=== PATIENT | female | born 1955 | race African-American/Black ===

== ENCOUNTER 2021-11-05 12:33 | Outpatient (REF) | payer OTHER, SELFPAY ==
--- NOTE | ~2021-11-05 | XR_ITS ---
EXAMINATION: BILATERAL KNEE. CLINICAL INFORMATION: Pain. COMPARISON: None TECHNIQUE: 2 views each knee, weightbearing. FINDINGS: LEFT KNEE: There is loss of tricompartment joint space with moderate periarticular spurring. No fracture or dislocation. No joint effusion seen are limited due to patient's body habitus.. There is a small bone fragment adjacent to the medial tibial plateau question fracture fragment of indeterminate age or loose body. RIGHT KNEE: There is severe loss of tricompartment joint space with moderate periarticular spurring. No joint effusion seen however limited due to patient's body habitus. There is a small bone fragment lateral to the femoral condyle question loose bodies versus old fracture. XR/XR knee LT 2V IMPRESSION: Severe degenerative arthritic changes bilateral knee joints as described above with periapical spurring but no abnormal suprapatellar joint effusion. Suspect bilateral knee with loose bodies or old fracture fragments.
--- NOTE | ~2021-11-05 | XR_ITS ---
EXAMINATION: BILATERAL KNEE. CLINICAL INFORMATION: Pain. COMPARISON: None TECHNIQUE: 2 views each knee, weightbearing. FINDINGS: LEFT KNEE: There is loss of tricompartment joint space with moderate periarticular spurring. No fracture or dislocation. No joint effusion seen are limited due to patient's body habitus.. There is a small bone fragment adjacent to the medial tibial plateau question fracture fragment of indeterminate age or loose body. RIGHT KNEE: There is severe loss of tricompartment joint space with moderate periarticular spurring. No joint effusion seen however limited due to patient's body habitus. There is a small bone fragment lateral to the femoral condyle question loose bodies versus old fracture. XR/XR knee RT 2V IMPRESSION: Severe degenerative arthritic changes bilateral knee joints as described above with periapical spurring but no abnormal suprapatellar joint effusion. Suspect bilateral knee with loose bodies or old fracture fragments.
[2021-11-05 13:12] LABS: Hematocrit 38.7 % (37.0-47.0); Hemoglobin 11.9 g/dl (12.0-16.0); Mean Corpuscular HGB Conc 30.7 g/dl (31.0-35.0); Mean Corpuscular Hemoglobin 28.6 pg (27.0-33.0); Mean Platelet Volume 11.7 fL (9.4-12.3); Platelet Count 183 X10*3/uL (160-400); Red Blood Count 4.16 X10*6/uL (4.20-5.50); Red Cell Distribution Width 12.3 % (11.0-16.0); White Blood Count 5.2 X10*3/uL (4.8-10.8)
[2021-11-05 13:44] LABS: Alanine Aminotransferase 13 U/L (0-31); Albumin Level 3.8 g/dL (3.5-5.0); Alkaline Phosphatase 51 U/L (39-117); Anion Gap 9 (12-20); Aspartate Amino Transferase 16 U/L (5-31); Bilirubin Total 0.7 mg/dL (0.0-1.0); Blood Urea Nitrogen 12 mg/dL (9-16); Calcium 9.4 mg/dL (8.4-10.2); Carbon Dioxide 31 mmol/L (22-29); Chloride 105 mmol/L (96-108); Estimated Glomerular Filt Rate > 60; Glucose Random 92 mg/dL (60-115); Potassium 4.2 mmol/L (3.3-5.1); Sodium 141 mmol/L (135-145); Total Protein 7.2 g/dL (6.5-8.0)
[2021-11-05 13:53] LABS: Appearance Urine CLEAR; Color Urine YELLOW; Glucose Urine UA NEG (NEG); Leukocyte Esterase Urine NEG (NEG); Nitrite Urine NEG (NEG); Urine Blood NEG (NEG); Urine Ketones NEG (NEG); Urine Protein NEG (NEG-TRACE)
== END 2021-11-05 12:34 | disposition home or self-care (01) ==
LOC: HO.XRAY 12:33
PROVIDERS: PCP Internal Medicine; Visit Provider Nurse Practitioner Family
DX: R10.2 Pelvic and perineal pain (principal); R10.30 Lower abdominal pain, unspecified; I10 Essential (primary) hypertension; G89.29 Other chronic pain; M25.561 Pain in right knee; M25.562 Pain in left knee
CPT/HCPCS: 36415; 73560; 80053; 81003; 85027

== ENCOUNTER 2021-11-30 13:45 | Outpatient (REF) | payer OTHER, SELFPAY ==
--- NOTE | ~2021-11-30 | US_ITS ---
EXAMINATION: US ABDOMEN COMPLETE CLINICAL INFORMATION: Pelvic and perineal pain, left lower quadrant pain. COMPARISON: None TECHNIQUE: Real-time imaging of the abdominal viscera. FINDINGS: PANCREAS: Normal. ABDOMINAL AORTA: The proximal, mid, and distal segments are normal in caliber. INFERIOR VENA CAVA: Visualized portions are normal. LIVER: Normal. The liver is normal in size. The liver contour is normal. Parenchymal echogenicity is normal. No focal hepatic lesion. There is no intrahepatic biliary duct dilatation seen. GALLBLADDER: Normal. The gallbladder is physiologically distended without evidence of stones, sludge, polyps, wall thickening or pericholecystic fluid. COMMON BILE DUCT: Normal in caliber measuring 0.23 cm in diameter. RIGHT KIDNEY: There is right renal cortical thinning. No stone or hydronephrosis. The kidney measures 13.6 cm in maximum dimension. LEFT KIDNEY: There is left renal cortical thinning. There is question of mild left hydronephrosis. The kidney measures 12.3 cm in maximum dimension. SPLEEN: Normal. The spleen measures 9.7 cm in maximum dimension. FREE FLUID: None. There are 2 adjacent complex cysts or fluid collections just deep to the the umbilicus. These measure 3.5 x 1.8 x 4.1 cm and 1.3 x 0.7 x 1.1 cm. The larger lesion demonstrates area of wall thickening and question mural nodule without vascularity. Possible urachal cyst or urachal remnant should be considered. Differential would include postoperative fluid collection if the patient had surgery in this region. Abscess cannot be excluded as well. Follow-up CT of the abdomen and pelvis for better evaluation is recommended. US/US abdomen complete IMPRESSION: Bilateral renal cortical thinning. Question mild left hydronephrosis. 2 complex cysts just deep to the umbilicus. Possible urachal remnant/ cyst should be considered. Differential would include postoperative fluid collection if the patient has had surgery in this region or abscess. Follow-up CT of the abdomen and pelvis with IV contrast recommended. Findings will be communicated by the [place] work flow computer systems integrator.
--- NOTE | ~2021-11-30 | US_ITS ---
EXAMINATION: US PELVIS CLINICAL INFORMATION: Pelvic and perineal pain COMPARISON: None TECHNIQUE: Ultrasound of the pelvis is performed using both transabdominal and transvaginal transducers along with Doppler. Transvaginal imaging is performed due to inadequate visualization transabdominally. FINDINGS: The uterus is anteverted. Uterus appears elongated and is difficult to visualize. Uterus measures 10.2 x 6.4 x 7.1 cm in dimension. There are 2 echogenic lesions suggestive of calcified fibroids measuring 2 x 1.9 x 2 cm in the posterior uterine body and 2 x 1.4 x 3 cm in the anterior uterine body. The endometrium is not well visualized. The cervix appears unremarkable. The ovaries are seen transabdominally only. The ovaries appear normal. The right ovary measures 2 x 1.9 x 2 cm. Left ovary measures 3.5 x 1.7 x 2.7 cm. There is no fluid in the pelvis. US/US pelvic and transvaginal IMPRESSION: Limited exam. 2. 2 cm calcified uterine lesions probably representing fibroids. Endometrium not well visualized. Normal-appearing ovaries.
== END 2021-11-30 13:46 | disposition home or self-care (01) ==
LOC: HO.HMGCX 13:45
PROVIDERS: PCP Internal Medicine; Visit Provider Nurse Practitioner Family
DX: R10.2 Pelvic and perineal pain (principal); R10.30 Lower abdominal pain, unspecified
CPT/HCPCS: 76700; 76830; 76856

== ENCOUNTER → 2021-12-31 14:40 | Outpatient (BNVA) | payer OTHER, SELFPAY | PROVIDERS: PCP Internal Medicine; Visit Provider Physician Assistant | DX: M17.0 Bilateral primary osteoarthritis of knee (principal) | CPT/HCPCS: 20610; 99202; J1040 ==

== ENCOUNTER → 2022-01-19 11:02 | Outpatient (BNVA) | payer OTHER, SELFPAY | PROVIDERS: PCP Internal Medicine; Visit Provider Physician Assistant | DX: Z01.818 Encounter for other preprocedural examination (principal); Z80.0 Family history of malignant neoplasm of digestive organs | CPT/HCPCS: 99202 ==

== ENCOUNTER 2022-01-25 13:17 | Outpatient (REF) | payer OTHER, SELFPAY | END 2022-01-25 13:18 | disposition home or self-care (01) | LOC: HO.LAB 13:17 | PROVIDERS: Visit Provider Obstetrics & Gynecology | DX: N95.0 Postmenopausal bleeding (principal); R10.2 Pelvic and perineal pain; D21.9 Benign neoplasm of connective and other soft tissue, unspecified; I10 Essential (primary) hypertension; E66.01 Morbid (severe) obesity due to excess calories; Z68.43 Body mass index [BMI] 50.0-59.9, adult | CPT/HCPCS: 58100; 87086; 88305; 99212 ==

== ENCOUNTER 2022-02-17 11:07 | Outpatient (REF) | payer OTHER, SELFPAY ==
--- NOTE | ~2022-02-17 | US_ITS ---
EXAMINATION: US PELVIS CLINICAL INFORMATION: Fibroids COMPARISON: None TECHNIQUE: Ultrasound of the pelvis is performed using both transabdominal and transvaginal transducers along with Doppler. Transvaginal imaging is performed due to inadequate visualization transabdominally. FINDINGS: Exam is limited due to patient body habitus. The uterus is anteverted and measures 9 x 6.4 x 7.5 cm in dimension. The endometrium appears thickened for a postmenopausal patient measuring 1.1 cm. There are 2 focal uterine lesions suggestive of fibroids measuring 2.4 x 2.1 x 2.4 cm in the posterior uterine body and 2.9 x 2.8 x 3 cm in the anterior uterine body. Right ovary is normal and measures 2 x 2 x 2 cm. The left ovary is not seen. There is a small amount of fluid in the pelvis. There is a complex fluid collection or cyst just deep to the umbilicus. This measures 2 x 3 x 3 cm. Appearance is questionable for a urachal cyst. US/US pelvic and transvaginal IMPRESSION: Limited exam. Thickened endometrium for a postmenopausal patient measuring 1.1 cm. 2 uterine fibroids. Normal-appearing right ovary. Left ovary not seen. Complex cyst or fluid collection just deep to the umbilicus questionable for a urachal lesion. This could be better assessed with CT or MR.
== END 2022-02-17 11:08 | disposition home or self-care (01) ==
LOC: HO.US 11:07
PROVIDERS: Visit Provider Obstetrics & Gynecology
DX: D21.9 Benign neoplasm of connective and other soft tissue, unspecified (principal)
CPT/HCPCS: 76830; 76856

== ENCOUNTER → 2022-03-03 10:55 | Outpatient (BNVA) | payer OTHER, SELFPAY | PROVIDERS: Visit Provider Obstetrics & Gynecology | DX: R31.29 Other microscopic hematuria (principal); N95.0 Postmenopausal bleeding; D21.9 Benign neoplasm of connective and other soft tissue, unspecified | CPT/HCPCS: 99212 ==

== ENCOUNTER → 2022-04-23 11:18 | Outpatient (BNVA) | payer OTHER, SELFPAY | PROVIDERS: PCP Internal Medicine; Visit Provider Surgery | DX: R31.29 Other microscopic hematuria (principal); D21.9 Benign neoplasm of connective and other soft tissue, unspecified; I10 Essential (primary) hypertension; E66.01 Morbid (severe) obesity due to excess calories; Z68.43 Body mass index [BMI] 50.0-59.9, adult; Q64.4 Malformation of urachus; Z99.89 Dependence on other enabling machines and devices | CPT/HCPCS: 99202 ==

== ENCOUNTER 2022-04-29 11:21 | Outpatient (REF) | payer OTHER, SELFPAY ==
[2022-04-29 16:50] LABS: Urine Cytology See Pathology rpt
== END 2022-04-29 11:22 | disposition home or self-care (01) ==
LOC: HO.LAB 11:21
DX: R31.29 Other microscopic hematuria (principal)
CPT/HCPCS: 88112; 99202

== ENCOUNTER → 2022-05-18 13:43 | Outpatient (BNVA) | payer OTHER, SELFPAY | PROVIDERS: PCP Internal Medicine | DX: R31.29 Other microscopic hematuria (principal) | CPT/HCPCS: Q3014 ==

== ENCOUNTER → 2022-05-24 09:49 | Outpatient (BNVA) | payer OTHER, SELFPAY | PROVIDERS: PCP Internal Medicine; Visit Provider Physician Assistant | DX: M17.0 Bilateral primary osteoarthritis of knee (principal) | CPT/HCPCS: 20610; 99212; J1040 ==

== ENCOUNTER 2022-07-23 10:57 | Outpatient (REF) | payer OTHER, SELFPAY ==
[2022-07-23 11:34] LABS: MANUAL DIFF FLAG NO
[2022-07-23 12:27] LABS: Eosinophils Absolute Auto 0.1 X10*3/uL (0.0-0.4); Hematocrit 37.8 % (37.0-47.0); Hemoglobin 11.9 g/dl (12.0-16.0); Imm Gran Abs Auto 0.01 X10*3/uL (0.00-0.03); Imm Gran Pct Auto 0.2 % (0.0-0.4); Lymphocytes Absolute Auto 1.4 X10*3/uL (1.2-4.9); Lymphocytes Percent Auto 33.7 % (20-40); Mean Corpuscular HGB Conc 31.5 g/dl (31.0-35.0); Mean Corpuscular Hemoglobin 28.9 pg (27.0-33.0); Mean Corpuscular Volume 91.7 fL (80.0-98.0); Mean Platelet Volume 11.3 fL (9.4-12.3); Monocytes Absolute Auto 0.4 X10*3/uL (0.1-1.2); Monocytes Percent Auto 10.4 % (2-11); Neutrophils Absolute Auto 2.1 x10*3/uL (2.0-8.3); Neutrophils Percent Auto 52.7 % (45-73); Platelet Count 257 X10*3/uL (160-400); Red Blood Count 4.12 X10*6/uL (4.20-5.50); Red Cell Distribution Width 11.7 % (11.0-16.0)
[2022-07-23 12:51] LABS: Alanine Aminotransferase 9 U/L (0-31); Alkaline Phosphatase 57 U/L (39-117); Anion Gap 15 (12-20); Aspartate Amino Transferase 15 U/L (5-31); Bilirubin Total 0.6 mg/dL (0.0-1.0); Blood Urea Nitrogen 14 mg/dL (9-16); Calcium 9.5 mg/dL (8.4-10.2); Carbon Dioxide 24 mmol/L (22-29); Chloride 105 mmol/L (96-108); Cholesterol 247 mg/dL; Estimated Glomerular Filt Rate > 60; Glucose Fasting 83 mg/dL (60-99); HDL Cholesterol 52 mg/dL; LDL Cholesterol Calculated 183 mg/dl; Potassium 4.2 mmol/L (3.3-5.1); Sodium 140 mmol/L (135-145); Total Protein 7.3 g/dL (6.5-8.0); Triglycerides 64 mg/dL
[2022-07-23 13:04] LABS: Thyroid Stimulating Hormone 2.86 uIU/mL (0.32-4.0)
== END 2022-07-23 10:58 | disposition home or self-care (01) ==
LOC: HO.LAB 10:57
PROVIDERS: PCP Internal Medicine; Visit Provider Internal Medicine
DX: I10 Essential (primary) hypertension (principal); E66.01 Morbid (severe) obesity due to excess calories
CPT/HCPCS: 36415; 80053; 80061; 84443; 85025

== ENCOUNTER 2022-07-26 09:07 | Outpatient (REF) | payer OTHER, SELFPAY ==
--- NOTE | ~2022-07-26 | CT_ITS ---
EXAMINATION: CT ABDOMEN AND PELVIS WITH CONTRAST CLINICAL INFORMATION: Malformation of urachus COMPARISON: None TECHNIQUE: Multidetector volumetric images were obtained from the superior aspect of the liver through the pubic symphysis following administration 85 mL of Omnipaque 350 intravenous contrast. Sagittal and coronal reformatted images were obtained on the technologist's workstation. Oral contrast: No This CT examination was performed using dose optimization techniques as appropriate, variously including the following: *Automated exposure control *Adjustment of mA and/or kV according to patient size (this includes techniques or standardized protocols for targeted exams where dose is matched to indication/reason for exam; i.e. extremities or head) *Use of iterative reconstruction technique DLP: 689 mGy-cm FINDINGS: LUNG BASES: The visualized lung bases are unremarkable. LIVER, GALLBLADDER, AND BILIARY TREE: The liver is normal in size, shape, and attenuation. No focal hepatic lesion or biliary ductal dilatation is present. The gallbladder is unremarkable with no evidence of radiopaque gallstones, gallbladder wall thickening, or obvious pericholecystic inflammatory changes. PANCREAS: Unremarkable. SPLEEN: Unremarkable. ADRENAL GLANDS: Unremarkable. KIDNEYS AND URETERS: The kidneys are normal in size, shape, and attenuation. No hydronephrosis, hydroureter, or calculi seen. No perinephric stranding. BLADDER: Unremarkable. GASTROINTESTINAL TRACT: The small and large bowel are unremarkable. The appendix is unremarkable. ABDOMINAL WALL: There is heterogeneous fat and fluid collection in part umbilical hernia measured 7.8 x 7.2 x 7.1 cm. There is no evidence of urachal sinus, cyst or masses. LYMPH NODES: Normal. VASCULAR: Unremarkable. PELVIC VISCERA: Leiomyomatous in the uterus visualized partially calcified. OSSEOUS STRUCTURES: There are degenerative changes in lower thoracic spine and grade 1 anterior listhesis of L4 over L5. CT/CT abdomen pelvis w IV con IMPRESSION: Large fat and fluid containing paraumbilical hernia. Leiomyomatous of uterus Fleischner guidelines were followed.
[2022-07-26] MEDS: iohexoL 350 MG/ML 100 ML INFUS..BTL IV (12:03)
[2022-07-26] MEDS: Barium Sulfate Oral (Vanilla) 450 ML ORAL.SUSP 900 ML PO (12:04)
== END 2022-07-26 09:08 | disposition home or self-care (01) ==
LOC: HO.CT 09:07
PROVIDERS: Visit Provider Internal Medicine
DX: Q64.4 Malformation of urachus (principal)
CPT/HCPCS: 74177; Q9967

== ENCOUNTER → 2022-08-02 13:22 | Outpatient (BNVA) | payer OTHER, SELFPAY | PROVIDERS: PCP Internal Medicine; Referring Provider Internal Medicine; Visit Provider Surgery | DX: K42.9 Umbilical hernia without obstruction or gangrene (principal); E66.01 Morbid (severe) obesity due to excess calories; I10 Essential (primary) hypertension; M25.561 Pain in right knee; M25.562 Pain in left knee; G89.29 Other chronic pain; Z99.89 Dependence on other enabling machines and devices | CPT/HCPCS: 99212 ==

== ENCOUNTER → 2022-08-10 11:02 | Outpatient (BNVA) | payer OTHER, SELFPAY | PROVIDERS: PCP Internal Medicine; Referring Provider Surgery; Visit Provider Dietitian, Registered | DX: E66.9 Obesity, unspecified (principal) | CPT/HCPCS: 97802 ==

== ENCOUNTER 2022-08-11 11:57 | Outpatient (REF) | payer OTHER, SELFPAY ==
--- NOTE | ~2022-08-11 | MM_ITS ---
EXAMINATION: MM SCREENING DIGITAL BREAST TOMOSYNTHESIS, BILATERAL CLINICAL INFORMATION: Screening. Asymptomatic. Age 66. No prior breast imaging. No known family history breast cancer. COMPARISON: None (current study represents initial baseline exam). TECHNIQUE: Digital breast tomosynthesis is performed in both the craniocaudal and mediolateral oblique views along with computer-aided detection (CAD). Synthesized 2D images are generated from the tomosynthesis. Additional bilateral MLO views are provided. FINDINGS: There are scattered areas of fibroglandular density (ACR BI-RADS breast composition Category b). There is fine fibronodular parenchymal pattern. No significant mass or architectural abnormality. There are scattered bilateral round and some rim and ductal secretory calcifications. The axilla and skin contours are unremarkable. Probable benign loosely grouped calcifications mid central left breast are present. Probable benign loosely grouped calcifications are also present mid central right breast. As this represents initial baseline exam, patient will be recalled to fully characterize with additional magnification views. MM/MM tomosynthesis screening BI IMPRESSION: -Loosely grouped calcifications mid central left breast and mid central right breast. ASSESSMENT: BI-RADS 0: Incomplete - Need Additional Imaging Evaluation RECOMMENDATION: 1. Additional views of the breasts (bilateral magnification CC; bilateral magnification ML). 2. Radiology department staff will contact the patient for additional imaging. This patient's information was entered into a reminder system with a target due date for their next mammogram.
[2022-08-11 12:49] LABS: MANUAL DIFF FLAG NO
[2022-08-11 13:13] LABS: Basophils Percent Auto 0.8 % (0-2); Eosinophils Absolute Auto 0.1 X10*3/uL (0.0-0.4); Eosinophils Percent Auto 1.4 % (0-4); Hematocrit 39.6 % (37.0-47.0); Hemoglobin 12.2 g/dl (12.0-16.0); Lymphocytes Percent Auto 27.8 % (20-40); Mean Corpuscular HGB Conc 30.8 g/dl (31.0-35.0); Mean Corpuscular Hemoglobin 28.6 pg (27.0-33.0); Mean Platelet Volume 10.9 fL (9.4-12.3); Monocytes Absolute Auto 0.3 X10*3/uL (0.1-1.2); Monocytes Percent Auto 8.6 % (2-11); Neutrophils Absolute Auto 2.2 x10*3/uL (2.0-8.3); Neutrophils Percent Auto 61.4 % (45-73); Platelet Count 251 X10*3/uL (160-400); Red Blood Count 4.26 X10*6/uL (4.20-5.50); Red Cell Distribution Width 11.6 % (11.0-16.0); White Blood Count 3.6 X10*3/uL (4.8-10.8)
[2022-08-11 13:21] LABS: Estimated Average Glucose 80 mg/dL; Hemoglobin A1c % 4.4 %
[2022-08-11 13:35] LABS: Alanine Aminotransferase 12 U/L (0-31); Albumin Level 4.2 g/dL (3.5-5.0); Alkaline Phosphatase 58 U/L (39-117); Anion Gap 15 (12-20); Aspartate Amino Transferase 14 U/L (5-31); Bilirubin Total 0.7 mg/dL (0.0-1.0); Blood Urea Nitrogen 12 mg/dL (9-16); Calcium 9.9 mg/dL (8.4-10.2); Carbon Dioxide 29 mmol/L (22-29); Chloride 102 mmol/L (96-108); Estimated Glomerular Filt Rate > 60; Glucose Random 103 mg/dL (60-115); Potassium 4.7 mmol/L (3.3-5.1); Sodium 141 mmol/L (135-145); Total Protein 7.7 g/dL (6.5-8.0)
== END 2022-08-11 11:58 | disposition home or self-care (01) ==
LOC: HO.MAMMO 11:57
PROVIDERS: Absent Provider Surgery; PCP Internal Medicine; Visit Provider Internal Medicine
DX: K42.9 Umbilical hernia without obstruction or gangrene (principal); E66.01 Morbid (severe) obesity due to excess calories; I10 Essential (primary) hypertension; M25.561 Pain in right knee; M25.562 Pain in left knee; G89.29 Other chronic pain; Z12.31 Encounter for screening mammogram for malignant neoplasm of breast; Z99.89 Dependence on other enabling machines and devices; L08.82 Omphalitis not of newborn
CPT/HCPCS: 36415; 77063; 77067; 80053; 83036; 84134; 85025

== ENCOUNTER → 2022-08-16 10:41 | Outpatient (BNVA) | payer OTHER, SELFPAY | PROVIDERS: PCP Internal Medicine; Referring Provider Internal Medicine; Visit Provider Surgery | DX: K42.9 Umbilical hernia without obstruction or gangrene (principal); E66.01 Morbid (severe) obesity due to excess calories; I10 Essential (primary) hypertension; M19.90 Unspecified osteoarthritis, unspecified site; M25.561 Pain in right knee; M25.562 Pain in left knee; G89.29 Other chronic pain | CPT/HCPCS: 99212 ==

== ENCOUNTER 2022-08-25 13:16 | Outpatient (REF) | payer OTHER, SELFPAY ==
--- NOTE | ~2022-08-25 | MM_ITS ---
EXAMINATION: MM DIAGNOSTIC DIGITAL MAMMOGRAPHY, BILATERAL CLINICAL INFORMATION: Recall from baseline for bilateral loosely grouped calcifications mid central left breast and mid central right breast. COMPARISON: Mammography: 08/11/2022 (baseline, BI-RADS 0) TECHNIQUE: Digital mammography is performed in the following views: Bilateral magnification CC, bilateral magnification ML. FINDINGS: There are scattered areas of fibroglandular density (ACR BI-RADS breast composition Category b). The additional magnification views show similar appearing probable benign loosely grouped calcifications in the mid central right breast and mid central left breast. Chronicity is unknown. Management plan is for short interval bilateral follow-up mammography and 6 months to include magnification views. Results are discussed with the patient at time of visit. MM/MM added views BI IMPRESSION: Additional views show probable benign loosely grouped calcifications in both breasts. ASSESSMENT: BI-RADS 3: Probably Benign RECOMMENDATION: Diagnostic bilateral mammography in 6 months. This patient's information was entered into a reminder system with a target due date for their next mammogram.
== END 2022-08-25 13:17 | disposition home or self-care (01) ==
LOC: HO.MAMMO 13:16
PROVIDERS: PCP Internal Medicine; Visit Provider Internal Medicine
DX: R92.1 Mammographic calcification found on diagnostic imaging of breast (principal)
CPT/HCPCS: 77066

== ENCOUNTER 2022-08-30 10:45 | Outpatient (REF) | payer OTHER, SELFPAY ==
--- NOTE | ~2022-08-30 | US_ITS ---
EXAMINATION: US RETROPERITONEAL LIMITED (RENAL ONLY) CLINICAL INFORMATION: Microscopic hematuria. COMPARISON: CT abdomen pelvis 07/26/2022. Ultrasound abdomen complete 11/30/2021. TECHNIQUE: Real-time imaging of the kidneys. FINDINGS: Limited examination due to patient body habitus. RIGHT KIDNEY: 11.5 x 4.9 x 5.9 cm (SAG x AP x TRV). The kidney is normal in size, contour, and echogenicity. Renal cortical thickness is normal. No calculi or focal parenchymal lesions. No hydronephrosis. LEFT KIDNEY: 12.0 x 5.9 x 5.9 cm (SAG x AP x TRV). 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 The kidney is otherwise normal in size, contour, and echogenicity. Renal cortical thickness is normal. No renal calculi or hydronephrosis. There is a 1.4 cm simple cyst in the lower pole, for which no imaging follow-up is recommended. US/US renal BI IMPRESSION: Limited examination due to patient body habitus without discrete acute abnormality. If deemed appropriate, correlation with cross-sectional imaging CT or MR could be obtained.
== END 2022-08-30 10:46 | disposition home or self-care (01) ==
LOC: HO.US 10:45
DX: R31.29 Other microscopic hematuria (principal)
CPT/HCPCS: 76775

== ENCOUNTER → 2022-09-06 11:43 | Outpatient (BNVA) | payer OTHER, SELFPAY | PROVIDERS: PCP Internal Medicine; Visit Provider Dietitian, Registered | DX: E66.01 Morbid (severe) obesity due to excess calories (principal) | CPT/HCPCS: 97803 ==

== ENCOUNTER → 2022-09-29 09:15 | Outpatient (BNVA) | payer OTHER, SELFPAY | PROVIDERS: PCP Internal Medicine; Visit Provider Urology | DX: R31.29 Other microscopic hematuria (principal) | CPT/HCPCS: Q3014 ==

== ENCOUNTER → 2022-10-12 13:47 | Outpatient (BNVA) | payer OTHER, SELFPAY | PROVIDERS: PCP Internal Medicine; Visit Provider Internal Medicine | DX: Z01.810 Encounter for preprocedural cardiovascular examination (principal); E66.01 Morbid (severe) obesity due to excess calories; Z68.43 Body mass index [BMI] 50.0-59.9, adult; I10 Essential (primary) hypertension; E78.00 Pure hypercholesterolemia, unspecified | CPT/HCPCS: 93005; 99202 ==

== ENCOUNTER → 2022-11-26 10:17 | Outpatient (REF) | payer OTHER, SELFPAY ==
--- NOTE | ~2022-11-26 | NM_ITS ---
Myocardial perfusion study Indication: Preoperative cardiovascular stratification Technique: The patient was brought in for a Lexiscan perfusion study on 11/26/2022. Patient performed low-level exercise and was injected 0.4 mg of Lexiscan intravenously. Within a minute of injection, 40 mCi of sestamibi was given intravenously. Images were obtained using the SPECT gamma camera interlaced with the gating device. Images were obtained in supine position. Resting perfusion study was performed on 12/10/2022. Patient was administered 40 mCi of sestamibi intravenously at rest. Images were then obtained in supine position. Images obtained with and without CT attenuation. Total DLP 151 mGy-cm. Images were processed with the software and compared side to side in short axis, horizontal long axis and vertical long axis views. Findings: The stress perfusion study showed non attenuated images show mildly to moderately reduced uptake in the lateral wall of the LV myocardium. Remainder of the LV myocardium is normally perfused. Attenuation corrected images show mildly reduced uptake in the apex of the LV myocardium.. The gated study shows normal LV systolic function with calculated LVEF of 69%. LV cavity is normal in size. The gated study shows normal systolic wall thickening and contraction of segments. Resting study shows non attenuated images show normal uptake in the lateral wall of the LV myocardium consistent with reversible defect. Attenuation corrected images show no changes study compared to stress perfusion study. Gating at rest reveals normal systolic wall motion with ejection fraction at 67%. The findings are consistent with mild to moderate intensity moderate size reversible defect in the lateral wall in non attenuated images suggestive of ischemia. However this finding is not seen on attenuation corrected images could represent over correction. NM/NM cardiolite stress test Impression: 1. Myocardial perfusion imaging study shows possible mild to moderate intensity lateral wall ischemia 2. Gated LVEF is 69% 3. Transient ischemic dilatation not present EKG is nondiagnostic for ischemia
--- NOTE | 2022-11-26 10:20 | CA_ITS ---
Acquisition Time: 2022-11-26 10:41:42 Total Exercise Time: 00:02:00 Test Indications: HTN, PREOP Medications: SEE H Protocol: LEXISCAN Max HR: 102 BPM 67% of Pred: 152 BPM Max BP: 134/080 mmHG Max Work Load: 1.0 METS Pharmacological stress test using Lexiscan while sitting.. Pt tolerated well, denies any SOB or CP. EKG without arrhythbmias, non-diagnostic for ischemia. Nuclear images to follow. Normotensive response to test. Test reviewed with Dr. Kim. Referred By: Jose A Urena Overread By: Kylah Love NP
== END ==
LOC: HO.CARD 10:17
PROVIDERS: Visit Provider Internal Medicine
DX: Z01.810 Encounter for preprocedural cardiovascular examination (principal)
CPT/HCPCS: 78452; 93017; A9500; J0280; J2785

== ENCOUNTER → 2022-12-30 11:11 | Outpatient (BNVA) | payer OTHER, SELFPAY | PROVIDERS: PCP Internal Medicine; Visit Provider Nurse Practitioner Family | DX: R06.83 Snoring (principal); R40.0 Somnolence; I10 Essential (primary) hypertension; E66.01 Morbid (severe) obesity due to excess calories | CPT/HCPCS: 99202 ==

== ENCOUNTER 2023-01-13 15:30 | Outpatient (REF) | payer OTHER, SELFPAY | END 2023-01-13 15:31 | disposition home or self-care (01) | LOC: HO.LAB 15:30 | PROVIDERS: PCP Internal Medicine; Visit Provider Urology | DX: R31.29 Other microscopic hematuria (principal); N39.0 Urinary tract infection, site not specified; R32 Unspecified urinary incontinence | CPT/HCPCS: 87086; 87088; 87186; 99212 ==

== ENCOUNTER → 2023-01-26 11:07 | Outpatient (REF) | payer OTHER, SELFPAY | LOC: HO.SL 11:07 | PROVIDERS: PCP Internal Medicine; Visit Provider Nurse Practitioner Family | DX: G47.33 Obstructive sleep apnea (adult) (pediatric) (principal); R40.0 Somnolence; E66.01 Morbid (severe) obesity due to excess calories; I10 Essential (primary) hypertension; R06.83 Snoring | CPT/HCPCS: 95806 ==

== ENCOUNTER → 2023-02-07 11:06 | Outpatient (REF) | payer OTHER, SELFPAY ==
--- NOTE | 2023-02-07 11:09 | CA_ITS ---
Transthoracic Echocardiogram Patient (Last, First, Middle): Ellen Toribio, Gender: Female Date of : 1955 Age: 67 Procedure Date: 02/07/2023 Procedure Type: Transthoracic Echocardiogram Location: OP Height: 152.4 cm Weight: 127.01 kg BSA: 2.15 m2 Heart Rate: 74 bpm BP: 148 / 84 mmHg Programmer Analyst: SB Referring MD: Jose A Urena MD Symptoms: Z01.810 - Encounter for preprocedural cardiovascular examination Study Quality: Adequate ECG Rhythm: Sinus Conclusions: - The left ventricular systolic function is hyperdynamic. The visually estimated ejection fraction is >70%. - There is mild calcification of the aortic valve. - There is mild mitral annular calcification. - Mild pulmonary hypertension is present. Findings Left Ventricle Normal left ventricular cavity size. There is normal left ventricular wall thickness. The left ventricular systolic function is hyperdynamic. The visually estimated ejection fraction is >70%. There is no evidence of regional wall motion abnormalities. Evidence suggests grade I (mild) diastolic dysfunction. LV peak GLS -19.5%. Right Ventricle Normal right ventricular cavity size and systolic function. Atria The left atrium is mildly dilated. The right atrium is normal in size. Aortic Valve There is a normal trileaflet aortic valve. There is mild calcification of the aortic valve. There is no aortic valve stenosis. There is no aortic valve regurgitation. Mitral Valve There is mild mitral annular calcification. There is no mitral valve regurgitation. There is no mitral valve stenosis. Pulmonic Valve The pulmonic valve is likely normal. Tricuspid Valve There is mild tricuspid valve regurgitation. Mild pulmonary hypertension is present. Great Vessels The asc aorta is normal in size. Venous The inferior vena cava is mildly dilated and collapses less than 50% with inspiration. Pericardium/Pleural There is no evidence of pericardial effusion. Prior Study Comparison No prior study available for comparison. Measurements 2D Linear Measurements IVSd: 0.64 0.6-0.9/0.6-1.0 cm LVIDd: 5.08 3.9-5.3/4.2-5.9 cm LVIDd Index: 2.36 2.4-3.2/2.2-3.1 cm/m2 LVIDs: 3.28 2.0-3.6 cm LVPWd: 0.73 0.7-1.1 cm LA Diam: 4.40 2.7-3.8/3.0-4.0 cm LAIDs Index: 2.05 1.5-2.3 cm/m2 LV Mass: 142.08 67-162/88-224 g LV Mass Index: 66.08 43-95/49-115 g/m2 LVOT Diam: 2.10 3.0+(-)1.3 cm 2D Systolic Function EF 4C: 73.50 >55% EF 2C: 71.10 >55% EF BiP: 72.80 >55% Mitral Valve MV Pk E: 1.22 MV PK A: 1.20 MV Decel Time: 201.00 E/A: 1.00 E'Lateral: 9.14 E'Medial: 7.29 E/E' Med: 16.70 E/E' Lat: 13.30 PHT: 59.00 MVA PHT: 3.73 Decel Cassia: 6.05 Aortic Valve AoV Pk Tee: 1.67 AoV Pk Grad: 11.00 FEROZ: 2.87 LVOT LVOT Pk Tee: 1.35 LVOT Mn Tee: 0.91 LVOT VTI: 0.31 LVOT Pk Grad: 7.00 LVOT Mn Grad: 4.00 LVOT Diam: 2.10 LVOT Area: 3.46 Diastolic Function MV Pk E: 1.22 MV Pk A: 1.20 E/A: 1.00 E'Medial: 7.29 E/E' Med: 16.70 E' Laterial: 9.14 E/E' Lat: 13.30 Right Ventricle TAPSE (mm): 27.70 TVS' Tee: 14.40 Tricuspid Valve TR Pk Tee: 2.86 TR Pk Grad: 33.00 RA Press: 15.00 RVSP: 48.00 Great Vessels Aorta Sinus of Valsalva: 3.00 2.0-3.5 cm Ao Asc: 3.10 2.1-3.4 cm Pulmonary Valve PV Pk Tee: 1.20 Peak PV Grad: 6.00 Updated in Other Vendor System with Status of Final Jose A Urena MD electronically signed on 02/08/2023 11:53:35 AM with status of Final
== END ==
LOC: HO.CARD 11:06
PROVIDERS: PCP Internal Medicine; Visit Provider Internal Medicine
DX: R94.39 Abnormal result of other cardiovascular function study (principal); Z01.810 Encounter for preprocedural cardiovascular examination; I70.0 Atherosclerosis of aorta; I27.20 Pulmonary hypertension, unspecified; I34.81 Nonrheumatic mitral (valve) annulus calcification
CPT/HCPCS: 93306; 93356

== ENCOUNTER 2023-02-25 13:18 | Outpatient (REF) | payer OTHER, SELFPAY ==
--- NOTE | ~2023-02-25 | MM_ITS ---
EXAMINATION: MM DIAGNOSTIC DIGITAL BREAST TOMOSYNTHESIS, BILATERAL CLINICAL INFORMATION: Bilateral indeterminate calcifications. COMPARISON: Mammography: 08/25/2022 and 08/11/2022 TECHNIQUE: Digital breast tomosynthesis is performed in both the craniocaudal and mediolateral oblique views along with computer-aided detection (CAD). Synthesized 2D images are generated from the tomosynthesis. Spot magnification views of both breasts in craniocaudal and 90 degree mediolateral views as well as spot compression view of the left breast in mediolateral oblique projection. FINDINGS: There are scattered areas of fibroglandular density (ACR BI-RADS breast composition Category b). There is stable parenchymal pattern within the right breast. The calcifications seen bilaterally appear stable. There is question of circumscribed serpiginous area about the central aspect of the left breast for which spot compression views were performed which demonstrated this to have represented a combination of vessels and superimposed tissue. Results are provided to the patient at time of visit by the technologist. MM/MM tomosynthesis diagnostic BI IMPRESSION: There are no significant changes from prior study. Recommend 12 month bilateral diagnostic study with magnification views. ASSESSMENT: BI-RADS 3: Probably Benign RECOMMENDATION: Diagnostic mammography at time of next annual exam, due in 12 months. This patient's information was entered into a reminder system with a target due date for their next mammogram.
== END 2023-02-25 13:19 | disposition home or self-care (01) ==
LOC: HO.MAMMO 13:18
PROVIDERS: PCP Internal Medicine; Visit Provider Internal Medicine
DX: R92.1 Mammographic calcification found on diagnostic imaging of breast (principal)
CPT/HCPCS: 77062; 77066

== ENCOUNTER → 2023-03-04 11:04 | Outpatient (BNVA) | payer OTHER, SELFPAY | PROVIDERS: PCP Internal Medicine; Visit Provider Nurse Practitioner Family | DX: G47.33 Obstructive sleep apnea (adult) (pediatric) (principal) | CPT/HCPCS: 99212 ==

== ENCOUNTER → 2023-03-31 13:42 | Outpatient (BNVA) | payer OTHER, SELFPAY | PROVIDERS: PCP Internal Medicine; Referring Provider Internal Medicine; Visit Provider Nurse Practitioner Family | DX: Z01.810 Encounter for preprocedural cardiovascular examination (principal); R06.02 Shortness of breath; I10 Essential (primary) hypertension; R94.39 Abnormal result of other cardiovascular function study; E66.01 Morbid (severe) obesity due to excess calories; Z68.43 Body mass index [BMI] 50.0-59.9, adult | CPT/HCPCS: 99212 ==

== ENCOUNTER 2023-05-12 11:26 | Outpatient (REF) | payer OTHER, SELFPAY ==
[2023-05-12 14:48] LABS: Anion Gap 11 (12-20); Blood Urea Nitrogen 13 mg/dL (9-16); Calcium 9.9 mg/dL (8.4-10.2); Carbon Dioxide 28 mmol/L (22-29); Chloride 106 mmol/L (96-108); Estimated Glomerular Filt Rate > 60; Glucose Random 101 mg/dL (60-115); Potassium 4.1 mmol/L (3.3-5.1); Sodium 141 mmol/L (135-145)
== END 2023-05-12 11:27 | disposition home or self-care (01) ==
LOC: HO.LAB 11:26
PROVIDERS: PCP Internal Medicine; Visit Provider Nurse Practitioner Family
DX: R94.39 Abnormal result of other cardiovascular function study (principal)
CPT/HCPCS: 36415; 80048

== ENCOUNTER 2023-05-27 13:27 | Outpatient (AMB) | payer OTHER, SELFPAY ==
--- NOTE | 2023-05-27 13:39 | MHC.OFFVIS ---
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 She recently had a CTA of the coronary arteries and now presents for follow up. Today she reports she has been doing generally well. She does have issues with chronic knee arthritis and this affects her mobility. She prefers to stand during this visit and uses her walker for support. She has not been getting any concerning chest discomfort. She has some shortness of breath with exertion which is not new for her. She denies shortness of breath at rest, no PND, orthopnea or edema. She denies dizziness, presyncope, syncope, falls. Niece is present. Still in need of hernia repair surgery. [facility] Medical History Abdominal wall abscess Essential hypertension Microscopic hematuria Preoperative cardiovascular examination Screen for colon cancer Surgical History History of Family History Mother No problems noted. Father No problems noted. Social History Household Members: None Housing: House Alcohol intake: current Alcohol intake frequency: holidays/special occasions only Alcohol type: wine and hard liquor Patient Tobacco Use Status: Never used Tobacco e-Cigarette/Vaping Use: Never Used Second Hand Smoke Exposure: No service: No Current occupational status: retired Current occupation: Right Handed Cognitive needs: Yes Hearing needs: No Vision needs: No Review of Systems Const All systems reviewed & are unremarkable except as noted in HPI and below Eyes Reports blurry vision and Reports irritation ENT Denies dizziness Card Denies chest pain, Denies chest pain at rest, Denies chest pain with activity, Denies rapid heart rate, Denies pedal edema, Denies edema, Denies leg edema, Denies lightheadedness, Denies palpitations, Denies dyspnea, Reports dyspnea on exertion and Denies orthopnea Resp Denies cough, Denies dyspnea and Reports dyspnea on exertion GI Denies hematochezia and Denies change in stool character Musc Denies abnormal gait, Reports limited range of motion, Reports muscle cramps, Denies muscle weakness, Denies numbness, Denies radiating pain into limb, Denies stiffness and Denies tingling Neuro Denies abnormal gait, Denies dizziness, Denies numbness and Denies tingling Endo Denies palpitations Physical Exam Vital Signs: Last Vital Signs Pulse 92 05/27/23 13:40 BP 142/90 H 05/27/23 13:40 BMI result Body Mass Index 56.0 Assessment & Plan Assessment & Plan (1) Abnormal nuclear stress test: Code(s): R94.39 - Abnormal result of other cardiovascular function study Plan: Cardiac testing done as part of preop evaluation for hernia repair surgery. No known cardiac history. Cardiac risks of HTN, HLD, morbid obesity, sedentary. Echocardiogram done on 02/07/23 shows EF > 70%, mild calcification of AV. Nuclear stress test was done on 12/10/22 showing possible mild to moderate lateral ischemia, EF 69%. A CTA of coronary arteries done on 05/23/2023 showing left main normal, lad no plaque or stenosis, large vessel, left circumflex no significant plaque or stenosis, RCA no significant plaque or stenosis, RCA dominant. Reviewed results with her. She has no reports of chest discomfort. Pt has some sob with activity which is not new. She is mostly sedentary related to morbid obesity, bilateral knee arthritis. Continue ongoing cardiac risk factor modification including need for good blood pressure and cholesterol control. Her blood pressure is elevated today initially 142/90, recheck done by me 160/92. She tells me she has only been taking amlodipine every other day as it gives her blurred vision and eye irritation. She has been noticing this right along with amlodipine and it is worse on the 10 mg tablets. Will have her stop amlodipine and start atenolol 25 mg daily. It is difficult for her to come into the office. Will plan to call her in 1-2 weeks to check on home blood pressure readings and symptoms. She will continue to follow with her PCP. Cardiology follow-up as needed. (2) Essential hypertension: Code(s): I10 - Essential (primary) hypertension Plan: Mild elevation today and on recent. Adding atenolol and stopping amlodipine due to side effects. Atenolol dose can be further titrated upward as needed for ongoing elevated blood pressure readings. Continue lisinopril 40 mg daily. Labs followed by PCP. (3) Shortness of breath: Code(s): R06.02 - Shortness of breath Plan: With exertion (4) Morbid obesity due to excess calories: Code(s): E66.01 - Morbid (severe) obesity due to excess calories (5) Preoperative cardiovascular examination: Code(s): Z01.810 - Encounter for preprocedural cardiovascular examination Plan: Patient may proceed with hernia repair surgery with low cardiac risk. Call/consult Cardiology if needed Medications: New atenolol 25 mg PO DAILY 30 tabs 5RF Discontinued amlodipine Discontinued Reason: Doctor's Order 10 mg PO DAILY 90 tabs 1RF Coding Level of Care Code Est Pt Level 4 (50379) Diagnoses Abnormal nuclear stress test R94.39 Essential hypertension I10 Shortness of breath R06.02 Morbid obesity due to excess calories E66.01 Preoperative cardiovascular examination Z01.810 Time Spent (min) 24 Comment Chart review, documentation, interview, assessment
[2023-05-27 13:40] VITALS: BP 142/90; PULSE 92; BMI 56.0
== END 2023-05-27 14:20 | disposition home or self-care (01) ==
PROVIDERS: PCP Internal Medicine; Referring Provider Internal Medicine; Visit Provider Nurse Practitioner Family
DX: R94.39 Abnormal result of other cardiovascular function study (principal); I10 Essential (primary) hypertension; R06.02 Shortness of breath; E66.01 Morbid (severe) obesity due to excess calories; Z01.810 Encounter for preprocedural cardiovascular examination
CPT/HCPCS: 99214

== ENCOUNTER → 2023-05-27 13:27 | Outpatient (BNVA) | payer OTHER, SELFPAY | PROVIDERS: PCP Internal Medicine; Referring Provider Internal Medicine; Visit Provider Nurse Practitioner Family | DX: Z01.810 Encounter for preprocedural cardiovascular examination (principal); R94.39 Abnormal result of other cardiovascular function study; I10 Essential (primary) hypertension; R06.02 Shortness of breath; E66.01 Morbid (severe) obesity due to excess calories; Z68.43 Body mass index [BMI] 50.0-59.9, adult; Z79.899 Other long term (current) drug therapy | CPT/HCPCS: 99212 ==

== ENCOUNTER 2023-10-09 23:32 | Inpatient (IN) | payer OTHER, SELFPAY ==
--- NOTE | ~2023-10-09 | CT_ITS ---
EXAMINATION: CT ABDOMEN AND PELVIS WITH CONTRAST CLINICAL INFORMATION: Rectal bleeding. COMPARISON: CT abdomen and pelvis 07/26/2022. TECHNIQUE: Multidetector volumetric images were obtained from the superior aspect of the liver through the pubic symphysis following administration 85 mL of Omnipaque 350 intravenous contrast. Sagittal and coronal reformatted images were obtained on the technologist's workstation. Oral contrast: Yes This CT examination was performed using dose optimization techniques as appropriate, variously including the following: *Automated exposure control *Adjustment of mA and/or kV according to patient size (this includes techniques or standardized protocols for targeted exams where dose is matched to indication/reason for exam; i.e. extremities or head) *Use of iterative reconstruction technique DLP: 1315 mGy-cm FINDINGS: LUNG BASES: The visualized lung bases are unremarkable. LIVER, GALLBLADDER, AND BILIARY TREE: The liver is normal in size, shape, and attenuation. No focal hepatic lesion or biliary ductal dilatation is present. The gallbladder is unremarkable with no evidence of radiopaque gallstones, gallbladder wall thickening, or obvious pericholecystic inflammatory changes. PANCREAS: Unremarkable. SPLEEN: Unremarkable. ADRENAL GLANDS: There is an unchanged subcentimeter left adrenal nodule. The right adrenal gland appears normal. KIDNEYS AND URETERS: The kidneys are normal in size, shape, and attenuation. There is a 3 mm nonobstructing left lower pole renal calculus present. This was present previously but was perceptible at that time (6:279). No hydronephrosis, hydroureter, or additional calculi seen. No perinephric stranding. BLADDER: Unremarkable. GASTROINTESTINAL TRACT: A small hiatal hernia is present. Some inflammatory changes are adjacent to the rectum in the presacral space, new since prior. A large stool burden is present throughout the colon. There is no evidence of bowel obstruction. This exam is not adequate to assess for active GI bleeding as oral contrast was administered. The small and large bowel are unremarkable. There is no GI mass lesion seen that could account for occult hemorrhage. The appendix is unremarkable. ABDOMINAL WALL: Again seen is a large periumbilical hernia containing fat and fluid, unchanged from prior. The sac measures about 8.5 x 4.7 x 7.7 cm. LYMPH NODES: No retroperitoneal lymphadenopathy. VASCULAR: Unremarkable. PELVIC VISCERA: The uterus is anteverted and contains multiple calcified fibroids. The adnexa are unremarkable. OSSEOUS STRUCTURES: Degenerative changes are seen throughout the thoracic spine. CT/CT abdomen pelvis w IV con IMPRESSION: 1. No GI mass is seen that could account for occult GI bleeding. 2. There is a large stool burden throughout the colon with some new inflammatory changes adjacent to the rectum in the presacral space. 3. Unchanged large periumbilical hernia containing fat and fluid. 4. Unchanged subcentimeter left adrenal nodule. 5. Nonobstructing enlarging 3 mm left lower pole renal calculus. 6. Calcified uterine fibroids. Fleischner guidelines were followed.
--- NOTE | 2023-10-09 23:47 | ED.GIBLEED ---
HPI - GI Bleed General Chief complaint: GI Bleed Stated complaint: rectal bleed Time Seen by Provider: 10/09/23 23:35 History of Present Illness HPI Narrative: patient is a 67-year-old female presents today with having bright red blood per rectum. Patient has a history of DVT is on Eliquis. There is no fever no chills no chest pain or shortness breath no nausea no vomiting. Patient is from home. No diaphoresis. Related Data Home Medications Medication Instructions Recorded Confirmed calcium carbonate 500 mg calcium 500 mg PO DAILY 09/15/22 05/27/23 (1,250 mg) tablet cholecalciferol (vitamin D3) 25 25 mcg PO DAILY 09/15/22 05/27/23 mcg (1,000 unit) tablet (Vitamin D3) docosahexaenoic acid (dha)-epa 120 1 cap PO DAILY 09/15/22 05/27/23 mg-180 mg capsule (Fish Oil) Previous Rx's Medication Instructions Recorded blood pressure monitor #1 ea 07/05/22 atenolol 25 mg tablet 25 mg PO DAILY #30 tabs 05/27/23 diclofenac sodium 1 % topical gel 4 g topical QID #100 grams 07/15/23 (Arthritis Pain (diclofenac)) atorvastatin 20 mg tablet 20 mg PO BEDTIME 90 days #90 tabs 07/20/23 lisinopril 40 mg tablet 40 mg PO DAILY 90 days #90 tabs 07/21/23 Allergies Allergy/AdvReac Type Severity Reaction Status Date / Time amlodipine AdvReac Intermediate Blurry Verified 07/20/23 17:09 Vision Review of Systems Review of Systems: No fever no chills no chest pain or shortness breath no nausea no vomiting no systemic complaints Yes all other systems are reviewed and are negative PMFSH Past Medical History Onset Date is defined in the Problem List Problems that require an onset date and time if occurred within 24 hrs of arrival to the ED Aortic Dissection and Rupture; Neurologic impairment; Cardiopulmonary Arrest; Endotracheal Intubation; Insertion or Replacement of Mechanical Circulatory Assist Device Medical History Preoperative cardiovascular examination Microscopic hematuria Essential hypertension Screen for colon cancer Abdominal wall abscess Surgical History History of Family History Family History Mother No problems noted. Father No problems noted. Social History Social History Household Members: None Housing: House Alcohol intake: current Alcohol intake frequency: does not drink Alcohol type: wine and hard liquor Patient Tobacco Use Status: Never used Tobacco Smoked in Last 30 Days: No e-Cigarette/Vaping Use: Never Used Second Hand Smoke Exposure: No Use of substances other than those prescribed or required for medical reasons: No Advance Directives: No Advance Directives Information Provided: Yes Nutrition Risks: No Nutritional Risk service: No Current occupational status: retired Current occupation: Right Handed Cognitive needs: Yes Hearing needs: No Vision needs: No Physical Exam Vital Signs: Vital Signs: Last Vital Signs Temp 97.9 F 10/09/23 23:48 Pulse 91 10/09/23 23:48 Resp 12 10/09/23 23:48 BP 119/62 10/09/23 23:48 Pulse Ox 94 10/09/23 23:48 O2 Del Method Room Air 10/09/23 23:48 BMI result Body Mass Index 52.0 Appearance: Alert. Oriented X3. No acute distress. Eyes: Pupils equal, round and reactive to light. ENT: Pharynx normal. Neck: Normal inspection. Neck supple. No lymph nodes noted. No crepitus CVS: Normal heart rate and rhythm. Pulses normal. Normal S1 and S2 Respiratory: No respiratory distress. Breath sounds normal. No Wheezing. No rales Abdomen: Soft and nontender. No rigidity. No distention. good BS x4 Skin: Skin warm and dry. Normal skin color. Normal skin turgor. rectal exam done with nursing present showed melanotic stool Extremities: No lower extremity edema. Neurovascular intact to all extremities. No Lacerations. No Rash Neuro: Oriented X 3. No motor deficit. No sensory deficit. Moving all extermities. No slurred speech Medications Administered Discontinued Medications Generic Name Dose Route Start Last Admin Trade Name Freq PRN Reason Stop Dose Admin Pantoprazole Sodium 80 mg 10/09/23 23:49 10/10/23 00:17 Pantoprazole Sodium 40 Mg/10 Ml Vial IVPUSH 10/09/23 23:50 80 mg ONCE ONE Administration Medical Decision Making Medical Decision Making [facility] Narrative: Patient is 67-year-old female presents today with having bright red blood per rectum. On my exam patient actually had melanotic stool. She is on Eliquis. Had a recent colonoscopy done at [facility]. Patient's old record from [facility] was obtained. It did not show any acute evidence of diverticulitis no AV malformation. It did show evidence of internal hemorrhoids. Patient's hemoglobin is about 1 point lower than previous. Will monitor closely. Type and screen done. Patient's blood pressures been stable. Lena at this time patient does not need active reversal. Currently in stable condition awaiting admission. Differential Diagnosis Differential Diagnoses: The differential diagnosis associated with the presentation includes GI bleed question gastritis question diverticulitis question malignancy question av malformation question internal hemorrhoids Admission/Observation Consideration of admission/observation: Escalation of care including admission/observation considered Consult Healthcare Provider Management of the patient was discussed with: Hospitalist will admit for further monitoring Lab Data [facility] Lab Attestation statement: I reviewed the patient's lab results. 10/10/23 00:07 10/10/23 00:07 Labs: Lab Results 10/10/23 10/10/23 10/10/23 Range/Units 00:07 00:11 00:42 WBC 5.2 (4.8-10.8) X10*3/uL RBC 4.13 L (4.20-5.50) X10*6/uL Hgb 11.3 L (12.0-16.0) g/dl Hct 36.1 L (37.0-47.0) % MCV 87.4 (80.0-98.0) fL MCH 27.4 (27.0-33.0) pg MCHC 31.3 (31.0-35.0) g/dl RDW 14.8 (11.0-16.0) % Plt Count 322 D (160-400) X10*3/uL MPV 9.7 (9.4-12.3) fL Immature Gran % (Auto) 0.2 (0.0-0.4) % Neut % (Auto) 34.4 L (45-73) % Lymph % (Auto) 51.6 H (20-40) % Cache % (Auto) 9.7 (2-11) % Eos % (Auto) 3.1 (0-4) % Baso % (Auto) 1.0 (0-2) % Lymph # (Auto) 2.7 (1.2-4.9) X10*3/uL Cache # (Auto) 0.5 (0.1-1.2) X10*3/uL Eos # (Auto) 0.2 (0.0-0.4) X10*3/uL Baso # (Auto) 0.1 (0.0-0.2) X10*3/uL Abs Immat Gran (auto) 0.01 (0.00-0.03) X10*3/uL Absolute Neuts (auto) 1.8 L (2.0-8.3) x10*3/uL Absolute Nucleated RBC 0.000 (0.0-0.012) X10*3/uL Nucleated RBC % (auto) 0.0 (0.0-0.2) /100WBC PT 15.6 H (11.1-13.3) SEC INR 1.3 H (0.9-1.1) Sodium 138 (135-145) mmol/L Potassium 4.3 (3.3-5.1) mmol/L Chloride 102 (96-108) mmol/L Carbon Dioxide 29 (22-29) mmol/L Anion Gap 11 L (12-20) BUN 16 (9-16) mg/dL Creatinine 0.50 (0.5-1.4) mg/dL Estim Creat Clear Calc 126.7 Estimated GFR > 60 Random Glucose 105 (60-115) mg/dL Calcium 9.4 (8.4-10.2) mg/dL Total Bilirubin 0.5 (0.0-1.0) mg/dL Direct Bilirubin 0.1 (0.0-0.5) mg/dL AST 18 (5-31) U/L ALT 13 (0-31) U/L Alkaline Phosphatase 61 (39-117) U/L Total Protein 7.0 (6.5-8.0) g/dL Albumin 3.2 L (3.5-5.0) g/dL Blood Type Cancelled A Positive Antibody Screen Cancelled Independent Interpretation I performed an independent interpretation of an: EKG ( my interpretation of patient's EKG showed a sinus rhythm heart rate is 80 MO QRS QTC within normal limits there is no acute ST segment elevation.) External Record Review External record reviewed: Outpatient record Outpatient GI record reviewed Chronic Conditions history of DVT Critical Care Time Critical Care Time Critical Care Time: Yes Total Critical Care Time: 40 Attestation: I have personally provided 40 minutes of critical care time exclusive of time spent on separately billable procedures. Time includes review of lab data, radiology results, discussion with consultants, and monitoring for potential decompensation. Interventions were performed as documented above Discharge Plan Discharge Clinical Impression: Acute GI bleeding Patient Disposition: Admitted As Inpatient Prescriptions: No Action diclofenac sodium [Arthritis Pain (diclofenac)] 1 % gel 4 g topical QID Qty: 100 0RF Rx Instructions: apply to single knee, ankle, foot; for foot includes sole/toes/top of foot atorvastatin 20 mg tablet 20 mg PO BEDTIME 90 Days Qty: 90 1RF lisinopril 40 mg tablet 40 mg PO DAILY 90 Days Qty: 90 1RF calcium carbonate [Calcium 500] 500 mg calcium (1,250 mg) Tablet 500 mg PO DAILY Fish Oil 120-180 mg Capsule 1 cap PO DAILY cholecalciferol (vitamin D3) [Vitamin D3] 25 mcg (1,000 unit) Tablet 25 mcg PO DAILY (DME) blood pressure monitor Kit See Rx Instructions .Route Qty: 1 0RF Rx Instructions: As directed atenolol 25 mg tablet 25 mg PO DAILY Qty: 30 5RF
[2023-10-09 23:48] VITALS: BP 119/62; BP 140/70; PULSE 106; PULSE 91; RESP 12; TEMP 36.6; O2SAT 94; O2SAT 98; BMI 52.0
--- NOTE | 2023-10-10 00:53 | PM.IMHP ---
History of Present Illness Date of Service: 10/10/23 Chief Complaint: Bright red blood per rectum This is a 67-year-old female with pertinent history of essential hypertension, mixed hyperlipidemia, arthritis, DVT on Eliquis who was sent to the emergency department for evaluation of bright red blood per rectum. Patient states the staff at rehab facility noticed bright red blood in her stool and sent her to the ER. She was initially constipated and had 2 episodes of painless bright red blood per rectum. No abdominal pain. No fever or chills. States had a recent colonoscopy about a month ago at [facility]. No chest discomfort, palpitations, shortness of breath, changes in urinary habits. Patient is on Eliquis for DVT. In the emergency department, rectal examination with bright red blood Review of Systems Constitutional: Constitutional: Reports no additional constitutional complaints Cardiovascular: Cardiovascular: Reports no additional cardiovascular complaints Respiratory: Respiratory: Reports no additional respiratory complaints Gastrointestinal: Gastrointestinal: Reports hematochezia Genitourinary: Genitourinary: Reports no additional female genitourinary complaints [facility] Medical History Preoperative cardiovascular examination Microscopic hematuria Essential hypertension Screen for colon cancer Abdominal wall abscess Family History Mother No problems noted. Father No problems noted. Surgical History History of Social History Household Members: None Housing: House Alcohol intake: current Alcohol intake frequency: does not drink Alcohol type: wine and hard liquor Patient Tobacco Use Status: Never used Tobacco Smoked in Last 30 Days: No e-Cigarette/Vaping Use: Never Used Second Hand Smoke Exposure: No Use of substances other than those prescribed or required for medical reasons: No Advance Directives: No Advance Directives Information Provided: Yes Nutrition Risks: No Nutritional Risk service: No Current occupational status: retired Current occupation: Right Handed Cognitive needs: Yes Hearing needs: No Vision needs: No Meds Allergies Allergy/AdvReac Type Severity Reaction Status Date / Time amlodipine AdvReac Intermediate Blurry Verified 07/20/23 17:09 Vision Home Medications Medication Instructions Recorded Confirmed Last Taken Type calcium carbonate 500 mg calcium 500 mg PO DAILY 09/15/22 05/27/23 Unknown History (1,250 mg) tablet cholecalciferol (vitamin D3) 25 25 mcg PO DAILY 09/15/22 05/27/23 Unknown History mcg (1,000 unit) tablet (Vitamin D3) docosahexaenoic acid (dha)-epa 120 1 cap PO DAILY 09/15/22 05/27/23 Unknown History mg-180 mg capsule (Fish Oil) Physical Exam Vital Signs and Narrative: Vital Signs: Last Vital Signs Temp 97.9 F 10/09/23 23:48 Pulse 91 10/09/23 23:48 Resp 12 10/09/23 23:48 BP 119/62 10/09/23 23:48 Pulse Ox 94 10/09/23 23:48 O2 Del Method Room Air 10/09/23 23:48 BMI result Body Mass Index 52.0 Middle-aged female lying in bed in no distress Neck supple, no JVD Regular rate and rhythm, S1-S2 heard Decreased breath sounds at bases Abdomen soft nontender, no guarding, no rigidity Patient is awake, alert and oriented to self, place, time and person ; no focal motor deficit Psych: Normal mood No pedal edema Results Labs 10/10/23 00:07 10/10/23 00:07 Labs: Laboratory Results - last 24 hr 10/10/23 10/10/23 00:07 00:11 MCV 87.4 MCH 27.4 MCHC 31.3 RDW 14.8 Plt Count 322 D MPV 9.7 Immature Gran % (Auto) 0.2 Neut % (Auto) 34.4 L Lymph % (Auto) 51.6 H Moore % (Auto) 9.7 Eos % (Auto) 3.1 Baso % (Auto) 1.0 Lymph # (Auto) 2.7 Moore # (Auto) 0.5 Eos # (Auto) 0.2 Baso # (Auto) 0.1 Abs Immat Gran (auto) 0.01 Absolute Neuts (auto) 1.8 L Absolute Nucleated RBC 0.000 Nucleated RBC % (auto) 0.0 PT 15.6 H INR 1.3 H Anion Gap 11 L Estim Creat Clear Calc 126.7 Estimated GFR > 60 Random Glucose 105 Calcium 9.4 Total Bilirubin 0.5 Direct Bilirubin 0.1 AST 18 ALT 13 Alkaline Phosphatase 61 Total Protein 7.0 Albumin 3.2 L Blood Type Cancelled Antibody Screen Cancelled Assessment and Plan (1) Bright red blood per rectum: Status: Acute Plan This is a 67-year-old female with pertinent history of essential hypertension, mixed hyperlipidemia, arthritis, DVT on Eliquis who was sent to the emergency department for evaluation of bright red blood per rectum. #. Painless bright red blood per rectum, concerning for acute GI bleed: Will admit patient with cardiac monitoring. Hold Eliquis. Initiated on IV Protonix. Consulting Gastroenterology, appreciate assistance. Closely monitor hemoglobin and hematocrit #. History of DVT: Hold Eliquis as above #. Essential hypertension: Continue home antihypertensives #. Mixed hyperlipidemia: On statin Med rec pending DVT prophylaxis: Mechanical Full code Quality Stroke Does the patient have a stroke diagnosis?: No VTE Prior VTE?: No VTE Risk Level:: Medical - moderate - high VTE Device Contraindication: N/A - Device Ordered VTE Drug Contraindication: Treatment Not Indicated
[2023-10-10 06:32] VITALS: BP 134/71; PULSE 80; RESP 18; TEMP 36.5; O2SAT 95
--- NOTE | 2023-10-10 07:21 | PM.GICN ---
History of Present Illness Data of Consult Service Date: 10/10/23 Requesting physician: Jon Marquez Primary Care Provider: Alycia Garg MD HPI Reason for consult: rectal bleeding 67-year-old female with history of essential hypertension, mixed hyperlipidemia, arthritis, DVT on Eliquis, morbid obesity who I am seeing for assessment for rectal bleeding. Patient has not seen any blood her self but per her report staff at [facility] noted blood x 2 and sent her to the hospital for assessment. She denies abdominal pain. No fever or chills. No chest discomfort, palpitations, shortness of breath, changes in urinary habits. Patient is on Eliquis for DVT. She does admit to 2 weeks of constipation with no passage of stool. Per remote review of [facility] EMR she was admitted with diarrhea, blood in stools and RSV 09/24 and found to have c diff and was treated with vancomycin. Also she had sigmoidoscopy with bx revealing chronic colitis (discordance in the notes, she is adamant she got a colonoscopy but path says sigmoidoscopy and consult note from GI [facility] also says colonoscopy) Ct scna at [facility] 07/25 with enterocolitis Review of Systems Review of Systems: Constitutional : No Weight loss, No Fever, No Chills ENT/Mouth : No sore throat, No Rhinorrhea Eyes: No Swelling, No Redness Cardiovascular : No Chest Pain, No SOB, No Edema Respiratory : No Cough, No Sputum, No Wheezing Gastrointestinal : see HPI Genitourinary : NO Dysuria, No Urinary Frequency, No Hematuria, No Urgency Musculoskeletal : + joint pain, No Myalgias, No Joint Swelling Skin : + Skin Lesions-sacral wounds, No rash Neuro : No Weakness, No Numbness, No Dizziness, No Headache Psych : No Anxiety/Panic, No Depression Heme/Lymph: No Bruising, No Lymphadenopathy Endocrine : No Polyuria, No Polydipsia All other systems reviewed and are negative. [facility]LY [facility], [facility] Past Medical History Medical History Preoperative cardiovascular examination Microscopic hematuria Essential hypertension Screen for colon cancer Abdominal wall abscess Family History Family History Mother No problems noted. Father No problems noted. Pertinent family history: Family history colon cancer her mother and sister- in their 70's Surgical History Surgical History History of Social History Social History Household Members: None Housing: House Alcohol intake: current Alcohol intake frequency: does not drink Alcohol type: wine and hard liquor Patient Tobacco Use Status: Never used Tobacco e-Cigarette/Vaping Use: Never Used Second Hand Smoke Exposure: No service: No Current occupational status: retired Current occupation: Right Handed Cognitive needs: Yes Hearing needs: No Vision needs: No Meds Allergies Allergy/AdvReac Type Severity Reaction Status Date / Time amlodipine AdvReac Intermediate Blurry Verified 07/20/23 17:09 Vision Active Medications: Current Medications Acetaminophen (Acetaminophen 325 Mg Tablet) 650 mg PO Q6H PRN PRN Reason: Pain, Mild (Pain Scale 1-3) Melatonin (Melatonin 3 Mg Tablet) 6 mg PO BEDTIME PRN PRN Reason: Insomnia Ondansetron HCl (Ondansetron Hcl 4 Mg/2 Ml Vial) 4 mg IVPUSH Q8H PRN PRN Reason: Nausea and Vomiting Pantoprazole Sodium (Pantoprazole Sodium 40 Mg/10 Ml Vial) 40 mg IVPUSH BID@0630,1630 [facility] Last Admin: 10/10/23 06:53 Dose: 40 mg Sodium Chloride (0.9 % Sodium Chloride Flush 3 Ml Syringe) 3 ml IVFLUSH QSHIFT [facility] Home Medications Medication Instructions Recorded Confirmed Last Taken Type cholecalciferol (vitamin D3) 25 25 mcg PO DAILY 09/15/22 10/10/23 Unknown History mcg (1,000 unit) tablet (Vitamin D3) Lactobacillus acidophilus 1 1,000 mmu cells PO BID 10/10/23 10/10/23 Unknown History billion cell capsule acetaminophen 325 mg tablet 650 mg PO Q4-6H PRN Fever Or Pain 10/10/23 10/10/23 Unknown History albuterol sulfate 2.5 mg/3 mL 2.5 mg inhalation Q4H PRN 10/10/23 10/10/23 Unknown History (0.083 %) solution for nebulization Shortness Of Breath Or Wheezing amlodipine 10 mg tablet 10 mg PO DAILY 10/10/23 10/10/23 Unknown History apixaban 5 mg tablet (Eliquis) 5 mg PO BID 10/10/23 10/10/23 Unknown History bisacodyl 10 mg rectal suppository 10 mg IL DAILY PRN Constipation 10/10/23 10/10/23 Unknown History (Dulcolax (bisacodyl)) docusate sodium 100 mg capsule 100 mg PO Q12H PRN Constipation 10/10/23 10/10/23 Unknown History loperamide 2 mg tablet 2 mg PO Q6H PRN Loose Stool 10/10/23 10/10/23 Unknown History magnesium hydroxide 400 mg/5 mL 30 ml PO BEDTIME PRN Constipation 10/10/23 10/10/23 Unknown History oral suspension (Milk of Magnesia) melatonin 3 mg tablet 3 mg PO BEDTIME PRN Insomnia 10/10/23 10/10/23 Unknown History multivitamin with minerals 1 tab PO DAILY 10/10/23 10/10/23 Unknown History omega 6-lcu-tip-fish oil 1,000 mg 1 cap PO TID 10/10/23 10/10/23 Unknown History (120 mg-180 mg) capsule (Fish Oil) sodium phosphates 19 gram-7 118 ml IL DAILY PRN Constipation 10/10/23 10/10/23 Unknown History gram/118 mL enema (Fleet Enema) tramadol 100 mg tablet 100 mg PO BID 10/10/23 10/10/23 Unknown History wound dressings (Triad Wound 1 appl topical BID Wound Care 10/10/23 10/10/23 Unknown History Dressing paste) wound dressings (Triad Wound 1 appl topical DAILY PRN Wound Care 10/10/23 10/10/23 Unknown History Dressing paste) zinc oxide 20 % topical ointment 1 appl topical BID 10/10/23 10/10/23 Unknown History zinc sulfate 50 mg zinc (220 mg) 200 mg PO DAILY 10/10/23 10/10/23 Unknown History capsule Physical Exam Vital Signs: Vital Signs: Last Vital Signs Temp 97.7 F 10/10/23 06:32 Pulse 80 10/10/23 06:32 Resp 18 10/10/23 06:32 BP 134/71 10/10/23 06:32 Pulse Ox 95 10/10/23 06:32 O2 Del Method Room Air 10/10/23 06:32 BMI result Body Mass Index 52.0 EXAM: GENERAL: The patient is obese, lymphedema both legs VITAL SIGNS:see workflow HEENT: Nonicteric sclerae, PERRLA, EOMI. Oropharynx clear. Moist mucous membranes. Conjunctivae appear well perfused. No thyroid mass. CHEST: Chest wall is nontender. HEART: Regular rate and rhythm without murmurs. LUNGS: Clear to auscultation bilaterally. ABDOMEN: Soft, positive bowel sounds, nontender, no organomegaly.no flank tenderness GENITAL:not done RECTAL: brown stool with maroon tinge, superficial sacral wounds noted with urine soaked pad SKIN: sacral wounds NEUROLOGIC: Cranial nerves II-XII intact without motor/sensory deficit. MS: bed bound, poor mobility Results Labs 10/10/23 05:14 10/10/23 05:14 Labs: Short CBC 10/10/23 10/10/23 Range/Units 00:07 05:14 WBC 5.2 5.0 (4.8-10.8) X10*3/uL Hgb 11.3 L 10.8 L (12.0-16.0) g/dl Hct 36.1 L 35.4 L (37.0-47.0) % Plt Count 322 D 291 (160-400) X10*3/uL BMP 10/10/23 00:07 Sodium 138 Potassium 4.3 Chloride 102 Carbon Dioxide 29 BUN 16 Creatinine 0.50 Calcium 9.4 Liver Function 10/10/23 Range/Units 00:07 Total Bilirubin 0.5 (0.0-1.0) mg/dL Direct Bilirubin 0.1 (0.0-0.5) mg/dL AST 18 (5-31) U/L ALT 13 (0-31) U/L Alkaline Phosphatase 61 (39-117) U/L Albumin 3.2 L (3.5-5.0) g/dL Assessment and Plan (1) Bright red blood per rectum: Status: Acute Plan 1/ BRPRB, possibly hemorrhoidal or stercoral colitis vs chronic colitis from IBD --unfortunately no mention made if hemorrhoids seen in [facility] chart. HGB has been pretty stable and close to the number on d/c from [facility] PLAN: 1/ She refuses further endoscopic assessment, which might be difficult anyway given her poor mobility 2/ Recommend CT with PO and IV contrast for further eval 3/ aggressive rx of constipation with enemas and miralax BID, dulcolax Procedures Date of Service Date of Service: 10/10/23
[2023-10-10 07:29] LABS: Anion Gap 11 (12-20); Blood Urea Nitrogen 13 mg/dL (9-16); Calcium 9.1 mg/dL (8.4-10.2); Carbon Dioxide 29 mmol/L (22-29); Chloride 102 mmol/L (96-108); Estimated Glomerular Filt Rate > 60; Glucose Random 76 mg/dL (60-115); Potassium 3.8 mmol/L (3.3-5.1); Sodium 138 mmol/L (135-145)
--- NOTE | 2023-10-10 08:18 | PHA.MEDREC ---
Pharmacy Consult ? Medication Reconciliation Pharmacy has completed the medication reconciliation. used list from [facility].
--- NOTE | 2023-10-10 08:56 | MHC.CM.PN ---
CM met with Patient at bedside and addressed MARION with her, providing Patient with the original and a copy will be placed on the chart. Patient typically lives alone in a house, with her Son living next door but the plan is for Patient to return to [facility] SNF at time of dc. CM has initiated and will follow for dc planning. Patient's Niece/Mami is the HCP and the PCP is Dr. Anna Abreu.
--- NOTE | 2023-10-10 13:45 | PM.EVENT ---
Event Note Date of Service: 10/10/23 Event Note: 67-year-old female with pertinent history of essential hypertension, mixed hyperlipidemia, arthritis, DVT on Eliquis who was sent to the emergency department for evaluation of bright red blood per rectum. #. Painless bright red blood per rectum, concerning for acute GI bleed: No further recurrent bleeds, complaining of constipation , hematocrit stable will add stool softeners and laxatives,, continue to hold Eliquis Case discussed with GI they recommend CT abdomen with IV and by mouth contrast, patient declined colonoscopy ddx likely stercoral colitis Will resume diet /add stool softeners/laxatives #. History of DVT: Hold Eliquis as above #. Essential hypertension: On amlodipine but it says patient gets blurry vision with amlodipine will hold and follow BP #. Mixed hyperlipidemia: Resume Lipitor. Time Spent With Patient Time: Total time managing care of this patient today ____ minutes.
[2023-10-10 15:27] VITALS: BP 140/79; PULSE 71; RESP 20; TEMP 36.6; O2SAT 95
--- NOTE | 2023-10-10 15:59 | PC.NURSE ---
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
[2023-10-10 19:19] VITALS: BP 134/51; PULSE 81; RESP 20; TEMP 36.7; O2SAT 96
[2023-10-10] MEDS: Sennosides/Docusate Sodium TABLET 1 TAB PO (20:28)
[2023-10-10] MEDS: polyethylene glycoL 3350 17 GM POWD.PACK PO (20:28)
[2023-10-10] MEDS: traMADoL HCL 50 MG TABLET 100 MG PO (20:28)
[2023-10-10] MEDS: Atorvastatin Calcium 20 MG TABLET PO (20:28)
[2023-10-10 23:47] VITALS: BP 116/65; PULSE 73; RESP 14; TEMP 36.6; O2SAT 96
[2023-10-11] VITALS (8 sets, daily range): BP systolic 108–143; BP diastolic 57–81; PULSE 70–96; RESP 13–20; TEMP 36.2–36.6; O2SAT 93–96; BMI 54.2
[2023-10-11] MEDS: oxyCODONE HCl Immed Release 5 MG TABLET PO (05:27)
[2023-10-11] MEDS: Omeprazole 20 MG CAPSULE.DR PO (05:27)
[2023-10-11 06:35] LABS: Hematocrit 38.6 % (37.0-47.0); Hemoglobin 11.8 g/dl (12.0-16.0); Mean Corpuscular HGB Conc 30.6 g/dl (31.0-35.0); Mean Corpuscular Hemoglobin 26.8 pg (27.0-33.0); Mean Corpuscular Volume 87.5 fL (80.0-98.0); Mean Platelet Volume 10.6 fL (9.4-12.3); Platelet Count 298 X10*3/uL (160-400); Red Blood Count 4.41 X10*6/uL (4.20-5.50); Red Cell Distribution Width 14.6 % (11.0-16.0); White Blood Count 4.8 X10*3/uL (4.8-10.8)
[2023-10-11 06:47] LABS: Anion Gap 12 (12-20); Blood Urea Nitrogen 8 mg/dL (9-16); Calcium 9.7 mg/dL (8.4-10.2); Carbon Dioxide 28 mmol/L (22-29); Chloride 103 mmol/L (96-108); Creatinine Clr Calc Pharmacy 140.8; Estimated Glomerular Filt Rate > 60; Glucose Random 72 mg/dL (60-115); Potassium 4.1 mmol/L (3.3-5.1); Sodium 139 mmol/L (135-145)
--- NOTE | 2023-10-11 07:50 | PC.NURSE ---
this automobile and property underwriter assumed care of this pt at 0700. pt sleeping at the time of assuming care.
[2023-10-11] MEDS: Multivitamin TABLET 1 TAB PO (08:28)
[2023-10-11] MEDS: Cholecalciferol (Vitamin D3) 25 MCG TABLET PO (08:28)
[2023-10-11] MEDS: Docusate Sodium 100 MG CAPSULE 200 MG PO (08:28)
[2023-10-11] MEDS: traMADoL HCL 50 MG TABLET 100 MG PO ×2 (08:28→20:16)
--- NOTE | 2023-10-11 08:37 | PC.NURSE ---
pt alert and oriented, vss, reports chronic 10/10 bilat knee pain. pt pulled up in bed, breakfast given, meds given as documented.
[2023-10-11] MEDS: polyethylene glycoL 3350 17 GM POWD.PACK PO ×2 (08:39→20:16)
--- NOTE | 2023-10-11 10:09 | HO.WOUND ---
Wound Consult: Initial 67yr old female admitted to [facility] on? 10/10/23 00:51- See progress notes and H&P for detailed history. Wound consult placed for Buttock wound POA. Arrival to bedside pt was agreeable to assessment and photo documentation. Pt reports wounds started a few weeks ago and are healing with use of Triad. She reports the wounds resulted from her son helping her into her wheelchair sitting there for two days and experiencing multiple rounds of incontinence. The wounds over all appears to be healing and resolving however over of the bilateral buttocks there are light purple and maroon nonblanchble tissue with scattered areas of partial thickness tissue loss. The left ischium is noted for warmth and isolated tenderness reported by patient. The periwound is noted for MASD -IAD (Moisture Associated Skin Damage - Incontinence Associated Dermatitis) - resolving in many areas with light pink blanchble tissue. Pure wick in place and Wedges provided and put in place along with barrier cream available at the bedside. TRUPTI mattress in use. Bilateral Buttock Etiology: ??Deep Tissue Injury - Present on Admission Wound Bed:Purple maroon nonblanchable intact tissue - scattered areas of partial thickness tissue loss clean red moist wound beds Drainage / Odor: scant serosang - no odor noted Edges: ? irregular Stacie wound: [place] blanchable tissue - MASD - ?resolved wounds noted - scar tissue and irregular healing pattern noted - No Induration, Fluctuance noted Pain: pain and tenderness report to the left ischium Goals of Treatment: ? Off Load Pressure and Barrier cream to protect from Moisture and friction and allow for autolytic healing. Recommendations: 1. Turn and Reposition every 2 hours and as needed for patient comfort.? Use pillows or wedges to support off loading positions. 2. Off Load all bony prominences with use of pillows and heel boots if needed.? Apply Preventative foams where needed. ? 3. Monitor for incontinence and moisture control, use barrier creams when needed for prevention and treatment. 4. Provide adequate and supplemental nutrition. 5. Continue low air loss mattress. 6. Bilateral Buttocks and Posterior Thighs - Off Load Pressure - Cleanse with PH balance spray or wipes, pat dry. ?Apply thin layer of Triad to wound bed - only pat and dab no scrub and rub when soiling occurs. Reapply thin layer PRN after each episode of incontinence. Re-consult wound care Nurse for wound deterioration or wound changes.
[2023-10-11] MEDS: Lactulose 20 GM/30 ML SOLUTION PO (11:05)
[2023-10-11] MEDS: Sodium Phosphate,Mono-Dibasic 133 ML ENEMA PR (11:37)
--- NOTE | 2023-10-11 11:51 | MHC.CM.PN ---
Per ROUNDS discussion, if Patient has a BM, she may be ready to return to [facility] today. Patient was not a bed hold at [facility], who is now saying that there are no beds today, nor are there any anticipated beds to become available soon. CM has initiated a SNF search and Patient will need a new PT eval and [employer] auth in order to be dc'd. CM will follow.
--- NOTE | 2023-10-11 12:04 | MHC.CLN ---
PT WITH INCREASED NUTRITION RISK R/T PRESSURE INJURY REGULAR DIET RECOMMEND ADDING ENSURE MAX BID TO PROMOTE WOUND HEALING SUPP TO PROVIDE 300KCALS, 60G PROTEIN MONITOR PO INTAKE AND ENCOURAGE SUPPLEMENTS SEE FULL CLINICAL NUTRITION ASSESSMENT
--- NOTE | 2023-10-11 13:56 | P.PNIM_ITS ---
Subjective Subjective Date of Service: 10/11/23 Interval History: Had no bowel movement since admission despite multiple laxatives and stool softeners, denies abdominal pain, no nausea, no vomiting tolerating diet no acute issues overnight Review of Systems All other system reviewed and negative. Physical Exam 2 Vital Signs: Vital Signs: Last Vital Signs Temp 97.1 F 10/11/23 10:50 Pulse 78 10/11/23 13:13 Resp 20 10/11/23 10:50 BP 130/60 10/11/23 13:13 Pulse Ox 94 10/11/23 13:13 O2 Del Method Room Air 10/11/23 10:50 BMI result Body Mass Index 54.2 Const: Other: General awake alert x3, resting comfortably in no acute distress. Neck supple no JVD. CVS regular rate rhythm, Respiratory lungs clear to auscultation, no respiratory distress, no wheeze, no rhonchi. Gastrointestinal abdomen soft, non tender, bowel sounds audible, no guarding , no rigidity. Extremities no edema. Neuro nonfocal , speech clear. Skin no rash Psych appropriate affect Objective Data Active Medications Acetaminophen (Acetaminophen 325 Mg Tablet) 650 mg PO Q6H PRN PRN Reason: Pain, Mild (Pain Scale 1-3) Albuterol Sulfate (Albuterol Sulfate (0.083%) 2.5 Mg/3 Ml Vial.Neb) 2.5 mg INHALE Q4H PRN PRN Reason: Shortness Of Breath Or Wheezing Atorvastatin Calcium (Atorvastatin Calcium 20 Mg Tablet) 20 mg PO BEDTIME [facility] Last Admin: 10/10/23 20:28 Dose: 20 mg Documented By: MINI Bisacodyl (Bisacodyl 10 Mg Supp.Rect) 10 mg OR DAILY PRN PRN Reason: Constipation Docusate Sodium (Docusate Sodium 100 Mg Capsule) 200 mg PO DAILY [facility] Last Admin: 10/11/23 08:28 Dose: 200 mg Documented By: NEIL Melatonin (Melatonin 3 Mg Tablet) 6 mg PO BEDTIME PRN PRN Reason: Insomnia Melatonin (Melatonin 3 Mg Tablet) 3 mg PO BEDTIME PRN PRN Reason: Insomnia Multivitamins/Vitamin C (Multivitamin Tablet) 1 tab PO DAILY [facility] Last Admin: 10/11/23 08:28 Dose: 1 tab Documented By: NEIL Omeprazole (Omeprazole 20 Mg Capsule.) 20 mg PO DAILY@0630 [facility] Last Admin: 10/11/23 05:27 Dose: 20 mg Documented By: MINI Ondansetron HCl (Ondansetron Hcl 4 Mg/2 Ml Vial) 4 mg IVPUSH Q8H PRN PRN Reason: Nausea and Vomiting Oxycodone HCl (Oxycodone Hcl Immed Release 5 Mg Tablet) 5 mg PO Q6H PRN PRN Reason: Pain, Severe (Pain Scale 7-10) Last Admin: 10/11/23 05:27 Dose: 5 mg Documented By: MINI Polyethylene Glycol (Polyethylene Glycol 3350 17 Gm Powd.Pack) 17 gm PO BID [facility] Last Admin: 10/11/23 08:39 Dose: 17 gm Documented By: NEIL Senna/Docusate Sodium (Sennosides/Docusate Sodium Tablet) 1 tab PO BEDTIME [facility] Last Admin: 10/10/23 20:28 Dose: 1 tab Documented By: MINI Sodium Chloride (0.9 % Sodium Chloride Flush 3 Ml Syringe) 3 ml IVFLUSH QSHIFT [facility] Last Admin: 10/11/23 09:40 Dose: 3 ml Documented By: FEDE Tramadol HCl (Tramadol Hcl 50 Mg Tablet) 100 mg PO BID [facility] Last Admin: 10/11/23 08:28 Dose: 100 mg Documented By: NEIL Vitamin D (Cholecalciferol (Vitamin D3) 25 Mcg Tablet) 25 mcg PO DAILY [facility] Last Admin: 10/11/23 08:28 Dose: 25 mcg Documented By: NEIL Zinc Sulfate (Zinc Sulfate 220 Mg Capsule) 220 mg PO DAILY [facility] Labs 10/11/23 05:19 10/11/23 05:19 Labs: Laboratory Results - last 24 hr 10/11/23 05:19 MCV 87.5 MCH 26.8 L MCHC 30.6 L RDW 14.6 Plt Count 298 MPV 10.6 Absolute Nucleated RBC 0.000 Nucleated RBC % (auto) 0.0 Anion Gap 12 Estim Creat Clear Calc 140.8 Estimated GFR > 60 Random Glucose 72 Calcium 9.7 D Assessment and Plan (1) Acute GI bleeding: Status: Acute (2) Bright red blood per rectum: Status: Acute Plan 67-year-old female with pertinent history of essential hypertension, mixed hyperlipidemia, arthritis, DVT on Eliquis who was sent to the emergency department for evaluation of bright red blood per rectum. #. Painless bright red blood per rectum, concerning for acute GI bleed: No bowel movement despite multiple laxatives/stool softener No further recurrent bleeds, complaining of constipation , hematocrit stable CT abdomen and pelvis showed large stool burden throughout the colon with some new inflammatory changes adjacent to the rectum and the presacral space, no GI mass noted Likely stercoral colitis, seen by GI patient declined colonoscopy. Will give Fleet enema, repeat lactulose continue stool softeners Constipation likely due to use of Ultram/advise high-fiber diet/stool softeners Follow CBC, electrolytes and clinical course. #. History of DVT: Hold Eliquis as above #. Essential hypertension: Stable blood pressures, amlodipine held due to side effect blurry vision follow BP closely. #. Mixed hyperlipidemia: cont. Lipitor. # morbid obesity recommend to follow low-calorie diet. Disposition will obtain PT eval previously residing at a rehab facility has been bedridden since July was receiving PT and rehab In my clinical judgment patient need inpatient hospitalization due to lower GI bleed/is constipation need close hematocrit monitoring and expert consultation that cannot be provided in less acute care. Quality Stroke Does the patient have a stroke diagnosis?: No VTE Prior VTE?: No VTE Risk Level:: Medical - moderate - high VTE Device Contraindication: N/A - Device Ordered VTE Drug Contraindication: Treatment Not Indicated
[2023-10-11] MEDS: Atorvastatin Calcium 20 MG TABLET PO (20:16)
[2023-10-11] MEDS: Sennosides/Docusate Sodium TABLET 1 TAB PO (20:16)
[2023-10-12 03:12] VITALS: BP 121/56; PULSE 84; RESP 18; TEMP 36.5; O2SAT 94
[2023-10-12] MEDS: Omeprazole 20 MG CAPSULE.DR PO (04:52)
[2023-10-12 07:30] LABS: Hematocrit 34.6 % (37.0-47.0); Hemoglobin 10.8 g/dl (12.0-16.0); Mean Corpuscular HGB Conc 31.2 g/dl (31.0-35.0); Mean Corpuscular Volume 86.5 fL (80.0-98.0); Mean Platelet Volume 10.4 fL (9.4-12.3); Platelet Count 275 X10*3/uL (160-400); Red Cell Distribution Width 14.7 % (11.0-16.0); White Blood Count 5.4 X10*3/uL (4.8-10.8)
[2023-10-12 07:36] VITALS: BP 110/63; PULSE 77; RESP 13; TEMP 36.3; O2SAT 93
[2023-10-12] MEDS: Cholecalciferol (Vitamin D3) 25 MCG TABLET PO (08:25)
[2023-10-12] MEDS: Multivitamin TABLET 1 TAB PO (08:25)
[2023-10-12] MEDS: traMADoL HCL 50 MG TABLET 100 MG PO ×2 (08:25→20:15)
[2023-10-12] MEDS: Zinc Sulfate 220 MG CAPSULE PO (08:25)
[2023-10-12] MEDS: Docusate Sodium 100 MG CAPSULE 200 MG PO (08:26)
[2023-10-12] MEDS: polyethylene glycoL 3350 17 GM POWD.PACK PO ×2 (08:26→20:15)
--- NOTE | 2023-10-12 10:51 | MHC.CLN ---
F/U PT WITH INCREASED NUTRITION RISK R/T PRESSURE INJURY PT C/O CONSTIPATION-RECOMMEND ADDING HIGH FIBER DIET DIET RX: REGULAR DIET PT RECEIVING ENSURE MAX BID TO PROMOTE WOUND HEALING SUPP TO PROVIDE 300KCALS, 60G PROTEIN MONITOR PO INTAKE AND ENCOURAGE SUPPLEMENTS WILL ADD HIGH FIBER TO CURRENT DIET
[2023-10-12 11:33] VITALS: BP 107/62; PULSE 90; RESP 13; TEMP 36.4; O2SAT 96
[2023-10-12 15:31] VITALS: BP 114/71; PULSE 97; RESP 18; TEMP 36.9; O2SAT 91
--- NOTE | 2023-10-12 16:15 | P.PNIM_ITS ---
Subjective Subjective Date of Service: 10/12/23 Interval History: Had 2 nonbloody bowel movement,, denies nausea, vomiting, no abdominal pain, tolerating diet, no chest pain, no palpitation, no acute issues overnight. Review of Systems All other system reviewed and negative. Physical Exam 2 Vital Signs: Vital Signs: Last Vital Signs Temp 98.4 F 10/12/23 15:31 Pulse 97 10/12/23 15:31 Resp 18 10/12/23 15:31 BP 114/71 10/12/23 15:31 Pulse Ox 91 L 10/12/23 15:31 O2 Del Method Room Air 10/12/23 15:31 BMI result Body Mass Index 54.2 Const: Other: General awake alert x3, resting comfortably in no acute distress. Neck supple no JVD. CVS regular rate rhythm, Respiratory lungs clear to auscultation, no respiratory distress, no wheeze, no rhonchi. Gastrointestinal abdomen soft, non tender, bowel sounds audible, no guarding , no rigidity. Extremities non pitting edema. Neuro nonfocal , speech clear. Skin dry scaly skin both extremity Psych appropriate affect Objective Data Active Medications Acetaminophen (Acetaminophen 325 Mg Tablet) 650 mg PO Q6H PRN PRN Reason: Pain, Mild (Pain Scale 1-3) Albuterol Sulfate (Albuterol Sulfate (0.083%) 2.5 Mg/3 Ml Vial.Neb) 2.5 mg INHALE Q4H PRN PRN Reason: Shortness Of Breath Or Wheezing Atorvastatin Calcium (Atorvastatin Calcium 20 Mg Tablet) 20 mg PO BEDTIME [facility] Last Admin: 10/11/23 20:16 Dose: 20 mg Documented By: MATIAS Bisacodyl (Bisacodyl 10 Mg Supp.Rect) 10 mg RI DAILY PRN PRN Reason: Constipation Docusate Sodium (Docusate Sodium 100 Mg Capsule) 200 mg PO DAILY [facility] Last Admin: 10/12/23 08:26 Dose: 200 mg Documented By: ROXANNA Melatonin (Melatonin 3 Mg Tablet) 6 mg PO BEDTIME PRN PRN Reason: Insomnia Melatonin (Melatonin 3 Mg Tablet) 3 mg PO BEDTIME PRN PRN Reason: Insomnia Multivitamins/Vitamin C (Multivitamin Tablet) 1 tab PO DAILY [facility] Last Admin: 10/12/23 08:25 Dose: 1 tab Documented By: ROXANNA Omeprazole (Omeprazole 20 Mg Capsule.) 20 mg PO DAILY@0630 [facility] Last Admin: 10/12/23 04:52 Dose: 20 mg Documented By: SPENCER Ondansetron HCl (Ondansetron Hcl 4 Mg/2 Ml Vial) 4 mg IVPUSH Q8H PRN PRN Reason: Nausea and Vomiting Oxycodone HCl (Oxycodone Hcl Immed Release 5 Mg Tablet) 5 mg PO Q6H PRN PRN Reason: Pain, Severe (Pain Scale 7-10) Last Admin: 10/11/23 05:27 Dose: 5 mg Documented By: MINI Polyethylene Glycol (Polyethylene Glycol 3350 17 Gm Powd.Pack) 17 gm PO BID [facility] Last Admin: 10/12/23 08:26 Dose: 17 gm Documented By: ROXANNA Senna/Docusate Sodium (Sennosides/Docusate Sodium Tablet) 1 tab PO BEDTIME [facility] Last Admin: 10/11/23 20:16 Dose: 1 tab Documented By: MATIAS Sodium Chloride (0.9 % Sodium Chloride Flush 3 Ml Syringe) 3 ml IVFLUSH QSHIFT [facility] Last Admin: 10/12/23 08:26 Dose: 3 ml Documented By: ROXANNA Tramadol HCl (Tramadol Hcl 50 Mg Tablet) 100 mg PO BID [facility] Last Admin: 10/12/23 08:25 Dose: 100 mg Documented By: ROXANNA Vitamin D (Cholecalciferol (Vitamin D3) 25 Mcg Tablet) 25 mcg PO DAILY [facility] Last Admin: 10/12/23 08:25 Dose: 25 mcg Documented By: ROXANNA Zinc Sulfate (Zinc Sulfate 220 Mg Capsule) 220 mg PO DAILY [facility] Last Admin: 10/12/23 08:25 Dose: 220 mg Documented By: ROXANNA Labs 10/12/23 06:22 10/11/23 05:19 Labs: Laboratory Results - last 24 hr 10/12/23 06:22 MCV 86.5 MCH 27.0 MCHC 31.2 RDW 14.7 Plt Count 275 MPV 10.4 Absolute Nucleated RBC 0.000 Nucleated RBC % (auto) 0.0 Assessment and Plan (1) Acute GI bleeding: Status: Acute (2) Bright red blood per rectum: Status: Acute Plan 67-year-old female with pertinent history of essential hypertension, mixed hyperlipidemia, arthritis, DVT on Eliquis who was sent to the emergency department for evaluation of bright red blood per rectum. #. Painless acute bright red blood per rectum, concerning for acute GI bleed: No further recurrent bleeds Had 2 brown stools mild drop in hematocrit,but stable CT abdomen and pelvis showed large stool burden throughout the colon with some new inflammatory changes adjacent to the rectum and the presacral space, no GI mass noted Likely stercoral colitis, seen by GI patient declined colonoscopy. s/p Fleet enema, lactulose ,continue stool softeners and MiraLax Constipation likely due to use of Ultram/advise high-fiber diet/stool softeners. #. History of DVT: Will resume Eliquis #. Essential hypertension: Soft blood pressures therefore norvasc not started spoke with patient she has been receiving Norvasc and had blurry vision with ? another medication And blurry vision improved with lowering the dosage. Will resume Norvasc 5 mg if blood pressure allows. #. Mixed hyperlipidemia: cont. Lipitor. # morbid obesity recommend to follow low-calorie diet. Disposition seen by PT they recommend short-term rehab Patient is a resident of rehab facility but family did not hold bed social work associate arranging for safe discharge In my clinical judgment patient need continued inpatient hospitalization due to lower GI bleed/constipation need close hematocrit monitoring. Quality Stroke Does the patient have a stroke diagnosis?: No VTE Prior VTE?: No VTE Risk Level:: Medical - moderate - high VTE Device Contraindication: N/A - Device Ordered VTE Drug Contraindication: Treatment Not Indicated
--- NOTE | 2023-10-12 16:51 | P.CDIM_ITS ---
PROVIDER RESPONSE TEXT: To clarify, the appropriate diagnosis supported by the clinical indicators: Other (explain): deep tissue injury b/l buttock /upper thigh QUERY TEXT: PHYSICIAN'S DOCUMENTATION REQUEST Date of Query: 10/11/2023 10:11 AM EST Patient Name: Ellen Toribio Admit Date: 10/10/2023 Dear Booker Stevenson, A review of the medical record indicates additional documentation may be needed. Please review below and update the documentation accordingly. Clinical Indicators: Per GI Consultation 10/10/23: superficial sacral wounds noted with urine soaked pad SKIN: sacral wounds Based on the above, could you please provide further information regarding the type, location and sta ge of the ulcers/wounds: Pressure (decubitus) ulcer Please include the stage of the ulcer and specify the location and laterality of the ulcer/wound Traumatic wound Please specify the location and laterality of the ulcer/wound Other (explain) Clinically unable to determine (explain) Thank you, Gladys Rodriguez RN Use of terms such as suspected, likely, concern for, or probable (associated with a specific diagnosi s that is being evaluated, monitored, or treated as if it exists) are acceptable and can be coded in the inpatient se tting, when documented at the time of discharge. Please use your independent medical judgment in providing your response. THIS QUERY IS PART OF THE PERMANENT MEDICAL RECORD
[2023-10-12 19:47] VITALS: BP 139/83; PULSE 121; RESP 20; TEMP 36.9; O2SAT 95
[2023-10-12] MEDS: Apixaban 5 MG TABLET PO (20:16)
[2023-10-12] MEDS: Atorvastatin Calcium 20 MG TABLET PO (20:16)
[2023-10-12] MEDS: Sennosides/Docusate Sodium TABLET 1 TAB PO (20:16)
[2023-10-12 23:01] VITALS: BP 104/53; PULSE 95; RESP 20; TEMP 36.6; O2SAT 92
[2023-10-13] VITALS (7 sets, daily range): BP systolic 109–137; BP diastolic 53–68; PULSE 79–100; RESP 18–20; TEMP 36.3–36.8; O2SAT 93–96
[2023-10-13] MEDS: Omeprazole 20 MG CAPSULE.DR PO (05:37)
--- NOTE | 2023-10-13 10:12 | HO.PM.IMPN ---
Subjective Subjective Date of Service: 10/13/23 <Tania Moreno - Last Filed: 10/13/23 10:51> 10/14/23 <Singh Dow MD - Last Filed: 10/14/23 08:39> Interval History: Reports she is feeling well. Denies SOB, chest pain, fever/chills, abdominal pain or constipation. Reports one bowel movement overnight. <Tania Moreno - Last Filed: 10/13/23 10:51> Review of Systems Review of Systems: Yes all other systems are reviewed and are negative <Tania Moreno - Last Filed: 10/13/23 10:51> Physical Exam Vital Signs: Vital Signs: Last Vital Signs Temp 97.8 F 10/13/23 07:13 Pulse 79 10/13/23 07:13 Resp 20 10/13/23 07:13 BP 137/63 10/13/23 07:13 Pulse Ox 94 10/13/23 07:13 O2 Del Method Room Air 10/13/23 07:13 BMI result Body Mass Index 54.2 <Tania Moreno - Last Filed: 10/13/23 10:51> General awake alert x3, resting comfortably in no acute distress. CVS: regular rate rhythm, no murmurs. Respiratory lungs clear to auscultation, normal respiratory effort Gastrointestinal abdomen soft, non tender, bowel sounds audible x 4 quadrants, no guarding , no rigidity. Extremities non pitting edema. Psych appropriate affect <Tania Moreno - Last Filed: 10/13/23 10:51> Objective Data Active Medications Acetaminophen (Acetaminophen 325 Mg Tablet) 650 mg PO Q6H PRN PRN Reason: Pain, Mild (Pain Scale 1-3) Albuterol Sulfate (Albuterol Sulfate (0.083%) 2.5 Mg/3 Ml Vial.Neb) 2.5 mg INHALE Q4H PRN PRN Reason: Shortness Of Breath Or Wheezing Apixaban (Apixaban 5 Mg Tablet) 5 mg PO BID [facility] Last Admin: 10/12/23 20:16 Dose: 5 mg Documented By: RICHI Atorvastatin Calcium (Atorvastatin Calcium 20 Mg Tablet) 20 mg PO BEDTIME [facility] Last Admin: 10/12/23 20:16 Dose: 20 mg Documented By: RICHI Bisacodyl (Bisacodyl 10 Mg Supp.Rect) 10 mg NC DAILY PRN PRN Reason: Constipation Docusate Sodium (Docusate Sodium 100 Mg Capsule) 200 mg PO DAILY [facility] Last Admin: 10/12/23 08:26 Dose: 200 mg Documented By: ROXANNA Melatonin (Melatonin 3 Mg Tablet) 6 mg PO BEDTIME PRN PRN Reason: Insomnia Melatonin (Melatonin 3 Mg Tablet) 3 mg PO BEDTIME PRN PRN Reason: Insomnia Multivitamins/Vitamin C (Multivitamin Tablet) 1 tab PO DAILY [facility] Last Admin: 10/12/23 08:25 Dose: 1 tab Documented By: ROXANNA Omeprazole (Omeprazole 20 Mg Capsule.Dr) 20 mg PO DAILY@0630 [facility] Last Admin: 10/13/23 05:37 Dose: 20 mg Documented By: RICHI Ondansetron HCl (Ondansetron Hcl 4 Mg/2 Ml Vial) 4 mg IVPUSH Q8H PRN PRN Reason: Nausea and Vomiting Oxycodone HCl (Oxycodone Hcl Immed Release 5 Mg Tablet) 5 mg PO Q6H PRN PRN Reason: Pain, Severe (Pain Scale 7-10) Last Admin: 10/11/23 05:27 Dose: 5 mg Documented By: MINI Polyethylene Glycol (Polyethylene Glycol 3350 17 Gm Powd.Pack) 17 gm PO BID [facility] Last Admin: 10/12/23 20:15 Dose: 17 gm Documented By: RICHI Senna/Docusate Sodium (Sennosides/Docusate Sodium Tablet) 1 tab PO BEDTIME [facility] Last Admin: 10/12/23 20:16 Dose: 1 tab Documented By: RICHI Sodium Chloride (0.9 % Sodium Chloride Flush 3 Ml Syringe) 3 ml IVFLUSH QSHIFT [facility] Last Admin: 10/12/23 20:16 Dose: 3 ml Documented By: RICHI Tramadol HCl (Tramadol Hcl 50 Mg Tablet) 100 mg PO BID [facility] Last Admin: 10/12/23 20:15 Dose: 100 mg Documented By: RICHI Vitamin D (Cholecalciferol (Vitamin D3) 25 Mcg Tablet) 25 mcg PO DAILY [facility] Last Admin: 10/12/23 08:25 Dose: 25 mcg Documented By: ROXANNA Zinc Sulfate (Zinc Sulfate 220 Mg Capsule) 220 mg PO DAILY [facility] Last Admin: 10/12/23 08:25 Dose: 220 mg Documented By: ROXANNA <Tania Moreno - Last Filed: 10/13/23 10:51> Labs CBC & Chem 7: 10/12/23 06:22 10/11/23 05:19 <Tania Carlos Alcalan - Last Filed: 10/13/23 10:51> Assessment and Plan (1) Acute GI bleeding: Status: Acute <Tania Carlos Carin - Last Filed: 10/13/23 10:51> (2) Bright red blood per rectum: Status: Acute <Tania Alcalan - Last Filed: 10/13/23 10:51> Assessment and Plan: 67-year-old female with pertinent history of essential hypertension, mixed hyperlipidemia, arthritis, DVT on Eliquis who was sent to the emergency department for evaluation of bright red blood per rectum. Was admitted with cardiac monitoring. Eliquis was held starting 10/10/23 and Protonix IV was initiated. Over the course of her stay, H&H was closely monitored and overall stable with mild decrease to 10.8/34.6 on 10/12/23 from 11.8/38.6 day prior with historical hgb trending around 11. She was seen by gastroenterology who, after reviewing recent sigmoidoscopy from [facility], recommended aggressive treatment of constipation with enemas, miralax BID, dulcolax and CT with IV contrast. CT demonstrated large stool burden throughout the colon with some inflammatory changes adjacent to the rectum. GI concluded likely stercoral colitis and patient declined colonoscopy. On 10/11/23 patient still had not had a bowel movement; fleet enema and lactulose were administered after which stool softeners and Miralax were continued. Patient then had two non-bloody stools. With patient history of DVT, Eliquis was resumed 10/12/2023 without complication. Seen by PT who recommended short term rehab. Essential hypertension: resume Norvasc 5mg Mixed hyperlipidemia: continue Lipitor. Pressure ulcer: - Evaluated by wound nurse with following recommendations: 1. Turn and Reposition every 2 hours and as needed for patient comfort. Use pillows or wedges to support off loading positions. 2. Off Load all bony prominences with use of pillows and heel boots if needed. Apply Preventative foams where needed. 3. Monitor for incontinence and moisture control, use barrier creams when needed for prevention and treatment. 4. Provide adequate and supplemental nutrition. 5. Continue low air loss mattress. 6. Bilateral Buttocks and Posterior Thighs - Off Load Pressure - Cleanse with PH balance spray or wipes, pat dry. Apply thin layer of Triad to wound bed - only pat and dab no scrub and rub when soiling occurs. Reapply thin layer PRN after each episode of incontinence. Stable to discharge to short term rehab as soon as bed becomes available. <Tania Moreno - Last Filed: 10/13/23 10:51> Quality Stroke Does the patient have a stroke diagnosis?: No <Tania Moreno - Last Filed: 10/13/23 10:51> VTE Prior VTE?: No <Tania Moreno - Last Filed: 10/13/23 10:51> VTE Risk Level:: Medical - moderate - high <Tania Moreno - Last Filed: 10/13/23 10:51> VTE Device Contraindication: N/A - Device Ordered <Tania Moreno - Last Filed: 10/13/23 10:51> VTE Drug Contraindication: Treatment Not Indicated <Tania Moreno - Last Filed: 10/13/23 10:51>
[2023-10-13] MEDS: traMADoL HCL 50 MG TABLET 100 MG PO ×2 (10:14→23:10)
[2023-10-13] MEDS: Docusate Sodium 100 MG CAPSULE 200 MG PO (10:14)
[2023-10-13] MEDS: polyethylene glycoL 3350 17 GM POWD.PACK PO ×2 (10:14→23:10)
[2023-10-13] MEDS: Multivitamin TABLET 1 TAB PO (10:15)
[2023-10-13] MEDS: Apixaban 5 MG TABLET PO ×2 (10:15→23:10)
[2023-10-13] MEDS: Cholecalciferol (Vitamin D3) 25 MCG TABLET PO (10:15)
[2023-10-13] MEDS: Zinc Sulfate 220 MG CAPSULE PO (10:15)
--- NOTE | 2023-10-13 12:59 | MHC.CM.PN ---
Patient was changed from OBSERVATION to INPATIENT on 10/11/2023; CM met with Patient at bedside and addressed IMM with her, providing Patient with the original and a copy has been placed on the chart.
--- NOTE | 2023-10-13 14:41 | MHC.CM.PN ---
A referral has been made to [facility] for [employer] [facility] application, in case Patient requires LTC.CM met with Patient and her Niece/Mary Ho @ [phone]. Patient has given permission for Financial to contact Mary to assist with [employer] [facility].CM will follow.
[2023-10-13] MEDS: Sennosides/Docusate Sodium TABLET 1 TAB PO (23:10)
[2023-10-13] MEDS: Atorvastatin Calcium 20 MG TABLET PO (23:10)
[2023-10-14 03:25] VITALS: BP 114/60; PULSE 86; RESP 15; TEMP 36.5; O2SAT 94
[2023-10-14] MEDS: Omeprazole 20 MG CAPSULE.DR PO (06:38)
[2023-10-14 08:00] VITALS: BP 116/54; PULSE 79; RESP 18; TEMP 36.3; O2SAT 97
--- NOTE | 2023-10-14 08:13 | HO.PM.IMPN ---
Subjective Subjective Date of Service: 10/14/23 <Tania Alcalasatinder - Last Filed: 10/14/23 08:29> 10/14/23 <Singh Dow MD - Last Filed: 10/14/23 09:17> Interval History: Patient doing well, no new complaints <Tania Moreno - Last Filed: 10/14/23 08:29> Review of Systems No SOB, CP, dizziness/syncope, fevers, chills. <Tania Moreno - Last Filed: 10/14/23 08:29> Review of Systems: Yes all other systems are reviewed and are negative <Tania Moreno - Last Filed: 10/14/23 08:29> Physical Exam Vital Signs: Vital Signs: Last Vital Signs Temp 97.3 F 10/14/23 08:00 Pulse 79 10/14/23 08:00 Resp 18 10/14/23 08:00 BP 116/54 L 10/14/23 08:00 Pulse Ox 97 10/14/23 08:00 O2 Del Method Room Air 10/14/23 08:00 BMI result Body Mass Index 54.2 <Tania Morneo - Last Filed: 10/14/23 08:29> Const: Other: General awake alert x3, resting comfortably in no acute distress. CVS: regular rate rhythm Respiratory lungs clear to auscultation, normal respiratory effort Gastrointestinal abdomen soft, non tender, non-distended Extremities non pitting edema. Psych appropriate affect <Tania Moreno - Last Filed: 10/14/23 08:29> Objective Data Active Medications Acetaminophen (Acetaminophen 325 Mg Tablet) 650 mg PO Q6H PRN PRN Reason: Pain, Mild (Pain Scale 1-3) Albuterol Sulfate (Albuterol Sulfate (0.083%) 2.5 Mg/3 Ml Vial.Neb) 2.5 mg INHALE Q4H PRN PRN Reason: Shortness Of Breath Or Wheezing Apixaban (Apixaban 5 Mg Tablet) 5 mg PO BID [facility] Last Admin: 10/13/23 23:10 Dose: 5 mg Documented By: ESTHER Atorvastatin Calcium (Atorvastatin Calcium 20 Mg Tablet) 20 mg PO BEDTIME [facility] Last Admin: 10/13/23 23:10 Dose: 20 mg Documented By: ESTHER Bisacodyl (Bisacodyl 10 Mg Supp.Rect) 10 mg SC DAILY PRN PRN Reason: Constipation Docusate Sodium (Docusate Sodium 100 Mg Capsule) 200 mg PO DAILY [facility] Last Admin: 10/13/23 10:14 Dose: 200 mg Documented By: SHELDON Melatonin (Melatonin 3 Mg Tablet) 6 mg PO BEDTIME PRN PRN Reason: Insomnia Melatonin (Melatonin 3 Mg Tablet) 3 mg PO BEDTIME PRN PRN Reason: Insomnia Multivitamins/Vitamin C (Multivitamin Tablet) 1 tab PO DAILY [facility] Last Admin: 10/13/23 10:15 Dose: 1 tab Documented By: SHELDON Omeprazole (Omeprazole 20 Mg Capsule.Dr) 20 mg PO DAILY@0630 [facility] Last Admin: 10/14/23 06:38 Dose: 20 mg Documented By: ESTHER Ondansetron HCl (Ondansetron Hcl 4 Mg/2 Ml Vial) 4 mg IVPUSH Q8H PRN PRN Reason: Nausea and Vomiting Oxycodone HCl (Oxycodone Hcl Immed Release 5 Mg Tablet) 5 mg PO Q6H PRN PRN Reason: Pain, Severe (Pain Scale 7-10) Last Admin: 10/11/23 05:27 Dose: 5 mg Documented By: MINI Polyethylene Glycol (Polyethylene Glycol 3350 17 Gm Powd.Pack) 17 gm PO BID [facility] Last Admin: 10/13/23 23:10 Dose: 17 gm Documented By: ESTHER Senna/Docusate Sodium (Sennosides/Docusate Sodium Tablet) 1 tab PO BEDTIME [facility] Last Admin: 10/13/23 23:10 Dose: 1 tab Documented By: ESTHER Sodium Chloride (0.9 % Sodium Chloride Flush 3 Ml Syringe) 3 ml IVFLUSH QSHIFT [facility] Last Admin: 10/13/23 23:16 Dose: 3 ml Documented By: ESTHER Tramadol HCl (Tramadol Hcl 50 Mg Tablet) 100 mg PO BID [facility] Last Admin: 10/13/23 23:10 Dose: 100 mg Documented By: ESTHER Vitamin D (Cholecalciferol (Vitamin D3) 25 Mcg Tablet) 25 mcg PO DAILY [facility] Last Admin: 10/13/23 10:15 Dose: 25 mcg Documented By: SHELDON Zinc Sulfate (Zinc Sulfate 220 Mg Capsule) 220 mg PO DAILY [facility] Last Admin: 10/13/23 10:15 Dose: 220 mg Documented By: SHELDON <Tania Moreno - Last Filed: 10/14/23 08:29> Labs CBC & Chem 7: 10/12/23 06:22 10/11/23 05:19 <Tania Alcalan - Last Filed: 10/14/23 08:29> Assessment and Plan (1) Acute GI bleeding: Status: Acute <Tania Alcalan - Last Filed: 10/14/23 08:29> (2) Bright red blood per rectum: Status: Acute <Tania Alcalan - Last Filed: 10/14/23 08:29> Assessment and Plan: 67-year-old female with pertinent history of essential hypertension, mixed hyperlipidemia, arthritis, DVT on Eliquis who was sent to the emergency department for evaluation of bright red blood per rectum. Was admitted with cardiac monitoring. Painless acute bright red blood per rectum, concerning for acute GI bleed: - No recurrent bleeds; continues to have brown stools. - Continue bowel regimen History of DVT -- continue Eliquis Essential hypertension -- soft BPs over duration of stay. Continue to hold Norvasc and follow up outpatient with PCP to reevaluate HTN management. Mixed hyperlipidemia -- cont. Lipitor. Morbid obesity -- recommend low-calorie diet. Mixed hyperlipidemia: continue Lipitor. Pressure ulcer -- follow regimen as rx'd by wound nurse. Stable to discharge to short term rehab as soon as bed becomes available, case management working on arrangements. <Tania Alcalasatinder - Last Filed: 10/14/23 08:29> Quality Stroke Does the patient have a stroke diagnosis?: No <Tania Chavarriawilliam - Last Filed: 10/14/23 08:29> VTE Prior VTE?: No <Tania Alcalan - Last Filed: 10/14/23 08:29> VTE Risk Level:: Medical - moderate - high <Tania Chavarriawilliam - Last Filed: 10/14/23 08:29> VTE Device Contraindication: N/A - Device Ordered <Tania Moreno - Last Filed: 10/14/23 08:29> VTE Drug Contraindication: Treatment Not Indicated <Tania Moreno - Last Filed: 10/14/23 08:29>
--- NOTE | 2023-10-14 09:13 | MHC.CM.PN ---
SNF bed search has been extended out [facility]; CM will follow.
[2023-10-14] MEDS: Zinc Sulfate 220 MG CAPSULE PO (09:28)
[2023-10-14] MEDS: polyethylene glycoL 3350 17 GM POWD.PACK PO (09:28)
[2023-10-14] MEDS: Docusate Sodium 100 MG CAPSULE 200 MG PO (09:28)
[2023-10-14] MEDS: Apixaban 5 MG TABLET PO ×2 (09:28→20:00)
[2023-10-14] MEDS: Multivitamin TABLET 1 TAB PO (09:28)
[2023-10-14] MEDS: traMADoL HCL 50 MG TABLET 100 MG PO ×2 (09:28→20:00)
[2023-10-14] MEDS: Cholecalciferol (Vitamin D3) 25 MCG TABLET PO (09:28)
[2023-10-14 12:00] VITALS: BP 126/60; PULSE 97; RESP 20; TEMP 36.3; O2SAT 96
--- NOTE | 2023-10-14 12:02 | MHC.CLN ---
F/U PT WITH INCREASED NUTRITION RISK R/T PRESSURE INJURY PO INTAKE 100% X 2 MEALS DIET RX: REGULAR HIGH FIBER DIET PT RECEIVING ENSURE MAX BID TO PROMOTE WOUND HEALING SUPP PROVIDES 300KCALS, 60G PROTEIN MONITOR PO INTAKE AND ENCOURAGE SUPPLEMENTS
[2023-10-14 16:00] VITALS: BP 126/53; PULSE 89; RESP 20; TEMP 37.6; O2SAT 94
[2023-10-14 19:27] VITALS: BP 111/71; PULSE 91; RESP 18; TEMP 36.3; O2SAT 95
[2023-10-14] MEDS: Atorvastatin Calcium 20 MG TABLET PO (20:00)
[2023-10-14] MEDS: Sennosides/Docusate Sodium TABLET 1 TAB PO (20:00)
[2023-10-14 23:26] VITALS: BP 118/70; PULSE 84; RESP 18; TEMP 36.7; O2SAT 98
[2023-10-15 03:08] VITALS: BP 121/70; PULSE 86; RESP 18; TEMP 36.2; O2SAT 98
[2023-10-15] MEDS: Omeprazole 20 MG CAPSULE.DR PO (05:38)
[2023-10-15 08:00] VITALS: BP 115/77; PULSE 90; RESP 20; TEMP 36.9; O2SAT 95
[2023-10-15 09:57] LABS: Hematocrit 31.5 % (37.0-47.0); Hemoglobin 9.7 g/dl (12.0-16.0)
[2023-10-15] MEDS: Docusate Sodium 100 MG CAPSULE 200 MG PO (10:08)
[2023-10-15] MEDS: traMADoL HCL 50 MG TABLET 100 MG PO ×2 (10:08→20:07)
[2023-10-15] MEDS: Zinc Sulfate 220 MG CAPSULE PO (10:09)
[2023-10-15] MEDS: Multivitamin TABLET 1 TAB PO (10:09)
[2023-10-15] MEDS: Sennosides/Docusate Sodium TABLET 2 TAB PO ×2 (10:09→20:08)
[2023-10-15] MEDS: Apixaban 5 MG TABLET PO ×2 (10:09→20:07)
[2023-10-15] MEDS: Cholecalciferol (Vitamin D3) 25 MCG TABLET PO (10:09)
[2023-10-15 11:09] VITALS: BP 119/68; PULSE 88; RESP 20; TEMP 36.9; O2SAT 95
--- NOTE | 2023-10-15 12:51 | HO.PM.IMPN ---
Subjective Subjective Date of Service: 10/15/23 Interval History: had some BRBPR overnight, none since no lightheadedness no N/V no diarrhea Review of Systems Review of Systems: Yes all other systems are reviewed and are negative Physical Exam Vital Signs: Vital Signs: Last Vital Signs Temp 98.4 F 10/15/23 11:09 Pulse 88 10/15/23 11:09 Resp 20 10/15/23 11:09 BP 119/68 10/15/23 11:09 Pulse Ox 95 10/15/23 11:09 O2 Del Method Room Air 10/15/23 11:09 BMI result Body Mass Index 54.2 Gen: in no acute distress HEENT: sclera anicteric, moist mucus membranes Neck: supple Lungs: clear to auscultation bilaterally Heart: regular rate and rhythm, no murmurs Abd: soft, non-tender, non-distended, obese Ext: no edema Skin: warm/well-perfused Neuro: alert and oriented x3, no focal findings Psych: appropriate affect Objective Data Active Medications Acetaminophen (Acetaminophen 325 Mg Tablet) 650 mg PO Q6H PRN PRN Reason: Pain, Mild (Pain Scale 1-3) Albuterol Sulfate (Albuterol Sulfate (0.083%) 2.5 Mg/3 Ml Vial.Neb) 2.5 mg INHALE Q4H PRN PRN Reason: Shortness Of Breath Or Wheezing Apixaban (Apixaban 5 Mg Tablet) 5 mg PO BID [facility] Last Admin: 10/15/23 10:09 Dose: 5 mg Documented By: SHELDON Atorvastatin Calcium (Atorvastatin Calcium 20 Mg Tablet) 20 mg PO BEDTIME [facility] Last Admin: 10/14/23 20:00 Dose: 20 mg Documented By: PASCUAL Bisacodyl (Bisacodyl 10 Mg Supp.Rect) 10 mg [place] DAILY PRN PRN Reason: Constipation Docusate Sodium (Docusate Sodium 100 Mg Capsule) 200 mg PO DAILY [facility] Last Admin: 10/15/23 10:08 Dose: 200 mg Documented By: SHELDON Melatonin (Melatonin 3 Mg Tablet) 6 mg PO BEDTIME PRN PRN Reason: Insomnia Melatonin (Melatonin 3 Mg Tablet) 3 mg PO BEDTIME PRN PRN Reason: Insomnia Multivitamins/Vitamin C (Multivitamin Tablet) 1 tab PO DAILY [facility] Last Admin: 10/15/23 10:09 Dose: 1 tab Documented By: SHELDON Omeprazole (Omeprazole 20 Mg Capsule.) 20 mg PO DAILY@0630 [facility] Last Admin: 10/15/23 05:38 Dose: 20 mg Documented By: PASCUAL Ondansetron HCl (Ondansetron Hcl 4 Mg/2 Ml Vial) 4 mg IVPUSH Q8H PRN PRN Reason: Nausea and Vomiting Oxycodone HCl (Oxycodone Hcl Immed Release 5 Mg Tablet) 5 mg PO Q6H PRN PRN Reason: Pain, Severe (Pain Scale 7-10) Last Admin: 10/11/23 05:27 Dose: 5 mg Documented By: MINI Polyethylene Glycol (Polyethylene Glycol 3350 17 Gm Powd.Pack) 17 gm PO BID [facility] Last Admin: 10/15/23 10:11 Dose: Not Given Documented By: SHELDON Non-Admin Reason: Patient Refused Senna/Docusate Sodium (Sennosides/Docusate Sodium Tablet) 2 tab PO BID [facility] Last Admin: 10/15/23 10:09 Dose: 2 tab Documented By: SHELDON Sodium Chloride (0.9 % Sodium Chloride Flush 3 Ml Syringe) 3 ml IVFLUSH QSHIFT [facility] Last Admin: 10/15/23 10:10 Dose: 3 ml Documented By: SHELDON Tramadol HCl (Tramadol Hcl 50 Mg Tablet) 100 mg PO BID [facility] Last Admin: 10/15/23 10:08 Dose: 100 mg Documented By: SHELDON Vitamin D (Cholecalciferol (Vitamin D3) 25 Mcg Tablet) 25 mcg PO DAILY [facility] Last Admin: 10/15/23 10:09 Dose: 25 mcg Documented By: SHELDON Zinc Sulfate (Zinc Sulfate 220 Mg Capsule) 220 mg PO DAILY [facility] Last Admin: 10/15/23 10:09 Dose: 220 mg Documented By: SHELDON Labs 10/15/23 09:42 10/11/23 05:19 Labs: Laboratory Results - last 24 hr 10/15/23 09:42 C-Reactive Protein 0.50 Assessment and Plan (1) Acute GI bleeding: Status: Acute (2) Bright red blood per rectum: Status: Acute Plan d5 67yo F with HTN, HLD, arthritis, DVT on apixaban admitted for BRBPR painless BRBPR - GI consulted, likely hemorrhoidal or stercorcal colitis or chronic colitis. Had sigmoidoscopy at [facility] in September which was essentially normal, random biopsies did show active colitis; prior to that, had C diff colitis - no active bleeding on CT - bowel regimen - refuses further endoscopic assessment - monitor H+H periodically but continue apixaban for now hx DVT - apixaban HTN - holding amlodipine for soft BP HLD - statin deep tissue injury of buttocks present on admission - Wound Care consulted: Bilateral Buttocks and Posterior Thighs - Off Load Pressure - Cleanse with PH balance spray or wipes, pat dry. ?Apply thin layer of Triad to wound bed - only pat and dab no scrub and rub when soiling occurs. Reapply thin layer PRN after each episode of incontinence. morbid obesity - diet/exercise counseling VTE ppx - apixaban dispo - STR recommended In my clinical judgment, the patient requires continued inpatient hospitalization for the following reasons: placement Total time managing care of this patient today: 35 minutes. Quality Stroke Does the patient have a stroke diagnosis?: No VTE Prior VTE?: No VTE Risk Level:: Medical - moderate - high VTE Device Contraindication: N/A - Device Ordered VTE Drug Contraindication: Treatment Not Indicated
--- NOTE | 2023-10-15 13:54 | HO.SKINPHOTO ---
Location: Buttock wound 10/15/23 Category: Stage: Length: Width: Depth: cm
[2023-10-15 15:17] VITALS: BP 112/66; PULSE 90; RESP 18; TEMP 37.1; O2SAT 94
[2023-10-15 19:17] VITALS: BP 120/57; PULSE 90; RESP 16; TEMP 36.4; O2SAT 95
[2023-10-15] MEDS: Atorvastatin Calcium 20 MG TABLET PO (20:07)
[2023-10-15 23:31] VITALS: BP 119/79; PULSE 68; RESP 18; TEMP 36.4; O2SAT 98
[2023-10-16 03:50] VITALS: BP 135/75; PULSE 80; RESP 18; TEMP 35.7; O2SAT 95
[2023-10-16] MEDS: Omeprazole 20 MG CAPSULE.DR PO (05:24)
[2023-10-16 07:36] VITALS: BP 122/60; PULSE 85; RESP 16; TEMP 36.8; O2SAT 95
[2023-10-16] MEDS: Zinc Sulfate 220 MG CAPSULE PO (10:07)
[2023-10-16] MEDS: Apixaban 5 MG TABLET PO ×2 (10:07→20:04)
[2023-10-16] MEDS: Multivitamin TABLET 1 TAB PO (10:07)
[2023-10-16] MEDS: Cholecalciferol (Vitamin D3) 25 MCG TABLET PO (10:07)
[2023-10-16] MEDS: traMADoL HCL 50 MG TABLET 100 MG PO (10:07)
--- NOTE | 2023-10-16 11:52 | P.PNIM_ITS ---
Subjective Subjective Date of Service: 10/16/23 Interval History: Being followed for bright red blood per rectum, had normal bowel movement yesterday but the night before had some blood in stool, denies abdominal pain, no nausea, no vomiting no lightheadedness dizziness tolerating diet. Review of Systems All other system reviewed and negative Physical Exam 2 Vital Signs: Vital Signs: Last Vital Signs Temp 98.2 F 10/16/23 07:36 Pulse 85 10/16/23 07:36 Resp 16 10/16/23 07:36 BP 122/60 10/16/23 07:36 Pulse Ox 95 10/16/23 07:36 O2 Del Method Room Air 10/16/23 07:36 BMI result Body Mass Index 54.2 Const: Other: Gen: in no acute distress HEENT: sclera anicteric, moist mucus membranes Neck: supple Lungs: clear to auscultation bilaterally Heart: regular rate and rhythm, no murmurs Abd: soft, non-tender, non-distended, obese Ext: no edema Skin: warm/well-perfused Neuro: alert and oriented x3, no focal findings Psych: appropriate affect Objective Data Active Medications Acetaminophen (Acetaminophen 325 Mg Tablet) 650 mg PO Q6H PRN PRN Reason: Pain, Mild (Pain Scale 1-3) Albuterol Sulfate (Albuterol Sulfate (0.083%) 2.5 Mg/3 Ml Vial.Neb) 2.5 mg INHALE Q4H PRN PRN Reason: Shortness Of Breath Or Wheezing Apixaban (Apixaban 5 Mg Tablet) 5 mg PO BID [facility] Last Admin: 10/16/23 10:07 Dose: 5 mg Documented By: SHELDON Atorvastatin Calcium (Atorvastatin Calcium 20 Mg Tablet) 20 mg PO BEDTIME [facility] Last Admin: 10/15/23 20:07 Dose: 20 mg Documented By: PASCUAL Bisacodyl (Bisacodyl 10 Mg Supp.Rect) 10 mg [place] DAILY PRN PRN Reason: Constipation Docusate Sodium (Docusate Sodium 100 Mg Capsule) 200 mg PO DAILY [facility] Last Admin: 10/16/23 10:08 Dose: Not Given Documented By: SHELDON Non-Admin Reason: Diarrhea Melatonin (Melatonin 3 Mg Tablet) 6 mg PO BEDTIME PRN PRN Reason: Insomnia Melatonin (Melatonin 3 Mg Tablet) 3 mg PO BEDTIME PRN PRN Reason: Insomnia Multivitamins/Vitamin C (Multivitamin Tablet) 1 tab PO DAILY [facility] Last Admin: 10/16/23 10:07 Dose: 1 tab Documented By: SHELDON Omeprazole (Omeprazole 20 Mg Capsule.) 20 mg PO DAILY@0630 [facility] Last Admin: 10/16/23 05:24 Dose: 20 mg Documented By: PASCUAL Ondansetron HCl (Ondansetron Hcl 4 Mg/2 Ml Vial) 4 mg IVPUSH Q8H PRN PRN Reason: Nausea and Vomiting Oxycodone HCl (Oxycodone Hcl Immed Release 5 Mg Tablet) 5 mg PO Q6H PRN PRN Reason: Pain, Severe (Pain Scale 7-10) Last Admin: 10/11/23 05:27 Dose: 5 mg Documented By: MINI Polyethylene Glycol (Polyethylene Glycol 3350 17 Gm Powd.Pack) 17 gm PO BID [facility] Last Admin: 10/16/23 10:08 Dose: Not Given Documented By: SHELDON Non-Admin Reason: diarrhea Senna/Docusate Sodium (Sennosides/Docusate Sodium Tablet) 2 tab PO BID [facility] Last Admin: 10/16/23 10:08 Dose: Not Given Documented By: SHELDON Non-Admin Reason: diarrhea Sodium Chloride (0.9 % Sodium Chloride Flush 3 Ml Syringe) 3 ml IVFLUSH QSHIFT [facility] Last Admin: 10/16/23 10:09 Dose: 3 ml Documented By: SHELDON Tramadol HCl (Tramadol Hcl 50 Mg Tablet) 100 mg PO BID [facility] Last Admin: 10/16/23 10:07 Dose: 100 mg Documented By: SHELDON Vitamin D (Cholecalciferol (Vitamin D3) 25 Mcg Tablet) 25 mcg PO DAILY [facility] Last Admin: 10/16/23 10:07 Dose: 25 mcg Documented By: SHELDON Zinc Sulfate (Zinc Sulfate 220 Mg Capsule) 220 mg PO DAILY [facility] Last Admin: 10/16/23 10:07 Dose: 220 mg Documented By: SHELDON Labs 10/15/23 09:42 10/11/23 05:19 Assessment and Plan (1) Acute GI bleeding: Status: Acute (2) Bright red blood per rectum: Status: Acute Plan 67yo F with HTN, HLD, arthritis, DVT on apixaban admitted for BRBPR painless BRBPR - GI consulted, likely hemorrhoidal or stercorcal colitis or chronic colitis. Had sigmoidoscopy at [facility] in September which was essentially normal, random biopsies did show active colitis; prior to that, had C diff colitis. - CT abdomen and pelvis showed large stool burden with some inflammatory changes adjacent to the rectum in the presacral space no GMS was no - patient seen by GI and she refuse endoscopic assessment. - will continue apixaban for now. - hematocrit dropped but above transfusion threshold will repeat hematocrit and if continued to trend down will reconsult GI/apply hemorrhoidal supp bid , continue stool softeners hx DVT - continue apixaban HTN - holding amlodipine for soft BP HLD - statin deep tissue injury of buttocks present on admission - Wound Care consulted: Bilateral Buttocks and Posterior Thighs - Off Load Pressure - Cleanse with PH balance spray or wipes, pat dry. ?Apply thin layer of Triad to wound bed - only pat and dab no scrub and rub when soiling occurs. Reapply thin layer PRN after each episode of incontinence. morbid obesity - diet/exercise counseling VTE ppx - apixaban dispo - STR recommended In my clinical judgment, the patient requires continued inpatient hospitalization for the following reasons: placement Total time managing care of this patient today: 35 minutes. Quality Stroke Does the patient have a stroke diagnosis?: No VTE Prior VTE?: No VTE Risk Level:: Medical - moderate - high VTE Device Contraindication: N/A - Device Ordered VTE Drug Contraindication: Treatment Not Indicated
[2023-10-16 11:58] VITALS: BP 131/61; PULSE 78; RESP 18; TEMP 36.6; O2SAT 94
[2023-10-16 13:02] VITALS: BP 156/78; PULSE 97; RESP 18; TEMP 36.3; O2SAT 95
--- NOTE | 2023-10-16 13:50 | PC.NURSE ---
patient resting in bed,denies pain
[2023-10-16] MEDS: Cocoa Butter/Zinc Oxide SUPP.RECT 1 SUPP PR ×2 (14:52→20:50)
[2023-10-16 15:22] VITALS: BP 135/60; PULSE 83; RESP 18; TEMP 36.6; O2SAT 92
[2023-10-16 19:11] VITALS: BP 136/72; PULSE 93; RESP 18; TEMP 36.3; O2SAT 95
[2023-10-16] MEDS: Atorvastatin Calcium 20 MG TABLET PO (20:04)
[2023-10-16] MEDS: traMADoL HCL 50 MG TABLET PO (20:04)
[2023-10-17] VITALS (7 sets, daily range): BP systolic 119–148; BP diastolic 57–97; PULSE 76–95; RESP 17–18; TEMP 36.2–37.2; O2SAT 93–97
[2023-10-17 05:10] LABS: Hematocrit 33.4 % (37.0-47.0); Hemoglobin 10.3 g/dl (12.0-16.0); Mean Corpuscular HGB Conc 30.8 g/dl (31.0-35.0); Mean Corpuscular Hemoglobin 27.5 pg (27.0-33.0); Mean Corpuscular Volume 89.3 fL (80.0-98.0); Mean Platelet Volume 11.3 fL (9.4-12.3); Platelet Count 248 X10*3/uL (160-400); Red Blood Count 3.74 X10*6/uL (4.20-5.50); Red Cell Distribution Width 14.5 % (11.0-16.0); White Blood Count 5.5 X10*3/uL (4.8-10.8)
[2023-10-17] MEDS: Omeprazole 20 MG CAPSULE.DR PO (05:32)
[2023-10-17] MEDS: Multivitamin TABLET 1 TAB PO (10:24)
[2023-10-17] MEDS: Cholecalciferol (Vitamin D3) 25 MCG TABLET PO (10:24)
[2023-10-17] MEDS: traMADoL HCL 50 MG TABLET PO ×2 (10:24→21:06)
[2023-10-17] MEDS: Zinc Sulfate 220 MG CAPSULE PO (10:24)
[2023-10-17] MEDS: Cocoa Butter/Zinc Oxide SUPP.RECT 1 SUPP PR ×2 (10:25→21:05)
[2023-10-17] MEDS: Apixaban 5 MG TABLET PO ×2 (10:25→21:06)
--- NOTE | 2023-10-17 12:26 | HO.PM.IMPN ---
Subjective Subjective Date of Service: 10/17/23 Interval History: Admitted for bright red blood per rectum no recurrent episode in last 48 hours, denies lightheadedness dizziness, no chest pain no palpitations, no nausea, no vomiting, no abdominal pain, had brown loose bowel movement. Review of Systems All other system reviewed and negative. Physical Exam Vital Signs: Vital Signs: Last Vital Signs Temp 98.9 F 10/17/23 11:48 Pulse 77 10/17/23 11:48 Resp 18 10/17/23 11:48 BP 136/64 10/17/23 11:48 Pulse Ox 93 10/17/23 11:48 O2 Del Method Room Air 10/17/23 11:48 BMI result Body Mass Index 54.2 Const: Other: Gen: in no acute distress HEENT: sclera anicteric, moist mucus membranes Neck: supple Lungs: clear to auscultation bilaterally Heart: regular rate and rhythm, no murmurs Abd: soft, non-tender, non-distended, obese Ext: no edema Skin: warm/well-perfused Neuro: alert and oriented x3, no focal findings Psych: appropriate affect Objective Data Active Medications Acetaminophen (Acetaminophen 325 Mg Tablet) 650 mg PO Q6H PRN PRN Reason: Pain, Mild (Pain Scale 1-3) Albuterol Sulfate (Albuterol Sulfate (0.083%) 2.5 Mg/3 Ml Vial.Neb) 2.5 mg INHALE Q4H PRN PRN Reason: Shortness Of Breath Or Wheezing Apixaban (Apixaban 5 Mg Tablet) 5 mg PO BID [facility] Last Admin: 10/17/23 10:25 Dose: 5 mg Documented By: KATHRYN Atorvastatin Calcium (Atorvastatin Calcium 20 Mg Tablet) 20 mg PO BEDTIME [facility] Last Admin: 10/16/23 20:04 Dose: 20 mg Documented By: BLADE Bisacodyl (Bisacodyl 10 Mg Supp.Rect) 10 mg [place] DAILY PRN PRN Reason: Constipation [place] Butter/Zinc Oxide ([place] Butter/Zinc Oxide Supp.Rect) 1 supp ID BID [facility] Last Admin: 10/17/23 10:25 Dose: 1 supp Documented By: KATHRYN Docusate Sodium (Docusate Sodium 100 Mg Capsule) 200 mg PO DAILY [facility] Last Admin: 10/17/23 11:19 Dose: Not Given Documented By: KATHRYN Non-Admin Reason: Patient Refused Melatonin (Melatonin 3 Mg Tablet) 6 mg PO BEDTIME PRN PRN Reason: Insomnia Melatonin (Melatonin 3 Mg Tablet) 3 mg PO BEDTIME PRN PRN Reason: Insomnia Multivitamins/Vitamin C (Multivitamin Tablet) 1 tab PO DAILY [facility] Last Admin: 10/17/23 10:24 Dose: 1 tab Documented By: KATHRYN Omeprazole (Omeprazole 20 Mg Capsule.Dr) 20 mg PO DAILY@0630 [facility] Last Admin: 10/17/23 05:32 Dose: 20 mg Documented By: BLADE Ondansetron HCl (Ondansetron Hcl 4 Mg/2 Ml Vial) 4 mg IVPUSH Q8H PRN PRN Reason: Nausea and Vomiting Oxycodone HCl (Oxycodone Hcl Immed Release 5 Mg Tablet) 5 mg PO Q6H PRN PRN Reason: Pain, Severe (Pain Scale 7-10) Last Admin: 10/11/23 05:27 Dose: 5 mg Documented By: MINI Polyethylene Glycol (Polyethylene Glycol 3350 17 Gm Powd.Pack) 17 gm PO BID [facility] Last Admin: 10/17/23 11:19 Dose: Not Given Documented By: KATHRYN Non-Admin Reason: Patient Refused Senna/Docusate Sodium (Sennosides/Docusate Sodium Tablet) 2 tab PO DAILY [facility] Last Admin: 10/17/23 11:19 Dose: Not Given Documented By: KATHRYN Non-Admin Reason: Patient Refused Sodium Chloride (0.9 % Sodium Chloride Flush 3 Ml Syringe) 3 ml IVFLUSH QSHIFT [facility] Last Admin: 10/17/23 10:26 Dose: Not Given Documented By: KATHRYN Non-Admin Reason: Previously Administered Tramadol HCl (Tramadol Hcl 50 Mg Tablet) 50 mg PO BID [facility] Last Admin: 10/17/23 10:24 Dose: 50 mg Documented By: KATHRYN Vitamin D (Cholecalciferol (Vitamin D3) 25 Mcg Tablet) 25 mcg PO DAILY [facility] Last Admin: 10/17/23 10:24 Dose: 25 mcg Documented By: KATHRYN Zinc Sulfate (Zinc Sulfate 220 Mg Capsule) 220 mg PO DAILY [facility] Last Admin: 10/17/23 10:24 Dose: 220 mg Documented By: KATHRYN Labs 10/17/23 04:26 10/11/23 05:19 Labs: Laboratory Results - last 24 hr 10/17/23 04:26 MCV 89.3 MCH 27.5 MCHC 30.8 L RDW 14.5 Plt Count 248 MPV 11.3 Absolute Nucleated RBC 0.000 Nucleated RBC % (auto) 0.0 Assessment and Plan (1) Acute GI bleeding: Status: Acute (2) Bright red blood per rectum: Status: Acute Plan 67yo F with HTN, HLD, arthritis, DVT on apixaban admitted for BRBPR painless BRBPR - no recurrent episodes in last 48 hours - GI consulted, likely hemorrhoidal or stercorcal colitis or chronic colitis. Had sigmoidoscopy at [facility] in September which was essentially normal, random biopsies did show active colitis; prior to that, had C diff colitis. - CT abdomen and pelvis showed large stool burden with some inflammatory changes adjacent to the rectum in the presacral space no GMS was no - patient seen by GI and she refuse endoscopic assessment. - continue apixaban for now. - hematocrit this a.m. is stable, patient having brown loose stools will change MiraLax to once daily, continue Colace and senna, continue hemorrhoidal suppository. Ch pain . Stable decrease dose of Ultram to 50 b.i.d. hx DVT - continue apixaban HTN - holding amlodipine for soft BP HLD - statin deep tissue injury of buttocks present on admission - Wound Care consulted: Bilateral Buttocks and Posterior Thighs - Off Load Pressure - Cleanse with PH balance spray or wipes, pat dry. ?Apply thin layer of Triad to wound bed - only pat and dab no scrub and rub when soiling occurs. Reapply thin layer PRN after each episode of incontinence. morbid obesity - diet/exercise counseling VTE ppx - apixaban dispo - STR recommended In my clinical judgment, the patient requires continued inpatient hospitalization for the following reasons: placement Total time managing care of this patient today: 35 minutes. Quality Stroke Does the patient have a stroke diagnosis?: No VTE Prior VTE?: No VTE Risk Level:: Medical - moderate - high VTE Device Contraindication: N/A - Device Ordered VTE Drug Contraindication: Treatment Not Indicated
--- NOTE | 2023-10-17 13:30 | MHC.CLN ---
F/U PT WITH INCREASED NUTRITION RISK R/T PRESSURE INJURY. PO INTAKE MOST MEALS 100%. DIET= REGULAR HIGH FIBER. PT RECEIVING ENSURE MAX BID TO PROMOTE WOUND HEALING. SUPP PROVIDES 300KCALS, 60G PROTEIN. MONITOR PO INTAKE AND WOUND HEALING.
--- NOTE | 2023-10-17 13:53 | MHC.CM.PN ---
per rounds pt is ready for dc when bed is avalible search continues
[2023-10-17] MEDS: Atorvastatin Calcium 20 MG TABLET PO (21:06)
[2023-10-18 03:08] VITALS: BP 124/74; PULSE 89; RESP 18; TEMP 36.1; O2SAT 95
[2023-10-18] MEDS: Omeprazole 20 MG CAPSULE.DR PO (06:16)
[2023-10-18 07:24] VITALS: BP 127/57; PULSE 82; RESP 18; TEMP 36.7; O2SAT 94
--- NOTE | 2023-10-18 10:24 | HO.PM.IMPN ---
Subjective Subjective Date of Service: 10/18/23 Interval History: Complaining of loose stools, no abdominal pain, no nausea, no vomiting, no bright red blood per rectum, tolerating diet, no urinary symptoms of urgency frequency, no shortness of breath, no chest pain. Review of Systems All other system reviewed and negative. Physical Exam Vital Signs: Vital Signs: Last Vital Signs Temp 98.1 F 10/18/23 07:24 Pulse 82 10/18/23 07:24 Resp 18 10/18/23 07:24 BP 127/57 L 10/18/23 07:24 Pulse Ox 94 10/18/23 07:24 O2 Del Method Room Air 10/18/23 07:24 BMI result Body Mass Index 54.2 Const: Other: Gen: in no acute distress HEENT: sclera anicteric, moist mucus membranes Neck: supple Lungs: clear to auscultation bilaterally Heart: regular rate and rhythm, no murmurs Abd: soft, non-tender, non-distended, bowel sounds audible, obese Ext: no edema Skin: warm/well-perfused Neuro: alert and oriented x3, no focal findings Psych: appropriate affect Objective Data Active Medications Acetaminophen (Acetaminophen 325 Mg Tablet) 650 mg PO Q6H PRN PRN Reason: Pain, Mild (Pain Scale 1-3) Albuterol Sulfate (Albuterol Sulfate (0.083%) 2.5 Mg/3 Ml Vial.Neb) 2.5 mg INHALE Q4H PRN PRN Reason: Shortness Of Breath Or Wheezing Apixaban (Apixaban 5 Mg Tablet) 5 mg PO BID [facility] Last Admin: 10/17/23 21:06 Dose: 5 mg Documented By: BLADE Atorvastatin Calcium (Atorvastatin Calcium 20 Mg Tablet) 20 mg PO BEDTIME [facility] Last Admin: 10/17/23 21:06 Dose: 20 mg Documented By: BLADE Bisacodyl (Bisacodyl 10 Mg Supp.Rect) 10 mg [place] DAILY PRN PRN Reason: Constipation [place] Butter/Zinc Oxide ([place] Butter/Zinc Oxide Supp.Rect) 1 supp ID BID [facility] Last Admin: 10/17/23 21:05 Dose: 1 supp Documented By: BLADE Docusate Sodium (Docusate Sodium 100 Mg Capsule) 200 mg PO DAILY [facility] Last Admin: 01/15/24 11:19 Dose: Not Given Documented By: KATHRYN Non-Admin Reason: Patient Refused Melatonin (Melatonin 3 Mg Tablet) 6 mg PO BEDTIME PRN PRN Reason: Insomnia Melatonin (Melatonin 3 Mg Tablet) 3 mg PO BEDTIME PRN PRN Reason: Insomnia Multivitamins/Vitamin C (Multivitamin Tablet) 1 tab PO DAILY [facility] Last Admin: 10/17/23 10:24 Dose: 1 tab Documented By: KATHRYN Omeprazole (Omeprazole 20 Mg Capsule.Dr) 20 mg PO DAILY@0630 [facility] Last Admin: 10/18/23 06:16 Dose: 20 mg Documented By: BLADE Ondansetron HCl (Ondansetron Hcl 4 Mg/2 Ml Vial) 4 mg IVPUSH Q8H PRN PRN Reason: Nausea and Vomiting Oxycodone HCl (Oxycodone Hcl Immed Release 5 Mg Tablet) 5 mg PO Q6H PRN PRN Reason: Pain, Severe (Pain Scale 7-10) Last Admin: 10/11/23 05:27 Dose: 5 mg Documented By: MINI Polyethylene Glycol (Polyethylene Glycol 3350 17 Gm Powd.Pack) 17 gm PO DAILY [facility] Sodium Chloride (0.9 % Sodium Chloride Flush 3 Ml Syringe) 3 ml IVFLUSH QSHIFT [facility] Last Admin: 10/17/23 21:08 Dose: 3 ml Documented By: BLADE Tramadol HCl (Tramadol Hcl 50 Mg Tablet) 50 mg PO BID [facility] Last Admin: 10/17/23 21:06 Dose: 50 mg Documented By: BLADE Vitamin D (Cholecalciferol (Vitamin D3) 25 Mcg Tablet) 25 mcg PO DAILY [facility] Last Admin: 10/17/23 10:24 Dose: 25 mcg Documented By: KATHRYN Zinc Sulfate (Zinc Sulfate 220 Mg Capsule) 220 mg PO DAILY [facility] Last Admin: 10/17/23 10:24 Dose: 220 mg Documented By: KATHRYN Labs 10/17/23 04:26 10/11/23 05:19 Assessment and Plan (1) Acute GI bleeding: Status: Resolved (2) Bright red blood per rectum: Status: Resolved Plan 67yo F with HTN, HLD, arthritis, DVT on apixaban admitted for BRBPR painless BRBPR - no recurrent episodes of bright red blood per rectum and last several days - GI consulted, likely hemorrhoidal or stercorcal colitis or chronic colitis. Had sigmoidoscopy at [facility] in September which was essentially normal, random biopsies did show active colitis; prior to that, had C diff colitis. - CT abdomen and pelvis showed large stool burden with some inflammatory changes adjacent to the rectum in the presacral space no GMS was no - patient seen by GI and she refuse endoscopic assessment. - continue apixaban for now. - hematocrit stable, patient having brown loose stools , will hold MiraLax and DC senna, continue Colace , continue hemorrhoidal suppository. Ch pain . Stable decrease dose of Ultram to 50 b.i.d. hx DVT - continue apixaban HTN - holding amlodipine for soft BP HLD - statin deep tissue injury of buttocks present on admission - Wound Care consulted: Bilateral Buttocks and Posterior Thighs - Off Load Pressure - Cleanse with PH balance spray or wipes, pat dry. ?Apply thin layer of Triad to wound bed - only pat and dab no scrub and rub when soiling occurs. Reapply thin layer PRN after each episode of incontinence. morbid obesity - diet/exercise counseling VTE ppx - apixaban dispo - STR recommended In my clinical judgment, the patient requires continued inpatient hospitalization for the following reasons: placement Total time managing care of this patient today: 35 minutes. Quality Stroke Does the patient have a stroke diagnosis?: No VTE Prior VTE?: No VTE Risk Level:: Medical - moderate - high VTE Device Contraindication: N/A - Device Ordered VTE Drug Contraindication: Treatment Not Indicated
[2023-10-18] MEDS: Apixaban 5 MG TABLET PO ×2 (10:38→21:22)
[2023-10-18] MEDS: Multivitamin TABLET 1 TAB PO (10:38)
[2023-10-18] MEDS: Cholecalciferol (Vitamin D3) 25 MCG TABLET PO (10:38)
[2023-10-18] MEDS: traMADoL HCL 50 MG TABLET PO ×2 (10:38→21:22)
[2023-10-18] MEDS: Zinc Sulfate 220 MG CAPSULE PO (10:38)
[2023-10-18] MEDS: Cocoa Butter/Zinc Oxide SUPP.RECT 1 SUPP PR ×2 (10:38→21:26)
[2023-10-18 12:00] VITALS: BP 136/60; PULSE 93; RESP 18; TEMP 36.5; O2SAT 94
[2023-10-18 13:57] VITALS: BP 136/60; PULSE 93; O2SAT 94
--- NOTE | 2023-10-18 14:50 | MHC.CM.PN ---
Pt.'s family [place] [facility] [place] care social worker care [place] [employer] [facility]. CM sent out message to Shavon Butts and Serenity Reyes to request they reconsider pt for LTC placement, and to let them know that family is in process of [employer] [facility].
[2023-10-18 15:31] VITALS: BP 128/72; PULSE 96; RESP 16; TEMP 36.6; O2SAT 94
[2023-10-18 19:30] VITALS: BP 131/63; PULSE 98; RESP 17; TEMP 36.5; O2SAT 94
[2023-10-18] MEDS: Melatonin 3 MG TABLET 6 MG PO (21:21)
[2023-10-18] MEDS: Atorvastatin Calcium 20 MG TABLET PO (21:22)
[2023-10-19] VITALS (7 sets, daily range): BP systolic 115–136; BP diastolic 57–79; PULSE 76–102; RESP 16–20; TEMP 36.2–37.1; O2SAT 93–95
[2023-10-19] MEDS: Omeprazole 20 MG CAPSULE.DR PO (06:02)
[2023-10-19] MEDS: traMADoL HCL 50 MG TABLET PO ×2 (08:23→20:29)
[2023-10-19] MEDS: Apixaban 5 MG TABLET PO ×2 (08:24→20:30)
[2023-10-19] MEDS: Zinc Sulfate 220 MG CAPSULE PO (08:24)
[2023-10-19] MEDS: Cocoa Butter/Zinc Oxide SUPP.RECT 1 SUPP PR (08:24)
[2023-10-19] MEDS: Cholecalciferol (Vitamin D3) 25 MCG TABLET PO (08:24)
[2023-10-19] MEDS: Multivitamin TABLET 1 TAB PO (08:24)
--- NOTE | 2023-10-19 10:53 | MHC.CM.PN ---
Referrals sent out to all previous SNF's referred to with a note that patient is in process with [facility] and that she is now looking for LTC.
--- NOTE | 2023-10-19 10:59 | MHC.CLN ---
F/U PO INTAKE MOST MEALS 100%. DIET= REGULAR, HIGH FIBER. PT RECEIVING ENSURE MAX BID TO PROMOTE WOUND HEALING. SUPP PROVIDES 300KCALS, 60G PROTEIN. MONITOR PO INTAKE AND WOUND HEALING. RD TO FOLLOW UP WEEKLY.
[2023-10-19] MEDS: oxyCODONE HCl Immed Release 5 MG TABLET PO ×2 (12:05→18:16)
--- NOTE | 2023-10-19 12:17 | HO.PM.IMPN ---
Subjective Subjective Date of Service: 10/19/23 Interval History: Being followed for bright red blood per rectum, no recurrent episode since several days noted to have loose brown stools, tolerating diet, no nausea, no vomiting no abdominal pain, no fevers no chills no other acute issues overnight. Review of Systems All other system reviewed and negative. Physical Exam Vital Signs: Vital Signs: Last Vital Signs Temp 97.1 F 10/19/23 11:38 Pulse 76 10/19/23 11:38 Resp 18 10/19/23 11:38 BP 115/57 L 10/19/23 11:38 Pulse Ox 94 10/19/23 11:38 O2 Del Method Room Air 10/19/23 11:38 BMI result Body Mass Index 54.2 Const: Other: Gen: in no acute distress HEENT: sclera anicteric, moist mucus membranes Neck: supple Lungs: clear to auscultation bilaterally Heart: regular rate and rhythm, no murmurs Abd: soft, non-tender, non-distended, bowel sounds audible, obese Ext: no edema Skin: warm/well-perfused Neuro: alert and oriented x3, no focal findings Psych: appropriate affect Objective Data Active Medications Acetaminophen (Acetaminophen 325 Mg Tablet) 650 mg PO Q6H PRN PRN Reason: Pain, Mild (Pain Scale 1-3) Albuterol Sulfate (Albuterol Sulfate (0.083%) 2.5 Mg/3 Ml Vial.Neb) 2.5 mg INHALE Q4H PRN PRN Reason: Shortness Of Breath Or Wheezing Apixaban (Apixaban 5 Mg Tablet) 5 mg PO BID [facility] Last Admin: 10/19/23 08:24 Dose: 5 mg Documented By: BRIDGET Atorvastatin Calcium (Atorvastatin Calcium 20 Mg Tablet) 20 mg PO BEDTIME [facility] Last Admin: 10/18/23 21:22 Dose: 20 mg Documented By: ALAYNA Bisacodyl (Bisacodyl 10 Mg Supp.Rect) 10 mg [place] DAILY PRN PRN Reason: Constipation Cran[place] Butter/Zinc Oxide (Cranberry Butter/Zinc Oxide Supp.Rect) 1 supp TX BID [facility] Last Admin: 10/19/23 08:24 Dose: 1 supp Documented By: BRIDGET Docusate Sodium (Docusate Sodium 100 Mg Capsule) 200 mg PO DAILY [facility] Last Admin: 10/19/23 08:49 Dose: Not Given Documented By: BRIDGET Non-Admin Reason: Patient Refused Melatonin (Melatonin 3 Mg Tablet) 6 mg PO BEDTIME PRN PRN Reason: Insomnia Last Admin: 10/18/23 21:21 Dose: 6 mg Documented By: ALAYNA Melatonin (Melatonin 3 Mg Tablet) 3 mg PO BEDTIME PRN PRN Reason: Insomnia Multivitamins/Vitamin C (Multivitamin Tablet) 1 tab PO DAILY [facility] Last Admin: 10/19/23 08:24 Dose: 1 tab Documented By: BRIDGET Omeprazole (Omeprazole 20 Mg Capsule.Dr) 20 mg PO DAILY@0630 [facility] Last Admin: 10/19/23 06:02 Dose: 20 mg Documented By: ALYANA Ondansetron HCl (Ondansetron Hcl 4 Mg/2 Ml Vial) 4 mg IVPUSH Q8H PRN PRN Reason: Nausea and Vomiting Oxycodone HCl (Oxycodone Hcl Immed Release 5 Mg Tablet) 5 mg PO Q6H PRN PRN Reason: Pain, Severe (Pain Scale 7-10) Last Admin: 10/19/23 12:05 Dose: 5 mg Documented By: KIARA Polyethylene Glycol (Polyethylene Glycol 3350 17 Gm Powd.Pack) 17 gm PO DAILY [facility] Last Admin: 10/18/23 10:41 Dose: Not Given Documented By: KATHRYN Non-Admin Reason: Patient Refused Sodium Chloride (0.9 % Sodium Chloride Flush 3 Ml Syringe) 3 ml IVFLUSH QSHIFT [facility] Last Admin: 10/19/23 12:06 Dose: 3 ml Documented By: KIARA Tramadol HCl (Tramadol Hcl 50 Mg Tablet) 50 mg PO BID [facility] Last Admin: 10/19/23 08:23 Dose: 50 mg Documented By: BRIDGET Vitamin D (Cholecalciferol (Vitamin D3) 25 Mcg Tablet) 25 mcg PO DAILY [facility] Last Admin: 10/19/23 08:24 Dose: 25 mcg Documented By: BRIDGET Zinc Sulfate (Zinc Sulfate 220 Mg Capsule) 220 mg PO DAILY [facility] Last Admin: 10/19/23 08:24 Dose: 220 mg Documented By: BRIDGET Labs 10/17/23 04:26 10/11/23 05:19 Assessment and Plan (1) Acute GI bleeding: Status: Resolved (2) Bright red blood per rectum: Status: Resolved Plan 67yo F with HTN, HLD, arthritis, DVT on apixaban admitted for BRBPR painless BRBPR - no recurrent episodes of bright red blood per rectum in last several days - GI consulted, likely hemorrhoidal or stercorcal colitis or chronic colitis. Had sigmoidoscopy at [facility] in September which was essentially normal, random biopsies did show active colitis; prior to that, had C diff colitis. - CT abdomen and pelvis showed large stool burden with some inflammatory changes adjacent to the rectum in the presacral space no GMS was no - patient seen by GI and she refuse endoscopic assessment. - continue apixaban for now. - hematocrit stable, patient having brown loose stools , will hold all stool softeners, continue hemorrhoidal suppository. Ch pain . Stable decrease dose of Ultram to 50 b.i.d. was likely cause of constipation hx DVT - continue apixaban HTN - holding amlodipine for soft BP HLD - statin deep tissue injury of buttocks present on admission - Wound Care consulted: Bilateral Buttocks and Posterior Thighs - Off Load Pressure - Cleanse with PH balance spray or wipes, pat dry. ?Apply thin layer of Triad to wound bed - only pat and dab no scrub and rub when soiling occurs. Reapply thin layer PRN after each episode of incontinence. morbid obesity - diet/exercise counseling VTE ppx - apixaban dispo - STR recommended In my clinical judgment, the patient requires continued inpatient hospitalization for the following reasons: placement Total time managing care of this patient today: 35 minutes. Quality Stroke Does the patient have a stroke diagnosis?: No VTE Prior VTE?: No VTE Risk Level:: Medical - moderate - high VTE Device Contraindication: N/A - Device Ordered VTE Drug Contraindication: Treatment Not Indicated
[2023-10-19] MEDS: Atorvastatin Calcium 20 MG TABLET PO (20:29)
[2023-10-19] MEDS: Melatonin 3 MG TABLET 6 MG PO (20:30)
[2023-10-20 03:43] VITALS: BP 135/65; PULSE 77; RESP 16; TEMP 36.1; O2SAT 95
[2023-10-20] MEDS: Omeprazole 20 MG CAPSULE.DR PO (05:25)
[2023-10-20 07:21] VITALS: BP 165/79; PULSE 70; RESP 16; TEMP 36.8; O2SAT 96
[2023-10-20] MEDS: Apixaban 5 MG TABLET PO ×2 (08:19→20:02)
[2023-10-20] MEDS: Multivitamin TABLET 1 TAB PO (08:19)
[2023-10-20] MEDS: Cholecalciferol (Vitamin D3) 25 MCG TABLET PO (08:19)
[2023-10-20] MEDS: traMADoL HCL 50 MG TABLET PO ×2 (08:19→20:02)
[2023-10-20] MEDS: Zinc Sulfate 220 MG CAPSULE PO (08:20)
[2023-10-20 11:22] VITALS: BP 165/79; PULSE 70; O2SAT 96
--- NOTE | 2023-10-20 11:47 | P.PNIM_ITS ---
Subjective Subjective Date of Service: 10/20/23 Interval History: No recurrent episode of bright red blood per rectum, continued to have soft stools despite holding stool softeners, being followed by PT, complaining of right knee pain with minimal activity with history of osteoarthritis, was scheduled to receive right knee shot by orthopedic surgery but patient is in hospital. Tolerating diet no nausea, no vomiting, no abdominal pain. Review of Systems All other system reviewed and negative Physical Exam 2 Vital Signs: Vital Signs: Last Vital Signs Temp 98.3 F 10/20/23 07:21 Pulse 70 10/20/23 11:22 Resp 16 10/20/23 07:21 BP 165/79 H 10/20/23 11:22 Pulse Ox 96 10/20/23 11:22 O2 Del Method Room Air 10/20/23 07:21 BMI result Body Mass Index 54.2 Const: Other: Gen: in no acute distress HEENT: sclera anicteric, moist mucus membranes Neck: supple Lungs: clear to auscultation bilaterally Heart: regular rate and rhythm, no murmurs Abd: soft, non-tender, non-distended, bowel sounds audible, obese Ext: no edema Skin: warm/well-perfused Neuro: alert and oriented x3, no focal findings Psych: appropriate affect Objective Data Active Medications Acetaminophen (Acetaminophen 325 Mg Tablet) 650 mg PO Q6H PRN PRN Reason: Pain, Mild (Pain Scale 1-3) Albuterol Sulfate (Albuterol Sulfate (0.083%) 2.5 Mg/3 Ml Vial.Neb) 2.5 mg INHALE Q4H PRN PRN Reason: Shortness Of Breath Or Wheezing Apixaban (Apixaban 5 Mg Tablet) 5 mg PO BID [facility] Last Admin: 10/20/23 08:19 Dose: 5 mg Documented By: RAND Atorvastatin Calcium (Atorvastatin Calcium 20 Mg Tablet) 20 mg PO BEDTIME [facility] Last Admin: 10/19/23 20:29 Dose: 20 mg Documented By: ALAYNA Bisacodyl (Bisacodyl 10 Mg Supp.Rect) 10 mg ID DAILY PRN PRN Reason: Constipation [place] Butter/Zinc Oxide ([place] Butter/Zinc Oxide Supp.Rect) 1 supp ID BID [facility] Last Admin: 10/20/23 08:20 Dose: Not Given Documented By: RAND Non-Admin Reason: Patient Refused Docusate Sodium (Docusate Sodium 100 Mg Capsule) 200 mg PO DAILY [facility] Last Admin: 10/20/23 08:57 Dose: Not Given Documented By: RAND Non-Admin Reason: Patient Refused Melatonin (Melatonin 3 Mg Tablet) 6 mg PO BEDTIME PRN PRN Reason: Insomnia Last Admin: 10/19/23 20:30 Dose: 6 mg Documented By: ALAYNA Melatonin (Melatonin 3 Mg Tablet) 3 mg PO BEDTIME PRN PRN Reason: Insomnia Multivitamins/Vitamin C (Multivitamin Tablet) 1 tab PO DAILY [facility] Last Admin: 10/20/23 08:19 Dose: 1 tab Documented By: RAND Omeprazole (Omeprazole 20 Mg Capsule.) 20 mg PO DAILY@0630 [facility] Last Admin: 10/20/23 05:25 Dose: 20 mg Documented By: TOBY Ondansetron HCl (Ondansetron Hcl 4 Mg/2 Ml Vial) 4 mg IVPUSH Q8H PRN PRN Reason: Nausea and Vomiting Polyethylene Glycol (Polyethylene Glycol 3350 17 Gm Powd.Pack) 17 gm PO DAILY [facility] Last Admin: 10/18/23 10:41 Dose: Not Given Documented By: KATHRYN Non-Admin Reason: Patient Refused Sodium Chloride (0.9 % Sodium Chloride Flush 3 Ml Syringe) 3 ml IVFLUSH QSHIFT [facility] Last Admin: 10/20/23 08:20 Dose: 3 ml Documented By: RAND Tramadol HCl (Tramadol Hcl 50 Mg Tablet) 50 mg PO BID [facility] Last Admin: 10/20/23 08:19 Dose: 50 mg Documented By: RAND Vitamin D (Cholecalciferol (Vitamin D3) 25 Mcg Tablet) 25 mcg PO DAILY [facility] Last Admin: 10/20/23 08:19 Dose: 25 mcg Documented By: RAND Zinc Sulfate (Zinc Sulfate 220 Mg Capsule) 220 mg PO DAILY [facility] Last Admin: 10/20/23 08:20 Dose: 220 mg Documented By: RAND Labs 10/17/23 04:26 10/11/23 05:19 Assessment and Plan (1) Acute GI bleeding: Status: Resolved (2) Bright red blood per rectum: Status: Resolved Plan 67yo F with HTN, HLD, arthritis, DVT on apixaban admitted for BRBPR painless BRBPR - no recurrent episodes of bright red blood per rectum in last several days - GI consulted, likely hemorrhoidal or stercorcal colitis or chronic colitis. Had sigmoidoscopy at [facility] in September which was essentially normal, random biopsies did show active colitis; prior to that, had C diff colitis. - CT abdomen and pelvis showed large stool burden with some inflammatory changes adjacent to the rectum in the presacral space no GMS was no - patient seen by GI and she refuse endoscopic assessment. - continue apixaban for now. - hematocrit stable, patient having brown loose stools , will hold all stool softeners, continue hemorrhoidal suppository. Ch pain Rt Knee. Limiting ambulation being followed by PT, patient is due for a right knee steroid short will consult Orthopedic surgery cont. Ultram dose reduced to to 50 b.i.d. was likely cause of constipation. hx DVT - continue apixaban HTN - holding amlodipine for soft BP HLD - statin deep tissue injury of buttocks present on admission - Wound Care consulted: Bilateral Buttocks and Posterior Thighs - Off Load Pressure - Cleanse with PH balance spray or wipes, pat dry. ?Apply thin layer of Triad to wound bed - only pat and dab no scrub and rub when soiling occurs. Reapply thin layer PRN after each episode of incontinence. morbid obesity - diet/exercise counseling VTE ppx - apixaban dispo - STR recommended In my clinical judgment, the patient requires continued inpatient hospitalization for the following reasons: placement Total time managing care of this patient today: 35 minutes. Quality Stroke Does the patient have a stroke diagnosis?: No VTE Prior VTE?: No VTE Risk Level:: Medical - moderate - high VTE Device Contraindication: N/A - Device Ordered VTE Drug Contraindication: Treatment Not Indicated
[2023-10-20 11:55] VITALS: BP 136/65; PULSE 78; RESP 16; TEMP 36.1; O2SAT 94
--- NOTE | 2023-10-20 14:42 | MHC.CM.PN ---
Expanded SNF search out, still no available beds that accept her insurance. DREA spoke with pt, she told me that her niece is working with the financial counselors here on the [employer] schuyler. will resend referrals when schuyler is complete. CM to keep working on DC plan.
[2023-10-20 14:58] VITALS: BP 141/65; PULSE 85; RESP 18; TEMP 36.3; O2SAT 94
[2023-10-20 19:30] VITALS: BP 114/62; PULSE 97; RESP 18; TEMP 36.6; O2SAT 93
[2023-10-20] MEDS: Atorvastatin Calcium 20 MG TABLET PO (20:02)
[2023-10-21] VITALS (8 sets, daily range): BP systolic 119–157; BP diastolic 60–75; PULSE 75–102; RESP 16–20; TEMP 36.2–36.8; O2SAT 94–96
[2023-10-21] MEDS: Omeprazole 20 MG CAPSULE.DR PO (05:36)
[2023-10-21] MEDS: Zinc Sulfate 220 MG CAPSULE PO (08:50)
[2023-10-21] MEDS: traMADoL HCL 50 MG TABLET PO ×2 (08:50→20:40)
[2023-10-21] MEDS: Multivitamin TABLET 1 TAB PO (08:50)
[2023-10-21] MEDS: Apixaban 5 MG TABLET PO ×2 (08:50→20:40)
[2023-10-21] MEDS: Cholecalciferol (Vitamin D3) 25 MCG TABLET PO (08:50)
--- NOTE | 2023-10-21 10:32 | HO.PM.IMPN ---
Subjective Subjective Date of Service: 10/21/23 Interval History: Offers no acute complaints, stable right knee pain worse with activity and PT, continued to have soft stools, no abdominal pain, no bright red blood per rectum, no acute issues overnight. Review of Systems All other system reviewed and negative. Physical Exam Vital Signs: Vital Signs: Last Vital Signs Temp 97.2 F 10/21/23 07:13 Pulse 75 10/21/23 09:38 Resp 20 10/21/23 07:13 BP 138/75 10/21/23 09:38 Pulse Ox 95 10/21/23 09:38 O2 Del Method Room Air 10/21/23 07:13 BMI result Body Mass Index 54.2 Const: Other: Gen: in no acute distress HEENT: sclera anicteric, moist mucus membranes Neck: supple Lungs: clear to auscultation bilaterally Heart: regular rate and rhythm, no murmurs Abd: soft, non-tender, non-distended, bowel sounds audible, obese Ext: no edema Skin: warm/well-perfused Neuro: alert and oriented x3, no focal findings Psych: appropriate affect Objective Data Active Medications Acetaminophen (Acetaminophen 325 Mg Tablet) 650 mg PO Q6H PRN PRN Reason: Pain, Mild (Pain Scale 1-3) Albuterol Sulfate (Albuterol Sulfate (0.083%) 2.5 Mg/3 Ml Vial.Neb) 2.5 mg INHALE Q4H PRN PRN Reason: Shortness Of Breath Or Wheezing Apixaban (Apixaban 5 Mg Tablet) 5 mg PO BID [facility] Last Admin: 10/21/23 08:50 Dose: 5 mg Documented By: LESLY Atorvastatin Calcium (Atorvastatin Calcium 20 Mg Tablet) 20 mg PO BEDTIME [facility] Last Admin: 10/20/23 20:02 Dose: 20 mg Documented By: RICHI Bisacodyl (Bisacodyl 10 Mg Supp.Rect) 10 mg [place] DAILY PRN PRN Reason: Constipation [place] Butter/Zinc Oxide ([place] Butter/Zinc Oxide Supp.Rect) 1 supp [place] BID [facility] Last Admin: 10/21/23 08:50 Dose: Not Given Documented By: LESLY Non-Admin Reason: Patient Refused Melatonin (Melatonin 3 Mg Tablet) 6 mg PO BEDTIME PRN PRN Reason: Insomnia Last Admin: 10/19/23 20:30 Dose: 6 mg Documented By: ALAYNA Melatonin (Melatonin 3 Mg Tablet) 3 mg PO BEDTIME PRN PRN Reason: Insomnia Multivitamins/Vitamin C (Multivitamin Tablet) 1 tab PO DAILY [facility] Last Admin: 10/21/23 08:50 Dose: 1 tab Documented By: LESLY Omeprazole (Omeprazole 20 Mg Capsule.) 20 mg PO DAILY@0630 [facility] Last Admin: 10/21/23 05:36 Dose: 20 mg Documented By: RICHI Ondansetron HCl (Ondansetron Hcl 4 Mg/2 Ml Vial) 4 mg IVPUSH Q8H PRN PRN Reason: Nausea and Vomiting Sodium Chloride (0.9 % Sodium Chloride Flush 3 Ml Syringe) 3 ml IVFLUSH QSHIFT [facility] Last Admin: 10/21/23 08:50 Dose: 3 ml Documented By: LESLY Tramadol HCl (Tramadol Hcl 50 Mg Tablet) 50 mg PO BID [facility] Last Admin: 10/21/23 08:50 Dose: 50 mg Documented By: LESLY Vitamin D (Cholecalciferol (Vitamin D3) 25 Mcg Tablet) 25 mcg PO DAILY [facility] Last Admin: 10/21/23 08:50 Dose: 25 mcg Documented By: LESLY Zinc Sulfate (Zinc Sulfate 220 Mg Capsule) 220 mg PO DAILY [facility] Last Admin: 10/21/23 08:50 Dose: 220 mg Documented By: LESLY Labs 10/17/23 04:26 10/11/23 05:19 Assessment and Plan (1) Acute GI bleeding: Status: Resolved (2) Bright red blood per rectum: Status: Resolved Plan 67yo F with HTN, HLD, arthritis, DVT on apixaban admitted for BRBPR painless BRBPR - no recurrent episodes of bright red blood per rectum in last several days - GI consulted, likely hemorrhoidal or stercorcal colitis or chronic colitis. Had sigmoidoscopy at [facility] in September which was essentially normal, random biopsies did show active colitis; prior to that, had C diff colitis. - CT abdomen and pelvis showed large stool burden with some inflammatory changes adjacent to the rectum in the presacral space no GMS was no - patient seen by GI and she refuse endoscopic assessment. - continue apixaban for now. - hematocrit stable, patient having brown loose stools , will hold all stool softeners, continue hemorrhoidal suppository. cbc at am Ch pain Rt Knee. Consulted ortho for right knee depo shot Limiting ambulation being followed by PT, cont. Ultram dose reduced to to 50 b.i.d. was likely cause of constipation. obtain OT hx DVT - continue apixaban HTN - holding amlodipine for soft BP, only had 1 high blood pressure reading, patient denies blurry vision with amlodipine can resume if elevated BP HLD - statin deep tissue injury of buttocks present on admission - Wound Care consulted: Bilateral Buttocks and Posterior Thighs - Off Load Pressure - Cleanse with PH balance spray or wipes, pat dry. Apply thin layer of Triad to wound bed - only pat and dab no scrub and rub when soiling occurs. Reapply thin layer PRN after each episode of incontinence. morbid obesity - diet/exercise counseling VTE ppx - apixaban dispo - STR recommended In my clinical judgment, the patient requires continued inpatient hospitalization for the following reasons: placement Total time managing care of this patient today: 35 minutes. Quality Stroke Does the patient have a stroke diagnosis?: No VTE Prior VTE?: No VTE Risk Level:: Medical - moderate - high VTE Device Contraindication: N/A - Device Ordered VTE Drug Contraindication: Treatment Not Indicated
--- NOTE | 2023-10-21 14:52 | PM.CNOR ---
History of Present Illness HPI Consult date: 10/21/23 Chief complaint: bright red blood per rectum Narrative: 67 yo female with bilat knee pain. She is known to me from the office for bilat knee injections . She states the injections were helpful but over the last few months she had difficulty with walking due to the pain. She was admitted to the hospital for a GI bleed and missed her appt with me in clinic for injections. Review of Systems Review of Systems: Yes all other systems are reviewed and are negative PMFSH Past Medical History Medical History Preoperative cardiovascular examination Microscopic hematuria Essential hypertension Screen for colon cancer Abdominal wall abscess Family History Family History Mother No problems noted. Father No problems noted. Surgical History Surgical History History of Social History Social History Household Members: None Housing: House Alcohol intake: current Alcohol intake frequency: does not drink Alcohol type: wine and hard liquor Patient Tobacco Use Status: Never used Tobacco Smoked in Last 30 Days: No e-Cigarette/Vaping Use: Never Used Second Hand Smoke Exposure: No Use of substances other than those prescribed or required for medical reasons: No Currently Displaying Signs/Symptoms of Drug Intoxication Withdrawal: No Advance Directives: No Advance Directives Information Provided: Yes Nutrition Risks: No Nutritional Risk service: No Current occupational status: retired Current occupation: Right Handed Cognitive needs: Yes Hearing needs: No Vision needs: No Meds Allergies Allergy/AdvReac Type Severity Reaction Status Date / Time amlodipine AdvReac Intermediate Blurry Verified 07/20/23 17:09 Vision Active Medications: Current Medications Acetaminophen (Acetaminophen 325 Mg Tablet) 650 mg PO Q6H PRN PRN Reason: Pain, Mild (Pain Scale 1-3) Albuterol Sulfate (Albuterol Sulfate (0.083%) 2.5 Mg/3 Ml Vial.Neb) 2.5 mg INHALE Q4H PRN PRN Reason: Shortness Of Breath Or Wheezing Apixaban (Apixaban 5 Mg Tablet) 5 mg PO BID PRECIOUS Last Admin: 10/21/23 08:50 Dose: 5 mg Atorvastatin Calcium (Atorvastatin Calcium 20 Mg Tablet) 20 mg PO BEDTIME [facility] Last Admin: 10/20/23 20:02 Dose: 20 mg Bisacodyl (Bisacodyl 10 Mg Supp.Rect) 10 mg [place] DAILY PRN PRN Reason: Constipation [place] Butter/Zinc Oxide ([place] Butter/Zinc Oxide Supp.Rect) 1 supp [place] BID [facility] Last Admin: 10/21/23 08:50 Dose: Not Given Melatonin (Melatonin 3 Mg Tablet) 6 mg PO BEDTIME PRN PRN Reason: Insomnia Last Admin: 10/19/23 20:30 Dose: 6 mg Melatonin (Melatonin 3 Mg Tablet) 3 mg PO BEDTIME PRN PRN Reason: Insomnia Multivitamins/Vitamin C (Multivitamin Tablet) 1 tab PO DAILY [facility] Last Admin: 10/21/23 08:50 Dose: 1 tab Omeprazole (Omeprazole 20 Mg Capsule.Dr) 20 mg PO DAILY@0630 [facility] Last Admin: 10/21/23 05:36 Dose: 20 mg Ondansetron HCl (Ondansetron Hcl 4 Mg/2 Ml Vial) 4 mg IVPUSH Q8H PRN PRN Reason: Nausea and Vomiting Sodium Chloride (0.9 % Sodium Chloride Flush 3 Ml Syringe) 3 ml IVFLUSH QSHIFT [facility] Last Admin: 10/21/23 08:50 Dose: 3 ml Tramadol HCl (Tramadol Hcl 50 Mg Tablet) 50 mg PO BID [facility] Last Admin: 10/21/23 08:50 Dose: 50 mg Vitamin D (Cholecalciferol (Vitamin D3) 25 Mcg Tablet) 25 mcg PO DAILY [facility] Last Admin: 10/21/23 08:50 Dose: 25 mcg Zinc Sulfate (Zinc Sulfate 220 Mg Capsule) 220 mg PO DAILY [facility] Last Admin: 10/21/23 08:50 Dose: 220 mg Home Medications Medication Instructions Recorded Confirmed Last Taken Type cholecalciferol (vitamin D3) 25 25 mcg PO DAILY 09/15/22 10/10/23 Unknown History mcg (1,000 unit) tablet (Vitamin D3) Lactobacillus acidophilus 1 1,000 mmu cells PO BID 10/10/23 10/10/23 Unknown History billion cell capsule acetaminophen 325 mg tablet 650 mg PO Q4-6H PRN Fever Or Pain 10/10/23 10/10/23 Unknown History albuterol sulfate 2.5 mg/3 mL 2.5 mg inhalation Q4H PRN 10/10/23 10/10/23 Unknown History (0.083 %) solution for nebulization Shortness Of Breath Or Wheezing amlodipine 10 mg tablet 10 mg PO DAILY 10/10/23 10/10/23 Unknown History apixaban 5 mg tablet (Eliquis) 5 mg PO BID 10/10/23 10/10/23 Unknown History bisacodyl 10 mg rectal suppository 10 mg [place] DAILY PRN Constipation 10/10/23 10/10/23 Unknown History (Dulcolax (bisacodyl)) docusate sodium 100 mg capsule 100 mg PO Q12H PRN Constipation 10/10/23 10/10/23 Unknown History loperamide 2 mg tablet 2 mg PO Q6H PRN Loose Stool 10/10/23 10/10/23 Unknown History magnesium hydroxide 400 mg/5 mL 30 ml PO BEDTIME PRN Constipation 10/10/23 10/10/23 Unknown History oral suspension (Milk of Magnesia) melatonin 3 mg tablet 3 mg PO BEDTIME PRN Insomnia 10/10/23 10/10/23 Unknown History multivitamin with minerals 1 tab PO DAILY 10/10/23 10/10/23 Unknown History omega 8-evs-tnk-fish oil 1,000 mg 1 cap PO TID 10/10/23 10/10/23 Unknown History (120 mg-180 mg) capsule (Fish Oil) sodium phosphates 19 gram-7 118 ml MI DAILY PRN Constipation 10/10/23 10/10/23 Unknown History gram/118 mL enema (Fleet Enema) tramadol 100 mg tablet 100 mg PO BID 10/10/23 10/10/23 Unknown History wound dressings (Triad Wound 1 appl topical BID Wound Care 10/10/23 10/10/23 Unknown History Dressing paste) wound dressings (Triad Wound 1 appl topical DAILY PRN Wound Care 10/10/23 10/10/23 Unknown History Dressing paste) zinc oxide 20 % topical ointment 1 appl topical BID 10/10/23 10/10/23 Unknown History zinc sulfate 50 mg zinc (220 mg) 200 mg PO DAILY 10/10/23 10/10/23 Unknown History capsule Physical Exam Vital Signs: Vital Signs: Last Vital Signs Temp 98.3 F 01/19/24 11:50 Pulse 82 10/21/23 11:50 Resp 18 10/21/23 11:50 BP 157/68 H 10/21/23 11:50 Pulse Ox 95 10/21/23 11:50 O2 Del Method Room Air 10/21/23 11:50 BMI result Body Mass Index 54.2 Const: General: cooperative, healthy appearing and comfortable Extrem: Other: Bilat knee skin intact, no erythema or joint effusion. Tenderness along the medial joint line. ROM full with crepitus. Negative steinmans. No ligamentous laxity. NVI. Results Labs 10/17/23 04:26 10/11/23 05:19 Labs: H & H 10/10/23 10/10/23 10/11/23 Range/Units 00:07 05:14 05:19 Hgb 11.3 L 10.8 L 11.8 L (12.0-16.0) g/dl Hct 36.1 L 35.4 L 38.6 (37.0-47.0) % 10/12/23 10/15/23 10/17/23 Range/Units 06:22 09:42 04:26 Hgb 10.8 L 9.7 L 10.3 L (12.0-16.0) g/dl Hct 34.6 L 31.5 L 33.4 L (37.0-47.0) % Coagulation 10/10/23 Range/Units 00:07 INR 1.3 H (0.9-1.1) All other labs normal. Assessment and Plan (1) Osteoarthritis of knees, bilateral: Qualifiers: Osteoarthritis type: primary Qualified Code(s): M17.0 - Bilateral primary osteoarthritis of knee Status: Acute Plan We discussed options today, which include steroid injection. The patient did consent to move forward with bilat knee injection, which was tolerated well.? I recommended rest, ice and elevation and OTC antiinflammatories prn for discomfort. If symptoms persist over the next 6-8 weeks, they will contact our office, otherwise, prn Procedures Date of Service Date of Service: 10/21/23 Joint Injection/Drain Joint Injection/Drain Primary Site: right knee Secondary Site: left knee Prep: site was prepped using aseptic technique and injection warnings given Injected: 40 mg of, DepoMedrol, with 1 mL of, 1% plain lidocaine and in the joint Approach Used: lateral parapatellar Procedure: The patient tolerated the procedure well and there was some relief with the local anesthesia Coding Procedure code (CPT) selection complete
[2023-10-21] MEDS: Atorvastatin Calcium 20 MG TABLET PO (20:40)
[2023-10-22 03:59] VITALS: BP 154/72; PULSE 97; RESP 18; TEMP 36.3; O2SAT 98
[2023-10-22] MEDS: Omeprazole 20 MG CAPSULE.DR PO (05:56)
[2023-10-22 06:17] LABS: Hematocrit 30.2 % (37.0-47.0); Hemoglobin 9.5 g/dl (12.0-16.0); Mean Corpuscular HGB Conc 31.5 g/dl (31.0-35.0); Mean Corpuscular Hemoglobin 27.5 pg (27.0-33.0); Mean Corpuscular Volume 87.3 fL (80.0-98.0); Mean Platelet Volume 10.6 fL (9.4-12.3); Platelet Count 287 X10*3/uL (160-400); Red Blood Count 3.46 X10*6/uL (4.20-5.50); Red Cell Distribution Width 14.5 % (11.0-16.0); White Blood Count 5.2 X10*3/uL (4.8-10.8)
[2023-10-22 07:25] VITALS: BP 154/77; PULSE 83; RESP 18; TEMP 36.4; O2SAT 94
[2023-10-22] MEDS: Cholecalciferol (Vitamin D3) 25 MCG TABLET PO (09:05)
[2023-10-22] MEDS: Multivitamin TABLET 1 TAB PO (09:05)
[2023-10-22] MEDS: Apixaban 5 MG TABLET PO ×2 (09:05→20:30)
[2023-10-22] MEDS: Zinc Sulfate 220 MG CAPSULE PO (09:05)
--- NOTE | 2023-10-22 10:27 | P.PNIM_ITS ---
Subjective Subjective Date of Service: 10/22/23 Interval History: Offers no acute complaints, stable right knee pain worse with activity and PT, continued to have soft stools, no abdominal pain, no bright red blood per rectum, no acute issues overnight. Review of Systems All other system reviewed and negative. Physical Exam 2 Vital Signs: Vital Signs: Last Vital Signs Temp 97.5 F 10/22/23 07:25 Pulse 83 10/22/23 07:25 Resp 18 10/22/23 07:25 BP 154/77 H 10/22/23 07:25 Pulse Ox 94 10/22/23 07:25 O2 Del Method Room Air 10/22/23 07:25 BMI result Body Mass Index 54.2 Appearing in no acute distress lung sounds are clear to auscultation heart regular rate rhythm, clear S1, S2 positive bowel sounds, abdomen is soft, nontender neuro patient is alert Objective Data Active Medications Acetaminophen (Acetaminophen 325 Mg Tablet) 650 mg PO Q6H PRN PRN Reason: Pain, Mild (Pain Scale 1-3) Albuterol Sulfate (Albuterol Sulfate (0.083%) 2.5 Mg/3 Ml Vial.Neb) 2.5 mg INHALE Q4H PRN PRN Reason: Shortness Of Breath Or Wheezing Apixaban (Apixaban 5 Mg Tablet) 5 mg PO BID [facility] Last Admin: 10/22/23 09:05 Dose: 5 mg Documented By: KELLY Atorvastatin Calcium (Atorvastatin Calcium 20 Mg Tablet) 20 mg PO BEDTIME [facility] Last Admin: 10/21/23 20:40 Dose: 20 mg Documented By: ARNOLD Bisacodyl (Bisacodyl 10 Mg Supp.Rect) 10 mg [place] DAILY PRN PRN Reason: Constipation [place] Butter/Zinc Oxide ([place] Butter/Zinc Oxide Supp.Rect) 1 supp [place] BID [facility] Last Admin: 10/22/23 09:05 Dose: Not Given Documented By: KELLY Non-Admin Reason: Patient Refused Melatonin (Melatonin 3 Mg Tablet) 6 mg PO BEDTIME PRN PRN Reason: Insomnia Last Admin: 10/19/23 20:30 Dose: 6 mg Documented By: ALAYNA Melatonin (Melatonin 3 Mg Tablet) 3 mg PO BEDTIME PRN PRN Reason: Insomnia Multivitamins/Vitamin C (Multivitamin Tablet) 1 tab PO DAILY [facility] Last Admin: 10/22/23 09:05 Dose: 1 tab Documented By: KELLY Omeprazole (Omeprazole 20 Mg Capsule.) 20 mg PO DAILY@0630 [facility] Last Admin: 10/22/23 05:56 Dose: 20 mg Documented By: ARNOLD Ondansetron HCl (Ondansetron Hcl 4 Mg/2 Ml Vial) 4 mg IVPUSH Q8H PRN PRN Reason: Nausea and Vomiting Sodium Chloride (0.9 % Sodium Chloride Flush 3 Ml Syringe) 3 ml IVFLUSH QSHIFT [facility] Last Admin: 10/22/23 09:05 Dose: 3 ml Documented By: KELLY Vitamin D (Cholecalciferol (Vitamin D3) 25 Mcg Tablet) 25 mcg PO DAILY [facility] Last Admin: 10/22/23 09:05 Dose: 25 mcg Documented By: KELLY Zinc Sulfate (Zinc Sulfate 220 Mg Capsule) 220 mg PO DAILY [facility] Last Admin: 10/22/23 09:05 Dose: 220 mg Documented By: KELLY Labs 10/22/23 05:15 10/11/23 05:19 Labs: Laboratory Results - last 24 hr 10/22/23 05:15 MCV 87.3 MCH 27.5 MCHC 31.5 RDW 14.5 Plt Count 287 MPV 10.6 Absolute Nucleated RBC 0.000 Nucleated RBC % (auto) 0.0 Assessment and Plan (1) Acute GI bleeding: Status: Resolved (2) Bright red blood per rectum: Status: Resolved Plan 67yo F with HTN, HLD, arthritis, DVT on apixaban admitted for BRBPR Painless BRBPR no recurrent episodes of bright red blood per rectum in last several days GI consulted, likely hemorrhoidal or stercorcal colitis or chronic colitis. Had sigmoidoscopy at [facility] in September which was essentially normal, random biopsies did show active colitis; prior to that, had C diff colitis. patient seen by GI and she refuse endoscopic assessment. continue apixaban for now. hematocrit stable patient having brown loose stools, will hold all stool softeners, continue hemorrhoidal suppository. Rt Knee pain s/p steroid injection by ortho Ultram dose reduced to to 50 b.i.d. was likely cause of constipation. OT/PT followoing hx DVT continue apixaban HTN amlodipine HLD statin Deep tissue injury of buttocks present on admission Wound Care following Bilateral Buttocks and Posterior Thighs - Off Load Pressure - Cleanse with PH balance spray or wipes, pat dry. Apply thin layer of Triad to wound bed - only pat and dab no scrub and rub when soiling occurs. Reapply thin layer PRN after each episode of incontinence. Morbid obesity. BMI 54.2 diet/exercise counseling VTE ppx - apixaban Attending Dr. Bobbi conklino - STR recommended In my clinical judgment, the patient requires continued inpatient hospitalization for the following reasons: placement Total time managing care of this patient today: 35 minutes. Quality Stroke Does the patient have a stroke diagnosis?: No VTE Prior VTE?: No VTE Risk Level:: Medical - moderate - high VTE Device Contraindication: N/A - Device Ordered VTE Drug Contraindication: Treatment Not Indicated
[2023-10-22 12:00] VITALS: BP 153/87; PULSE 82; RESP 18; TEMP 36.4; O2SAT 94
[2023-10-22 15:36] VITALS: BP 141/80; PULSE 100; RESP 15; TEMP 36.4; O2SAT 94
[2023-10-22 19:39] VITALS: BP 152/70; PULSE 100; RESP 17; TEMP 36.2; O2SAT 94
[2023-10-22] MEDS: polyethylene glycoL 3350 17 GM POWD.PACK PO (20:20)
[2023-10-22] MEDS: Atorvastatin Calcium 20 MG TABLET PO (20:30)
[2023-10-22 23:11] VITALS: BP 142/85; PULSE 100; RESP 17; TEMP 36.6; O2SAT 96
[2023-10-23 03:48] VITALS: BP 120/71; PULSE 71; RESP 18; TEMP 36.4; O2SAT 97
[2023-10-23] MEDS: Omeprazole 20 MG CAPSULE.DR PO (05:32)
[2023-10-23 07:32] VITALS: BP 169/89; PULSE 87; RESP 18; TEMP 36.3; O2SAT 96
--- NOTE | 2023-10-23 09:31 | HO.PM.IMPN ---
Subjective Subjective Date of Service: 10/23/23 Interval History: Offers no acute complaints, stable right knee pain worse with activity and PT, continued to have soft stools, no abdominal pain, no bright red blood per rectum, no acute issues overnight. Review of Systems All other system reviewed and negative. Physical Exam Vital Signs: Vital Signs: Last Vital Signs Temp 97.3 F 10/23/23 07:32 Pulse 87 10/23/23 07:32 Resp 18 10/23/23 07:32 BP 169/89 H 10/23/23 07:32 Pulse Ox 96 10/23/23 07:32 O2 Del Method Room Air 10/23/23 07:32 BMI result Body Mass Index 54.2 Appearing in no acute distress lung sounds are clear to auscultation heart regular rate rhythm, clear S1, S2 positive bowel sounds, abdomen is soft, nontender neuro patient is alert, forgetfulness Objective Data Active Medications Acetaminophen (Acetaminophen 325 Mg Tablet) 650 mg PO Q6H PRN PRN Reason: Pain, Mild (Pain Scale 1-3) Albuterol Sulfate (Albuterol Sulfate (0.083%) 2.5 Mg/3 Ml Vial.Neb) 2.5 mg INHALE Q4H PRN PRN Reason: Shortness Of Breath Or Wheezing Amlodipine Besylate (Amlodipine Besylate 10 Mg Tablet) 10 mg PO DAILY [facility]; Protocol Apixaban (Apixaban 5 Mg Tablet) 5 mg PO BID [facility] Last Admin: 10/22/23 20:30 Dose: 5 mg Documented By: ARNOLD Atorvastatin Calcium (Atorvastatin Calcium 20 Mg Tablet) 20 mg PO BEDTIME [facility] Last Admin: 10/22/23 20:30 Dose: 20 mg Documented By: ARNOLD Bisacodyl (Bisacodyl 10 Mg Supp.Rect) 10 mg [place] DAILY PRN PRN Reason: Constipation [place] Butter/Zinc Oxide ([place] Butter/Zinc Oxide Supp.Rect) 1 supp [place] BID [facility] Last Admin: 10/22/23 20:30 Dose: Not Given Documented By: ARNOLD Non-Admin Reason: Patient Refused Melatonin (Melatonin 3 Mg Tablet) 6 mg PO BEDTIME PRN PRN Reason: Insomnia Last Admin: 10/19/23 20:30 Dose: 6 mg Documented By: ALAYNA Melatonin (Melatonin 3 Mg Tablet) 3 mg PO BEDTIME PRN PRN Reason: Insomnia Multivitamins/Vitamin C (Multivitamin Tablet) 1 tab PO DAILY [facility] Last Admin: 10/22/23 09:05 Dose: 1 tab Documented By: KELLY Omeprazole (Omeprazole 20 Mg Capsule.) 20 mg PO DAILY@0630 [facility] Last Admin: 10/23/23 05:32 Dose: 20 mg Documented By: ARNOLD Ondansetron HCl (Ondansetron Hcl 4 Mg/2 Ml Vial) 4 mg IVPUSH Q8H PRN PRN Reason: Nausea and Vomiting Sodium Chloride (0.9 % Sodium Chloride Flush 3 Ml Syringe) 3 ml IVFLUSH QSHIFT [facility] Last Admin: 10/22/23 20:07 Dose: 3 ml Documented By: KELLY Vitamin D (Cholecalciferol (Vitamin D3) 25 Mcg Tablet) 25 mcg PO DAILY [facility] Last Admin: 10/22/23 09:05 Dose: 25 mcg Documented By: KELLY Zinc Sulfate (Zinc Sulfate 220 Mg Capsule) 220 mg PO DAILY [facility] Last Admin: 10/22/23 09:05 Dose: 220 mg Documented By: KELLY Labs 10/22/23 05:15 10/11/23 05:19 Assessment and Plan (1) Acute GI bleeding: Status: Resolved (2) Bright red blood per rectum: Status: Resolved Plan 67yo F with HTN, HLD, arthritis, DVT on apixaban admitted for BRBPR Painless BRBPR no recurrent episodes of bright red blood per rectum in last several days GI consulted, likely hemorrhoidal or stercorcal colitis or chronic colitis. Had sigmoidoscopy at [facility] in September which was essentially normal, random biopsies did show active colitis; prior to that, had C diff colitis. patient seen by GI and she refuse endoscopic assessment. continue apixaban for now. hematocrit stable patient having brown loose stools, will hold all stool softeners, continue hemorrhoidal suppository. Rt Knee pain s/p steroid injection by ortho Ultram dose reduced to to 50 b.i.d. was likely cause of constipation. OT/PT followoing hx DVT continue apixaban HTN amlodipine HLD statin Deep tissue injury of buttocks present on admission Wound Care following Bilateral Buttocks and Posterior Thighs - Off Load Pressure - Cleanse with PH balance spray or wipes, pat dry. Apply thin layer of Triad to wound bed - only pat and dab no scrub and rub when soiling occurs. Reapply thin layer PRN after each episode of incontinence. Morbid obesity. BMI 54.2 diet/exercise counseling VTE ppx - apixaban Attending Dr. Bobbi conklino - STR recommended In my clinical judgment, the patient requires continued inpatient hospitalization for the following reasons: placement Total time managing care of this patient today: 35 minutes. Quality Stroke Does the patient have a stroke diagnosis?: No VTE Prior VTE?: No VTE Risk Level:: Medical - moderate - high VTE Device Contraindication: N/A - Device Ordered VTE Drug Contraindication: Treatment Not Indicated
[2023-10-23] MEDS: Cholecalciferol (Vitamin D3) 25 MCG TABLET PO (10:21)
[2023-10-23] MEDS: Multivitamin TABLET 1 TAB PO (10:21)
[2023-10-23] MEDS: amLODIPine Besylate 10 MG TABLET PO (10:21)
[2023-10-23] MEDS: Apixaban 5 MG TABLET PO ×2 (10:21→19:59)
[2023-10-23] MEDS: Zinc Sulfate 220 MG CAPSULE PO (10:21)
[2023-10-23] MEDS: Cocoa Butter/Zinc Oxide SUPP.RECT 1 SUPP PR (10:22)
[2023-10-23] MEDS: Acetaminophen 325 MG TABLET 650 MG PO (10:58)
[2023-10-23 11:38] VITALS: BP 174/70; PULSE 73; RESP 18; TEMP 36.6; O2SAT 96
[2023-10-23 15:44] VITALS: BP 134/63; PULSE 88; RESP 16; TEMP 36.1; O2SAT 96
[2023-10-23 19:20] VITALS: BP 128/57; PULSE 96; RESP 14; TEMP 36.3; O2SAT 95
[2023-10-23] MEDS: Atorvastatin Calcium 20 MG TABLET PO (19:59)
[2023-10-23 23:13] VITALS: BP 124/55; PULSE 96; RESP 16; TEMP 36.8; O2SAT 95
[2023-10-24 02:56] VITALS: BP 147/71; PULSE 83; RESP 14; TEMP 36.5; O2SAT 96
[2023-10-24] MEDS: Omeprazole 20 MG CAPSULE.DR PO (06:04)
[2023-10-24 07:19] VITALS: BP 146/82; PULSE 73; RESP 12; TEMP 36.2; O2SAT 95
[2023-10-24] MEDS: Zinc Sulfate 220 MG CAPSULE PO (07:55)
[2023-10-24] MEDS: amLODIPine Besylate 10 MG TABLET PO (07:55)
[2023-10-24] MEDS: Cholecalciferol (Vitamin D3) 25 MCG TABLET PO (07:55)
[2023-10-24] MEDS: Apixaban 5 MG TABLET PO ×2 (07:56→19:55)
[2023-10-24] MEDS: Multivitamin TABLET 1 TAB PO (07:56)
[2023-10-24] MEDS: Cocoa Butter/Zinc Oxide SUPP.RECT 1 SUPP PR ×2 (07:56→19:56)
--- NOTE | 2023-10-24 09:34 | P.PNIM_ITS ---
Subjective Subjective Date of Service: 10/24/23 Interval History: Follow up GI bleed stable right knee pain worse with activity and PT no abdominal pain no bright red blood per rectum no acute medical complaints Review of Systems All other system reviewed and negative. Physical Exam 2 Vital Signs: Vital Signs: Last Vital Signs Temp 97.1 F 10/24/23 07:19 Pulse 73 10/24/23 07:19 Resp 12 10/24/23 07:19 BP 146/82 H 10/24/23 07:19 Pulse Ox 95 10/24/23 07:19 O2 Del Method Room Air 10/24/23 07:19 BMI result Body Mass Index 54.2 alert, confused LSCTA soft abd Objective Data Active Medications Acetaminophen (Acetaminophen 325 Mg Tablet) 650 mg PO Q6H PRN PRN Reason: Pain, Mild (Pain Scale 1-3) Last Admin: 10/23/23 10:58 Dose: 650 mg Documented By: KELLY Amlodipine Besylate (Amlodipine Besylate 10 Mg Tablet) 10 mg PO DAILY [facility]; Protocol Last Admin: 10/24/23 07:55 Dose: 10 mg Documented By: ARLIN Apixaban (Apixaban 5 Mg Tablet) 5 mg PO BID [facility] Last Admin: 10/24/23 07:56 Dose: 5 mg Documented By: ARLIN Atorvastatin Calcium (Atorvastatin Calcium 20 Mg Tablet) 20 mg PO BEDTIME [facility] Last Admin: 10/23/23 19:59 Dose: 20 mg Documented By: ALAYNA Bisacodyl (Bisacodyl 10 Mg Supp.Rect) 10 mg [place] DAILY PRN PRN Reason: Constipation [place] Butter/Zinc Oxide ([place] Butter/Zinc Oxide Supp.Rect) 1 supp [place] BID [facility] Last Admin: 10/24/23 07:56 Dose: 1 supp Documented By: ARLIN Melatonin (Melatonin 3 Mg Tablet) 6 mg PO BEDTIME PRN PRN Reason: Insomnia Last Admin: 10/19/23 20:30 Dose: 6 mg Documented By: ALAYNA Melatonin (Melatonin 3 Mg Tablet) 3 mg PO BEDTIME PRN PRN Reason: Insomnia Multivitamins/Vitamin C (Multivitamin Tablet) 1 tab PO DAILY [facility] Last Admin: 10/24/23 07:56 Dose: 1 tab Documented By: ARLIN Omeprazole (Omeprazole 20 Mg Capsule.) 20 mg PO DAILY@0630 [facility] Last Admin: 10/24/23 06:04 Dose: 20 mg Documented By: ALAYNA Ondansetron HCl (Ondansetron Hcl 4 Mg/2 Ml Vial) 4 mg IVPUSH Q8H PRN PRN Reason: Nausea and Vomiting Sodium Chloride (0.9 % Sodium Chloride Flush 3 Ml Syringe) 3 ml IVFLUSH QSHIFT [facility] Last Admin: 10/24/23 07:55 Dose: 3 ml Documented By: ARLIN Vitamin D (Cholecalciferol (Vitamin D3) 25 Mcg Tablet) 25 mcg PO DAILY [facility] Last Admin: 10/24/23 07:55 Dose: 25 mcg Documented By: ARLIN Zinc Sulfate (Zinc Sulfate 220 Mg Capsule) 220 mg PO DAILY [facility] Last Admin: 10/24/23 07:55 Dose: 220 mg Documented By: ARLIN Labs 10/22/23 05:15 10/11/23 05:19 Assessment and Plan (1) Acute GI bleeding: Status: Resolved (2) Bright red blood per rectum: Status: Resolved Plan 67yo F with HTN, HLD, arthritis, DVT on apixaban admitted for BRBPR Painless BRBPR no recurrent episodes of bright red blood per rectum GI consulted>likely hemorrhoidal or stercorcal colitis or chronic colitis. Had sigmoidoscopy at [facility] in September which was essentially normal, random biopsies did show active colitis; prior to that, had C diff colitis. patient seen by GI and she refused endoscopic assessment. continue apixaban stable HH patient having brown loose stools, will hold all stool softeners, continue hemorrhoidal suppository. Rt Knee pain s/p steroid injection by ortho Ultram OT/PT following hx DVT continue apixaban HTN amlodipine HLD statin Deep tissue injury of buttocks present on admission Wound Care following Bilateral Buttocks and Posterior Thighs - Off Load Pressure - Cleanse with PH balance spray or wipes, pat dry. Apply thin layer of Triad to wound bed - only pat and dab no scrub and rub when soiling occurs. Reapply thin layer PRN after each episode of incontinence. Morbid obesity. BMI 54.2 Discussed importance of weight management as this may be contributing to worsening of other comorbidities VTE ppx - apixaban Attending Dr. Martines dispo - STR recommended, pending safe placement In my clinical judgment, the patient requires continued inpatient hospitalization for the following reasons: placement Total time managing care of this patient today: 35 minutes. Quality Stroke Does the patient have a stroke diagnosis?: No VTE Prior VTE?: No VTE Risk Level:: Medical - moderate - high VTE Device Contraindication: N/A - Device Ordered VTE Drug Contraindication: Treatment Not Indicated
[2023-10-24 11:57] VITALS: BP 146/82; PULSE 73; O2SAT 95
[2023-10-24 12:00] VITALS: BP 145/77; PULSE 75; RESP 14; TEMP 36.3; O2SAT 96
--- NOTE | 2023-10-24 14:04 | MHC.CM.PN ---
pt for str,spoke geronimo in [facility] who confirms that schuyler was sent in oct 18 the bank sent 5 yrs worth of verifiaction directly to [employer] pending [employer] approval
[2023-10-24 15:17] VITALS: BP 123/58; PULSE 96; RESP 18; TEMP 36.4; O2SAT 94
--- NOTE | 2023-10-24 15:27 | HO.WOUND ---
Wound Consult: Follow up 67yr old female admitted to [facility] [place] [facility] [place] 10/10/23 00:51- See progress notes and H&P for detailed history. Wound consult placed for Buttock wound POA. Arrival to bedside pt was agreeable to assessment and photo documentation. Assessed and detailed below - improving buttock - no new topical recommendations needed at this time. From initial assessment on admission Pt reports wounds started a few weeks ago and are healing with use of Triad. She reports the wounds resulted from her son helping her into her wheelchair sitting there for two days and experiencing multiple rounds of incontinence. The wounds over all appears to be healing and resolving however over of the bilateral buttocks there are light purple and maroon nonblanchble tissue with scattered areas of partial thickness tissue loss. The left ischium is noted for warmth and isolated tenderness reported by patient. The periwound is noted for MASD -IAD (Moisture Associated Skin Damage - Incontinence Associated Dermatitis) - resolving in many areas with light pink blanchble tissue. Pure wick in place and Wedges provided and put in place along with barrier cream available at the bedside. TRUPTI mattress in use. Initial Assessment on admission Follow up assessment today 10/24/23 Bilateral Buttock Etiology: ??Resolving Deep Tissue Injury - Present on Admission Wound Bed:Light faint purple maroon nonblanchable intact tissue - scattered areas of partial thickness tissue loss clean red moist wound beds Drainage / Odor: none noted Edges: ? irregular Stacie wound: [place] blanchable tissue - MASD - ?resolved wounds noted - scar tissue and irregular healing pattern noted - No Induration, Fluctuance noted Pain: burning after cleansing noted to open tissue per pt statement Goals of Treatment: ? Off Load Pressure and Barrier cream to protect from Moisture and friction and allow for autolytic healing. Recommendations: 1. Turn and Reposition every 2 hours and as needed for patient comfort.? Use pillows or wedges to support off loading positions. 2. Off Load all bony prominences with use of pillows and heel boots if needed.? Apply Preventative foams where needed. ? 3. Monitor for incontinence and moisture control, use barrier creams when needed for prevention and treatment. 4. Provide adequate and supplemental nutrition. 5. Continue low air loss mattress. 6. Bilateral Buttocks and Posterior Thighs - Off Load Pressure - Cleanse with PH balance spray or wipes, pat dry. ?Apply thin layer of Triad to wound bed - only pat and dab no scrub and rub when soiling occurs. Reapply thin layer PRN after each episode of incontinence. Re-consult wound care Nurse for wound deterioration or wound changes.
[2023-10-24 19:44] VITALS: BP 132/60; PULSE 107; RESP 18; TEMP 37.1; O2SAT 95
[2023-10-24] MEDS: Atorvastatin Calcium 20 MG TABLET PO (19:55)
[2023-10-24] MEDS: Acetaminophen 325 MG TABLET 650 MG PO (19:55)
[2023-10-24] MEDS: Melatonin 3 MG TABLET 6 MG PO (19:56)
[2023-10-25 03:57] VITALS: BP 142/77; PULSE 76; RESP 18; TEMP 37.1; O2SAT 96
[2023-10-25] MEDS: Omeprazole 20 MG CAPSULE.DR PO (05:15)
[2023-10-25 07:18] VITALS: BP 145/81; PULSE 81; RESP 14; TEMP 36.2; O2SAT 98
[2023-10-25] MEDS: amLODIPine Besylate 10 MG TABLET PO (08:40)
[2023-10-25] MEDS: Apixaban 5 MG TABLET PO ×2 (08:40→19:59)
[2023-10-25] MEDS: Multivitamin TABLET 1 TAB PO (08:40)
[2023-10-25] MEDS: Cocoa Butter/Zinc Oxide SUPP.RECT 1 SUPP PR ×2 (08:40→19:58)
[2023-10-25] MEDS: Cholecalciferol (Vitamin D3) 25 MCG TABLET PO (08:40)
[2023-10-25] MEDS: Zinc Sulfate 220 MG CAPSULE PO (08:40)
[2023-10-25] MEDS: Acetaminophen 325 MG TABLET 650 MG PO ×2 (08:49→19:58)
[2023-10-25 09:40] VITALS: BMI 54.2
[2023-10-25 10:24] LABS: Hematocrit 35.1 % (37.0-47.0); Hemoglobin 10.9 g/dl (12.0-16.0); Mean Corpuscular HGB Conc 31.1 g/dl (31.0-35.0); Mean Corpuscular Hemoglobin 27.2 pg (27.0-33.0); Mean Corpuscular Volume 87.5 fL (80.0-98.0); Mean Platelet Volume 10.5 fL (9.4-12.3); Platelet Count 346 X10*3/uL (160-400); Red Blood Count 4.01 X10*6/uL (4.20-5.50); Red Cell Distribution Width 14.4 % (11.0-16.0); White Blood Count 5.4 X10*3/uL (4.8-10.8)
[2023-10-25 10:44] LABS: Anion Gap 11 (12-20); Blood Urea Nitrogen 19 mg/dL (9-16); Calcium 9.2 mg/dL (8.4-10.2); Carbon Dioxide 29 mmol/L (22-29); Chloride 104 mmol/L (96-108); Creatinine Clr Calc Pharmacy 127.6; Estimated Glomerular Filt Rate > 60; Glucose Random 133 mg/dL (60-115); Potassium 3.9 mmol/L (3.3-5.1); Sodium 140 mmol/L (135-145)
[2023-10-25 11:19] VITALS: BP 145/81; PULSE 81; O2SAT 98
--- NOTE | 2023-10-25 11:48 | P.PNIM_ITS ---
Subjective Subjective Date of Service: 10/25/23 Interval History: Follow up GI bleed stable right knee pain worse with activity and PT no abdominal pain no bright red blood per rectum no acute medical complaints Review of Systems All other system reviewed and negative. Physical Exam 2 Vital Signs: Vital Signs: Last Vital Signs Temp 97.2 F 10/25/23 07:18 Pulse 81 10/25/23 11:19 Resp 14 10/25/23 07:18 BP 145/81 H 10/25/23 11:19 Pulse Ox 98 10/25/23 11:19 O2 Del Method Room Air 10/25/23 07:18 BMI result Body Mass Index 54.2 Appearing in no acute distress lung sounds are clear to auscultation heart regular rate rhythm, clear S1, S2 positive bowel sounds, abdomen is soft, nontender neuro patient is alert x3, no focal deficits Objective Data Active Medications Acetaminophen (Acetaminophen 325 Mg Tablet) 650 mg PO Q6H PRN PRN Reason: Pain, Mild (Pain Scale 1-3) Last Admin: 10/25/23 08:49 Dose: 650 mg Documented By: ARLIN Amlodipine Besylate (Amlodipine Besylate 10 Mg Tablet) 10 mg PO DAILY [facility]; Protocol Last Admin: 10/25/23 08:40 Dose: 10 mg Documented By: ARLIN Apixaban (Apixaban 5 Mg Tablet) 5 mg PO BID [facility] Last Admin: 10/25/23 08:40 Dose: 5 mg Documented By: ARLIN Atorvastatin Calcium (Atorvastatin Calcium 20 Mg Tablet) 20 mg PO BEDTIME [facility] Last Admin: 10/24/23 19:55 Dose: 20 mg Documented By: EVAN Bisacodyl (Bisacodyl 10 Mg Supp.Rect) 10 mg [place] DAILY PRN PRN Reason: Constipation [place] Butter/Zinc Oxide ([place] Butter/Zinc Oxide Supp.Rect) 1 supp [place] BID [facility] Last Admin: 10/25/23 08:40 Dose: 1 supp Documented By: ARLIN Melatonin (Melatonin 3 Mg Tablet) 6 mg PO BEDTIME PRN PRN Reason: Insomnia Last Admin: 10/24/23 19:56 Dose: 6 mg Documented By: EVAN Melatonin (Melatonin 3 Mg Tablet) 3 mg PO BEDTIME PRN PRN Reason: Insomnia Multivitamins/Vitamin C (Multivitamin Tablet) 1 tab PO DAILY [facility] Last Admin: 10/25/23 08:40 Dose: 1 tab Documented By: ARLIN Omeprazole (Omeprazole 20 Mg Capsule.) 20 mg PO DAILY@0630 [facility] Last Admin: 10/25/23 05:15 Dose: 20 mg Documented By: EVAN Ondansetron HCl (Ondansetron Hcl 4 Mg/2 Ml Vial) 4 mg IVPUSH Q8H PRN PRN Reason: Nausea and Vomiting Sodium Chloride (0.9 % Sodium Chloride Flush 3 Ml Syringe) 3 ml IVFLUSH QSHIFT [facility] Last Admin: 10/25/23 08:40 Dose: 3 ml Documented By: ARLIN Vitamin D (Cholecalciferol (Vitamin D3) 25 Mcg Tablet) 25 mcg PO DAILY [facility] Last Admin: 10/25/23 08:40 Dose: 25 mcg Documented By: ARLIN Zinc Sulfate (Zinc Sulfate 220 Mg Capsule) 220 mg PO DAILY [facility] Last Admin: 10/25/23 08:40 Dose: 220 mg Documented By: ARLIN Labs 10/25/23 09:50 10/25/23 09:50 Labs: Laboratory Results - last 24 hr 10/25/23 09:50 MCV 87.5 MCH 27.2 MCHC 31.1 RDW 14.4 Plt Count 346 MPV 10.5 Absolute Nucleated RBC 0.000 Nucleated RBC % (auto) 0.0 Anion Gap 11 L Estim Creat Clear Calc 127.6 Estimated GFR > 60 Random Glucose 133 H Calcium 9.2 Assessment and Plan (1) Acute GI bleeding: Status: Resolved (2) Bright red blood per rectum: Status: Resolved Plan 67yo F with HTN, HLD, arthritis, DVT on apixaban admitted for BRBPR Painless BRBPR, resolved no recurrent episodes of bright red blood per rectum GI consulted>likely hemorrhoidal, stercoral colitis or chronic colitis, refused endoscopic assessment continue apixaban stable HH patient having brown loose stools, will hold all stool softeners, continue hemorrhoidal suppository. Rt Knee pain chronic s/p steroid injection by ortho Ultram OT/PT following hx DVT continue apixaban HTN amlodipine HLD statin Deep tissue injury of buttocks present on admission Wound Care following Bilateral Buttocks and Posterior Thighs - Off Load Pressure - Cleanse with PH balance spray or wipes, pat dry. Apply thin layer of Triad to wound bed - only pat and dab no scrub and rub when soiling occurs. Reapply thin layer PRN after each episode of incontinence. Morbid obesity. BMI 54.2 Discussed importance of weight management as this may be contributing to worsening of other comorbidities VTE ppx - apixaban Attending Dr. Bobbi conklino - STR recommended, pending safe placement In my clinical judgment, the patient requires continued inpatient hospitalization for the following reasons: placement Total time managing care of this patient today: 35 minutes. Quality Stroke Does the patient have a stroke diagnosis?: No VTE Prior VTE?: No VTE Risk Level:: Medical - moderate - high VTE Device Contraindication: N/A - Device Ordered VTE Drug Contraindication: Treatment Not Indicated
[2023-10-25 15:22] VITALS: BP 123/68; PULSE 98; RESP 20; TEMP 37.1; O2SAT 95
[2023-10-25 19:43] VITALS: BP 137/62; PULSE 104; RESP 15; TEMP 36.2; O2SAT 94
[2023-10-25] MEDS: Melatonin 3 MG TABLET 6 MG PO (19:58)
[2023-10-25] MEDS: Atorvastatin Calcium 20 MG TABLET PO (19:59)
[2023-10-26 03:28] VITALS: BP 135/63; PULSE 81; RESP 16; TEMP 36.4; O2SAT 96
[2023-10-26] MEDS: Omeprazole 20 MG CAPSULE.DR PO (05:16)
[2023-10-26] MEDS: amLODIPine Besylate 10 MG TABLET PO (06:56)
[2023-10-26] MEDS: Apixaban 5 MG TABLET PO ×2 (06:56→20:19)
[2023-10-26] MEDS: Cholecalciferol (Vitamin D3) 25 MCG TABLET PO (06:56)
[2023-10-26] MEDS: Cocoa Butter/Zinc Oxide SUPP.RECT 1 SUPP PR (06:56)
[2023-10-26] MEDS: Zinc Sulfate 220 MG CAPSULE PO (06:56)
[2023-10-26] MEDS: Multivitamin TABLET 1 TAB PO (06:57)
[2023-10-26 07:38] VITALS: BP 126/75; PULSE 76; RESP 14; TEMP 36; O2SAT 96
[2023-10-26] MEDS: Acetaminophen 325 MG TABLET 650 MG PO (10:25)
[2023-10-26] MEDS: Docusate Sodium 100 MG CAPSULE 200 MG PO (10:51)
[2023-10-26] MEDS: traMADoL HCL 50 MG TABLET PO (10:52)
--- NOTE | 2023-10-26 10:53 | HO.PM.IMPN ---
Subjective Subjective Date of Service: 10/26/23 Interval History: Complaining of right knee pain requesting for strong pain medications, also feels constipated with no bowel movement in couple days, feels bloated, no nausea, no vomiting, no abdominal pain denies fever chills, tolerating diet. Review of Systems All other system reviewed and negative Physical Exam Vital Signs: Vital Signs: Last Vital Signs Temp 96.8 F 10/26/23 07:38 Pulse 76 10/26/23 07:38 Resp 14 10/26/23 07:38 BP 126/75 10/26/23 07:38 Pulse Ox 96 10/26/23 07:38 O2 Del Method Room Air 10/26/23 07:38 BMI result Body Mass Index 54.2 Const: Other: Gen: in no acute distress HEENT: sclera anicteric, moist mucus membranes Neck: supple Lungs: clear to auscultation bilaterally Heart: regular rate and rhythm, no murmurs Abd: soft, non-tender, non-distended, bowel sounds audible, obese Ext: no edema Skin: warm/well-perfused Neuro: alert and oriented x3, no focal findings Psych: appropriate affect Objective Data Active Medications Acetaminophen (Acetaminophen 325 Mg Tablet) 650 mg PO Q6H PRN PRN Reason: Pain, Mild (Pain Scale 1-3) Last Admin: 10/26/23 10:25 Dose: 650 mg Documented By: KIARA Amlodipine Besylate (Amlodipine Besylate 10 Mg Tablet) 10 mg PO DAILY [facility]; Protocol Last Admin: 10/26/23 06:56 Dose: 10 mg Documented By: KIARA Apixaban (Apixaban 5 Mg Tablet) 5 mg PO BID [facility] Last Admin: 10/26/23 06:56 Dose: 5 mg Documented By: KIARA Atorvastatin Calcium (Atorvastatin Calcium 20 Mg Tablet) 20 mg PO BEDTIME [facility] Last Admin: 10/25/23 19:59 Dose: 20 mg Documented By: MARIA L Bisacodyl (Bisacodyl 10 Mg Supp.Rect) 10 mg [place] DAILY PRN PRN Reason: Constipation [place] Butter/Zinc Oxide ([place] Butter/Zinc Oxide Supp.Rect) 1 supp [place] BID [facility] Last Admin: 10/26/23 06:56 Dose: 1 supp Documented By: KIARA Docusate Sodium (Docusate Sodium 100 Mg Capsule) 200 mg PO DAILY [facility] Last Admin: 10/26/23 10:51 Dose: 200 mg Documented By: KIARA Melatonin (Melatonin 3 Mg Tablet) 6 mg PO BEDTIME PRN PRN Reason: Insomnia Last Admin: 10/25/23 19:58 Dose: 6 mg Documented By: MARIA L Melatonin (Melatonin 3 Mg Tablet) 3 mg PO BEDTIME PRN PRN Reason: Insomnia Multivitamins/Vitamin C (Multivitamin Tablet) 1 tab PO DAILY [facility] Last Admin: 10/26/23 06:57 Dose: 1 tab Documented By: KIARA Omeprazole (Omeprazole 20 Mg Capsule.) 20 mg PO DAILY@0630 [facility] Last Admin: 10/26/23 05:16 Dose: 20 mg Documented By: MARIA L Ondansetron HCl (Ondansetron Hcl 4 Mg/2 Ml Vial) 4 mg IVPUSH Q8H PRN PRN Reason: Nausea and Vomiting Polyethylene Glycol (Polyethylene Glycol 3350 17 Gm Powd.Pack) 17 gm PO DAILY [facility] Last Admin: 10/26/23 10:52 Dose: Not Given Documented By: KIARA Non-Admin Reason: Patient Refused Sodium Chloride (0.9 % Sodium Chloride Flush 3 Ml Syringe) 3 ml IVFLUSH QSHIFT [facility] Last Admin: 10/26/23 06:56 Dose: 3 ml Documented By: KIARA Tramadol HCl (Tramadol Hcl 50 Mg Tablet) 50 mg PO Q8H PRN PRN Reason: Pain, Severe (Pain Scale 7-10) Last Admin: 10/26/23 10:52 Dose: 50 mg Documented By: KIARA Vitamin D (Cholecalciferol (Vitamin D3) 25 Mcg Tablet) 25 mcg PO DAILY [facility] Last Admin: 10/26/23 06:56 Dose: 25 mcg Documented By: KIARA Zinc Sulfate (Zinc Sulfate 220 Mg Capsule) 220 mg PO DAILY [facility] Last Admin: 10/26/23 06:56 Dose: 220 mg Documented By: KIARA Labs 10/25/23 09:50 10/25/23 09:50 Assessment and Plan (1) Acute GI bleeding: Status: Resolved (2) Bright red blood per rectum: Status: Resolved Plan 67yo F with HTN, HLD, arthritis, DVT on apixaban admitted for BRBPR Painless BRBPR, resolved no recurrent episodes of bright red blood per rectum GI consulted>likely hemorrhoidal, stercoral colitis or chronic colitis, patient refused endoscopic assessment continue apixaban stable HH Will place on stool softeners, since fail constipated, continue hemorrhoidal suppository. Rt Knee pain chronic s/p steroid injection by ortho Resume Ultram OT/PT following hx DVT continue apixaban HTN amlodipine HLD statin Deep tissue injury of buttocks present on admission Wound Care following Bilateral Buttocks and Posterior Thighs - Off Load Pressure - Cleanse with PH balance spray or wipes, pat dry. Apply thin layer of Triad to wound bed - only pat and dab no scrub and rub when soiling occurs. Reapply thin layer PRN after each episode of incontinence. Morbid obesity. BMI 54.2 Discussed importance of weight management as this may be contributing to worsening of other comorbidities VTE ppx - apixaban dispo - STR recommended, pending safe placement In my clinical judgment, the patient requires continued inpatient hospitalization for the following reasons: placement Total time managing care of this patient today: 35 minutes. Quality Stroke Does the patient have a stroke diagnosis?: No VTE Prior VTE?: No VTE Risk Level:: Medical - moderate - high VTE Device Contraindication: N/A - Device Ordered VTE Drug Contraindication: Treatment Not Indicated
--- NOTE | 2023-10-26 11:14 | MHC.CLN ---
F/U PO INTAKE MOST MEALS 75-100%. DIET= REGULAR, HIGH FIBER. PT RECEIVING ENSURE MAX BID (300 KCALS, 60 G PROTEIN) TO PROMOTE WOUND HEALING. SKIN WITH DTI TO BILATERAL BUTTOCKS. MONITOR PO INTAKE AND WOUND HEALING. RD TO FOLLOW UP WEEKLY.
[2023-10-26 12:50] VITALS: BP 126/75; PULSE 76; O2SAT 96
[2023-10-26 15:28] VITALS: BP 144/70; PULSE 89; RESP 17; TEMP 36.4; O2SAT 95
--- NOTE | 2023-10-26 15:57 | MHC.CM.PN ---
per racquel pt ready for dc await [facility]
[2023-10-26 19:15] VITALS: BP 133/70; PULSE 91; RESP 17; TEMP 36.2; O2SAT 95
[2023-10-26] MEDS: Atorvastatin Calcium 20 MG TABLET PO (20:19)
[2023-10-26] MEDS: Melatonin 3 MG TABLET 6 MG PO (20:19)
[2023-10-27 03:38] VITALS: BP 131/58; PULSE 82; RESP 18; TEMP 36.1; O2SAT 95
[2023-10-27] MEDS: Omeprazole 20 MG CAPSULE.DR PO (05:50)
[2023-10-27 07:21] VITALS: BP 142/76; PULSE 74; RESP 14; TEMP 36.1; O2SAT 97
[2023-10-27] MEDS: Docusate Sodium 100 MG CAPSULE 200 MG PO (08:53)
[2023-10-27] MEDS: Apixaban 5 MG TABLET PO ×2 (08:53→20:21)
[2023-10-27] MEDS: amLODIPine Besylate 10 MG TABLET PO (08:53)
[2023-10-27] MEDS: Cocoa Butter/Zinc Oxide SUPP.RECT 1 SUPP PR (08:53)
[2023-10-27] MEDS: Multivitamin TABLET 1 TAB PO (08:53)
[2023-10-27] MEDS: Zinc Sulfate 220 MG CAPSULE PO (08:53)
[2023-10-27] MEDS: polyethylene glycoL 3350 17 GM POWD.PACK PO (08:53)
[2023-10-27] MEDS: Cholecalciferol (Vitamin D3) 25 MCG TABLET PO (08:53)
[2023-10-27] MEDS: traMADoL HCL 50 MG TABLET PO (09:07)
[2023-10-27 10:40] VITALS: BP 142/76; PULSE 74; O2SAT 97
--- NOTE | 2023-10-27 13:28 | P.PNIM_ITS ---
Subjective Subjective Date of Service: 10/27/23 Interval History: No acute issues overnight. Patient offers no acute complaints good pain control right knee, tolerating diet, no nausea, no vomiting, no diarrhea. Participating in physical therapy. Review of Systems All other system reviewed and negative. Physical Exam 2 Vital Signs: Vital Signs: Last Vital Signs Temp 97.0 F 10/27/23 07:21 Pulse 74 10/27/23 10:40 Resp 14 10/27/23 07:21 BP 142/76 H 10/27/23 10:40 Pulse Ox 97 10/27/23 10:40 O2 Del Method Room Air 10/27/23 07:21 BMI result Body Mass Index 54.2 Const: Other: Gen: in no acute distress HEENT: sclera anicteric, moist mucus membranes Neck: supple Lungs: clear to auscultation bilaterally Heart: regular rate and rhythm, no murmurs Abd: soft, non-tender, non-distended, bowel sounds audible, obese Ext: no edema Skin: warm/well-perfused Neuro: alert and oriented x3, no focal findings Psych: appropriate affect Objective Data Active Medications Acetaminophen (Acetaminophen 325 Mg Tablet) 650 mg PO Q6H PRN PRN Reason: Pain, Mild (Pain Scale 1-3) Last Admin: 10/26/23 10:25 Dose: 650 mg Documented By: KIARA Amlodipine Besylate (Amlodipine Besylate 10 Mg Tablet) 10 mg PO DAILY [facility]; Protocol Last Admin: 10/27/23 08:53 Dose: 10 mg Documented By: WINSOME Apixaban (Apixaban 5 Mg Tablet) 5 mg PO BID [facility] Last Admin: 10/27/23 08:53 Dose: 5 mg Documented By: WINSOME Atorvastatin Calcium (Atorvastatin Calcium 20 Mg Tablet) 20 mg PO BEDTIME [facility] Last Admin: 10/26/23 20:19 Dose: 20 mg Documented By: ODRISM Bisacodyl (Bisacodyl 10 Mg Supp.Rect) 10 mg [place] DAILY PRN PRN Reason: Constipation [place] Butter/Zinc Oxide ([place] Butter/Zinc Oxide Supp.Rect) 1 supp [place] BID [facility] Last Admin: 10/27/23 08:53 Dose: 1 supp Documented By: WINSOME Docusate Sodium (Docusate Sodium 100 Mg Capsule) 200 mg PO DAILY [facility] Last Admin: 10/27/23 08:53 Dose: 200 mg Documented By: WINSOME Melatonin (Melatonin 3 Mg Tablet) 6 mg PO BEDTIME PRN PRN Reason: Insomnia Last Admin: 10/26/23 20:19 Dose: 6 mg Documented By: ARNOLD Melatonin (Melatonin 3 Mg Tablet) 3 mg PO BEDTIME PRN PRN Reason: Insomnia Multivitamins/Vitamin C (Multivitamin Tablet) 1 tab PO DAILY [facility] Last Admin: 10/27/23 08:53 Dose: 1 tab Documented By: WINSOME Omeprazole (Omeprazole 20 Mg Capsule.) 20 mg PO DAILY@0630 [facility] Last Admin: 10/27/23 05:50 Dose: 20 mg Documented By: ARNOLD Ondansetron HCl (Ondansetron Hcl 4 Mg/2 Ml Vial) 4 mg IVPUSH Q8H PRN PRN Reason: Nausea and Vomiting Polyethylene Glycol (Polyethylene Glycol 3350 17 Gm Powd.Pack) 17 gm PO DAILY [facility] Last Admin: 10/27/23 08:53 Dose: 17 gm Documented By: WINSOME Sodium Chloride (0.9 % Sodium Chloride Flush 3 Ml Syringe) 3 ml IVFLUSH QSHIFT [facility] Last Admin: 10/27/23 08:54 Dose: 3 ml Documented By: WINSOME Tramadol HCl (Tramadol Hcl 50 Mg Tablet) 50 mg PO Q8H PRN PRN Reason: Pain, Severe (Pain Scale 7-10) Last Admin: 10/27/23 09:07 Dose: 50 mg Documented By: WINSOME Vitamin D (Cholecalciferol (Vitamin D3) 25 Mcg Tablet) 25 mcg PO DAILY [facility] Last Admin: 10/27/23 08:53 Dose: 25 mcg Documented By: WINSOME Zinc Sulfate (Zinc Sulfate 220 Mg Capsule) 220 mg PO DAILY [facility] Last Admin: 10/27/23 08:53 Dose: 220 mg Documented By: WINSOME Labs 10/25/23 09:50 10/25/23 09:50 Assessment and Plan (1) Acute GI bleeding: Status: Resolved (2) Bright red blood per rectum: Status: Resolved Plan 67yo F with HTN, HLD, arthritis, DVT on apixaban admitted for BRBPR Painless BRBPR, resolved no recurrent episodes of bright red blood per rectum GI consulted>likely hemorrhoidal, stercoral colitis or chronic colitis, patient refused endoscopic assessment continue apixaban stable HH on stool softeners,continue hemorrhoidal suppository. Rt Knee pain chronic s/p steroid injection by ortho Continue Ultram OT/PT following hx DVT continue apixaban HTN amlodipine HLD statin Deep tissue injury of buttocks present on admission Wound Care following Bilateral Buttocks and Posterior Thighs - Off Load Pressure - Cleanse with PH balance spray or wipes, pat dry. Apply thin layer of Triad to wound bed - only pat and dab no scrub and rub when soiling occurs. Reapply thin layer PRN after each episode of incontinence. Morbid obesity. BMI 54.2 Discussed importance of weight management as this may be contributing to worsening of other comorbidities VTE ppx - apixaban dispo - STR recommended, pending safe placement In my clinical judgment, the patient requires continued inpatient hospitalization for the following reasons: placement Total time managing care of this patient today: 35 minutes. Quality Stroke Does the patient have a stroke diagnosis?: No VTE Prior VTE?: No VTE Risk Level:: Medical - moderate - high VTE Device Contraindication: N/A - Device Ordered VTE Drug Contraindication: Treatment Not Indicated
[2023-10-27 15:11] VITALS: BP 102/71; PULSE 88; RESP 16; TEMP 36.4; O2SAT 94
[2023-10-27 19:22] VITALS: BP 135/57; PULSE 92; RESP 18; TEMP 36.3; O2SAT 96
[2023-10-27] MEDS: Melatonin 3 MG TABLET 6 MG PO (20:21)
[2023-10-27] MEDS: Atorvastatin Calcium 20 MG TABLET PO (20:21)
[2023-10-28 03:45] VITALS: BP 128/71; PULSE 74; RESP 16; TEMP 36.8; O2SAT 95
[2023-10-28] MEDS: Omeprazole 20 MG CAPSULE.DR PO (05:39)
[2023-10-28 07:38] VITALS: BP 142/86; PULSE 72; RESP 20; TEMP 36.5; O2SAT 95
[2023-10-28] MEDS: Multivitamin TABLET 1 TAB PO (09:28)
[2023-10-28] MEDS: Docusate Sodium 100 MG CAPSULE 200 MG PO (09:28)
[2023-10-28] MEDS: Cholecalciferol (Vitamin D3) 25 MCG TABLET PO (09:28)
[2023-10-28] MEDS: Apixaban 5 MG TABLET PO ×2 (09:29→21:11)
[2023-10-28] MEDS: amLODIPine Besylate 10 MG TABLET PO (09:29)
[2023-10-28] MEDS: Zinc Sulfate 220 MG CAPSULE PO (09:29)
[2023-10-28] MEDS: Cocoa Butter/Zinc Oxide SUPP.RECT 1 SUPP PR (09:29)
[2023-10-28] MEDS: polyethylene glycoL 3350 17 GM POWD.PACK PO (09:29)
[2023-10-28 09:37] VITALS: BP 142/86; PULSE 72; O2SAT 95
--- NOTE | 2023-10-28 11:32 | HO.PM.IMPN ---
Subjective Subjective Date of Service: 10/28/23 Interval History: No acute issues overnight, no bowel movement in last 2 days denies abdominal pain no nausea, no vomiting, no abdominal pain taking MiraLax and Colace daily, good pain control right knee. Review of Systems All other system reviewed Physical Exam Vital Signs: Vital Signs: Last Vital Signs Temp 97.7 F 10/28/23 07:38 Pulse 72 10/28/23 09:37 Resp 20 10/28/23 07:38 BP 142/86 H 10/28/23 09:37 Pulse Ox 95 10/28/23 09:37 O2 Del Method Room Air 10/28/23 07:38 BMI result Body Mass Index 54.2 Const: Other: Gen: Awake alert x3, in no acute distress HEENT: sclera anicteric, moist mucus membranes Neck: supple Lungs: clear to auscultation bilaterally Heart: regular rate and rhythm, no murmurs Abd: soft, non-tender, non-distended, bowel sounds audible, obese Ext: no edema Skin: warm/well-perfused Neuro: alert and oriented x3, no focal findings Psych: appropriate affect Objective Data Active Medications Acetaminophen (Acetaminophen 325 Mg Tablet) 650 mg PO Q6H PRN PRN Reason: Pain, Mild (Pain Scale 1-3) Last Admin: 10/26/23 10:25 Dose: 650 mg Documented By: KIARA Amlodipine Besylate (Amlodipine Besylate 10 Mg Tablet) 10 mg PO DAILY [facility]; Protocol Last Admin: 10/28/23 09:29 Dose: 10 mg Documented By: ADDY Apixaban (Apixaban 5 Mg Tablet) 5 mg PO BID [facility] Last Admin: 10/28/23 09:29 Dose: 5 mg Documented By: ADDY Atorvastatin Calcium (Atorvastatin Calcium 20 Mg Tablet) 20 mg PO BEDTIME [facility] Last Admin: 10/27/23 20:21 Dose: 20 mg Documented By: ARNOLD Bisacodyl (Bisacodyl 10 Mg Supp.Rect) 10 mg [place] DAILY PRN PRN Reason: Constipation [place] Butter/Zinc Oxide ([place] Butter/Zinc Oxide Supp.Rect) 1 supp [place] BID [facility] Last Admin: 10/28/23 09:29 Dose: 1 supp Documented By: ADDY Docusate Sodium (Docusate Sodium 100 Mg Capsule) 200 mg PO DAILY [facility] Last Admin: 10/28/23 09:28 Dose: 200 mg Documented By: ADDY Melatonin (Melatonin 3 Mg Tablet) 6 mg PO BEDTIME PRN PRN Reason: Insomnia Last Admin: 10/27/23 20:21 Dose: 6 mg Documented By: ARNOLD Melatonin (Melatonin 3 Mg Tablet) 3 mg PO BEDTIME PRN PRN Reason: Insomnia Multivitamins/Vitamin C (Multivitamin Tablet) 1 tab PO DAILY [facility] Last Admin: 10/28/23 09:28 Dose: 1 tab Documented By: ADDY Omeprazole (Omeprazole 20 Mg Capsule.) 20 mg PO DAILY@0630 [facility] Last Admin: 10/28/23 05:39 Dose: 20 mg Documented By: ARNOLD Ondansetron HCl (Ondansetron Hcl 4 Mg/2 Ml Vial) 4 mg IVPUSH Q8H PRN PRN Reason: Nausea and Vomiting Polyethylene Glycol (Polyethylene Glycol 3350 17 Gm Powd.Pack) 17 gm PO DAILY [facility] Last Admin: 10/28/23 09:29 Dose: 17 gm Documented By: ADDY Sodium Chloride (0.9 % Sodium Chloride Flush 3 Ml Syringe) 3 ml IVFLUSH QSHIFT [facility] Last Admin: 10/28/23 09:28 Dose: 3 ml Documented By: ADDY Tramadol HCl (Tramadol Hcl 50 Mg Tablet) 50 mg PO Q8H PRN PRN Reason: Pain, Severe (Pain Scale 7-10) Last Admin: 10/27/23 09:07 Dose: 50 mg Documented By: WINSOME Vitamin D (Cholecalciferol (Vitamin D3) 25 Mcg Tablet) 25 mcg PO DAILY [facility] Last Admin: 10/28/23 09:28 Dose: 25 mcg Documented By: ADDY Zinc Sulfate (Zinc Sulfate 220 Mg Capsule) 220 mg PO DAILY [facility] Last Admin: 10/28/23 09:29 Dose: 220 mg Documented By: ADDY Labs 10/25/23 09:50 10/25/23 09:50 Assessment and Plan (1) Acute GI bleeding: Status: Resolved (2) Bright red blood per rectum: Status: Resolved Plan 67yo F with HTN, HLD, arthritis, DVT on apixaban admitted for BRBPR Painless BRBPR, resolved no recurrent episodes of bright red blood per rectum GI consulted>likely hemorrhoidal, stercoral colitis or chronic colitis, patient refused endoscopic assessment continue apixaban stable HH on MiraLax and Colace with persistent constipation will add Senokot,jorge hemorrhoidal suppository. Rt Knee pain chronic s/p steroid injection by ortho Continue Ultram OT/PT following hx DVT continue apixaban HTN amlodipine HLD statin Deep tissue injury of buttocks present on admission Wound Care following Bilateral Buttocks and Posterior Thighs - Off Load Pressure - Cleanse with PH balance spray or wipes, pat dry. Apply thin layer of Triad to wound bed - only pat and dab no scrub and rub when soiling occurs. Reapply thin layer PRN after each episode of incontinence. Morbid obesity. BMI 54.2 Discussed importance of weight management as this may be contributing to worsening of other comorbidities VTE ppx - apixaban dispo - STR recommended, pending safe placement In my clinical judgment, the patient requires continued inpatient hospitalization for the following reasons: placement Total time managing care of this patient today: 35 minutes. Quality Stroke Does the patient have a stroke diagnosis?: No VTE Prior VTE?: No VTE Risk Level:: Medical - moderate - high VTE Device Contraindication: N/A - Device Ordered VTE Drug Contraindication: Treatment Not Indicated
--- NOTE | 2023-10-28 13:13 | MHC.CM.PN ---
EMR reviewed. Per MD rounds patient is pending safe dc. PT continues to recommend STR. CM met with patient at bedside who clarifies she is only interested in STR, is not looking for LTC at this time. States [employer] is for a secondary payor as she is not sure she has any STR days left with [employer]. Patients goal is to return home after STR. Referrals updated in [facility] need, updated notes sent. No bed offers at this time. LM for admissions at [place]. Requested update from financial services who states patient is waiting on bank records. Also requested clarification on [employer] STR days/coverage, awaiting response. CM will continue to follow for safe dc.
[2023-10-28 15:42] VITALS: BP 119/67; PULSE 92; RESP 20; TEMP 36.7; O2SAT 95
[2023-10-28 20:00] VITALS: BP 128/73; PULSE 104; RESP 18; TEMP 37.1; O2SAT 92
[2023-10-28] MEDS: Sennosides/Docusate Sodium TABLET 1 TAB PO (21:11)
[2023-10-28] MEDS: Atorvastatin Calcium 20 MG TABLET PO (21:11)
[2023-10-28] MEDS: Melatonin 3 MG TABLET 6 MG PO (21:11)
[2023-10-28] MEDS: traMADoL HCL 50 MG TABLET PO (21:16)
[2023-10-29 03:26] VITALS: BP 126/75; PULSE 79; RESP 16; TEMP 36.2; O2SAT 94
[2023-10-29] MEDS: Omeprazole 20 MG CAPSULE.DR PO (06:23)
[2023-10-29 07:36] VITALS: BP 147/88; PULSE 79; RESP 18; TEMP 36.1; O2SAT 97
[2023-10-29] MEDS: Docusate Sodium 100 MG CAPSULE 200 MG PO (08:07)
[2023-10-29] MEDS: polyethylene glycoL 3350 17 GM POWD.PACK PO (08:07)
[2023-10-29] MEDS: Cholecalciferol (Vitamin D3) 25 MCG TABLET PO (08:07)
[2023-10-29] MEDS: Zinc Sulfate 220 MG CAPSULE PO (08:07)
[2023-10-29] MEDS: Apixaban 5 MG TABLET PO ×2 (08:07→20:12)
[2023-10-29] MEDS: amLODIPine Besylate 10 MG TABLET PO (08:07)
[2023-10-29] MEDS: Multivitamin TABLET 1 TAB PO (08:07)
--- NOTE | 2023-10-29 09:54 | P.PNIM_ITS ---
Subjective Subjective Date of Service: 10/29/23 Interval History: Being followed for bright red blood per rectum all symptoms resolved Waiting for placement Denies right knee pain, was incontinent of small stool. No acute issues overnight. Review of Systems All other system reviewed and negative Physical Exam 2 Vital Signs: Vital Signs: Last Vital Signs Temp 97.0 F 10/29/23 07:36 Pulse 79 10/29/23 07:36 Resp 18 10/29/23 07:36 BP 147/88 H 10/29/23 07:36 Pulse Ox 97 10/29/23 07:36 O2 Del Method Room Air 10/29/23 07:36 BMI result Body Mass Index 54.2 Const: Other: Gen: Awake alert x3, in no acute distress HEENT: sclera anicteric, moist mucus membranes Neck: supple Lungs: clear to auscultation bilaterally Heart: regular rate and rhythm, no murmurs Abd: soft, non-tender, non-distended, bowel sounds audible, obese Ext: no edema Skin: warm/well-perfused Neuro: alert and oriented x3, no focal findings Psych: appropriate affect Objective Data Active Medications Acetaminophen (Acetaminophen 325 Mg Tablet) 650 mg PO Q6H PRN PRN Reason: Pain, Mild (Pain Scale 1-3) Last Admin: 10/26/23 10:25 Dose: 650 mg Documented By: KIARA Amlodipine Besylate (Amlodipine Besylate 10 Mg Tablet) 10 mg PO DAILY [facility]; Protocol Last Admin: 10/29/23 08:07 Dose: 10 mg Documented By: ADDY Apixaban (Apixaban 5 Mg Tablet) 5 mg PO BID [facility] Last Admin: 10/29/23 08:07 Dose: 5 mg Documented By: ADDY Atorvastatin Calcium (Atorvastatin Calcium 20 Mg Tablet) 20 mg PO BEDTIME [facility] Last Admin: 10/28/23 21:11 Dose: 20 mg Documented By: CASTILEyad Bisacodyl (Bisacodyl 10 Mg Supp.Rect) 10 mg [place] DAILY PRN PRN Reason: Constipation Docusate Sodium (Docusate Sodium 100 Mg Capsule) 200 mg PO DAILY [facility] Last Admin: 10/29/23 08:07 Dose: 200 mg Documented By: ADDY Melatonin (Melatonin 3 Mg Tablet) 6 mg PO BEDTIME PRN PRN Reason: Insomnia Last Admin: 10/28/23 21:11 Dose: 6 mg Documented By: EVAN Melatonin (Melatonin 3 Mg Tablet) 3 mg PO BEDTIME PRN PRN Reason: Insomnia Multivitamins/Vitamin C (Multivitamin Tablet) 1 tab PO DAILY [facility] Last Admin: 10/29/23 08:07 Dose: 1 tab Documented By: ADDY Omeprazole (Omeprazole 20 Mg Capsule.Dr) 20 mg PO DAILY@0630 [facility] Last Admin: 10/29/23 06:23 Dose: 20 mg Documented By: ROMEO Ondansetron HCl (Ondansetron Hcl 4 Mg/2 Ml Vial) 4 mg IVPUSH Q8H PRN PRN Reason: Nausea and Vomiting Polyethylene Glycol (Polyethylene Glycol 3350 17 Gm Powd.Pack) 17 gm PO DAILY [facility] Last Admin: 10/29/23 08:07 Dose: 17 gm Documented By: ADDY Senna/Docusate Sodium (Sennosides/Docusate Sodium Tablet) 1 tab PO BEDTIME [facility] Last Admin: 10/28/23 21:11 Dose: 1 tab Documented By: EVAN Sodium Chloride (0.9 % Sodium Chloride Flush 3 Ml Syringe) 3 ml IVFLUSH QSHIFT [facility] Last Admin: 10/29/23 08:07 Dose: 3 ml Documented By: ADDY Tramadol HCl (Tramadol Hcl 50 Mg Tablet) 50 mg PO Q8H PRN PRN Reason: Pain, Severe (Pain Scale 7-10) Last Admin: 10/28/23 21:16 Dose: 50 mg Documented By: EVAN Vitamin D (Cholecalciferol (Vitamin D3) 25 Mcg Tablet) 25 mcg PO DAILY [facility] Last Admin: 10/29/23 08:07 Dose: 25 mcg Documented By: ADDY Zinc Sulfate (Zinc Sulfate 220 Mg Capsule) 220 mg PO DAILY [facility] Last Admin: 10/29/23 08:07 Dose: 220 mg Documented By: ADDY Labs 10/25/23 09:50 10/25/23 09:50 Assessment and Plan (1) Acute GI bleeding: Status: Resolved (2) Bright red blood per rectum: Status: Resolved Plan 67yo F with HTN, HLD, arthritis, DVT on apixaban admitted for BRBPR Painless BRBPR, resolved no recurrent episodes of bright red blood per rectum GI consulted>likely hemorrhoidal, stercoral colitis or chronic colitis, patient refused endoscopic assessment continue apixaban stable HH on MiraLax , Colace and Senokot,, will DC Colace since was incontinent of bowel movement DC hemorrhoidal cream Rt Knee pain chronic pain s/p steroid injection by ortho during this admit Continue Ultram prn OT/PT following hx DVT continue apixaban HTN amlodipine HLD statin Deep tissue injury of buttocks present on admission Wound Care following Bilateral Buttocks and Posterior Thighs - Off Load Pressure - Cleanse with PH balance spray or wipes, pat dry. Apply thin layer of Triad to wound bed - only pat and dab no scrub and rub when soiling occurs. Reapply thin layer PRN after each episode of incontinence. Morbid obesity. BMI 54.2 Discussed importance of weight management as this may be contributing to worsening of other comorbidities VTE ppx - apixaban dispo - STR recommended, pending safe placement In my clinical judgment, the patient requires continued inpatient hospitalization for the following reasons: placement Total time managing care of this patient today: 35 minutes. Quality Stroke Does the patient have a stroke diagnosis?: No VTE Prior VTE?: No VTE Risk Level:: Medical - moderate - high VTE Device Contraindication: N/A - Device Ordered VTE Drug Contraindication: Treatment Not Indicated
[2023-10-29 15:06] VITALS: BP 121/63; PULSE 92; RESP 16; TEMP 36.6; O2SAT 93
--- NOTE | 2023-10-29 15:07 | PC.NURSE ---
Pt is being turned and repositioned in airloss bed every 2 hours and PRN, heels elevated off bed. Pt refuses SCDs and wedges for repo, but will accept pillows. Pt education on risks of pressure injury, verbalizes understanding of risks.
[2023-10-29 18:54] VITALS: BP 124/76; PULSE 95; RESP 16; TEMP 36.2; O2SAT 94
[2023-10-29] MEDS: Atorvastatin Calcium 20 MG TABLET PO (20:12)
[2023-10-29] MEDS: Melatonin 3 MG TABLET 6 MG PO (20:13)
[2023-10-29] MEDS: traMADoL HCL 50 MG TABLET PO (20:13)
[2023-10-29] MEDS: Sennosides/Docusate Sodium TABLET 1 TAB PO (20:13)
[2023-10-30 03:39] VITALS: BP 155/89; PULSE 69; RESP 16; TEMP 37.2; O2SAT 97
[2023-10-30] MEDS: Omeprazole 20 MG CAPSULE.DR PO (06:05)
[2023-10-30 07:29] VITALS: BP 139/82; PULSE 78; RESP 18; TEMP 36.1; O2SAT 98
[2023-10-30] MEDS: Apixaban 5 MG TABLET PO ×2 (08:48→19:58)
[2023-10-30] MEDS: Docusate Sodium 100 MG CAPSULE 200 MG PO (08:48)
[2023-10-30] MEDS: Zinc Sulfate 220 MG CAPSULE PO (08:48)
[2023-10-30] MEDS: Multivitamin TABLET 1 TAB PO (08:48)
[2023-10-30] MEDS: polyethylene glycoL 3350 17 GM POWD.PACK PO (08:48)
[2023-10-30] MEDS: amLODIPine Besylate 10 MG TABLET PO (08:48)
[2023-10-30] MEDS: Cholecalciferol (Vitamin D3) 25 MCG TABLET PO (08:48)
--- NOTE | 2023-10-30 10:47 | PC.NURSE ---
MARIA ALEJANDRA Antonio made aware pt reporting painful IV site, IV removed, pt tolerated well. Pt refusing placement of new IV. Per PA, no IV necessary at this time.
--- NOTE | 2023-10-30 13:38 | P.PNIM_ITS ---
Subjective Subjective Date of Service: 10/30/23 Interval History: seen and examined this morning follow up for rectal bleeding waiting for placement no overnight events. feeling well Review of Systems Review of Systems: Yes all other systems are reviewed and are negative Constitutional Constitutional: Denies chills and Denies fever(s) Cardiovascular Cardiovascular: Denies chest pain and Denies dyspnea Respiratory Respiratory: Denies cough and Denies dyspnea Gastrointestinal Gastrointestinal: Denies abdominal pain, Denies nausea and Denies vomiting Physical Exam 2 Vital Signs: Vital Signs: Last Vital Signs Temp 97.0 F 10/30/23 07:29 Pulse 78 10/30/23 07:29 Resp 18 10/30/23 07:29 BP 139/82 10/30/23 07:29 Pulse Ox 98 10/30/23 07:29 O2 Del Method Room Air 10/30/23 07:29 BMI result Body Mass Index 54.2 Const: General: cooperative, comfortable, no acute distress, alert and awake Nutritional Appearance: obese Orientation/consciousness: patient oriented x3 Resp: Effort & Inspection: normal respiratory effort, able to speak in complete sentences, no respiratory distress and no use of accessory muscles Cardio: Rate: regular rate GI: Inspection: No distended Palpation (GI): Soft to palpation and nontender Neuro: General: patient oriented x3, moves all extremities and CN's II-XI intact bilaterally Extrem: Other: chronic venous stasis changes lower extremities Objective Data Active Medications Acetaminophen (Acetaminophen 325 Mg Tablet) 650 mg PO Q6H PRN PRN Reason: Pain, Mild (Pain Scale 1-3) Last Admin: 10/26/23 10:25 Dose: 650 mg Documented By: KIARA Amlodipine Besylate (Amlodipine Besylate 10 Mg Tablet) 10 mg PO DAILY [facility]; Protocol Last Admin: 10/30/23 08:48 Dose: 10 mg Documented By: ADDY Apixaban (Apixaban 5 Mg Tablet) 5 mg PO BID [facility] Last Admin: 10/30/23 08:48 Dose: 5 mg Documented By: ADDY Atorvastatin Calcium (Atorvastatin Calcium 20 Mg Tablet) 20 mg PO BEDTIME [facility] Last Admin: 10/29/23 20:12 Dose: 20 mg Documented By: ALAYNA Bisacodyl (Bisacodyl 10 Mg Supp.Rect) 10 mg [place] DAILY PRN PRN Reason: Constipation Docusate Sodium (Docusate Sodium 100 Mg Capsule) 200 mg PO DAILY [facility] Last Admin: 10/30/23 08:48 Dose: 200 mg Documented By: ADDY Melatonin (Melatonin 3 Mg Tablet) 6 mg PO BEDTIME PRN PRN Reason: Insomnia Last Admin: 10/29/23 20:13 Dose: 6 mg Documented By: ALAYNA Melatonin (Melatonin 3 Mg Tablet) 3 mg PO BEDTIME PRN PRN Reason: Insomnia Multivitamins/Vitamin C (Multivitamin Tablet) 1 tab PO DAILY [facility] Last Admin: 10/30/23 08:48 Dose: 1 tab Documented By: ADDY Omeprazole (Omeprazole 20 Mg Capsule.) 20 mg PO DAILY@0630 [facility] Last Admin: 10/30/23 06:05 Dose: 20 mg Documented By: ROMEO Ondansetron HCl (Ondansetron Hcl 4 Mg/2 Ml Vial) 4 mg IVPUSH Q8H PRN PRN Reason: Nausea and Vomiting Polyethylene Glycol (Polyethylene Glycol 3350 17 Gm Powd.Pack) 17 gm PO DAILY [facility] Last Admin: 10/30/23 08:48 Dose: 17 gm Documented By: ADDY Senna/Docusate Sodium (Sennosides/Docusate Sodium Tablet) 1 tab PO BEDTIME [facility] Last Admin: 10/29/23 20:13 Dose: 1 tab Documented By: ALAYNA Sodium Chloride (0.9 % Sodium Chloride Flush 3 Ml Syringe) [address] [facility] Last Admin: 10/30/23 08:49 Dose: 3 ml Documented By: ADDY Tramadol HCl (Tramadol Hcl 50 Mg Tablet) 50 mg PO Q8H PRN PRN Reason: Pain, Severe (Pain Scale 7-10) Last Admin: 10/29/23 20:13 Dose: 50 mg Documented By: ALAYNA Vitamin D (Cholecalciferol (Vitamin D3) 25 Mcg Tablet) 25 mcg PO DAILY [facility] Last Admin: 10/30/23 08:48 Dose: 25 mcg Documented By: ADDY Zinc Sulfate (Zinc Sulfate 220 Mg Capsule) 220 mg PO DAILY [facility] Last Admin: 10/30/23 08:48 Dose: 220 mg Documented By: ADDY Labs 10/25/23 09:50 10/25/23 09:50 Assessment and Plan (1) Acute GI bleeding: Status: Resolved (2) Bright red blood per rectum: Status: Resolved Plan This is a 67yo F with HTN, HLD, arthritis, DVT on apixaban admitted for BRBPR Painless BRBPR, resolved no recurrent episodes of bright red blood per rectum GI consulted>likely hemorrhoidal, stercoral colitis or chronic colitis, patient refused endoscopic assessment continue apixaban stable HH on MiraLax , Colace and Senokot, will DC Colace since was incontinent of bowel movement DC hemorrhoidal cream Rt Knee pain chronic pain s/p steroid injection by ortho during this admit Continue Ultram prn OT/PT following hx DVT continue apixaban HTN amlodipine HLD statin Deep tissue injury of buttocks present on admission Wound Care following Bilateral Buttocks and Posterior Thighs - Off Load Pressure - Cleanse with PH balance spray or wipes, pat dry. Apply thin layer of Triad to wound bed - only pat and dab no scrub and rub when soiling occurs. Reapply thin layer PRN after each episode of incontinence. Morbid obesity. BMI 54.2 Discussed importance of weight management as this may be contributing to worsening of other comorbidities VTE ppx - apixaban dispo - STR recommended, pending safe placement In my clinical judgment, the patient requires continued inpatient hospitalization for the following reasons: placement Quality Stroke Does the patient have a stroke diagnosis?: No VTE Prior VTE?: No VTE Risk Level:: Medical - moderate - high VTE Device Contraindication: N/A - Device Ordered VTE Drug Contraindication: Treatment Not Indicated
[2023-10-30 15:18] VITALS: BP 132/73; PULSE 90; RESP 17; TEMP 36.3; O2SAT 95
[2023-10-30 19:23] VITALS: BP 108/59; PULSE 93; RESP 18; TEMP 36.8; O2SAT 95
[2023-10-30] MEDS: Sennosides/Docusate Sodium TABLET 1 TAB PO (19:58)
[2023-10-30] MEDS: Atorvastatin Calcium 20 MG TABLET PO (19:58)
[2023-10-31 03:01] VITALS: BP 131/65; PULSE 88; RESP 18; TEMP 36.4; O2SAT 96
[2023-10-31] MEDS: Omeprazole 20 MG CAPSULE.DR PO (05:28)
[2023-10-31 07:21] VITALS: BP 154/67; PULSE 80; RESP 16; TEMP 36.7; O2SAT 96
--- NOTE | 2023-10-31 09:56 | P.PNIM_ITS ---
Subjective Subjective Date of Service: 10/31/23 Interval History: seen and examined this morning follow up for rectal bleeding waiting for placement no overnight events. feeling well Review of Systems Review of Systems: Yes all other systems are reviewed and are negative Constitutional Constitutional: Denies chills and Denies fever(s) Cardiovascular Cardiovascular: Denies chest pain and Denies dyspnea Respiratory Respiratory: Denies cough and Denies dyspnea Gastrointestinal Gastrointestinal: Denies abdominal pain, Denies nausea and Denies vomiting Physical Exam 2 Vital Signs: Vital Signs: Last Vital Signs Temp 98.0 F 10/31/23 07:21 Pulse 80 10/31/23 07:21 Resp 16 10/31/23 07:21 BP 154/67 H 10/31/23 07:21 Pulse Ox 96 10/31/23 07:21 O2 Del Method Room Air 10/31/23 07:21 BMI result Body Mass Index 54.2 alert and oriented soft abd LSCTA Objective Data Active Medications Acetaminophen (Acetaminophen 325 Mg Tablet) 650 mg PO Q6H PRN PRN Reason: Pain, Mild (Pain Scale 1-3) Last Admin: 10/26/23 10:25 Dose: 650 mg Documented By: KIARA Amlodipine Besylate (Amlodipine Besylate 10 Mg Tablet) 10 mg PO DAILY [facility]; Protocol Last Admin: 10/30/23 08:48 Dose: 10 mg Documented By: ADDY Apixaban (Apixaban 5 Mg Tablet) 5 mg PO BID [facility] Last Admin: 10/30/23 19:58 Dose: 5 mg Documented By: EDWARD Atorvastatin Calcium (Atorvastatin Calcium 20 Mg Tablet) 20 mg PO BEDTIME [facility] Last Admin: 10/30/23 19:58 Dose: 20 mg Documented By: EDWARD Bisacodyl (Bisacodyl 10 Mg Supp.Rect) 10 mg [place] DAILY PRN PRN Reason: Constipation Docusate Sodium (Docusate Sodium 100 Mg Capsule) 200 mg PO DAILY [facility] Last Admin: 10/30/23 08:48 Dose: 200 mg Documented By: ADDY Melatonin (Melatonin 3 Mg Tablet) 6 mg PO BEDTIME PRN PRN Reason: Insomnia Last Admin: 10/29/23 20:13 Dose: 6 mg Documented By: ALAYNA Melatonin (Melatonin 3 Mg Tablet) 3 mg PO BEDTIME PRN PRN Reason: Insomnia Multivitamins/Vitamin C (Multivitamin Tablet) 1 tab PO DAILY [facility] Last Admin: 10/30/23 08:48 Dose: 1 tab Documented By: ADDY Omeprazole (Omeprazole 20 Mg Capsule.) 20 mg PO DAILY@0630 [facility] Last Admin: 10/31/23 05:28 Dose: 20 mg Documented By: EDWARD Ondansetron HCl (Ondansetron Hcl 4 Mg/2 Ml Vial) 4 mg IVPUSH Q8H PRN PRN Reason: Nausea and Vomiting Polyethylene Glycol (Polyethylene Glycol 3350 17 Gm Powd.Pack) 17 gm PO DAILY [facility] Last Admin: 10/30/23 08:48 Dose: 17 gm Documented By: ADDY Senna/Docusate Sodium (Sennosides/Docusate Sodium Tablet) 1 tab PO BEDTIME [facility] Last Admin: 10/30/23 19:58 Dose: 1 tab Documented By: EDWARD Sodium Chloride (0.9 % Sodium Chloride Flush 3 Ml Syringe) 3 ml IVFLUSH QSHIFT [facility] Last Admin: 10/30/23 19:58 Dose: 3 ml Documented By: EDWARD Tramadol HCl (Tramadol Hcl 50 Mg Tablet) 50 mg PO Q8H PRN PRN Reason: Pain, Severe (Pain Scale 7-10) Last Admin: 10/29/23 20:13 Dose: 50 mg Documented By: ALAYNA Vitamin D (Cholecalciferol (Vitamin D3) 25 Mcg Tablet) 25 mcg PO DAILY [facility] Last Admin: 10/30/23 08:48 Dose: 25 mcg Documented By: ADDY Zinc Sulfate (Zinc Sulfate 220 Mg Capsule) 220 mg PO DAILY [facility] Last Admin: 10/30/23 08:48 Dose: 220 mg Documented By: ADDY Labs 10/25/23 09:50 10/25/23 09:50 Assessment and Plan (1) Acute GI bleeding: Status: Resolved (2) Bright red blood per rectum: Status: Resolved Plan This is a 67yo F with HTN, HLD, arthritis, DVT on apixaban admitted for BRBPR Painless BRBPR, resolved no recurrent episodes of bright red blood per rectum GI consulted>likely hemorrhoidal, stercoral colitis or chronic colitis, patient refused endoscopic assessment continue apixaban stable HH on MiraLax , Colace and Senokot, will DC Colace since was incontinent of bowel movement DC hemorrhoidal cream Rt Knee pain chronic pain s/p steroid injection by ortho during this admit Continue Ultram prn OT/PT following hx DVT continue apixaban HTN amlodipine HLD statin Deep tissue injury of buttocks present on admission Wound Care following Bilateral Buttocks and Posterior Thighs - Off Load Pressure - Cleanse with PH balance spray or wipes, pat dry. Apply thin layer of Triad to wound bed - only pat and dab no scrub and rub when soiling occurs. Reapply thin layer PRN after each episode of incontinence. Morbid obesity. BMI 54.2 Discussed importance of weight management as this may be contributing to worsening of other comorbidities VTE ppx - apixaban Attending Dr. Dow dispo - STR recommended, pending safe placement In my clinical judgment, the patient requires continued inpatient hospitalization for the following reasons: placement Quality Stroke Does the patient have a stroke diagnosis?: No VTE Prior VTE?: No VTE Risk Level:: Medical - moderate - high VTE Device Contraindication: N/A - Device Ordered VTE Drug Contraindication: Treatment Not Indicated
[2023-10-31] MEDS: Apixaban 5 MG TABLET PO ×2 (11:08→19:39)
[2023-10-31] MEDS: Cholecalciferol (Vitamin D3) 25 MCG TABLET PO (11:08)
[2023-10-31] MEDS: Zinc Sulfate 220 MG CAPSULE PO (11:08)
[2023-10-31] MEDS: Docusate Sodium 100 MG CAPSULE 200 MG PO (11:08)
[2023-10-31] MEDS: Multivitamin TABLET 1 TAB PO (11:09)
[2023-10-31] MEDS: amLODIPine Besylate 10 MG TABLET PO (11:09)
[2023-10-31] MEDS: traMADoL HCL 50 MG TABLET PO (11:13)
[2023-10-31 15:17] VITALS: BP 127/56; PULSE 93; RESP 18; TEMP 36.4; O2SAT 94
--- NOTE | 2023-10-31 15:35 | MHC.CM.PN ---
PT IS MEDICALLY CLEARED HOWEVER REQUIRES SNF PLACEMENT PER LAST PT NOTE, THEY ARE RECOMMENDING STR REFERRAL BROADCASTED AGAIN WITH UPDATES
[2023-10-31 19:27] VITALS: BP 127/60; PULSE 86; RESP 18; TEMP 36.3; O2SAT 95
[2023-10-31] MEDS: Sennosides/Docusate Sodium TABLET 1 TAB PO (19:39)
[2023-10-31] MEDS: Atorvastatin Calcium 20 MG TABLET PO (19:39)
[2023-11-01 03:20] VITALS: BP 146/75; PULSE 77; RESP 16; TEMP 36.2; O2SAT 96
[2023-11-01] MEDS: Omeprazole 20 MG CAPSULE.DR PO (05:23)
--- NOTE | 2023-11-01 07:20 | HO.PM.IMPN ---
Subjective Subjective Date of Service: 11/01/23 Interval History: follow up for rectal bleeding waiting for placement no overnight events. feeling well Review of Systems Review of Systems: Yes all other systems are reviewed and are negative Constitutional Constitutional: Denies chills and Denies fever(s) Cardiovascular Cardiovascular: Denies chest pain and Denies dyspnea Respiratory Respiratory: Denies cough and Denies dyspnea Gastrointestinal Gastrointestinal: Denies abdominal pain, Denies nausea and Denies vomiting Physical Exam Vital Signs: Vital Signs: Last Vital Signs Temp 97.1 F 11/01/23 03:20 Pulse 77 11/01/23 03:20 Resp 16 11/01/23 03:20 BP 146/75 H 11/01/23 03:20 Pulse Ox 96 11/01/23 03:20 O2 Del Method Room Air 11/01/23 03:20 BMI result Body Mass Index 54.2 alert and oriented to self soft abd LSCTA Objective Data Active Medications Acetaminophen (Acetaminophen 325 Mg Tablet) 650 mg PO Q6H PRN PRN Reason: Pain, Mild (Pain Scale 1-3) Last Admin: 10/26/23 10:25 Dose: 650 mg Documented By: KIARA Amlodipine Besylate (Amlodipine Besylate 10 Mg Tablet) 10 mg PO DAILY [facility]; Protocol Last Admin: 10/31/23 11:09 Dose: 10 mg Documented By: KATHRYN Apixaban (Apixaban 5 Mg Tablet) 5 mg PO BID [facility] Last Admin: 10/31/23 19:39 Dose: 5 mg Documented By: KIARA Atorvastatin Calcium (Atorvastatin Calcium 20 Mg Tablet) 20 mg PO BEDTIME [facility] Last Admin: 10/31/23 19:39 Dose: 20 mg Documented By: KIARA Bisacodyl (Bisacodyl 10 Mg Supp.Rect) 10 mg [place] DAILY PRN PRN Reason: Constipation Docusate Sodium (Docusate Sodium 100 Mg Capsule) 200 mg PO DAILY [facility] Last Admin: 10/31/23 11:08 Dose: 200 mg Documented By: KATHRYN Melatonin (Melatonin 3 Mg Tablet) 6 mg PO BEDTIME PRN PRN Reason: Insomnia Last Admin: 10/29/23 20:13 Dose: 6 mg Documented By: ALAYNA Melatonin (Melatonin 3 Mg Tablet) 3 mg PO BEDTIME PRN PRN Reason: Insomnia Multivitamins/Vitamin C (Multivitamin Tablet) 1 tab PO DAILY [facility] Last Admin: 10/31/23 11:09 Dose: 1 tab Documented By: KATHRYN Omeprazole (Omeprazole 20 Mg Capsule.) 20 mg PO DAILY@0630 [facility] Last Admin: 11/01/23 05:23 Dose: 20 mg Documented By: EDWARD Ondansetron HCl (Ondansetron Hcl 4 Mg/2 Ml Vial) 4 mg IVPUSH Q8H PRN PRN Reason: Nausea and Vomiting Polyethylene Glycol (Polyethylene Glycol 3350 17 Gm Powd.Pack) 17 gm PO DAILY [facility] Last Admin: 10/31/23 11:14 Dose: Not Given Documented By: KATHRYN Non-Admin Reason: Patient Refused Senna/Docusate Sodium (Sennosides/Docusate Sodium Tablet) 1 tab PO BEDTIME [facility] Last Admin: 10/31/23 19:39 Dose: 1 tab Documented By: KIARA Sodium Chloride (0.9 % Sodium Chloride Flush 3 Ml Syringe) 3 ml IVFLUSH QSHIFT [facility] Last Admin: 10/31/23 22:26 Dose: Not Given Documented By: EDWARD Non-Admin Reason: No Access Tramadol HCl (Tramadol Hcl 50 Mg Tablet) 50 mg PO Q8H PRN PRN Reason: Pain, Severe (Pain Scale 7-10) Last Admin: 10/31/23 11:13 Dose: 50 mg Documented By: KATHRYN Vitamin D (Cholecalciferol (Vitamin D3) 25 Mcg Tablet) 25 mcg PO DAILY [facility] Last Admin: 10/31/23 11:08 Dose: 25 mcg Documented By: KATHRYN Zinc Sulfate (Zinc Sulfate 220 Mg Capsule) 220 mg PO DAILY [facility] Last Admin: 10/31/23 11:08 Dose: 220 mg Documented By: KATHRYN Labs 10/25/23 09:50 10/25/23 09:50 Assessment and Plan (1) Acute GI bleeding: Status: Resolved (2) Bright red blood per rectum: Status: Resolved Plan 67yo F with HTN, HLD, arthritis, DVT on apixaban admitted for BRBPR Painless BRBPR, resolved no recurrent episodes of bright red blood per rectum GI following>likely hemorrhoidal, stercoral colitis or chronic colitis, patient refused endoscopic assessment continue apixaban stable HH Bowel Regimen DC hemorrhoidal cream Rt Knee pain chronic pain s/p steroid injection by ortho during this admit Continue Ultram prn OT/PT following hx DVT continue apixaban HTN amlodipine HLD statin Deep tissue injury of buttocks present on admission Wound Care following Bilateral Buttocks and Posterior Thighs - Off Load Pressure - Cleanse with PH balance spray or wipes, pat dry. Apply thin layer of Triad to wound bed - only pat and dab no scrub and rub when soiling occurs. Reapply thin layer PRN after each episode of incontinence. Morbid obesity. BMI 54.2 Discussed importance of weight management as this may be contributing to worsening of other comorbidities VTE ppx - apixaban Attending Dr. Dow dispo - STR recommended, pending safe placement In my clinical judgment, the patient requires continued inpatient hospitalization for the following reasons: placement Quality Stroke Does the patient have a stroke diagnosis?: No VTE Prior VTE?: No VTE Risk Level:: Medical - moderate - high VTE Device Contraindication: N/A - Device Ordered VTE Drug Contraindication: Treatment Not Indicated
[2023-11-01 07:35] VITALS: BP 132/59; PULSE 75; RESP 18; TEMP 36.4; O2SAT 94
[2023-11-01] MEDS: Zinc Sulfate 220 MG CAPSULE PO (09:05)
[2023-11-01] MEDS: Multivitamin TABLET 1 TAB PO (09:05)
[2023-11-01] MEDS: Apixaban 5 MG TABLET PO ×2 (09:05→20:14)
[2023-11-01] MEDS: Docusate Sodium 100 MG CAPSULE 200 MG PO (09:05)
[2023-11-01] MEDS: amLODIPine Besylate 10 MG TABLET PO (09:06)
[2023-11-01] MEDS: Cholecalciferol (Vitamin D3) 25 MCG TABLET PO (09:06)
[2023-11-01] MEDS: traMADoL HCL 50 MG TABLET PO ×2 (09:06→20:14)
[2023-11-01 15:15] VITALS: BP 120/73; PULSE 85; RESP 18; TEMP 36.2; O2SAT 95
--- NOTE | 2023-11-01 15:24 | MHC.CM.PN ---
spoke with lon /gricelda counselor re [facility]uyler they are still waiting for verification from bank
[2023-11-01 15:42] VITALS: BP 120/73; PULSE 85; O2SAT 95
[2023-11-01 19:30] VITALS: BP 114/82; PULSE 98; RESP 18; TEMP 36.2; O2SAT 93
[2023-11-01] MEDS: Sennosides/Docusate Sodium TABLET 1 TAB PO (20:14)
[2023-11-01] MEDS: Atorvastatin Calcium 20 MG TABLET PO (20:14)
[2023-11-02 03:25] VITALS: BP 133/72; PULSE 80; RESP 16; TEMP 36.2; O2SAT 96
[2023-11-02] MEDS: Omeprazole 20 MG CAPSULE.DR PO (05:30)
[2023-11-02 07:58] VITALS: BP 145/68; PULSE 83; RESP 18; TEMP 36.3; O2SAT 94
[2023-11-02] MEDS: amLODIPine Besylate 10 MG TABLET PO (09:18)
[2023-11-02] MEDS: Multivitamin TABLET 1 TAB PO (09:18)
[2023-11-02] MEDS: Docusate Sodium 100 MG CAPSULE 200 MG PO (09:18)
[2023-11-02] MEDS: Cholecalciferol (Vitamin D3) 25 MCG TABLET PO (09:18)
[2023-11-02] MEDS: Zinc Sulfate 220 MG CAPSULE PO (09:18)
[2023-11-02] MEDS: Apixaban 5 MG TABLET PO ×2 (09:18→19:22)
[2023-11-02] MEDS: traMADoL HCL 50 MG TABLET PO ×2 (09:21→22:06)
--- NOTE | 2023-11-02 09:33 | HO.PM.IMPN ---
Subjective Subjective Date of Service: 11/02/23 Interval History: Initial admission for placement and now awaiting placement, no acute issues.. voice no complaint Physical Exam Vital Signs: Vital Signs: Last Vital Signs Temp 97.4 F 11/02/23 07:58 Pulse 83 11/02/23 07:58 Resp 18 11/02/23 07:58 BP 145/68 H 11/02/23 07:58 Pulse Ox 94 11/02/23 07:58 O2 Del Method Room Air 11/02/23 07:58 BMI result Body Mass Index 54.2 Const: Other: General: AO X 3, no acute distress, morbidly obese Resp: CTA bilateral CVS: S1,S2,RRR GI: +BS, NT, no distention Skin: decub ulcer noted elswhere Neuro: motor grossly intact Psych: appropriate affect Objective Data Active Medications Acetaminophen (Acetaminophen 325 Mg Tablet) 650 mg PO Q6H PRN PRN Reason: Pain, Mild (Pain Scale 1-3) Last Admin: 10/26/23 10:25 Dose: 650 mg Documented By: KIARA Amlodipine Besylate (Amlodipine Besylate 10 Mg Tablet) 10 mg PO DAILY [facility]; Protocol Last Admin: 11/02/23 09:18 Dose: 10 mg Documented By: SULAIMAN Apixaban (Apixaban 5 Mg Tablet) 5 mg PO BID [facility] Last Admin: 11/02/23 09:18 Dose: 5 mg Documented By: SULAIMAN Atorvastatin Calcium (Atorvastatin Calcium 20 Mg Tablet) 20 mg PO BEDTIME [facility] Last Admin: 11/01/23 20:14 Dose: 20 mg Documented By: ALAYNA Bisacodyl (Bisacodyl 10 Mg Supp.Rect) 10 mg [place] DAILY PRN PRN Reason: Constipation Docusate Sodium (Docusate Sodium 100 Mg Capsule) 200 mg PO DAILY [facility] Last Admin: 11/02/23 09:18 Dose: 200 mg Documented By: SULAIMAN Melatonin (Melatonin 3 Mg Tablet) 6 mg PO BEDTIME PRN PRN Reason: Insomnia Last Admin: 10/29/23 20:13 Dose: 6 mg Documented By: ALAYNA Melatonin (Melatonin 3 Mg Tablet) 3 mg PO BEDTIME PRN PRN Reason: Insomnia Multivitamins/Vitamin C (Multivitamin Tablet) 1 tab PO DAILY [facility] Last Admin: 11/02/23 09:18 Dose: 1 tab Documented By: SULAIMAN Omeprazole (Omeprazole 20 Mg Capsule.) 20 mg PO DAILY@0630 [facility] Last Admin: 11/02/23 05:30 Dose: 20 mg Documented By: ALAYNA Ondansetron HCl (Ondansetron Hcl 4 Mg/2 Ml Vial) 4 mg IVPUSH Q8H PRN PRN Reason: Nausea and Vomiting Polyethylene Glycol (Polyethylene Glycol 3350 17 Gm Powd.Pack) 17 gm PO DAILY [facility] Last Admin: 11/02/23 09:22 Dose: Not Given Documented By: SULAIMAN Non-Admin Reason: pt refused Senna/Docusate Sodium (Sennosides/Docusate Sodium Tablet) 1 tab PO BEDTIME [facility] Last Admin: 11/01/23 20:14 Dose: 1 tab Documented By: ALAYNA Sodium Chloride (0.9 % Sodium Chloride Flush 3 Ml Syringe) 3 ml IVFLUSH QSHIFT [facility] Last Admin: 11/02/23 09:18 Dose: Not Given Documented By: SULAIMAN Non-Admin Reason: No Access Tramadol HCl (Tramadol Hcl 50 Mg Tablet) 50 mg PO Q8H PRN PRN Reason: Pain, Severe (Pain Scale 7-10) Last Admin: 11/02/23 09:21 Dose: 50 mg Documented By: SULAIMAN Vitamin D (Cholecalciferol (Vitamin D3) 25 Mcg Tablet) 25 mcg PO DAILY [facility] Last Admin: 11/02/23 09:18 Dose: 25 mcg Documented By: SULAIMAN Zinc Sulfate (Zinc Sulfate 220 Mg Capsule) 220 mg PO DAILY [facility] Last Admin: 11/02/23 09:18 Dose: 220 mg Documented By: SULAIMAN Labs 10/25/23 09:50 10/25/23 09:50 Assessment and Plan (1) Acute GI bleeding: Status: Resolved (2) Bright red blood per rectum: Status: Resolved Plan 67yo F with HTN, HLD, arthritis, DVT on apixaban admitted for BRBPR and now awaiting placement Painless BRBPR, attributed to hemorrhoid, stercoral colitis or chronic colitis. Bleeding was self-limited and she refused endoscopy. Tolerating Apixiban Rt Knee pain chronic pain s/p steroid injection by ortho during this admit Continue Ultram prn OT/PT following hx DVT continue apixaban HTN amlodipine HLD statin Deep tissue injury of buttocks present on admission Wound Care following Bilateral Buttocks and Posterior Thighs - Off Load Pressure - Cleanse with PH balance spray or wipes, pat dry. Apply thin layer of Triad to wound bed - only pat and dab no scrub and rub when soiling occurs. Reapply thin layer PRN after each episode of incontinence. Morbid obesity. BMI 54.2 Discussed importance of weight management as this may be contributing to worsening of other comorbidities VTE ppx - apixaban Attending Dr. Dow dispo - STR recommended, pending safe placement need for placement Quality Stroke Does the patient have a stroke diagnosis?: No VTE Prior VTE?: No VTE Risk Level:: Medical - moderate - high VTE Device Contraindication: N/A - Device Ordered VTE Drug Contraindication: Treatment Not Indicated
--- NOTE | 2023-11-02 10:08 | MHC.CLN ---
F/U PO INTAKE MOST MEALS 100%. DIET= REGULAR, HIGH FIBER. PT RECEIVING ENSURE MAX BID (300 KCALS, 60 G PROTEIN) TO PROMOTE WOUND HEALING. SKIN WITH MASD/DTI TO BILATERAL BUTTOCKS/THIGHS. MONITOR PO INTAKE AND WOUND HEALING. RD TO FOLLOW UP WEEKLY.
[2023-11-02 10:32] VITALS: BP 145/68; PULSE 83; O2SAT 94
--- NOTE | 2023-11-02 14:01 | MHC.CM.PN ---
per rounds pt remains ready for dc pending [facility]
[2023-11-02 15:43] VITALS: BP 121/74; PULSE 99; RESP 18; TEMP 36.3; O2SAT 95
[2023-11-02] MEDS: Sennosides/Docusate Sodium TABLET 1 TAB PO (19:22)
[2023-11-02] MEDS: Melatonin 3 MG TABLET 6 MG PO (19:22)
[2023-11-02 20:00] VITALS: BP 131/78; PULSE 82; RESP 16; TEMP 36.5; O2SAT 95
[2023-11-02] MEDS: Atorvastatin Calcium 20 MG TABLET PO (22:06)
[2023-11-03 02:58] VITALS: BP 119/75; PULSE 81; RESP 16; TEMP 36.6; O2SAT 96
[2023-11-03] MEDS: Omeprazole 20 MG CAPSULE.DR PO (05:39)
[2023-11-03 06:59] VITALS: BP 132/75; PULSE 88; RESP 16; TEMP 36.6; O2SAT 96
[2023-11-03] MEDS: Docusate Sodium 100 MG CAPSULE 200 MG PO (09:13)
[2023-11-03] MEDS: Cholecalciferol (Vitamin D3) 25 MCG TABLET PO (09:13)
[2023-11-03] MEDS: Multivitamin TABLET 1 TAB PO (09:13)
[2023-11-03] MEDS: amLODIPine Besylate 10 MG TABLET PO (09:13)
[2023-11-03] MEDS: Zinc Sulfate 220 MG CAPSULE PO (09:13)
[2023-11-03] MEDS: traMADoL HCL 50 MG TABLET PO (09:20)
[2023-11-03] MEDS: Apixaban 5 MG TABLET PO ×2 (09:24→19:28)
--- NOTE | 2023-11-03 09:51 | P.PNIM_ITS ---
Subjective Subjective Date of Service: 11/03/23 Interval History: Initial admission for placement and now awaiting placement, doing well, no new complaint Physical Exam 2 Vital Signs: Vital Signs: Last Vital Signs Temp 97.9 F 11/03/23 06:59 Pulse 88 11/03/23 06:59 Resp 16 11/03/23 06:59 BP 132/75 11/03/23 06:59 Pulse Ox 96 11/03/23 06:59 O2 Del Method Room Air 11/03/23 06:59 BMI result Body Mass Index 54.2 Const: Other: General: AO X 3, no acute distress, morbidly obese Resp: CTA bilateral CVS: S1,S2,RRR GI: +BS, NT, no distention Skin: decub ulcer noted elswhere Neuro: motor grossly intact Psych: appropriate affect Objective Data Active Medications Acetaminophen (Acetaminophen 325 Mg Tablet) 650 mg PO Q6H PRN PRN Reason: Pain, Mild (Pain Scale 1-3) Last Admin: 10/26/23 10:25 Dose: 650 mg Documented By: KIARA Amlodipine Besylate (Amlodipine Besylate 10 Mg Tablet) 10 mg PO DAILY [facility]; Protocol Last Admin: 11/03/23 09:13 Dose: 10 mg Documented By: ADDY Apixaban (Apixaban 5 Mg Tablet) 5 mg PO BID [facility] Last Admin: 11/03/23 09:24 Dose: 5 mg Documented By: ADDY Atorvastatin Calcium (Atorvastatin Calcium 20 Mg Tablet) 20 mg PO BEDTIME [facility] Last Admin: 11/02/23 22:06 Dose: 20 mg Documented By: ALAYNA Bisacodyl (Bisacodyl 10 Mg Supp.Rect) 10 mg [place] DAILY PRN PRN Reason: Constipation Docusate Sodium (Docusate Sodium 100 Mg Capsule) 200 mg PO DAILY [facility] Last Admin: 11/03/23 09:13 Dose: 200 mg Documented By: ADDY Melatonin (Melatonin 3 Mg Tablet) 6 mg PO BEDTIME PRN PRN Reason: Insomnia Last Admin: 11/02/23 19:22 Dose: 6 mg Documented By: ALAYNA Melatonin (Melatonin 3 Mg Tablet) 3 mg PO BEDTIME PRN PRN Reason: Insomnia Multivitamins/Vitamin C (Multivitamin Tablet) 1 tab PO DAILY [facility] Last Admin: 11/03/23 09:13 Dose: 1 tab Documented By: ADDY Omeprazole (Omeprazole 20 Mg Capsule.) 20 mg PO DAILY@0630 [facility] Last Admin: 11/03/23 05:39 Dose: 20 mg Documented By: ALAYNA Ondansetron HCl (Ondansetron Hcl 4 Mg/2 Ml Vial) 4 mg IVPUSH Q8H PRN PRN Reason: Nausea and Vomiting Polyethylene Glycol (Polyethylene Glycol 3350 17 Gm Powd.Pack) 17 gm PO DAILY [facility] Last Admin: 11/03/23 09:24 Dose: Not Given Documented By: ADDY Non-Admin Reason: Patient Refused Senna/Docusate Sodium (Sennosides/Docusate Sodium Tablet) 1 tab PO BEDTIME [facility] Last Admin: 11/02/23 19:22 Dose: 1 tab Documented By: ALAYNA Sodium Chloride (0.9 % Sodium Chloride Flush 3 Ml Syringe) 3 ml IVFLUSH QSHIFT [facility] Last Admin: 11/03/23 09:23 Dose: Not Given Documented By: ADDY Non-Admin Reason: No IV Tramadol HCl (Tramadol Hcl 50 Mg Tablet) 50 mg PO Q8H PRN PRN Reason: Pain, Severe (Pain Scale 7-10) Last Admin: 11/03/23 09:20 Dose: 50 mg Documented By: ADDY Vitamin D (Cholecalciferol (Vitamin D3) 25 Mcg Tablet) 25 mcg PO DAILY [facility] Last Admin: 11/03/23 09:13 Dose: 25 mcg Documented By: ADDY Zinc Sulfate (Zinc Sulfate 220 Mg Capsule) 220 mg PO DAILY [facility] Last Admin: 11/03/23 09:13 Dose: 220 mg Documented By: ADDY Labs 10/25/23 09:50 10/25/23 09:50 Assessment and Plan (1) Acute GI bleeding: Status: Resolved (2) Bright red blood per rectum: Status: Resolved Plan 67yo F with HTN, HLD, arthritis, DVT on apixaban admitted for BRBPR and now awaiting placement.. no change in care overnight Painless BRBPR, attributed to hemorrhoid, stercoral colitis or chronic colitis. Bleeding was self-limited and she refused endoscopy. Tolerating Apixiban Rt Knee pain chronic pain s/p steroid injection by ortho during this admit Continue Ultram prn OT/PT following hx DVT continue apixaban HTN amlodipine HLD statin Deep tissue injury of buttocks present on admission Wound Care following Bilateral Buttocks and Posterior Thighs - Off Load Pressure - Cleanse with PH balance spray or wipes, pat dry. Apply thin layer of Triad to wound bed - only pat and dab no scrub and rub when soiling occurs. Reapply thin layer PRN after each episode of incontinence. Morbid obesity. BMI 54.2 Discussed importance of weight management as this may be contributing to worsening of other comorbidities VTE ppx - apixaban Attending Dr. Dow dispo - STR recommended, pending safe placement need for placement, daily attempt to get her out of bed to chair Quality Stroke Does the patient have a stroke diagnosis?: No VTE Prior VTE?: No VTE Risk Level:: Medical - moderate - high VTE Device Contraindication: N/A - Device Ordered VTE Drug Contraindication: Treatment Not Indicated
[2023-11-03 14:52] VITALS: BP 131/60; PULSE 87; RESP 18; TEMP 36.7; O2SAT 94
--- NOTE | 2023-11-03 17:23 | PC.NURSE ---
MD Dow made aware via tiger text pt had large soft stool that was maroon in color. No new orders at this time.
[2023-11-03 19:18] VITALS: BP 101/69; PULSE 87; RESP 17; TEMP 36.3; O2SAT 94
[2023-11-03] MEDS: Sennosides/Docusate Sodium TABLET 1 TAB PO (19:28)
[2023-11-03] MEDS: Atorvastatin Calcium 20 MG TABLET PO (19:28)
[2023-11-04 04:00] VITALS: BP 136/90; PULSE 82; RESP 18; TEMP 36.1; O2SAT 96
[2023-11-04] MEDS: Omeprazole 20 MG CAPSULE.DR PO (05:45)
[2023-11-04 07:52] VITALS: BP 154/70; PULSE 78; RESP 18; TEMP 36.7; O2SAT 97
--- NOTE | 2023-11-04 09:37 | HO.PM.IMPN ---
Subjective Subjective Date of Service: 11/04/23 Interval History: initial admit for gib, now for placement, no new issues Physical Exam Vital Signs: Vital Signs: Last Vital Signs Temp 98.1 F 11/04/23 07:52 Pulse 78 11/04/23 07:52 Resp 18 11/04/23 07:52 BP 154/70 H 11/04/23 07:52 Pulse Ox 97 11/04/23 07:52 O2 Del Method Room Air 11/04/23 07:52 BMI result Body Mass Index 54.2 Const: Other: General: AO X 3, no acute distress, morbidly obese Resp: CTA bilateral CVS: S1,S2,RRR GI: +BS, NT, no distention Skin: decub ulcer noted elswhere Neuro: motor grossly intact Psych: appropriate affect Objective Data Active Medications Acetaminophen (Acetaminophen 325 Mg Tablet) 650 mg PO Q6H PRN PRN Reason: Pain, Mild (Pain Scale 1-3) Last Admin: 10/26/23 10:25 Dose: 650 mg Documented By: KIARA Amlodipine Besylate (Amlodipine Besylate 10 Mg Tablet) 10 mg PO DAILY [facility]; Protocol Last Admin: 11/03/23 09:13 Dose: 10 mg Documented By: ADDY Apixaban (Apixaban 5 Mg Tablet) 5 mg PO BID [facility] Last Admin: 11/03/23 19:28 Dose: 5 mg Documented By: SOMMER Atorvastatin Calcium (Atorvastatin Calcium 20 Mg Tablet) 20 mg PO BEDTIME [facility] Last Admin: 11/03/23 19:28 Dose: 20 mg Documented By: SOMMER Bisacodyl (Bisacodyl 10 Mg Supp.Rect) 10 mg [place] DAILY PRN PRN Reason: Constipation Docusate Sodium (Docusate Sodium 100 Mg Capsule) 200 mg PO DAILY [facility] Last Admin: 11/03/23 09:13 Dose: 200 mg Documented By: ADDY Melatonin (Melatonin 3 Mg Tablet) 6 mg PO BEDTIME PRN PRN Reason: Insomnia Last Admin: 11/02/23 19:22 Dose: 6 mg Documented By: ALAYNA Melatonin (Melatonin 3 Mg Tablet) 3 mg PO BEDTIME PRN PRN Reason: Insomnia Multivitamins/Vitamin C (Multivitamin Tablet) 1 tab PO DAILY [facility] Last Admin: 11/03/23 09:13 Dose: 1 tab Documented By: ADDY Omeprazole (Omeprazole 20 Mg Capsule.) 20 mg PO DAILY@0630 [facility] Last Admin: 11/04/23 05:45 Dose: 20 mg Documented By: ROMEO Ondansetron HCl (Ondansetron Hcl 4 Mg/2 Ml Vial) 4 mg IVPUSH Q8H PRN PRN Reason: Nausea and Vomiting Polyethylene Glycol (Polyethylene Glycol 3350 17 Gm Powd.Pack) 17 gm PO DAILY [facility] Last Admin: 11/03/23 09:24 Dose: Not Given Documented By: ADDY Non-Admin Reason: Patient Refused Senna/Docusate Sodium (Sennosides/Docusate Sodium Tablet) 1 tab PO BEDTIME [facility] Last Admin: 11/03/23 19:28 Dose: 1 tab Documented By: SOMMER Sodium Chloride (0.9 % Sodium Chloride Flush 3 Ml Syringe) 3 ml IVFLUSH QSHIFT [facility] Last Admin: 11/04/23 09:09 Dose: Not Given Documented By: LUCÍA Non-Admin Reason: No Access Tramadol HCl (Tramadol Hcl 50 Mg Tablet) 50 mg PO Q8H PRN PRN Reason: Pain, Severe (Pain Scale 7-10) Last Admin: 11/03/23 09:20 Dose: 50 mg Documented By: ADDY Vitamin D (Cholecalciferol (Vitamin D3) 25 Mcg Tablet) 25 mcg PO DAILY [facility] Last Admin: 11/03/23 09:13 Dose: 25 mcg Documented By: ADDY Zinc Sulfate (Zinc Sulfate 220 Mg Capsule) 220 mg PO DAILY [facility] Last Admin: 11/03/23 09:13 Dose: 220 mg Documented By: ADDY Labs 10/25/23 09:50 10/25/23 09:50 Assessment and Plan (1) Acute GI bleeding: Status: Resolved (2) Bright red blood per rectum: Status: Resolved Plan 67yo F with HTN, HLD, arthritis, DVT on apixaban admitted for BRBPR and now awaiting placement.. no acute issues Painless BRBPR on admission, attributed to hemorrhoid, stercoral colitis or chronic colitis. Bleeding was self-limited and she refused endoscopy. Tolerating Apixiban Rt Knee pain chronic pain s/p steroid injection by ortho during this admit Continue Ultram prn OT/PT following hx DVT continue apixaban HTN amlodipine HLD statin Deep tissue injury of buttocks present on admission Wound Care following Bilateral Buttocks and Posterior Thighs - Off Load Pressure - Cleanse with PH balance spray or wipes, pat dry. Apply thin layer of Triad to wound bed - only pat and dab no scrub and rub when soiling occurs. Reapply thin layer PRN after each episode of incontinence. Morbid obesity. BMI 54.2 Discussed importance of weight management as this may be contributing to worsening of other comorbidities VTE ppx - apixaban Attending Dr. Dow dispo - STR recommended, pending safe placement need for placement, daily attempt to get her out of bed to chair Quality Stroke Does the patient have a stroke diagnosis?: No VTE Prior VTE?: No VTE Risk Level:: Medical - moderate - high VTE Device Contraindication: N/A - Device Ordered VTE Drug Contraindication: Treatment Not Indicated
[2023-11-04] MEDS: Apixaban 5 MG TABLET PO ×2 (09:40→20:22)
[2023-11-04] MEDS: Zinc Sulfate 220 MG CAPSULE PO (09:40)
[2023-11-04] MEDS: Docusate Sodium 100 MG CAPSULE 200 MG PO (09:40)
[2023-11-04] MEDS: Multivitamin TABLET 1 TAB PO (09:40)
[2023-11-04] MEDS: amLODIPine Besylate 10 MG TABLET PO (09:40)
[2023-11-04] MEDS: Cholecalciferol (Vitamin D3) 25 MCG TABLET PO (09:40)
--- NOTE | 2023-11-04 13:41 | MHC.CM.PN ---
per rounds bed search continues awaiting [facility] approval
[2023-11-04 15:17] VITALS: BP 105/55; PULSE 93; RESP 16; TEMP 37.2; O2SAT 93
[2023-11-04 20:00] VITALS: BP 121/64; PULSE 101; RESP 19; TEMP 36.5; O2SAT 94
[2023-11-04] MEDS: Atorvastatin Calcium 20 MG TABLET PO (20:22)
[2023-11-04] MEDS: Sennosides/Docusate Sodium TABLET 1 TAB PO (20:22)
[2023-11-04] MEDS: Melatonin 3 MG TABLET PO (20:23)
[2023-11-04] MEDS: Melatonin 3 MG TABLET 6 MG PO (20:23)
[2023-11-05 03:09] VITALS: BP 135/74; PULSE 86; RESP 16; TEMP 36.4; O2SAT 95
[2023-11-05] MEDS: Omeprazole 20 MG CAPSULE.DR PO (06:37)
[2023-11-05 07:21] VITALS: BP 145/64; PULSE 86; RESP 20; TEMP 36.6; O2SAT 96
--- NOTE | 2023-11-05 07:57 | HO.PM.IMPN ---
Subjective Subjective Date of Service: 11/05/23 Interval History: initial admit for gib, now for placement, no new issues Physical Exam Vital Signs: Vital Signs: Last Vital Signs Temp 97.9 F 11/05/23 07:21 Pulse 86 11/05/23 07:21 Resp 20 11/05/23 07:21 BP 145/64 H 11/05/23 07:21 Pulse Ox 96 11/05/23 07:21 O2 Del Method Room Air 11/05/23 07:21 BMI result Body Mass Index 54.2 Const: Other: General: AO X 3, no acute distress, morbidly obese Resp: CTA bilateral CVS: S1,S2,RRR GI: +BS, NT, no distention Skin: decub ulcer noted elswhere Neuro: motor grossly intact Psych: appropriate affect Objective Data Active Medications Acetaminophen (Acetaminophen 325 Mg Tablet) 650 mg PO Q6H PRN PRN Reason: Pain, Mild (Pain Scale 1-3) Last Admin: 10/26/23 10:25 Dose: 650 mg Documented By: KIARA Amlodipine Besylate (Amlodipine Besylate 10 Mg Tablet) 10 mg PO DAILY [facility]; Protocol Last Admin: 11/04/23 09:40 Dose: 10 mg Documented By: LUCÍA Apixaban (Apixaban 5 Mg Tablet) 5 mg PO BID [facility] Last Admin: 11/04/23 20:22 Dose: 5 mg Documented By: GIL Atorvastatin Calcium (Atorvastatin Calcium 20 Mg Tablet) 20 mg PO BEDTIME [facility] Last Admin: 11/04/23 20:22 Dose: 20 mg Documented By: GIL Bisacodyl (Bisacodyl 10 Mg Supp.Rect) 10 mg [place] DAILY PRN PRN Reason: Constipation Docusate Sodium (Docusate Sodium 100 Mg Capsule) 200 mg PO DAILY [facility] Last Admin: 11/04/23 09:40 Dose: 200 mg Documented By: LUCÍA Melatonin (Melatonin 3 Mg Tablet) 6 mg PO BEDTIME PRN PRN Reason: Insomnia Last Admin: 11/04/23 20:23 Dose: 6 mg Documented By: GIL Melatonin (Melatonin 3 Mg Tablet) 3 mg PO BEDTIME PRN PRN Reason: Insomnia Last Admin: 11/04/23 20:23 Dose: 3 mg Documented By: GIL Multivitamins/Vitamin C (Multivitamin Tablet) 1 tab PO DAILY [facility] Last Admin: 11/04/23 09:40 Dose: 1 tab Documented By: LUCÍA Omeprazole (Omeprazole 20 Mg Capsule.) 20 mg PO DAILY@0630 [facility] Last Admin: 11/05/23 06:37 Dose: 20 mg Documented By: BLADE Ondansetron HCl (Ondansetron Hcl 4 Mg/2 Ml Vial) 4 mg IVPUSH Q8H PRN PRN Reason: Nausea and Vomiting Polyethylene Glycol (Polyethylene Glycol 3350 17 Gm Powd.Pack) 17 gm PO DAILY [facility] Last Admin: 11/04/23 09:52 Dose: Not Given Documented By: LUCÍA Non-Admin Reason: Patient Refused Senna/Docusate Sodium (Sennosides/Docusate Sodium Tablet) 1 tab PO BEDTIME [facility] Last Admin: 11/04/23 20:22 Dose: 1 tab Documented By: GIL Sodium Chloride (0.9 % Sodium Chloride Flush 3 Ml Syringe) 3 ml IVFLUSH QSHIFT [facility] Last Admin: 11/04/23 20:26 Dose: Not Given Documented By: GIL Non-Admin Reason: No Access Vitamin D (Cholecalciferol (Vitamin D3) 25 Mcg Tablet) 25 mcg PO DAILY [facility] Last Admin: 11/04/23 09:40 Dose: 25 mcg Documented By: LUCÍA Zinc Sulfate (Zinc Sulfate 220 Mg Capsule) 220 mg PO DAILY [facility] Last Admin: 11/04/23 09:40 Dose: 220 mg Documented By: LUCÍA Labs 10/25/23 09:50 10/25/23 09:50 Assessment and Plan (1) Acute GI bleeding: Status: Resolved (2) Bright red blood per rectum: Status: Resolved Plan 67yo F with HTN, HLD, arthritis, DVT on apixaban admitted for BRBPR and now awaiting placement.. no acute issues Painless BRBPR on admission, attributed to hemorrhoid, stercoral colitis or chronic colitis. Bleeding was self-limited and she refused endoscopy. No change in care Rt Knee pain chronic pain s/p steroid injection by ortho during this admit Continue Ultram prn OT/PT following hx DVT continue apixaban HTN amlodipine HLD statin Deep tissue injury of buttocks present on admission Wound Care following Bilateral Buttocks and Posterior Thighs - Off Load Pressure - Cleanse with PH balance spray or wipes, pat dry. Apply thin layer of Triad to wound bed - only pat and dab no scrub and rub when soiling occurs. Reapply thin layer PRN after each episode of incontinence. Morbid obesity. BMI 54.2 Discussed importance of weight management as this may be contributing to worsening of other comorbidities VTE ppx - apixaban Attending Dr. Dow dispo - STR recommended, pending safe placement need for placement, daily attempt to get her out of bed to chair Quality Stroke Does the patient have a stroke diagnosis?: No VTE Prior VTE?: No VTE Risk Level:: Medical - moderate - high VTE Device Contraindication: N/A - Device Ordered VTE Drug Contraindication: Treatment Not Indicated
[2023-11-05] MEDS: amLODIPine Besylate 10 MG TABLET PO (08:55)
[2023-11-05] MEDS: Zinc Sulfate 220 MG CAPSULE PO (08:55)
[2023-11-05] MEDS: Apixaban 5 MG TABLET PO ×2 (08:55→21:40)
[2023-11-05] MEDS: Docusate Sodium 100 MG CAPSULE 200 MG PO (08:56)
[2023-11-05] MEDS: Multivitamin TABLET 1 TAB PO (08:56)
[2023-11-05] MEDS: Cholecalciferol (Vitamin D3) 25 MCG TABLET PO (09:22)
[2023-11-05 15:18] VITALS: BP 130/58; PULSE 91; RESP 16; TEMP 36.3; O2SAT 96
--- NOTE | 2023-11-05 16:09 | PC.NURSE ---
Patient unable to ambulate. Max assist. Transfers OOB to recliner with francisco javier lift.
[2023-11-05 19:56] VITALS: BP 121/82; PULSE 95; RESP 18; TEMP 36.4; O2SAT 95
[2023-11-05] MEDS: Sennosides/Docusate Sodium TABLET 1 TAB PO (21:40)
[2023-11-05] MEDS: Atorvastatin Calcium 20 MG TABLET PO (21:40)
[2023-11-06 01:34] VITALS: BP 157/67; PULSE 89; RESP 18; TEMP 36.5; O2SAT 95
[2023-11-06] MEDS: Melatonin 3 MG TABLET PO ×2 (01:56→23:03)
[2023-11-06] MEDS: Acetaminophen 325 MG TABLET 650 MG PO ×2 (01:56→23:02)
[2023-11-06] MEDS: Melatonin 3 MG TABLET 6 MG PO ×2 (01:56→23:03)
[2023-11-06] MEDS: Omeprazole 20 MG CAPSULE.DR PO (05:39)
[2023-11-06 07:49] VITALS: BP 126/78; PULSE 73; RESP 20; TEMP 36.8; O2SAT 96
--- NOTE | 2023-11-06 08:17 | HO.PM.IMPN ---
Subjective Subjective Date of Service: 11/06/23 Interval History: doing well, no new issues Physical Exam Vital Signs: Vital Signs: Last Vital Signs Temp 98.2 F 11/06/23 07:49 Pulse 73 11/06/23 07:49 Resp 20 11/06/23 07:49 BP 126/78 11/06/23 07:49 Pulse Ox 96 11/06/23 07:49 O2 Del Method Room Air 11/06/23 07:49 BMI result Body Mass Index 54.2 Const: Other: General: AO X 3, no acute distress, morbidly obese Resp: CTA bilateral CVS: S1,S2,RRR GI: +BS, NT, no distention Skin: decub ulcer noted elswhere Neuro: motor grossly intact Psych: appropriate affect Objective Data Active Medications Acetaminophen (Acetaminophen 325 Mg Tablet) 650 mg PO Q6H PRN PRN Reason: Pain, Mild (Pain Scale 1-3) Last Admin: 11/06/23 01:56 Dose: 650 mg Documented By: GIL Amlodipine Besylate (Amlodipine Besylate 10 Mg Tablet) 10 mg PO DAILY [facility]; Protocol Last Admin: 11/05/23 08:55 Dose: 10 mg Documented By: ISAURO Apixaban (Apixaban 5 Mg Tablet) 5 mg PO BID [facility] Last Admin: 11/05/23 21:40 Dose: 5 mg Documented By: GIL Atorvastatin Calcium (Atorvastatin Calcium 20 Mg Tablet) 20 mg PO BEDTIME [facility] Last Admin: 11/05/23 21:40 Dose: 20 mg Documented By: GIL Bisacodyl (Bisacodyl 10 Mg Supp.Rect) 10 mg [place] DAILY PRN PRN Reason: Constipation Docusate Sodium (Docusate Sodium 100 Mg Capsule) 200 mg PO DAILY [facility] Last Admin: 11/05/23 08:56 Dose: 200 mg Documented By: ISAURO Melatonin (Melatonin 3 Mg Tablet) 6 mg PO BEDTIME PRN PRN Reason: Insomnia Last Admin: 11/06/23 01:56 Dose: 6 mg Documented By: GIL Melatonin (Melatonin 3 Mg Tablet) 3 mg PO BEDTIME PRN PRN Reason: Insomnia Last Admin: 11/06/23 01:56 Dose: 3 mg Documented By: GIL Multivitamins/Vitamin C (Multivitamin Tablet) 1 tab PO DAILY [facility] Last Admin: 11/05/23 08:56 Dose: 1 tab Documented By: ISAURO Omeprazole (Omeprazole 20 Mg Capsule.) 20 mg PO DAILY@0630 [facility] Last Admin: 11/06/23 05:39 Dose: 20 mg Documented By: GIL Ondansetron HCl (Ondansetron Hcl 4 Mg/2 Ml Vial) 4 mg IVPUSH Q8H PRN PRN Reason: Nausea and Vomiting Polyethylene Glycol (Polyethylene Glycol 3350 17 Gm Powd.Pack) 17 gm PO DAILY [facility] Last Admin: 11/05/23 09:20 Dose: Not Given Documented By: ISAURO Non-Admin Reason: Patient Refused Senna/Docusate Sodium (Sennosides/Docusate Sodium Tablet) 1 tab PO BEDTIME [facility] Last Admin: 11/05/23 21:40 Dose: 1 tab Documented By: GIL Sodium Chloride (0.9 % Sodium Chloride Flush 3 Ml Syringe) 3 ml IVFLUSH QSHIFT [facility] Last Admin: 11/06/23 07:46 Dose: Not Given Documented By: ISAURO Non-Admin Reason: No Access Vitamin D (Cholecalciferol (Vitamin D3) 25 Mcg Tablet) 25 mcg PO DAILY [facility] Last Admin: 11/05/23 09:22 Dose: 25 mcg Documented By: ISAURO Zinc Sulfate (Zinc Sulfate 220 Mg Capsule) 220 mg PO DAILY [facility] Last Admin: 11/05/23 08:55 Dose: 220 mg Documented By: ISAURO Labs 10/25/23 09:50 10/25/23 09:50 Assessment and Plan (1) Acute GI bleeding: Status: Resolved (2) Bright red blood per rectum: Status: Resolved Plan 67yo F with HTN, HLD, arthritis, DVT on apixaban admitted for BRBPR and now awaiting placement.. no acute issues Painless BRBPR on admission, attributed to hemorrhoid, stercoral colitis or chronic colitis. Bleeding was self-limited and she refused endoscopy. No change in care Rt Knee pain chronic pain s/p steroid injection by ortho during this admit Continue Ultram prn OT/PT following hx DVT continue apixaban HTN amlodipine HLD statin Deep tissue injury of buttocks present on admission Wound Care following Bilateral Buttocks and Posterior Thighs - Off Load Pressure - Cleanse with PH balance spray or wipes, pat dry. Apply thin layer of Triad to wound bed - only pat and dab no scrub and rub when soiling occurs. Reapply thin layer PRN after each episode of incontinence. Morbid obesity. BMI 54.2 Discussed importance of weight management as this may be contributing to worsening of other comorbidities VTE ppx - apixaban Attending Dr. Dow dispo - STR recommended, pending safe placement need for placement, daily attempt to get her out of bed to chair routine labs tomorrow Quality Stroke Does the patient have a stroke diagnosis?: No VTE Prior VTE?: No VTE Risk Level:: Medical - moderate - high VTE Device Contraindication: N/A - Device Ordered VTE Drug Contraindication: Treatment Not Indicated
[2023-11-06] MEDS: Cholecalciferol (Vitamin D3) 25 MCG TABLET PO (08:38)
[2023-11-06] MEDS: amLODIPine Besylate 10 MG TABLET PO (08:38)
[2023-11-06] MEDS: Apixaban 5 MG TABLET PO ×2 (08:38→21:34)
[2023-11-06] MEDS: Docusate Sodium 100 MG CAPSULE 200 MG PO (08:38)
[2023-11-06] MEDS: Zinc Sulfate 220 MG CAPSULE PO (08:39)
[2023-11-06] MEDS: Multivitamin TABLET 1 TAB PO (08:39)
[2023-11-06 15:14] VITALS: BP 117/56; PULSE 81; RESP 18; TEMP 36.6; O2SAT 94
[2023-11-06 19:13] VITALS: BP 112/56; PULSE 85; RESP 16; TEMP 36.4; O2SAT 96
[2023-11-06] MEDS: Atorvastatin Calcium 20 MG TABLET PO (21:34)
[2023-11-06] MEDS: Sennosides/Docusate Sodium TABLET 1 TAB PO (21:34)
[2023-11-07 03:20] VITALS: BP 135/77; PULSE 75; RESP 14; TEMP 36; O2SAT 95
[2023-11-07] MEDS: Omeprazole 20 MG CAPSULE.DR PO (05:59)
[2023-11-07 06:21] LABS: Anion Gap 9 (12-20); Blood Urea Nitrogen 11 mg/dL (9-16); Calcium 9.1 mg/dL (8.4-10.2); Carbon Dioxide 31 mmol/L (22-29); Chloride 104 mmol/L (96-108); Creatinine Clr Calc Pharmacy 127.6; Estimated Glomerular Filt Rate > 60; Glucose Random 88 mg/dL (60-115); Sodium 140 mmol/L (135-145)
[2023-11-07 06:33] LABS: Hematocrit 32.7 % (37.0-47.0); Hemoglobin 10.2 g/dl (12.0-16.0); Mean Corpuscular HGB Conc 31.2 g/dl (31.0-35.0); Mean Corpuscular Hemoglobin 26.8 pg (27.0-33.0); Mean Corpuscular Volume 86.1 fL (80.0-98.0); Mean Platelet Volume 10.6 fL (9.4-12.3); Platelet Count 281 X10*3/uL (160-400); White Blood Count 4.7 X10*3/uL (4.8-10.8)
[2023-11-07 07:47] VITALS: BP 144/8; PULSE 71; RESP 18; TEMP 36.1; O2SAT 94
[2023-11-07] MEDS: Zinc Sulfate 220 MG CAPSULE PO (08:24)
[2023-11-07] MEDS: amLODIPine Besylate 10 MG TABLET PO (08:24)
[2023-11-07] MEDS: Multivitamin TABLET 1 TAB PO (08:24)
[2023-11-07] MEDS: polyethylene glycoL 3350 17 GM POWD.PACK PO (08:25)
[2023-11-07] MEDS: Cholecalciferol (Vitamin D3) 25 MCG TABLET PO (08:25)
[2023-11-07] MEDS: Apixaban 5 MG TABLET PO ×2 (08:25→19:57)
[2023-11-07] MEDS: Docusate Sodium 100 MG CAPSULE 200 MG PO (08:25)
[2023-11-07] MEDS: traMADoL HCL 50 MG TABLET PO (08:28)
--- NOTE | 2023-11-07 08:32 | P.PNIM_ITS ---
Subjective Subjective Date of Service: 11/07/23 Interval History: Has no new complaint Physical Exam 2 Vital Signs: Vital Signs: Last Vital Signs Temp 97 F 11/07/23 07:47 Pulse 71 11/07/23 07:47 Resp 18 11/07/23 07:47 BP 144/8 H 11/07/23 07:47 Pulse Ox 94 11/07/23 07:47 O2 Del Method Room Air 11/07/23 07:47 BMI result Body Mass Index 54.2 Const: Other: General: AO X 3, no acute distress, morbidly obese Resp: CTA bilateral CVS: S1,S2,RRR GI: +BS, NT, no distention Skin: decub ulcer noted elswhere Neuro: motor grossly intact Psych: appropriate affect Objective Data Active Medications Acetaminophen (Acetaminophen 325 Mg Tablet) 650 mg PO Q6H PRN PRN Reason: Pain, Mild (Pain Scale 1-3) Last Admin: 11/06/23 23:02 Dose: 650 mg Documented By: GIL Amlodipine Besylate (Amlodipine Besylate 10 Mg Tablet) 10 mg PO DAILY [facility]; Protocol Last Admin: 11/07/23 08:24 Dose: 10 mg Documented By: ARLIN Apixaban (Apixaban 5 Mg Tablet) 5 mg PO BID [facility] Last Admin: 11/07/23 08:25 Dose: 5 mg Documented By: ARLIN Atorvastatin Calcium (Atorvastatin Calcium 20 Mg Tablet) 20 mg PO BEDTIME [facility] Last Admin: 11/06/23 21:34 Dose: 20 mg Documented By: GIL Bisacodyl (Bisacodyl 10 Mg Supp.Rect) 10 mg [place] DAILY PRN PRN Reason: Constipation Docusate Sodium (Docusate Sodium 100 Mg Capsule) 200 mg PO DAILY [facility] Last Admin: 11/07/23 08:25 Dose: 200 mg Documented By: ARLIN Melatonin (Melatonin 3 Mg Tablet) 6 mg PO BEDTIME PRN PRN Reason: Insomnia Last Admin: 11/06/23 23:03 Dose: 6 mg Documented By: GIL Melatonin (Melatonin 3 Mg Tablet) 3 mg PO BEDTIME PRN PRN Reason: Insomnia Last Admin: 11/06/23 23:03 Dose: 3 mg Documented By: GIL Multivitamins/Vitamin C (Multivitamin Tablet) 1 tab PO DAILY [facility] Last Admin: 11/07/23 08:24 Dose: 1 tab Documented By: ARLIN Omeprazole (Omeprazole 20 Mg Capsule.) 20 mg PO DAILY@0630 [facility] Last Admin: 11/07/23 05:59 Dose: 20 mg Documented By: GIL Ondansetron HCl (Ondansetron Hcl 4 Mg/2 Ml Vial) 4 mg IVPUSH Q8H PRN PRN Reason: Nausea and Vomiting Polyethylene Glycol (Polyethylene Glycol 3350 17 Gm Powd.Pack) 17 gm PO DAILY [facility] Last Admin: 11/07/23 08:25 Dose: 17 gm Documented By: ARLIN Senna/Docusate Sodium (Sennosides/Docusate Sodium Tablet) 1 tab PO BEDTIME [facility] Last Admin: 11/06/23 21:34 Dose: 1 tab Documented By: GIL Sodium Chloride (0.9 % Sodium Chloride Flush 3 Ml Syringe) 3 ml IVFLUSH QSHIFT [facility] Last Admin: 11/07/23 08:24 Dose: Not Given Documented By: ARLIN Non-Admin Reason: No Access Tramadol HCl (Tramadol Hcl 50 Mg Tablet) 50 mg PO Q8H PRN PRN Reason: Pain, Severe (Pain Scale 7-10) Last Admin: 11/07/23 08:28 Dose: 50 mg Documented By: ARLIN Vitamin D (Cholecalciferol (Vitamin D3) 25 Mcg Tablet) 25 mcg PO DAILY [facility] Last Admin: 11/07/23 08:25 Dose: 25 mcg Documented By: ARLIN Zinc Sulfate (Zinc Sulfate 220 Mg Capsule) 220 mg PO DAILY [facility] Last Admin: 11/07/23 08:24 Dose: 220 mg Documented By: ARLIN Labs 11/07/23 05:54 11/07/23 05:54 Labs: Laboratory Results - last 24 hr 11/07/23 05:54 MCV 86.1 MCH 26.8 L MCHC 31.2 RDW 14.0 Plt Count 281 MPV 10.6 Absolute Nucleated RBC 0.000 Nucleated RBC % (auto) 0.0 Anion Gap 9 L Estim Creat Clear Calc 127.6 Estimated GFR > 60 Random Glucose 88 Calcium 9.1 Assessment and Plan (1) Acute GI bleeding: Status: Resolved (2) Bright red blood per rectum: Status: Resolved Plan 67yo F with HTN, HLD, arthritis, DVT on apixaban admitted for BRBPR and now awaiting placement.. no acute issues Painless BRBPR on admission, attributed to hemorrhoid, stercoral colitis or chronic colitis. Bleeding was self-limited and she refused endoscopy. No change in care Rt Knee pain chronic pain s/p steroid injection by ortho during this admit Continue Ultram prn OT/PT following hx DVT continue apixaban HTN amlodipine HLD statin Deep tissue injury of buttocks present on admission Wound Care following Bilateral Buttocks and Posterior Thighs - Off Load Pressure - Cleanse with PH balance spray or wipes, pat dry. Apply thin layer of Triad to wound bed - only pat and dab no scrub and rub when soiling occurs. Reapply thin layer PRN after each episode of incontinence. Morbid obesity. BMI 54.2 Discussed importance of weight management as this may be contributing to worsening of other comorbidities VTE ppx - apixaban Attending Dr. Dow dispo - STR recommended, pending safe placement need for placement, daily attempt to get her out of bed to chair routine lab (bmp, cbc)--2/5 unremarkable Quality Stroke Does the patient have a stroke diagnosis?: No VTE Prior VTE?: No VTE Risk Level:: Medical - moderate - high VTE Device Contraindication: N/A - Device Ordered VTE Drug Contraindication: Treatment Not Indicated
--- NOTE | 2023-11-07 14:41 | MHC.CM.PN ---
[facility] [place] going for auth
[2023-11-07 16:00] VITALS: BP 135/65; PULSE 85; RESP 18; TEMP 36.1; O2SAT 93
[2023-11-07 19:52] VITALS: BP 130/69; PULSE 91; RESP 16; TEMP 36.8; O2SAT 95
[2023-11-07] MEDS: Sennosides/Docusate Sodium TABLET 1 TAB PO (19:57)
[2023-11-07] MEDS: Atorvastatin Calcium 20 MG TABLET PO (19:57)
[2023-11-08 03:27] VITALS: BP 129/68; PULSE 78; RESP 16; TEMP 36.1; O2SAT 94
[2023-11-08] MEDS: Omeprazole 20 MG CAPSULE.DR PO (06:15)
[2023-11-08 08:00] VITALS: BP 135/68; PULSE 75; RESP 18; TEMP 36.1; O2SAT 96
[2023-11-08] MEDS: traMADoL HCL 50 MG TABLET PO (08:23)
[2023-11-08] MEDS: Docusate Sodium 100 MG CAPSULE 200 MG PO (08:23)
[2023-11-08] MEDS: Cholecalciferol (Vitamin D3) 25 MCG TABLET PO (08:23)
[2023-11-08] MEDS: Multivitamin TABLET 1 TAB PO (08:23)
[2023-11-08] MEDS: Apixaban 5 MG TABLET PO ×2 (08:23→19:56)
[2023-11-08] MEDS: Zinc Sulfate 220 MG CAPSULE PO (08:23)
[2023-11-08] MEDS: amLODIPine Besylate 10 MG TABLET PO (08:23)
[2023-11-08] MEDS: polyethylene glycoL 3350 17 GM POWD.PACK PO (08:24)
--- NOTE | 2023-11-08 10:28 | PM.DS ---
DS: Providers Provider Date of admission: 10/11/23 13:57 Primary care physician: Alycia Garg MD Consults: 10/10/23 01:03 Consult to Gastroenterology Routine Consulting Provider: Mariana Garcia Reason for consultation: GI bleed 10/11/23 09:43 Consult to Wound Care Routine Reason for consultation: DTI to buttocks 10/20/23 11:46 Consult to Orthopedics Routine Consulting Provider: [facility] Reason for consultation: OA rt knee depomedrol shot Has provider been notified: No DS: Diagnosis Discharge Diagnosis (1) Acute GI bleeding: Status: Resolved (2) Bright red blood per rectum: Status: Resolved DS: Summary Hospital Course Hospital Course: admission HPI Chief Complaint: Bright red blood per rectum This is a 67-year-old female with pertinent history of essential hypertension, mixed hyperlipidemia, arthritis, DVT on Eliquis who was sent to the emergency department for evaluation of bright red blood per rectum. Patient states the staff at rehab facility noticed bright red blood in her stool and sent her to the ER. She was initially constipated and had 2 episodes of painless bright red blood per rectum. No abdominal pain. No fever or chills. States had a recent colonoscopy about a month ago at [facility]. No chest discomfort, palpitations, shortness of breath, changes in urinary habits. Patient is on Eliquis for DVT. In the emergency department, rectal examination with bright red blood Hospital course: Patient initially presented with Bright red blood per rectum that was attributed to hemorrhoid, stercoral colitis or chronic colitis. The Bleeding was self-limited and she was advised endoscopy but she refused. She did not require transfusion and her blood count has been stable despite being on Eliquis Rt Knee pain--due to arthritis and this is limiting activity and ambulation, she had the knee injected by surgery with no much impact, She is getting ultram for pain history of DVT to continue e apixaban HTN --continue amlodipine HLD -continue statin Deep tissue injury of buttocks present on admission.. She was followed by wound care with the following Bilateral Buttocks and Posterior Thighs - Off Load Pressure - Cleanse with PH balance spray or wipes, pat dry. Apply thin layer of Triad to wound bed - only pat and dab no scrub and rub when soiling occurs. Reapply thin layer PRN after each episode of incontinence. Morbid obesity. BMI 54.2 Discussed importance of weight management as this may be contributing to worsening of other comorbidities Patient's hospitalization was prolonged due to insurance authorization Time Attestation Discharge coordination time: Greater than 30 minutes Quality: Safe Use of Opioids Does Pt have an Active Cancer Diagnosis on the Problem List?: No Quality: Stroke Does the patient have a stroke diagnosis?: No Physical Exam Vital Signs: Vital Signs: Last Vital Signs Temp 97.0 F 11/08/23 08:00 Pulse 75 11/08/23 08:00 Resp 18 11/08/23 08:00 BP 135/68 11/08/23 08:00 Pulse Ox 96 11/08/23 08:00 O2 Del Method Room Air 11/08/23 08:00 BMI result Body Mass Index 54.2 Const: Other: General: AO X 3, no acute distress, morbidly obese Resp: CTA bilateral CVS: S1,S2,RRR GI: +BS, NT, no distention Skin: decub ulcer noted elswhere Neuro: motor grossly intact Psych: appropriate affect Discharge Plan Discharge Patient Disposition: Xfer SNF Discharge Diagnosis: GI bleeding, Acute bloos loss anemia Referrals: Alycia Garg MD [Primary Care Provider] - 1 Week Discharge Medications: New docusate sodium 100 mg Capsule 200 mg PO DAILY Qty: 60 0RF omeprazole 20 mg Capsule,Delayed Release(Dr/Ec) 20 mg PO DAILY@0630 Qty: 30 0RF polyethylene glycol 3350 [Miralax] 17 gram powder in packet 17 g PO DAILY PRN (Reason: constipation) Qty: 30 0RF Continued atorvastatin 20 mg tablet 20 mg PO BEDTIME 90 Days Qty: 90 1RF cholecalciferol (vitamin D3) [Vitamin D3] 25 mcg (1,000 unit) Tablet 25 mcg PO DAILY acetaminophen 325 mg Tablet 650 mg PO Q4-6H PRN (Reason: Fever Or Pain) albuterol sulfate 2.5 mg /3 mL (0.083 %) Solution For Nebulization 2.5 mg INHALATION Q4H PRN (Reason: Shortness Of Breath Or Wheezing) loperamide 2 mg Tablet 2 mg PO Q6H PRN (Reason: Loose Stool) melatonin 3 mg Tablet 3 mg PO BEDTIME PRN (Reason: Insomnia) Triad Wound Dressing Paste 1 appl TOPICAL BID Rx Instructions: apply to buttocks Triad Wound Dressing Paste 1 appl TOPICAL DAILY PRN (Reason: Wound Care) zinc oxide 20 % Ointment 1 appl TOPICAL BID Rx Instructions: apply to buttocks magnesium hydroxide [Milk of Magnesia] 400 mg/5 mL Suspension 30 ml PO BEDTIME PRN (Reason: Constipation) amlodipine 10 mg tablet 10 mg PO DAILY bisacodyl [Dulcolax (bisacodyl)] 10 mg Suppository 10 mg [place] DAILY PRN (Reason: Constipation) Fleet Enema 19-7 gram/118 mL Enema 118 ml [place] DAILY PRN (Reason: Constipation) docusate sodium 100 mg Capsule 100 mg PO Q12H PRN (Reason: Constipation) multivitamin with minerals Tablet 1 tab PO DAILY zinc sulfate 50 mg zinc (220 mg) Capsule 200 mg PO DAILY omega [id number] oil [Fish Oil] 1,000 mg (120 mg-180 mg) Capsule 1 cap PO TID Eliquis 5 mg Tablet 5 mg PO BID Lactobacillus acidophilus 1 billion cell Capsule 1,000 mmu cells PO BID tramadol 100 mg Tablet 100 mg PO BID (DME) blood pressure monitor Kit See Rx Instructions .Route Qty: 1 0RF Rx Instructions: As directed Diet: Advance to usual diet Activity on Discharge: As tolerated Stand Alone Forms: Patient Portal Discharge page Care Plan Goals: short term rehab for recovery Health Concerns: gi bleeding anemia chronic decub ulcer Plan of Treatment: Decub ulcer management recommendation by wound nurse 1. Turn and Reposition every 2 hours and as needed for patient comfort.? Use pillows or wedges to support off loading positions. 2. Off Load all bony prominences with use of pillows and heel boots if needed.? Apply Preventative foams where needed. ? 3. Monitor for incontinence and moisture control, use barrier creams when needed for prevention and treatment. 4. Provide adequate and supplemental nutrition. 5. Continue low air loss mattress. 6. Bilateral Buttocks and Posterior Thighs - Off Load Pressure - Cleanse with PH balance spray or wipes, pat dry. ?Apply thin layer of Triad to wound bed - only pat and dab no scrub and rub when soiling occurs. Reapply thin layer PRN after each episode of incontinenc Assessment: see above
--- NOTE | 2023-11-08 10:36 | HO.PM.IMPN ---
Subjective Subjective Date of Service: 11/08/23 Interval History: Doing fine, no new issues Physical Exam Vital Signs: Vital Signs: Last Vital Signs Temp 97.0 F 11/08/23 08:00 Pulse 75 11/08/23 08:00 Resp 18 11/08/23 08:00 BP 135/68 11/08/23 08:00 Pulse Ox 96 11/08/23 08:00 O2 Del Method Room Air 11/08/23 08:00 BMI result Body Mass Index 54.2 Const: Other: General: AO X 3, no acute distress, morbidly obese Resp: CTA bilateral CVS: S1,S2,RRR GI: +BS, NT, no distention Skin: decub ulcer noted elswhere Neuro: motor grossly intact Psych: appropriate affect Objective Data Active Medications Acetaminophen (Acetaminophen 325 Mg Tablet) 650 mg PO Q6H PRN PRN Reason: Pain, Mild (Pain Scale 1-3) Last Admin: 11/06/23 23:02 Dose: 650 mg Documented By: GIL Amlodipine Besylate (Amlodipine Besylate 10 Mg Tablet) 10 mg PO DAILY [facility]; Protocol Last Admin: 11/08/23 08:23 Dose: 10 mg Documented By: ARLIN Apixaban (Apixaban 5 Mg Tablet) 5 mg PO BID [facility] Last Admin: 11/08/23 08:23 Dose: 5 mg Documented By: ARLIN Atorvastatin Calcium (Atorvastatin Calcium 20 Mg Tablet) 20 mg PO BEDTIME [facility] Last Admin: 11/07/23 19:57 Dose: 20 mg Documented By: SHANIQUE Bisacodyl (Bisacodyl 10 Mg Supp.Rect) 10 mg [place] DAILY PRN PRN Reason: Constipation Docusate Sodium (Docusate Sodium 100 Mg Capsule) 200 mg PO DAILY [facility] Last Admin: 11/08/23 08:23 Dose: 200 mg Documented By: ARLIN Melatonin (Melatonin 3 Mg Tablet) 6 mg PO BEDTIME PRN PRN Reason: Insomnia Last Admin: 11/06/23 23:03 Dose: 6 mg Documented By: GIL Melatonin (Melatonin 3 Mg Tablet) 3 mg PO BEDTIME PRN PRN Reason: Insomnia Last Admin: 11/06/23 23:03 Dose: 3 mg Documented By: GIL Multivitamins/Vitamin C (Multivitamin Tablet) 1 tab PO DAILY [facility] Last Admin: 11/08/23 08:23 Dose: 1 tab Documented By: ARLIN Omeprazole (Omeprazole 20 Mg Capsule.) 20 mg PO DAILY@0630 [facility] Last Admin: 11/08/23 06:15 Dose: 20 mg Documented By: BRIDGET Ondansetron HCl (Ondansetron Hcl 4 Mg/2 Ml Vial) 4 mg IVPUSH Q8H PRN PRN Reason: Nausea and Vomiting Polyethylene Glycol (Polyethylene Glycol 3350 17 Gm Powd.Pack) 17 gm PO DAILY [facility] Last Admin: 11/08/23 08:24 Dose: 17 gm Documented By: ARLIN Senna/Docusate Sodium (Sennosides/Docusate Sodium Tablet) 1 tab PO BEDTIME [facility] Last Admin: 11/07/23 19:57 Dose: 1 tab Documented By: SHANIQUE Sodium Chloride (0.9 % Sodium Chloride Flush 3 Ml Syringe) 3 ml IVFLUSH QSHIFT [facility] Last Admin: 11/08/23 08:22 Dose: Not Given Documented By: ARLIN Non-Admin Reason: No Access Tramadol HCl (Tramadol Hcl 50 Mg Tablet) 50 mg PO Q8H PRN PRN Reason: Pain, Severe (Pain Scale 7-10) Last Admin: 11/08/23 08:23 Dose: 50 mg Documented By: ARLIN Vitamin D (Cholecalciferol (Vitamin D3) 25 Mcg Tablet) 25 mcg PO DAILY [facility] Last Admin: 11/08/23 08:23 Dose: 25 mcg Documented By: ARLIN Zinc Sulfate (Zinc Sulfate 220 Mg Capsule) 220 mg PO DAILY [facility] Last Admin: 11/08/23 08:23 Dose: 220 mg Documented By: ARLIN Labs 11/07/23 05:54 11/07/23 05:54 Assessment and Plan (1) Acute GI bleeding: Status: Resolved (2) Bright red blood per rectum: Status: Resolved Plan 67yo F with HTN, HLD, arthritis, DVT on apixaban admitted for BRBPR and now awaiting placement.. no acute issues Painless BRBPR on admission, attributed to hemorrhoid, stercoral colitis or chronic colitis. Bleeding was self-limited and she refused endoscopy. No change in care Rt Knee pain chronic pain s/p steroid injection by ortho during this admit Continue Ultram prn OT/PT following hx DVT continue apixaban HTN amlodipine HLD statin Deep tissue injury of buttocks present on admission Wound Care following Bilateral Buttocks and Posterior Thighs - Off Load Pressure - Cleanse with PH balance spray or wipes, pat dry. Apply thin layer of Triad to wound bed - only pat and dab no scrub and rub when soiling occurs. Reapply thin layer PRN after each episode of incontinence. Morbid obesity. BMI 54.2 Discussed importance of weight management as this may be contributing to worsening of other comorbidities VTE ppx - apixaban Attending Dr. Dow dispo - STR recommended, pending safe placement need for placement, daily attempt to get her out of bed to chair routine lab (bmp, cbc)--2/5 unremarkable To SNF today if insurance authorization is in Quality Stroke Does the patient have a stroke diagnosis?: No VTE Prior VTE?: No VTE Risk Level:: Medical - moderate - high VTE Device Contraindication: N/A - Device Ordered VTE Drug Contraindication: Treatment Not Indicated
[2023-11-08 15:53] VITALS: BP 134/79; PULSE 76; RESP 18; TEMP 36.8; O2SAT 94
[2023-11-08] MEDS: Atorvastatin Calcium 20 MG TABLET PO (19:56)
[2023-11-08] MEDS: Sennosides/Docusate Sodium TABLET 1 TAB PO (19:56)
[2023-11-08 20:00] VITALS: BP 127/75; PULSE 95; RESP 20; TEMP 36.8; O2SAT 93
[2023-11-09 02:59] VITALS: BP 163/87; PULSE 80; RESP 18; TEMP 36; O2SAT 96
[2023-11-09] MEDS: Omeprazole 20 MG CAPSULE.DR PO (06:06)
[2023-11-09 07:10] VITALS: BP 129/59; PULSE 78; RESP 18; TEMP 36.1; O2SAT 94
[2023-11-09] MEDS: Multivitamin TABLET 1 TAB PO (08:31)
[2023-11-09] MEDS: Cholecalciferol (Vitamin D3) 25 MCG TABLET PO (08:31)
[2023-11-09] MEDS: Zinc Sulfate 220 MG CAPSULE PO (08:31)
[2023-11-09] MEDS: amLODIPine Besylate 10 MG TABLET PO (08:32)
[2023-11-09] MEDS: Docusate Sodium 100 MG CAPSULE 200 MG PO (08:32)
[2023-11-09] MEDS: Apixaban 5 MG TABLET PO ×2 (08:32→21:07)
[2023-11-09] MEDS: polyethylene glycoL 3350 17 GM POWD.PACK PO (08:33)
[2023-11-09] MEDS: traMADoL HCL 50 MG TABLET PO (10:32)
--- NOTE | 2023-11-09 11:15 | MHC.CLN ---
F/U PO INTAKE MOST MEALS 100%. DIET= REGULAR, HIGH FIBER. SKIN REPORTED TO BE HEALING WITH [facility]D. DISCONTINUE SUPPLEMENT DUE TO USUALLY EXCELLENT PO AND HEALING SKIN. RD TO FOLLOW UP WEEKLY.
--- NOTE | 2023-11-09 14:15 | HO.PM.IMPN ---
Subjective Subjective Date of Service: 11/09/23 Interval History: No further episodes of bright red blood per rectum, good pain control right knee, no overnight events tolerating diet no nausea ,no vomiting, no abdominal pain, or diarrhea, participating with physical therapy. Review of Systems All other system reviewed and negative. Physical Exam Vital Signs: Vital Signs: Last Vital Signs Temp 96.9 F 11/09/23 07:10 Pulse 78 11/09/23 07:10 Resp 18 11/09/23 07:10 BP 129/59 L 11/09/23 07:10 Pulse Ox 94 11/09/23 07:10 O2 Del Method Room Air 11/09/23 07:10 BMI result Body Mass Index 54.2 Const: Other: Gen: Awake alert x3, in no acute distress HEENT: sclera anicteric, moist mucus membranes Neck: supple Lungs: clear to auscultation bilaterally Heart: regular rate and rhythm, no murmurs Abd: soft, non-tender, non-distended, bowel sounds audible, obese Ext: no edema Skin: warm/well-perfused Neuro: alert and oriented x3, no focal findings Psych: appropriate affect Objective Data Active Medications Acetaminophen (Acetaminophen 325 Mg Tablet) 650 mg PO Q6H PRN PRN Reason: Pain, Mild (Pain Scale 1-3) Last Admin: 11/06/23 23:02 Dose: 650 mg Documented By: GIL Amlodipine Besylate (Amlodipine Besylate 10 Mg Tablet) 10 mg PO DAILY [facility]; Protocol Last Admin: 11/09/23 08:32 Dose: 10 mg Documented By: KIARA Apixaban (Apixaban 5 Mg Tablet) 5 mg PO BID [facility] Last Admin: 11/09/23 08:32 Dose: 5 mg Documented By: KIARA Atorvastatin Calcium (Atorvastatin Calcium 20 Mg Tablet) 20 mg PO BEDTIME [facility] Last Admin: 11/08/23 19:56 Dose: 20 mg Documented By: SUZANNA Bisacodyl (Bisacodyl 10 Mg Supp.Rect) 10 mg NE DAILY PRN PRN Reason: Constipation Docusate Sodium (Docusate Sodium 100 Mg Capsule) 200 mg PO DAILY [facility] Last Admin: 11/09/23 08:32 Dose: 200 mg Documented By: KIARA Melatonin (Melatonin 3 Mg Tablet) 6 mg PO BEDTIME PRN PRN Reason: Insomnia Last Admin: 11/06/23 23:03 Dose: 6 mg Documented By: GIL Melatonin (Melatonin 3 Mg Tablet) 3 mg PO BEDTIME PRN PRN Reason: Insomnia Last Admin: 11/06/23 23:03 Dose: 3 mg Documented By: GIL Multivitamins/Vitamin C (Multivitamin Tablet) 1 tab PO DAILY [facility] Last Admin: 11/09/23 08:31 Dose: 1 tab Documented By: KIARA Omeprazole (Omeprazole 20 Mg Capsule.Dr) 20 mg PO DAILY@0630 [facility] Last Admin: 11/09/23 06:06 Dose: 20 mg Documented By: SUZANNA Ondansetron HCl (Ondansetron Hcl 4 Mg/2 Ml Vial) 4 mg IVPUSH Q8H PRN PRN Reason: Nausea and Vomiting Polyethylene Glycol (Polyethylene Glycol 3350 17 Gm Powd.Pack) 17 gm PO DAILY [facility] Last Admin: 11/09/23 08:33 Dose: 17 gm Documented By: KIARA Senna/Docusate Sodium (Sennosides/Docusate Sodium Tablet) 1 tab PO BEDTIME [facility] Last Admin: 11/08/23 19:56 Dose: 1 tab Documented By: SUZANNA Sodium Chloride (0.9 % Sodium Chloride Flush 3 Ml Syringe) 3 ml IVFLUSH QSHIFT [facility] Last Admin: 11/09/23 08:31 Dose: Not Given Documented By: KIARA Non-Admin Reason: No Access Tramadol HCl (Tramadol Hcl 50 Mg Tablet) 50 mg PO Q8H PRN PRN Reason: Pain, Severe (Pain Scale 7-10) Last Admin: 11/09/23 10:32 Dose: 50 mg Documented By: KIARA Vitamin D (Cholecalciferol (Vitamin D3) 25 Mcg Tablet) 25 mcg PO DAILY [facility] Last Admin: 11/09/23 08:31 Dose: 25 mcg Documented By: KIARA Zinc Sulfate (Zinc Sulfate 220 Mg Capsule) 220 mg PO DAILY [facility] Last Admin: 11/09/23 08:31 Dose: 220 mg Documented By: KIARA Labs 11/07/23 05:54 11/07/23 05:54 Assessment and Plan (1) Acute GI bleeding: Status: Resolved (2) Bright red blood per rectum: Status: Resolved Plan 67yo F with HTN, HLD, arthritis, DVT on apixaban admitted for BRBPR and now awaiting placement.. no acute issues Painless BRBPR on admission, attributed to hemorrhoid, stercoral colitis or chronic colitis. Bleeding was self-limited and she refused endoscopy. No change in care routine lab (bmp, cbc)--11/07 unremarkable Rt Knee pain chronic pain s/p steroid injection by ortho during this admit Continue Ultram prn OT/PT following hx DVT continue apixaban HTN amlodipine HLD statin Deep tissue injury of buttocks present on admission Wound Care following Bilateral Buttocks and Posterior Thighs - Off Load Pressure - Cleanse with PH balance spray or wipes, pat dry. Apply thin layer of Triad to wound bed - only pat and dab no scrub and rub when soiling occurs. Reapply thin layer PRN after each episode of incontinence. Morbid obesity. BMI 54.2 Discussed importance of weight management as this may be contributing to worsening of other comorbidities VTE ppx - apixaban dispo -need continued inpatient hospitalization for safe disposition STR recommended, telephonic nurse case manager arranging for safe placement . Quality Stroke Does the patient have a stroke diagnosis?: No VTE Prior VTE?: No VTE Risk Level:: Medical - moderate - high VTE Device Contraindication: N/A - Device Ordered VTE Drug Contraindication: Treatment Not Indicated
--- NOTE | 2023-11-09 15:28 | MHC.CM.PN ---
pt s appeal was denied another appeal has been filed to appeal the appeal [facility] [place] [facility] has of today not been assigned to a worker pt will be [facility] pt
[2023-11-09 15:29] VITALS: BP 122/66; PULSE 96; RESP 18; TEMP 36.5; O2SAT 95
[2023-11-09 19:59] VITALS: BP 110/79; PULSE 101; RESP 18; TEMP 36.6; O2SAT 95
[2023-11-09] MEDS: Sennosides/Docusate Sodium TABLET 1 TAB PO (21:07)
[2023-11-09] MEDS: Atorvastatin Calcium 20 MG TABLET PO (21:07)
[2023-11-10 03:54] VITALS: BP 135/70; PULSE 71; RESP 19; TEMP 36.6; O2SAT 94
[2023-11-10] MEDS: Omeprazole 20 MG CAPSULE.DR PO (06:12)
[2023-11-10 07:46] VITALS: BP 127/80; PULSE 77; RESP 18; TEMP 36.6; O2SAT 94
[2023-11-10] MEDS: Cholecalciferol (Vitamin D3) 25 MCG TABLET PO (09:00)
[2023-11-10] MEDS: Multivitamin TABLET 1 TAB PO (09:00)
[2023-11-10] MEDS: Apixaban 5 MG TABLET PO ×2 (09:00→21:32)
[2023-11-10] MEDS: amLODIPine Besylate 10 MG TABLET PO (09:00)
[2023-11-10] MEDS: Zinc Sulfate 220 MG CAPSULE PO (09:00)
[2023-11-10] MEDS: Docusate Sodium 100 MG CAPSULE 200 MG PO (09:01)
[2023-11-10 11:56] VITALS: BP 127/80; PULSE 77; O2SAT 94
--- NOTE | 2023-11-10 13:03 | P.PNIM_ITS ---
Subjective Subjective Date of Service: 11/10/23 Interval History: No acute complaints, tolerating diet, no diarrhea, no worsening knee pain. Review of Systems All other system reviewed and negative. Physical Exam 2 Vital Signs: Vital Signs: Last Vital Signs Temp 97.9 F 11/10/23 07:46 Pulse 77 11/10/23 11:56 Resp 18 11/10/23 07:46 BP 127/80 11/10/23 11:56 Pulse Ox 94 11/10/23 11:56 O2 Del Method Room Air 11/10/23 07:46 BMI result Body Mass Index 54.2 Const: Other: Gen: Awake alert x3, in no acute distress HEENT: sclera anicteric, moist mucus membranes Neck: supple Lungs: clear to auscultation bilaterally Heart: regular rate and rhythm, no murmurs Abd: soft, non-tender, non-distended, bowel sounds audible, obese Ext: no edema Skin: warm/well-perfused Neuro: alert and oriented x3, no focal findings Psych: appropriate affect Objective Data Active Medications Acetaminophen (Acetaminophen 325 Mg Tablet) 650 mg PO Q6H PRN PRN Reason: Pain, Mild (Pain Scale 1-3) Last Admin: 11/06/23 23:02 Dose: 650 mg Documented By: GIL Amlodipine Besylate (Amlodipine Besylate 10 Mg Tablet) 10 mg PO DAILY [facility]; Protocol Last Admin: 11/10/23 09:00 Dose: 10 mg Documented By: SLADE Apixaban (Apixaban 5 Mg Tablet) 5 mg PO BID [facility] Last Admin: 11/10/23 09:00 Dose: 5 mg Documented By: SLADE Atorvastatin Calcium (Atorvastatin Calcium 20 Mg Tablet) 20 mg PO BEDTIME [facility] Last Admin: 11/09/23 21:07 Dose: 20 mg Documented By: SUZANNA Bisacodyl (Bisacodyl 10 Mg Supp.Rect) 10 mg [place] DAILY PRN PRN Reason: Constipation Docusate Sodium (Docusate Sodium 100 Mg Capsule) 200 mg PO DAILY [facility] Last Admin: 11/10/23 09:01 Dose: 200 mg Documented By: SLADE Melatonin (Melatonin 3 Mg Tablet) 6 mg PO BEDTIME PRN PRN Reason: Insomnia Last Admin: 11/06/23 23:03 Dose: 6 mg Documented By: GIL Melatonin (Melatonin 3 Mg Tablet) 3 mg PO BEDTIME PRN PRN Reason: Insomnia Last Admin: 11/06/23 23:03 Dose: 3 mg Documented By: GIL Multivitamins/Vitamin C (Multivitamin Tablet) 1 tab PO DAILY [facility] Last Admin: 11/10/23 09:00 Dose: 1 tab Documented By: SLADE Omeprazole (Omeprazole 20 Mg Capsule.Dr) 20 mg PO DAILY@0630 [facility] Last Admin: 11/10/23 06:12 Dose: 20 mg Documented By: SUZANNA Ondansetron HCl (Ondansetron Hcl 4 Mg/2 Ml Vial) 4 mg IVPUSH Q8H PRN PRN Reason: Nausea and Vomiting Polyethylene Glycol (Polyethylene Glycol 3350 17 Gm Powd.Pack) 17 gm PO DAILY [facility] Last Admin: 11/10/23 09:01 Dose: Not Given Documented By: SLADE Non-Admin Reason: Patient Refused Senna/Docusate Sodium (Sennosides/Docusate Sodium Tablet) 1 tab PO BEDTIME [facility] Last Admin: 11/09/23 21:07 Dose: 1 tab Documented By: SUZANNA Sodium Chloride (0.9 % Sodium Chloride Flush 3 Ml Syringe) 3 ml IVFLUSH QSHIFT [facility] Last Admin: 11/10/23 07:48 Dose: Not Given Documented By: SLADE Non-Admin Reason: No Access Tramadol HCl (Tramadol Hcl 50 Mg Tablet) 50 mg PO Q8H PRN PRN Reason: Pain, Severe (Pain Scale 7-10) Last Admin: 11/09/23 10:32 Dose: 50 mg Documented By: KIARA Vitamin D (Cholecalciferol (Vitamin D3) 25 Mcg Tablet) 25 mcg PO DAILY [facility] Last Admin: 11/10/23 09:00 Dose: 25 mcg Documented By: SLADE Zinc Sulfate (Zinc Sulfate 220 Mg Capsule) 220 mg PO DAILY [facility] Last Admin: 11/10/23 09:00 Dose: 220 mg Documented By: SLADE Labs 11/07/23 05:54 11/07/23 05:54 Assessment and Plan (1) Acute GI bleeding: Status: Resolved (2) Bright red blood per rectum: Status: Resolved Plan 67yo F with HTN, HLD, arthritis, DVT on apixaban admitted for BRBPR and now awaiting placement.. no acute issues Painless BRBPR on admission, attributed to hemorrhoid, stercoral colitis or chronic colitis. Bleeding was self-limited and she refused endoscopy. No change in care routine lab (bmp, cbc)--11/07 unremarkable Rt Knee pain chronic pain s/p steroid injection by ortho during this admit Continue Ultram prn OT/PT following hx DVT continue apixaban HTN amlodipine HLD statin Deep tissue injury of buttocks present on admission Wound Care following Bilateral Buttocks and Posterior Thighs - Off Load Pressure - Cleanse with PH balance spray or wipes, pat dry. Apply thin layer of Triad to wound bed - only pat and dab no scrub and rub when soiling occurs. Reapply thin layer PRN after each episode of incontinence. Morbid obesity. BMI 54.2 Discussed importance of weight management as this may be contributing to worsening of other comorbidities VTE ppx - apixaban dispo -need continued inpatient hospitalization for safe disposition STR recommended, rifle case repairer arranging for safe placement . Quality Stroke Does the patient have a stroke diagnosis?: No VTE Prior VTE?: No VTE Risk Level:: Medical - moderate - high VTE Device Contraindication: N/A - Device Ordered VTE Drug Contraindication: Treatment Not Indicated
[2023-11-10 15:12] VITALS: BP 140/65; PULSE 96; RESP 18; TEMP 36.6; O2SAT 94
[2023-11-10 19:28] VITALS: BP 105/65; PULSE 105; RESP 17; TEMP 36.6; O2SAT 95
[2023-11-10] MEDS: Acetaminophen 325 MG TABLET 650 MG PO (21:31)
[2023-11-10] MEDS: Sennosides/Docusate Sodium TABLET 1 TAB PO (21:32)
[2023-11-10] MEDS: Atorvastatin Calcium 20 MG TABLET PO (21:32)
[2023-11-11 03:32] VITALS: BP 140/83; PULSE 85; RESP 18; TEMP 36.3; O2SAT 96
[2023-11-11] MEDS: Omeprazole 20 MG CAPSULE.DR PO (05:54)
[2023-11-11 07:53] VITALS: BP 120/60; PULSE 82; RESP 18; TEMP 36; O2SAT 94
[2023-11-11] MEDS: Multivitamin TABLET 1 TAB PO (09:15)
[2023-11-11] MEDS: Zinc Sulfate 220 MG CAPSULE PO (09:15)
[2023-11-11] MEDS: Apixaban 5 MG TABLET PO ×2 (09:15→20:06)
[2023-11-11] MEDS: Cholecalciferol (Vitamin D3) 25 MCG TABLET PO (09:16)
[2023-11-11] MEDS: amLODIPine Besylate 10 MG TABLET PO (09:16)
[2023-11-11] MEDS: Docusate Sodium 100 MG CAPSULE 200 MG PO (09:16)
[2023-11-11] MEDS: traMADoL HCL 50 MG TABLET PO (09:21)
[2023-11-11 10:47] VITALS: BP 120/60; PULSE 82; O2SAT 94
--- NOTE | 2023-11-11 12:34 | MHC.CM.PN ---
pr rounds pt is reDY FOR DC PT S [facility] STILL HAS NOT BEEN ASSIGNED A WORKER
[2023-11-11 15:23] VITALS: BP 128/70; PULSE 95; RESP 17; TEMP 36.4; O2SAT 95
--- NOTE | 2023-11-11 16:36 | P.PNIM_ITS ---
Subjective Subjective Date of Service: 11/11/23 Interval History: seen and examined this morning follow up for placement no overnight events no specific complaints this morning Review of Systems Review of Systems: Yes all other systems are reviewed and are negative Constitutional Constitutional: Denies chills and Denies fever(s) Cardiovascular Cardiovascular: Denies chest pain and Denies palpitations Endocrine Endocrine: Denies palpitations Physical Exam 2 Vital Signs: Vital Signs: Last Vital Signs Temp 97.6 F 11/11/23 15:23 Pulse 95 11/11/23 15:23 Resp 17 11/11/23 15:23 BP 128/70 11/11/23 15:23 Pulse Ox 95 11/11/23 15:23 O2 Del Method Room Air 11/11/23 15:23 BMI result Body Mass Index 54.2 Const: General: cooperative, comfortable, no acute distress, alert and awake Nutritional Appearance: obese Orientation/consciousness: patient oriented x3 Resp: Effort & Inspection: normal respiratory effort, able to speak in complete sentences, no respiratory distress and no use of accessory muscles Cardio: Rate: regular rate GI: Inspection: No distended Palpation (GI): Soft to palpation and nontender Neuro: General: patient oriented x3 Objective Data Active Medications Acetaminophen (Acetaminophen 325 Mg Tablet) 650 mg PO Q6H PRN PRN Reason: Pain, Mild (Pain Scale 1-3) Last Admin: 11/10/23 21:31 Dose: 650 mg Documented By: GIL Amlodipine Besylate (Amlodipine Besylate 10 Mg Tablet) 10 mg PO DAILY [facility]; Protocol Last Admin: 11/11/23 09:16 Dose: 10 mg Documented By: SLADE Apixaban (Apixaban 5 Mg Tablet) 5 mg PO BID [facility] Last Admin: 11/11/23 09:15 Dose: 5 mg Documented By: SLADE Atorvastatin Calcium (Atorvastatin Calcium 20 Mg Tablet) 20 mg PO BEDTIME [facility] Last Admin: 11/10/23 21:32 Dose: 20 mg Documented By: GIL Bisacodyl (Bisacodyl 10 Mg Supp.Rect) 10 mg [place] DAILY PRN PRN Reason: Constipation Docusate Sodium (Docusate Sodium 100 Mg Capsule) 200 mg PO DAILY [facility] Last Admin: 11/11/23 09:16 Dose: 200 mg Documented By: SLADE Melatonin (Melatonin 3 Mg Tablet) 6 mg PO BEDTIME PRN PRN Reason: Insomnia Last Admin: 11/06/23 23:03 Dose: 6 mg Documented By: GIL Melatonin (Melatonin 3 Mg Tablet) 3 mg PO BEDTIME PRN PRN Reason: Insomnia Last Admin: 11/06/23 23:03 Dose: 3 mg Documented By: GIL Multivitamins/Vitamin C (Multivitamin Tablet) 1 tab PO DAILY [facility] Last Admin: 11/11/23 09:15 Dose: 1 tab Documented By: SLADE Omeprazole (Omeprazole 20 Mg Capsule.) 20 mg PO DAILY@0630 [facility] Last Admin: 11/11/23 05:54 Dose: 20 mg Documented By: GIL Ondansetron HCl (Ondansetron Hcl 4 Mg/2 Ml Vial) 4 mg IVPUSH Q8H PRN PRN Reason: Nausea and Vomiting Polyethylene Glycol (Polyethylene Glycol 3350 17 Gm Powd.Pack) 17 gm PO DAILY [facility] Last Admin: 11/11/23 09:16 Dose: Not Given Documented By: SLADE Non-Admin Reason: Patient Refused Senna/Docusate Sodium (Sennosides/Docusate Sodium Tablet) 1 tab PO BEDTIME [facility] Last Admin: 11/10/23 21:32 Dose: 1 tab Documented By: GIL Sodium Chloride (0.9 % Sodium Chloride Flush 3 Ml Syringe) 3 ml IVFLUSH QSHIFT [facility] Last Admin: 11/11/23 09:12 Dose: Not Given Documented By: SLADE Non-Admin Reason: No Access Vitamin D (Cholecalciferol (Vitamin D3) 25 Mcg Tablet) 25 mcg PO DAILY [facility] Last Admin: 11/11/23 09:16 Dose: 25 mcg Documented By: SLADE Zinc Sulfate (Zinc Sulfate 220 Mg Capsule) 220 mg PO DAILY [facility] Last Admin: 11/11/23 09:15 Dose: 220 mg Documented By: SLADE Labs 11/07/23 05:54 11/07/23 05:54 Assessment and Plan (1) UCHE (obstructive sleep apnea): Status: Acute Plan 67yo F with HTN, HLD, arthritis, DVT on apixaban admitted for BRBPR and now awaiting placement.. no acute issues Painless BRBPR on admission, attributed to hemorrhoid, stercoral colitis or chronic colitis. Bleeding was self-limited and she refused endoscopy. No change in care routine lab (bmp, cbc)--2/5 unremarkable Rt Knee pain chronic pain s/p steroid injection by ortho during this admit Continue Ultram prn OT/PT following hx DVT continue apixaban HTN amlodipine HLD statin Deep tissue injury of buttocks present on admission Wound Care following Bilateral Buttocks and Posterior Thighs - Off Load Pressure - Cleanse with PH balance spray or wipes, pat dry. Apply thin layer of Triad to wound bed - only pat and dab no scrub and rub when soiling occurs. Reapply thin layer PRN after each episode of incontinence. Morbid obesity. BMI 54.2 Discussed importance of weight management as this may be contributing to worsening of other comorbidities VTE ppx - apixaban dispo -need continued inpatient hospitalization for safe disposition STR recommended, cyanide case hardener arranging for safe placement . Quality Stroke Does the patient have a stroke diagnosis?: No VTE Prior VTE?: No VTE Risk Level:: Medical - moderate - high VTE Device Contraindication: N/A - Device Ordered VTE Drug Contraindication: Treatment Not Indicated
[2023-11-11 19:54] VITALS: BP 119/58; PULSE 97; RESP 16; TEMP 36.5; O2SAT 94
[2023-11-11] MEDS: Sennosides/Docusate Sodium TABLET 1 TAB PO (20:06)
[2023-11-11] MEDS: Atorvastatin Calcium 20 MG TABLET PO (20:06)
[2023-11-11] MEDS: Acetaminophen 325 MG TABLET 650 MG PO (20:06)
[2023-11-12 04:00] VITALS: BP 137/87; PULSE 81; RESP 16; TEMP 36.1; O2SAT 95
[2023-11-12] MEDS: Omeprazole 20 MG CAPSULE.DR PO (06:16)
[2023-11-12 07:06] VITALS: BP 146/89; PULSE 75; RESP 16; TEMP 36; O2SAT 94
[2023-11-12] MEDS: Apixaban 5 MG TABLET PO ×2 (08:01→20:58)
[2023-11-12] MEDS: Multivitamin TABLET 1 TAB PO (08:01)
[2023-11-12] MEDS: Docusate Sodium 100 MG CAPSULE 200 MG PO (08:01)
[2023-11-12] MEDS: Zinc Sulfate 220 MG CAPSULE PO (08:01)
[2023-11-12] MEDS: amLODIPine Besylate 10 MG TABLET PO (08:02)
[2023-11-12] MEDS: Cholecalciferol (Vitamin D3) 25 MCG TABLET PO (08:02)
--- NOTE | 2023-11-12 12:37 | P.PNIM_ITS ---
Subjective Subjective Date of Service: 11/12/23 Interval History: seen and examined this morning follow up for placement no overnight events, no complaints today Review of Systems Review of Systems: Yes all other systems are reviewed and are negative Constitutional Constitutional: Denies chills and Denies fever(s) Cardiovascular Cardiovascular: Denies chest pain Gastrointestinal Gastrointestinal: Denies abdominal pain Physical Exam 2 Vital Signs: Vital Signs: Last Vital Signs Temp 96.8 F 11/12/23 07:06 Pulse 75 11/12/23 07:06 Resp 16 11/12/23 07:06 BP 146/89 H 11/12/23 07:06 Pulse Ox 94 11/12/23 07:06 O2 Del Method Room Air 11/12/23 07:06 BMI result Body Mass Index 54.2 Const: General: cooperative, comfortable, no acute distress, alert and awake Nutritional Appearance: obese Orientation/consciousness: patient oriented x3 Resp: Effort & Inspection: normal respiratory effort, able to speak in complete sentences, no respiratory distress and no use of accessory muscles Cardio: Rate: regular rate GI: Inspection: No distended Palpation (GI): Soft to palpation and nontender Neuro: General: patient oriented x3, moves all extremities and CN's II-XI intact bilaterally Extrem: Other: chronic venous stasis changes lower extremities Objective Data Active Medications Acetaminophen (Acetaminophen 325 Mg Tablet) 650 mg PO Q6H PRN PRN Reason: Pain, Mild (Pain Scale 1-3) Last Admin: 11/11/23 20:06 Dose: 650 mg Documented By: KATHRYN Amlodipine Besylate (Amlodipine Besylate 10 Mg Tablet) 10 mg PO DAILY [facility]; Protocol Last Admin: 11/12/23 08:02 Dose: 10 mg Documented By: JOSEPHINE Apixaban (Apixaban 5 Mg Tablet) 5 mg PO BID [facility] Last Admin: 11/12/23 08:01 Dose: 5 mg Documented By: JOSEPHINE Atorvastatin Calcium (Atorvastatin Calcium 20 Mg Tablet) 20 mg PO BEDTIME [facility] Last Admin: 11/11/23 20:06 Dose: 20 mg Documented By: KATHRYN Bisacodyl (Bisacodyl 10 Mg Supp.Rect) 10 mg [place] DAILY PRN PRN Reason: Constipation Docusate Sodium (Docusate Sodium 100 Mg Capsule) 200 mg PO DAILY [facility] Last Admin: 11/12/23 08:01 Dose: 200 mg Documented By: JOSEPHINE Melatonin (Melatonin 3 Mg Tablet) 6 mg PO BEDTIME PRN PRN Reason: Insomnia Last Admin: 11/06/23 23:03 Dose: 6 mg Documented By: GIL Melatonin (Melatonin 3 Mg Tablet) 3 mg PO BEDTIME PRN PRN Reason: Insomnia Last Admin: 11/06/23 23:03 Dose: 3 mg Documented By: GIL Multivitamins/Vitamin C (Multivitamin Tablet) 1 tab PO DAILY [facility] Last Admin: 11/12/23 08:01 Dose: 1 tab Documented By: JOSEPHINE Omeprazole (Omeprazole 20 Mg Capsule.) 20 mg PO DAILY@0630 [facility] Last Admin: 11/12/23 06:16 Dose: 20 mg Documented By: LAKHWINDER Ondansetron HCl (Ondansetron Hcl 4 Mg/2 Ml Vial) 4 mg IVPUSH Q8H PRN PRN Reason: Nausea and Vomiting Polyethylene Glycol (Polyethylene Glycol 3350 17 Gm Powd.Pack) 17 gm PO DAILY [facility] Last Admin: 11/12/23 08:01 Dose: Not Given Documented By: JOSEPHINE Non-Admin Reason: Patient Refused Senna/Docusate Sodium (Sennosides/Docusate Sodium Tablet) 1 tab PO BEDTIME [facility] Last Admin: 11/11/23 20:06 Dose: 1 tab Documented By: KATHRYN Sodium Chloride (0.9 % Sodium Chloride Flush 3 Ml Syringe) 3 ml IVFLUSH QSHIFT [facility] Last Admin: 11/12/23 08:00 Dose: Not Given Documented By: JOSEPHINE Non-Admin Reason: No Access Vitamin D (Cholecalciferol (Vitamin D3) 25 Mcg Tablet) 25 mcg PO DAILY [facility] Last Admin: 11/12/23 08:02 Dose: 25 mcg Documented By: JOSEPHINE Zinc Sulfate (Zinc Sulfate 220 Mg Capsule) 220 mg PO DAILY [facility] Last Admin: 11/12/23 08:01 Dose: 220 mg Documented By: JOSEPHINE Labs 11/07/23 05:54 11/07/23 05:54 Assessment and Plan (1) Morbid obesity: Status: Acute Plan 67yo F with HTN, HLD, arthritis, DVT on apixaban admitted for BRBPR and now awaiting placement.. no acute issues Painless BRBPR on admission, attributed to hemorrhoid, stercoral colitis or chronic colitis. Bleeding was self-limited and she refused endoscopy. No change in care routine lab (bmp, cbc)--2/ unremarkable Rt Knee pain chronic pain s/p steroid injection by ortho during this admit Continue Ultram prn OT/PT following hx DVT continue apixaban HTN amlodipine HLD statin Deep tissue injury of buttocks present on admission Wound Care following Bilateral Buttocks and Posterior Thighs - Off Load Pressure - Cleanse with PH balance spray or wipes, pat dry. Apply thin layer of Triad to wound bed - only pat and dab no scrub and rub when soiling occurs. Reapply thin layer PRN after each episode of incontinence. Morbid obesity. BMI 54.2 Discussed importance of weight management as this may be contributing to worsening of other comorbidities VTE ppx - apixaban dispo -need continued inpatient hospitalization for safe disposition STR recommended, manager of case arranging for safe placement . Quality Stroke Does the patient have a stroke diagnosis?: No VTE Prior VTE?: No VTE Risk Level:: Medical - moderate - high VTE Device Contraindication: N/A - Device Ordered VTE Drug Contraindication: Treatment Not Indicated
[2023-11-12 15:15] VITALS: BP 127/66; PULSE 91; RESP 17; TEMP 36.3; O2SAT 95
[2023-11-12 20:00] VITALS: BP 127/74; PULSE 93; RESP 14; TEMP 36.5; O2SAT 95
[2023-11-12] MEDS: Atorvastatin Calcium 20 MG TABLET PO (20:59)
[2023-11-12] MEDS: Sennosides/Docusate Sodium TABLET 1 TAB PO (20:59)
[2023-11-12] MEDS: Acetaminophen 325 MG TABLET 650 MG PO (21:04)
[2023-11-13 03:44] VITALS: BP 138/60; PULSE 82; RESP 14; TEMP 36.2; O2SAT 94
[2023-11-13] MEDS: Omeprazole 20 MG CAPSULE.DR PO (05:28)
[2023-11-13 07:13] VITALS: BP 141/90; PULSE 76; RESP 16; TEMP 36.1; O2SAT 95
[2023-11-13] MEDS: Multivitamin TABLET 1 TAB PO (08:46)
[2023-11-13] MEDS: amLODIPine Besylate 10 MG TABLET PO (08:46)
[2023-11-13] MEDS: Zinc Sulfate 220 MG CAPSULE PO (08:46)
[2023-11-13] MEDS: Docusate Sodium 100 MG CAPSULE 200 MG PO (08:46)
[2023-11-13] MEDS: Apixaban 5 MG TABLET PO ×2 (08:47→20:59)
[2023-11-13] MEDS: Cholecalciferol (Vitamin D3) 25 MCG TABLET PO (08:47)
--- NOTE | 2023-11-13 11:38 | HO.PM.IMPN ---
Subjective Subjective Date of Service: 11/13/23 Interval History: seen and examined this morning follow up for placement no overnight events no complaints this am. feeling well, tolerating diet, voiding without difficulty Review of Systems Review of Systems: Yes all other systems are reviewed and are negative Constitutional Constitutional: Denies chills and Denies fever(s) Cardiovascular Cardiovascular: Denies chest pain, Denies palpitations and Denies dyspnea Respiratory Respiratory: Denies cough and Denies dyspnea Gastrointestinal Gastrointestinal: Denies abdominal pain Endocrine Endocrine: Denies palpitations Physical Exam Vital Signs: Vital Signs: Last Vital Signs Temp 96.9 F 11/13/23 07:13 Pulse 76 11/13/23 07:13 Resp 16 11/13/23 07:13 BP 141/90 H 11/13/23 07:13 Pulse Ox 95 11/13/23 07:13 O2 Del Method Room Air 11/13/23 07:13 BMI result Body Mass Index 54.2 Const: General: cooperative, comfortable, no acute distress, alert and awake Nutritional Appearance: obese Orientation/consciousness: patient oriented x3 Resp: Effort & Inspection: normal respiratory effort, able to speak in complete sentences, no respiratory distress and no use of accessory muscles Cardio: Rate: regular rate GI: Inspection: No distended Palpation (GI): Soft to palpation and nontender Neuro: General: patient oriented x3, moves all extremities and CN's II-XI intact bilaterally Extrem: Other: chronic venous stasis changes lower extremities Objective Data Active Medications Acetaminophen (Acetaminophen 325 Mg Tablet) 650 mg PO Q6H PRN PRN Reason: Pain, Mild (Pain Scale 1-3) Last Admin: 11/12/23 21:04 Dose: 650 mg Documented By: GIL Amlodipine Besylate (Amlodipine Besylate 10 Mg Tablet) 10 mg PO DAILY [facility]; Protocol Last Admin: 11/13/23 08:46 Dose: 10 mg Documented By: ARLIN Apixaban (Apixaban 5 Mg Tablet) 5 mg PO BID [facility] Last Admin: 11/13/23 08:47 Dose: 5 mg Documented By: ARLIN Atorvastatin Calcium (Atorvastatin Calcium 20 Mg Tablet) 20 mg PO BEDTIME [facility] Last Admin: 11/12/23 20:59 Dose: 20 mg Documented By: GIL Bisacodyl (Bisacodyl 10 Mg Supp.Rect) [address] DAILY PRN PRN Reason: Constipation Docusate Sodium (Docusate Sodium 100 Mg Capsule) 200 mg PO DAILY [facility] Last Admin: 11/13/23 08:46 Dose: 200 mg Documented By: ARLIN Melatonin (Melatonin 3 Mg Tablet) 6 mg PO BEDTIME PRN PRN Reason: Insomnia Last Admin: 11/06/23 23:03 Dose: 6 mg Documented By: GIL Melatonin (Melatonin 3 Mg Tablet) 3 mg PO BEDTIME PRN PRN Reason: Insomnia Last Admin: 11/06/23 23:03 Dose: 3 mg Documented By: GIL Multivitamins/Vitamin C (Multivitamin Tablet) 1 tab PO DAILY [facility] Last Admin: 11/13/23 08:46 Dose: 1 tab Documented By: ARLIN Omeprazole (Omeprazole 20 Mg Capsule.Dr) 20 mg PO DAILY@0630 [facility] Last Admin: 11/13/23 05:28 Dose: 20 mg Documented By: LAKHWINDER Ondansetron HCl (Ondansetron Hcl 4 Mg/2 Ml Vial) 4 mg IVPUSH Q8H PRN PRN Reason: Nausea and Vomiting Polyethylene Glycol (Polyethylene Glycol 3350 17 Gm Powd.Pack) 17 gm PO DAILY [facility] Last Admin: 11/13/23 08:47 Dose: Not Given Documented By: ARLIN Non-Admin Reason: Patient Refused Senna/Docusate Sodium (Sennosides/Docusate Sodium Tablet) 1 tab PO BEDTIME [facility] Last Admin: 11/12/23 20:59 Dose: 1 tab Documented By: GIL Sodium Chloride (0.9 % Sodium Chloride Flush 3 Ml Syringe) 3 ml IVFLUSH QSHIFT [facility] Last Admin: 11/13/23 08:47 Dose: Not Given Documented By: ARLIN Non-Admin Reason: No Access Vitamin D (Cholecalciferol (Vitamin D3) 25 Mcg Tablet) 25 mcg PO DAILY [facility] Last Admin: 11/13/23 08:47 Dose: 25 mcg Documented By: ARLIN Zinc Sulfate (Zinc Sulfate 220 Mg Capsule) 220 mg PO DAILY [facility] Last Admin: 11/13/23 08:46 Dose: 220 mg Documented By: ARLIN Labs 11/07/23 05:54 11/07/23 05:54 Assessment and Plan (1) Morbid obesity: Status: Acute Plan 67yo F with HTN, HLD, arthritis, DVT on apixaban admitted for BRBPR and now awaiting placement.. no acute issues Painless BRBPR on admission, attributed to hemorrhoid, stercoral colitis or chronic colitis. Bleeding was self-limited and she refused endoscopy. No change in care routine lab (bmp, cbc)--2/5 unremarkable - check qweekly labs Rt Knee pain chronic pain s/p steroid injection by ortho during this admit Continue Ultram prn OT/PT following hx DVT continue apixaban HTN amlodipine HLD statin Deep tissue injury of buttocks present on admission Wound Care following Bilateral Buttocks and Posterior Thighs - Off Load Pressure - Cleanse with PH balance spray or wipes, pat dry. Apply thin layer of Triad to wound bed - only pat and dab no scrub and rub when soiling occurs. Reapply thin layer PRN after each episode of incontinence. Morbid obesity. BMI 54.2 Discussed importance of weight management as this may be contributing to worsening of other comorbidities VTE ppx - apixaban dispo -need continued inpatient hospitalization for safe disposition STR recommended, outpatient case manager arranging for safe placement . Quality Stroke Does the patient have a stroke diagnosis?: No VTE Prior VTE?: No VTE Risk Level:: Medical - moderate - high VTE Device Contraindication: N/A - Device Ordered VTE Drug Contraindication: Treatment Not Indicated
[2023-11-13 15:39] VITALS: BP 126/62; PULSE 85; RESP 18; TEMP 36.2; O2SAT 94
[2023-11-13 19:25] VITALS: BP 107/69; PULSE 95; RESP 18; TEMP 36.6; O2SAT 94
[2023-11-13] MEDS: Atorvastatin Calcium 20 MG TABLET PO (20:59)
[2023-11-13] MEDS: Sennosides/Docusate Sodium TABLET 1 TAB PO (20:59)
[2023-11-13] MEDS: Acetaminophen 325 MG TABLET 650 MG PO (23:38)
[2023-11-14 03:43] VITALS: BP 122/56; PULSE 81; RESP 18; TEMP 36.2; O2SAT 93
[2023-11-14] MEDS: Omeprazole 20 MG CAPSULE.DR PO (05:31)
[2023-11-14 05:59] LABS: Hematocrit 31.8 % (37.0-47.0); Hemoglobin 9.7 g/dl (12.0-16.0); Mean Corpuscular HGB Conc 30.5 g/dl (31.0-35.0); Mean Corpuscular Hemoglobin 26.4 pg (27.0-33.0); Mean Corpuscular Volume 86.4 fL (80.0-98.0); Mean Platelet Volume 11.2 fL (9.4-12.3); Platelet Count 206 X10*3/uL (160-400); Red Blood Count 3.68 X10*6/uL (4.20-5.50); Red Cell Distribution Width 13.9 % (11.0-16.0); White Blood Count 5.3 X10*3/uL (4.8-10.8)
[2023-11-14 06:15] LABS: Anion Gap 10 (12-20); Blood Urea Nitrogen 13 mg/dL (9-16); Calcium 8.8 mg/dL (8.4-10.2); Carbon Dioxide 29 mmol/L (22-29); Chloride 105 mmol/L (96-108); Creatinine Clr Calc Pharmacy 144.6; Estimated Glomerular Filt Rate > 60; Glucose Random 75 mg/dL (60-115); Potassium 4.4 mmol/L (3.3-5.1); Sodium 140 mmol/L (135-145)
[2023-11-14 07:02] VITALS: BP 152/80; PULSE 74; RESP 18; TEMP 36.1; O2SAT 96
[2023-11-14] MEDS: amLODIPine Besylate 10 MG TABLET PO (09:06)
[2023-11-14] MEDS: Multivitamin TABLET 1 TAB PO (09:06)
[2023-11-14] MEDS: Apixaban 5 MG TABLET PO ×2 (09:06→20:06)
[2023-11-14] MEDS: Docusate Sodium 100 MG CAPSULE 200 MG PO (09:07)
[2023-11-14] MEDS: Cholecalciferol (Vitamin D3) 25 MCG TABLET PO (09:07)
--- NOTE | 2023-11-14 09:26 | P.PNIM_ITS ---
Subjective Subjective Date of Service: 11/14/23 Interval History: follow up for placement no overnight events no complaints this am. feeling well, tolerating diet, voiding without difficulty Review of Systems Review of Systems: Yes all other systems are reviewed and are negative Constitutional Constitutional: Denies chills and Denies fever(s) Cardiovascular Cardiovascular: Denies chest pain, Denies palpitations and Denies dyspnea Respiratory Respiratory: Denies cough and Denies dyspnea Gastrointestinal Gastrointestinal: Denies abdominal pain Endocrine Endocrine: Denies palpitations Physical Exam 2 Vital Signs: Vital Signs: Last Vital Signs Temp 97 F 11/14/23 07:02 Pulse 74 11/14/23 07:02 Resp 18 11/14/23 07:02 BP 152/80 H 11/14/23 07:02 Pulse Ox 96 11/14/23 07:02 O2 Del Method Room Air 11/14/23 07:02 BMI result Body Mass Index 54.2 alert and oriented soft abd no neuro deficits Objective Data Active Medications Acetaminophen (Acetaminophen 325 Mg Tablet) 650 mg PO Q6H PRN PRN Reason: Pain, Mild (Pain Scale 1-3) Last Admin: 11/13/23 23:38 Dose: 650 mg Documented By: SOMMER Amlodipine Besylate (Amlodipine Besylate 10 Mg Tablet) 10 mg PO DAILY [facility]; Protocol Last Admin: 11/14/23 09:06 Dose: 10 mg Documented By: ISAURO Apixaban (Apixaban 5 Mg Tablet) 5 mg PO BID [facility] Last Admin: 11/14/23 09:06 Dose: 5 mg Documented By: ISAURO Atorvastatin Calcium (Atorvastatin Calcium 20 Mg Tablet) 20 mg PO BEDTIME [facility] Last Admin: 11/13/23 20:59 Dose: 20 mg Documented By: SOMMER Bisacodyl (Bisacodyl 10 Mg Supp.Rect) 10 mg [place] DAILY PRN PRN Reason: Constipation Docusate Sodium (Docusate Sodium 100 Mg Capsule) 200 mg PO DAILY [facility] Last Admin: 11/14/23 09:07 Dose: 200 mg Documented By: ISAURO Melatonin (Melatonin 3 Mg Tablet) 6 mg PO BEDTIME PRN PRN Reason: Insomnia Last Admin: 11/06/23 23:03 Dose: 6 mg Documented By: GIL Melatonin (Melatonin 3 Mg Tablet) 3 mg PO BEDTIME PRN PRN Reason: Insomnia Last Admin: 11/06/23 23:03 Dose: 3 mg Documented By: GIL Multivitamins/Vitamin C (Multivitamin Tablet) 1 tab PO DAILY [facility] Last Admin: 11/14/23 09:06 Dose: 1 tab Documented By: ISAURO Omeprazole (Omeprazole 20 Mg Capsule.) 20 mg PO DAILY@0630 [facility] Last Admin: 11/14/23 05:31 Dose: 20 mg Documented By: ODRISEyad Ondansetron HCl (Ondansetron Hcl 4 Mg/2 Ml Vial) 4 mg IVPUSH Q8H PRN PRN Reason: Nausea and Vomiting Polyethylene Glycol (Polyethylene Glycol 3350 17 Gm Powd.Pack) 17 gm PO DAILY [facility] Last Admin: 11/14/23 09:09 Dose: Not Given Documented By: ISAUOR Non-Admin Reason: Patient Refused Senna/Docusate Sodium (Sennosides/Docusate Sodium Tablet) 1 tab PO BEDTIME [facility] Last Admin: 11/13/23 20:59 Dose: 1 tab Documented By: SOMMER Sodium Chloride (0.9 % Sodium Chloride Flush 3 Ml Syringe) 3 ml IVFLUSH QSHIFT [facility] Last Admin: 11/14/23 09:09 Dose: Not Given Documented By: ISAURO Non-Admin Reason: No Access Tramadol HCl (Tramadol Hcl 50 Mg Tablet) 25 mg PO Q6H PRN PRN Reason: Pain, Moderate(Pain Scale 4-6) Vitamin D (Cholecalciferol (Vitamin D3) 25 Mcg Tablet) 25 mcg PO DAILY [facility] Last Admin: 11/14/23 09:07 Dose: 25 mcg Documented By: ISAURO Zinc Sulfate (Zinc Sulfate 220 Mg Capsule) 220 mg PO DAILY [facility] Last Admin: 11/13/23 08:46 Dose: 220 mg Documented By: MCGINNM Labs 11/14/23 04:08 11/14/23 04:08 Labs: Laboratory Results - last 24 hr 11/14/23 04:08 MCV 86.4 MCH 26.4 L MCHC 30.5 L RDW 13.9 Plt Count 206 D MPV 11.2 Absolute Nucleated RBC 0.000 Nucleated RBC % (auto) 0.0 Anion Gap 10 L Estim Creat Clear Calc 144.6 Estimated GFR > 60 Random Glucose 75 Calcium 8.8 Assessment and Plan (1) Morbid obesity: Status: Acute Plan 67yo F with HTN, HLD, arthritis, DVT on apixaban admitted for BRBPR and now awaiting placement.. no acute issues Painless BRBPR on admission attributed to hemorrhoid, stercoral colitis or chronic colitis. Bleeding was self-limited and she refused endoscopy. No change in care check qweekly labs Rt Knee pain chronic pain s/p steroid injection by ortho during this admit Continue Ultram prn OT/PT following hx DVT continue apixaban HTN amlodipine HLD statin Deep tissue injury of buttocks present on admission Wound Care following Bilateral Buttocks and Posterior Thighs - Off Load Pressure - Cleanse with PH balance spray or wipes, pat dry. Apply thin layer of Triad to wound bed - only pat and dab no scrub and rub when soiling occurs. Reapply thin layer PRN after each episode of incontinence. Morbid obesity. BMI 54.2 Discussed importance of weight management as this may be contributing to worsening of other comorbidities VTE ppx - apixaban Attending Dr. Mariscal dispo -need continued inpatient hospitalization for safe disposition STR recommended, major case detective arranging for safe placement . Quality Stroke Does the patient have a stroke diagnosis?: No VTE Prior VTE?: No VTE Risk Level:: Medical - moderate - high VTE Device Contraindication: N/A - Device Ordered VTE Drug Contraindication: Treatment Not Indicated
[2023-11-14] MEDS: traMADoL HCL 50 MG TABLET 25 MG PO ×2 (09:41→19:19)
[2023-11-14] MEDS: Zinc Sulfate 220 MG CAPSULE PO (09:41)
[2023-11-14 13:08] VITALS: BP 152/80; PULSE 74; O2SAT 96
[2023-11-14 15:06] VITALS: BP 115/82; PULSE 94; RESP 18; TEMP 36; O2SAT 95
[2023-11-14 19:47] VITALS: BP 126/89; PULSE 88; RESP 16; TEMP 36.3; O2SAT 93
[2023-11-14] MEDS: Atorvastatin Calcium 20 MG TABLET PO (20:06)
[2023-11-14] MEDS: Sennosides/Docusate Sodium TABLET 1 TAB PO (20:06)
[2023-11-15 04:00] VITALS: BP 110/74; PULSE 62; RESP 18; TEMP 36.3; O2SAT 96
[2023-11-15] MEDS: Omeprazole 20 MG CAPSULE.DR PO (05:51)
--- NOTE | 2023-11-15 07:21 | P.PNIM_ITS ---
Subjective Subjective Date of Service: 11/15/23 Interval History: follow up for placement no overnight events no complaints this am. feeling well, tolerating diet, voiding without difficulty Review of Systems Review of Systems: Yes all other systems are reviewed and are negative Constitutional Constitutional: Denies chills and Denies fever(s) Cardiovascular Cardiovascular: Denies chest pain, Denies palpitations and Denies dyspnea Respiratory Respiratory: Denies cough and Denies dyspnea Gastrointestinal Gastrointestinal: Denies abdominal pain Endocrine Endocrine: Denies palpitations Physical Exam 2 Vital Signs: Vital Signs: Last Vital Signs Temp 97.4 F 11/15/23 04:00 Pulse 62 11/15/23 04:00 Resp 18 11/15/23 04:00 BP 110/74 11/15/23 04:00 Pulse Ox 96 11/15/23 04:00 O2 Del Method Room Air 11/15/23 04:00 BMI result Body Mass Index 54.2 alert and oriented LSCTA abd soft Objective Data Active Medications Acetaminophen (Acetaminophen 325 Mg Tablet) 650 mg PO Q6H PRN PRN Reason: Pain, Mild (Pain Scale 1-3) Last Admin: 11/13/23 23:38 Dose: 650 mg Documented By: SOMMER Amlodipine Besylate (Amlodipine Besylate 10 Mg Tablet) 10 mg PO DAILY [facility]; Protocol Last Admin: 11/14/23 09:06 Dose: 10 mg Documented By: ISAURO Apixaban (Apixaban 5 Mg Tablet) 5 mg PO BID [facility] Last Admin: 11/14/23 20:06 Dose: 5 mg Documented By: ARNOLD Atorvastatin Calcium (Atorvastatin Calcium 20 Mg Tablet) 20 mg PO BEDTIME [facility] Last Admin: 11/14/23 20:06 Dose: 20 mg Documented By: ARNOLD Bisacodyl (Bisacodyl 10 Mg Supp.Rect) 10 mg [place] DAILY PRN PRN Reason: Constipation Docusate Sodium (Docusate Sodium 100 Mg Capsule) 200 mg PO DAILY [facility] Last Admin: 11/14/23 09:07 Dose: 200 mg Documented By: ISAURO Melatonin (Melatonin 3 Mg Tablet) 6 mg PO BEDTIME PRN PRN Reason: Insomnia Last Admin: 11/06/23 23:03 Dose: 6 mg Documented By: GIL Melatonin (Melatonin 3 Mg Tablet) 3 mg PO BEDTIME PRN PRN Reason: Insomnia Last Admin: 11/06/23 23:03 Dose: 3 mg Documented By: GIL Multivitamins/Vitamin C (Multivitamin Tablet) 1 tab PO DAILY [facility] Last Admin: 11/14/23 09:06 Dose: 1 tab Documented By: ISAURO Omeprazole (Omeprazole 20 Mg Capsule.) 20 mg PO DAILY@0630 [facility] Last Admin: 11/15/23 05:51 Dose: 20 mg Documented By: ARNOLD Ondansetron HCl (Ondansetron Hcl 4 Mg/2 Ml Vial) 4 mg IVPUSH Q8H PRN PRN Reason: Nausea and Vomiting Polyethylene Glycol (Polyethylene Glycol 3350 17 Gm Powd.Pack) 17 gm PO DAILY [facility] Last Admin: 11/14/23 09:09 Dose: Not Given Documented By: ISAURO Non-Admin Reason: Patient Refused Senna/Docusate Sodium (Sennosides/Docusate Sodium Tablet) 1 tab PO BEDTIME [facility] Last Admin: 11/14/23 20:06 Dose: 1 tab Documented By: ARNOLD Sodium Chloride (0.9 % Sodium Chloride Flush 3 Ml Syringe) 3 ml IVFLUSH QSHIFT [facility] Last Admin: 11/15/23 01:09 Dose: Not Given Documented By: ARNOLD Non-Admin Reason: No Access Tramadol HCl (Tramadol Hcl 50 Mg Tablet) 25 mg PO Q6H PRN PRN Reason: Pain, Moderate(Pain Scale 4-6) Last Admin: 11/14/23 19:19 Dose: 25 mg Documented By: ARNOLD Vitamin D (Cholecalciferol (Vitamin D3) 25 Mcg Tablet) 25 mcg PO DAILY [facility] Last Admin: 11/14/23 09:07 Dose: 25 mcg Documented By: ISAURO Zinc Sulfate (Zinc Sulfate 220 Mg Capsule) 220 mg PO DAILY [facility] Last Admin: 11/14/23 09:41 Dose: 220 mg Documented By: ISAURO Labs 11/14/23 04:08 11/14/23 04:08 Assessment and Plan (1) Morbid obesity: Status: Acute Plan 67yo F with HTN, HLD, arthritis, DVT on apixaban admitted for BRBPR and now awaiting placement.. no acute issues Painless BRBPR on admission attributed to hemorrhoid, stercoral colitis or chronic colitis. Bleeding was self-limited and she refused endoscopy. No change in care check qweekly labs Rt Knee pain chronic pain s/p steroid injection by ortho during this admit Continue Ultram prn OT/PT following hx DVT continue apixaban HTN amlodipine HLD statin Deep tissue injury of buttocks present on admission Wound Care following Bilateral Buttocks and Posterior Thighs - Off Load Pressure - Cleanse with PH balance spray or wipes, pat dry. Apply thin layer of Triad to wound bed - only pat and dab no scrub and rub when soiling occurs. Reapply thin layer PRN after each episode of incontinence. Morbid obesity. BMI 54.2 Discussed importance of weight management as this may be contributing to worsening of other comorbidities VTE ppx - apixaban Attending Dr. Mariscal dispo -need continued inpatient hospitalization for safe disposition STR recommended, case management manager arranging for safe placement . Quality Stroke Does the patient have a stroke diagnosis?: No VTE Prior VTE?: No VTE Risk Level:: Medical - moderate - high VTE Device Contraindication: N/A - Device Ordered VTE Drug Contraindication: Treatment Not Indicated
[2023-11-15 07:54] VITALS: BP 141/80; PULSE 79; RESP 18; TEMP 36.8; O2SAT 93
[2023-11-15] MEDS: Apixaban 5 MG TABLET PO ×2 (08:36→20:44)
[2023-11-15] MEDS: Zinc Sulfate 220 MG CAPSULE PO (08:36)
[2023-11-15] MEDS: Docusate Sodium 100 MG CAPSULE 200 MG PO (08:36)
[2023-11-15] MEDS: amLODIPine Besylate 10 MG TABLET PO (08:37)
[2023-11-15] MEDS: Cholecalciferol (Vitamin D3) 25 MCG TABLET PO (08:37)
[2023-11-15] MEDS: Acetaminophen 325 MG TABLET 650 MG PO ×2 (08:37→18:19)
[2023-11-15] MEDS: traMADoL HCL 50 MG TABLET 25 MG PO ×2 (08:37→18:18)
[2023-11-15] MEDS: Multivitamin TABLET 1 TAB PO (08:37)
[2023-11-15 15:06] VITALS: BP 130/74; PULSE 90; RESP 18; TEMP 36.1; O2SAT 94
[2023-11-15 19:53] VITALS: BP 119/67; PULSE 78; RESP 18; TEMP 37.1; O2SAT 97
[2023-11-15] MEDS: Atorvastatin Calcium 20 MG TABLET PO (20:44)
[2023-11-15] MEDS: Sennosides/Docusate Sodium TABLET 1 TAB PO (20:44)
[2023-11-16 03:15] VITALS: BP 147/56; PULSE 89; RESP 19; TEMP 36.7; O2SAT 97
[2023-11-16] MEDS: Omeprazole 20 MG CAPSULE.DR PO (06:01)
[2023-11-16 08:00] VITALS: BP 136/64; PULSE 78; RESP 18; TEMP 36.8; O2SAT 96
--- NOTE | 2023-11-16 08:50 | HO.PM.IMPN ---
Subjective Subjective Date of Service: 11/16/23 Interval History: follow up for placement Patient doing well no c/o pain or discomfort Review of Systems Review of Systems: Yes all other systems are reviewed and are negative Constitutional Constitutional: Denies chills and Denies fever(s) Cardiovascular Cardiovascular: Denies chest pain, Denies palpitations and Denies dyspnea Respiratory Respiratory: Denies cough and Denies dyspnea Gastrointestinal Gastrointestinal: Denies abdominal pain Endocrine Endocrine: Denies palpitations Physical Exam Vital Signs: Vital Signs: Last Vital Signs Temp 98.3 F 11/16/23 08:00 Pulse 78 11/16/23 08:00 Resp 18 11/16/23 08:00 BP 136/64 11/16/23 08:00 Pulse Ox 96 11/16/23 08:00 O2 Del Method Room Air 11/16/23 08:00 BMI result Body Mass Index 54.2 alert and oriented LSCTA abd soft Objective Data Active Medications Acetaminophen (Acetaminophen 325 Mg Tablet) 650 mg PO Q6H PRN PRN Reason: Pain, Mild (Pain Scale 1-3) Last Admin: 11/15/23 18:19 Dose: 650 mg Documented By: MJ Amlodipine Besylate (Amlodipine Besylate 10 Mg Tablet) 10 mg PO DAILY [facility]; Protocol Last Admin: 11/15/23 08:37 Dose: 10 mg Documented By: MJ Apixaban (Apixaban 5 Mg Tablet) 5 mg PO BID [facility] Last Admin: 11/15/23 20:44 Dose: 5 mg Documented By: SUZANNA Atorvastatin Calcium (Atorvastatin Calcium 20 Mg Tablet) 20 mg PO BEDTIME [facility] Last Admin: 11/15/23 20:44 Dose: 20 mg Documented By: SUZANNA Bisacodyl (Bisacodyl 10 Mg Supp.Rect) [address] DAILY PRN PRN Reason: Constipation Docusate Sodium (Docusate Sodium 100 Mg Capsule) 200 mg PO DAILY [facility] Last Admin: 11/15/23 08:36 Dose: 200 mg Documented By: MJ Melatonin (Melatonin 3 Mg Tablet) 6 mg PO BEDTIME PRN PRN Reason: Insomnia Last Admin: 11/06/23 23:03 Dose: 6 mg Documented By: GIL Melatonin (Melatonin 3 Mg Tablet) 3 mg PO BEDTIME PRN PRN Reason: Insomnia Last Admin: 11/06/23 23:03 Dose: 3 mg Documented By: GIL Multivitamins/Vitamin C (Multivitamin Tablet) 1 tab PO DAILY [facility] Last Admin: 11/15/23 08:37 Dose: 1 tab Documented By: MJ Omeprazole (Omeprazole 20 Mg Capsule.) 20 mg PO DAILY@0630 [facility] Last Admin: 11/16/23 06:01 Dose: 20 mg Documented By: SUZANNA Ondansetron HCl (Ondansetron Hcl 4 Mg/2 Ml Vial) 4 mg IVPUSH Q8H PRN PRN Reason: Nausea and Vomiting Polyethylene Glycol (Polyethylene Glycol 3350 17 Gm Powd.Pack) 17 gm PO DAILY [facility] Last Admin: 11/15/23 08:38 Dose: Not Given Documented By: MJ Non-Admin Reason: Patient Refused Senna/Docusate Sodium (Sennosides/Docusate Sodium Tablet) 1 tab PO BEDTIME [facility] Last Admin: 11/15/23 20:44 Dose: 1 tab Documented By: SUZANNA Sodium Chloride (0.9 % Sodium Chloride Flush 3 Ml Syringe) 3 ml IVFLUSH QSHIFT [facility] Last Admin: 11/16/23 00:04 Dose: Not Given Documented By: SUZANNA Non-Admin Reason: No Access Tramadol HCl (Tramadol Hcl 50 Mg Tablet) 25 mg PO Q6H PRN PRN Reason: Pain, Moderate(Pain Scale 4-6) Last Admin: 11/15/23 18:18 Dose: 25 mg Documented By: MJ Vitamin D (Cholecalciferol (Vitamin D3) 25 Mcg Tablet) 25 mcg PO DAILY [facility] Last Admin: 11/15/23 08:37 Dose: 25 mcg Documented By: MJ Zinc Sulfate (Zinc Sulfate 220 Mg Capsule) 220 mg PO DAILY [facility] Last Admin: 11/15/23 08:36 Dose: 220 mg Documented By: MJ Labs 11/14/23 04:08 11/14/23 04:08 Assessment and Plan (1) Morbid obesity: Status: Acute Plan 67 year old women with HTN, HLD, arthritis, DVT on apixaban admitted for BRBPR and now awaiting placement Painless BRBPR on admission. Resolved attributed to hemorrhoid, stercoral colitis or chronic colitis. Bleeding was self-limited and she refused endoscopy. No change in care check qweekly labs Rt Knee pain chronic pain s/p steroid injection by ortho during this admit Continue Ultram prn OT/PT following hx DVT continue apixaban HTN amlodipine HLD statin Deep tissue injury of buttocks present on admission Wound Care following Bilateral Buttocks and Posterior Thighs - Off Load Pressure - Cleanse with PH balance spray or wipes, pat dry. Apply thin layer of Triad to wound bed - only pat and dab no scrub and rub when soiling occurs. Reapply thin layer PRN after each episode of incontinence. Morbid obesity. BMI 54.2 Discussed importance of weight management as this may be contributing to worsening of other comorbidities VTE ppx - apixaban Attending Dr. Mariscal dispo -need continued inpatient hospitalization for safe disposition STR recommended, patient case coordinator arranging for safe placement . Quality Stroke Does the patient have a stroke diagnosis?: No VTE Prior VTE?: No VTE Risk Level:: Medical - moderate - high VTE Device Contraindication: N/A - Device Ordered VTE Drug Contraindication: Treatment Not Indicated
[2023-11-16] MEDS: Zinc Sulfate 220 MG CAPSULE PO (09:36)
[2023-11-16] MEDS: Cholecalciferol (Vitamin D3) 25 MCG TABLET PO (09:36)
[2023-11-16] MEDS: amLODIPine Besylate 10 MG TABLET PO (09:36)
[2023-11-16] MEDS: Multivitamin TABLET 1 TAB PO (09:36)
[2023-11-16] MEDS: Apixaban 5 MG TABLET PO ×2 (09:36→20:37)
[2023-11-16] MEDS: Docusate Sodium 100 MG CAPSULE 200 MG PO (09:37)
[2023-11-16] MEDS: traMADoL HCL 50 MG TABLET 25 MG PO (09:46)
[2023-11-16 15:38] VITALS: BP 116/67; PULSE 84; RESP 18; TEMP 36.3; O2SAT 95
[2023-11-16 19:09] VITALS: BP 124/73; PULSE 95; RESP 18; TEMP 36.5; O2SAT 94
[2023-11-16] MEDS: Sennosides/Docusate Sodium TABLET 1 TAB PO (20:37)
[2023-11-16] MEDS: Atorvastatin Calcium 20 MG TABLET PO (20:37)
[2023-11-16] MEDS: Acetaminophen 325 MG TABLET 650 MG PO (20:44)
[2023-11-17 03:32] VITALS: BP 120/71; PULSE 86; RESP 16; TEMP 36.8; O2SAT 93
[2023-11-17] MEDS: Omeprazole 20 MG CAPSULE.DR PO (06:16)
[2023-11-17 07:57] VITALS: BP 137/62; PULSE 87; RESP 16; TEMP 36.6; O2SAT 96
[2023-11-17] MEDS: Docusate Sodium 100 MG CAPSULE 200 MG PO (08:52)
[2023-11-17] MEDS: traMADoL HCL 50 MG TABLET 25 MG PO (08:52)
[2023-11-17] MEDS: Cholecalciferol (Vitamin D3) 25 MCG TABLET PO (08:52)
[2023-11-17] MEDS: Apixaban 5 MG TABLET PO ×2 (08:53→21:09)
[2023-11-17] MEDS: Multivitamin TABLET 1 TAB PO (08:53)
[2023-11-17] MEDS: Zinc Sulfate 220 MG CAPSULE PO (08:53)
[2023-11-17] MEDS: amLODIPine Besylate 10 MG TABLET PO (08:53)
[2023-11-17 14:54] VITALS: BP 122/76; PULSE 87; RESP 18; TEMP 36.4; O2SAT 94
--- NOTE | 2023-11-17 17:05 | HO.PM.IMPN ---
Subjective Subjective Date of Service: 11/17/23 Interval History: seen and examined this morning follow up for placement no overnight events no specific complaints, feeling well this am Review of Systems Review of Systems: Yes all other systems are reviewed and are negative Constitutional Constitutional: Denies chills and Denies fever(s) Cardiovascular Cardiovascular: Denies chest pain, Denies palpitations and Denies dyspnea Respiratory Respiratory: Denies cough and Denies dyspnea Gastrointestinal Gastrointestinal: Denies abdominal pain, Denies nausea and Denies vomiting Endocrine Endocrine: Denies palpitations Physical Exam Vital Signs: Vital Signs: Last Vital Signs Temp 97.6 F 11/17/23 14:54 Pulse 87 11/17/23 14:54 Resp 18 11/17/23 14:54 BP 122/76 11/17/23 14:54 Pulse Ox 94 11/17/23 14:54 O2 Del Method Room Air 11/17/23 14:54 BMI result Body Mass Index 54.2 Const: General: cooperative, comfortable, no acute distress, alert and awake Nutritional Appearance: obese Orientation/consciousness: patient oriented x3 Resp: Effort & Inspection: normal respiratory effort, able to speak in complete sentences, no respiratory distress and no use of accessory muscles Cardio: Rate: regular rate GI: Inspection: No distended Palpation (GI): Soft to palpation and nontender Neuro: General: patient oriented x3, moves all extremities and CN's II-XI intact bilaterally Extrem: Other: chronic venous stasis changes lower extremities Objective Data Active Medications Acetaminophen (Acetaminophen 325 Mg Tablet) 650 mg PO Q6H PRN PRN Reason: Pain, Mild (Pain Scale 1-3) Last Admin: 11/16/23 20:44 Dose: 650 mg Documented By: GIL Amlodipine Besylate (Amlodipine Besylate 10 Mg Tablet) 10 mg PO DAILY [facility]; Protocol Last Admin: 11/17/23 08:53 Dose: 10 mg Documented By: ADDY Apixaban (Apixaban 5 Mg Tablet) 5 mg PO BID [facility] Last Admin: 11/17/23 08:53 Dose: 5 mg Documented By: ADDY Atorvastatin Calcium (Atorvastatin Calcium 20 Mg Tablet) 20 mg PO BEDTIME [facility] Last Admin: 11/16/23 20:37 Dose: 20 mg Documented By: GIL Bisacodyl (Bisacodyl 10 Mg Supp.Rect) 10 mg [place] DAILY PRN PRN Reason: Constipation Docusate Sodium (Docusate Sodium 100 Mg Capsule) 200 mg PO DAILY [facility] Last Admin: 11/17/23 08:52 Dose: 200 mg Documented By: ADDY Melatonin (Melatonin 3 Mg Tablet) 6 mg PO BEDTIME PRN PRN Reason: Insomnia Last Admin: 11/06/23 23:03 Dose: 6 mg Documented By: GIL Melatonin (Melatonin 3 Mg Tablet) 3 mg PO BEDTIME PRN PRN Reason: Insomnia Last Admin: 11/06/23 23:03 Dose: 3 mg Documented By: GIL Multivitamins/Vitamin C (Multivitamin Tablet) 1 tab PO DAILY [facility] Last Admin: 11/17/23 08:53 Dose: 1 tab Documented By: ADDY Omeprazole (Omeprazole 20 Mg Capsule.Dr) 20 mg PO DAILY@0630 [facility] Last Admin: 11/17/23 06:16 Dose: 20 mg Documented By: GIL Ondansetron HCl (Ondansetron Hcl 4 Mg/2 Ml Vial) 4 mg IVPUSH Q8H PRN PRN Reason: Nausea and Vomiting Polyethylene Glycol (Polyethylene Glycol 3350 17 Gm Powd.Pack) 17 gm PO DAILY [facility] Last Admin: 11/17/23 08:54 Dose: Not Given Documented By: ADDY Non-Admin Reason: Patient Refused Senna/Docusate Sodium (Sennosides/Docusate Sodium Tablet) 1 tab PO BEDTIME [facility] Last Admin: 11/16/23 20:37 Dose: 1 tab Documented By: GIL Sodium Chloride (0.9 % Sodium Chloride Flush 3 Ml Syringe) 3 ml IVFLUSH QSHIFT [facility] Last Admin: 11/17/23 15:22 Dose: Not Given Documented By: ADDY Non-Admin Reason: No IV Access Tramadol HCl (Tramadol Hcl 50 Mg Tablet) 25 mg PO Q6H PRN PRN Reason: Pain, Moderate(Pain Scale 4-6) Last Admin: 11/17/23 08:52 Dose: 25 mg Documented By: ADDY Vitamin D (Cholecalciferol (Vitamin D3) 25 Mcg Tablet) 25 mcg PO DAILY [facility] Last Admin: 11/17/23 08:52 Dose: 25 mcg Documented By: HO.JERUSIA Zinc Sulfate (Zinc Sulfate 220 Mg Capsule) 220 mg PO DAILY [facility] Last Admin: 11/17/23 08:53 Dose: 220 mg Documented By: ADDY Labs 11/14/23 04:08 11/14/23 04:08 Assessment and Plan (1) Morbid obesity: Status: Acute Plan 67 year old women with HTN, HLD, arthritis, DVT on apixaban admitted for BRBPR and now awaiting placement Painless BRBPR on admission. Resolved attributed to hemorrhoid, stercoral colitis or chronic colitis. Bleeding was self-limited and she refused endoscopy. No change in care check qweekly labs Rt Knee pain chronic pain s/p steroid injection by ortho during this admit Continue Ultram prn OT/PT following hx DVT continue apixaban HTN amlodipine HLD statin Deep tissue injury of buttocks present on admission Wound Care following Bilateral Buttocks and Posterior Thighs - Off Load Pressure - Cleanse with PH balance spray or wipes, pat dry. Apply thin layer of Triad to wound bed - only pat and dab no scrub and rub when soiling occurs. Reapply thin layer PRN after each episode of incontinence. Morbid obesity. BMI 54.2 Discussed importance of weight management as this may be contributing to worsening of other comorbidities VTE ppx - apixaban Attending Dr. Mariscal dispo -need continued inpatient hospitalization for safe disposition STR recommended, pillowcase folder arranging for safe placement . Quality Stroke Does the patient have a stroke diagnosis?: No VTE Prior VTE?: No VTE Risk Level:: Medical - moderate - high VTE Device Contraindication: N/A - Device Ordered VTE Drug Contraindication: Treatment Not Indicated
[2023-11-17 19:35] VITALS: BP 100/70; PULSE 97; RESP 18; TEMP 36.2; O2SAT 95
[2023-11-17] MEDS: Sennosides/Docusate Sodium TABLET 1 TAB PO (21:09)
[2023-11-17] MEDS: Acetaminophen 325 MG TABLET 650 MG PO (21:09)
[2023-11-17] MEDS: Atorvastatin Calcium 20 MG TABLET PO (21:09)
[2023-11-17] MEDS: Melatonin 3 MG TABLET 6 MG PO (22:55)
[2023-11-18 04:00] VITALS: BP 137/79; PULSE 77; RESP 16; TEMP 36.6; O2SAT 96
[2023-11-18] MEDS: Omeprazole 20 MG CAPSULE.DR PO (06:15)
[2023-11-18 07:55] VITALS: BP 139/71; PULSE 71; RESP 20; TEMP 36.8; O2SAT 95
[2023-11-18] MEDS: Cholecalciferol (Vitamin D3) 25 MCG TABLET PO (09:06)
[2023-11-18] MEDS: amLODIPine Besylate 10 MG TABLET PO (09:06)
[2023-11-18] MEDS: Apixaban 5 MG TABLET PO ×2 (09:06→20:44)
[2023-11-18] MEDS: Multivitamin TABLET 1 TAB PO (09:06)
[2023-11-18] MEDS: Zinc Sulfate 220 MG CAPSULE PO (09:06)
[2023-11-18] MEDS: Docusate Sodium 100 MG CAPSULE 200 MG PO (09:06)
[2023-11-18] MEDS: traMADoL HCL 50 MG TABLET 25 MG PO (09:17)
[2023-11-18 15:27] VITALS: BP 123/76; PULSE 86; RESP 18; TEMP 36.2; O2SAT 93
--- NOTE | 2023-11-18 15:56 | MHC.CM.PN ---
pt is ready for dc awaitng [employer] schuyler
--- NOTE | 2023-11-18 17:08 | P.PNIM_ITS ---
Subjective Subjective Date of Service: 11/18/23 Interval History: seen and examined this morning follow up for placement no overnight events no complaints Review of Systems Review of Systems: Yes all other systems are reviewed and are negative Constitutional Constitutional: Denies chills and Denies fever(s) Cardiovascular Cardiovascular: Denies chest pain, Denies palpitations and Denies dyspnea Respiratory Respiratory: Denies cough and Denies dyspnea Gastrointestinal Gastrointestinal: Denies abdominal pain Endocrine Endocrine: Denies palpitations Physical Exam 2 Vital Signs: Vital Signs: Last Vital Signs Temp 97.2 F 11/18/23 15:27 Pulse 86 11/18/23 15:27 Resp 18 11/18/23 15:27 BP 123/76 11/18/23 15:27 Pulse Ox 93 11/18/23 15:27 O2 Del Method Room Air 11/18/23 15:27 BMI result Body Mass Index 54.2 Const: General: cooperative, comfortable, no acute distress, alert and awake Nutritional Appearance: obese Orientation/consciousness: patient oriented x3 Resp: Effort & Inspection: normal respiratory effort, able to speak in complete sentences, no respiratory distress and no use of accessory muscles Cardio: Rate: regular rate GI: Inspection: No distended Palpation (GI): Soft to palpation and nontender Neuro: General: patient oriented x3, moves all extremities and CN's II-XI intact bilaterally Extrem: Other: chronic venous stasis changes lower extremities Objective Data Active Medications Acetaminophen (Acetaminophen 325 Mg Tablet) 650 mg PO Q6H PRN PRN Reason: Pain, Mild (Pain Scale 1-3) Last Admin: 11/17/23 21:09 Dose: 650 mg Documented By: GIL Amlodipine Besylate (Amlodipine Besylate 10 Mg Tablet) 10 mg PO DAILY [facility]; Protocol Last Admin: 11/18/23 09:06 Dose: 10 mg Documented By: KATHARINA Apixaban (Apixaban 5 Mg Tablet) 5 mg PO BID [facility] Last Admin: 11/18/23 09:06 Dose: 5 mg Documented By: KATHARINA Atorvastatin Calcium (Atorvastatin Calcium 20 Mg Tablet) 20 mg PO BEDTIME [facility] Last Admin: 11/17/23 21:09 Dose: 20 mg Documented By: GIL Bisacodyl (Bisacodyl 10 Mg Supp.Rect) 10 mg [place] DAILY PRN PRN Reason: Constipation Docusate Sodium (Docusate Sodium 100 Mg Capsule) 200 mg PO DAILY [facility] Last Admin: 11/18/23 09:06 Dose: 200 mg Documented By: KATHARINA Melatonin (Melatonin 3 Mg Tablet) 6 mg PO BEDTIME PRN PRN Reason: Insomnia Last Admin: 11/17/23 22:55 Dose: 6 mg Documented By: GIL Melatonin (Melatonin 3 Mg Tablet) 3 mg PO BEDTIME PRN PRN Reason: Insomnia Last Admin: 11/06/23 23:03 Dose: 3 mg Documented By: GIL Multivitamins/Vitamin C (Multivitamin Tablet) 1 tab PO DAILY [facility] Last Admin: 11/18/23 09:06 Dose: 1 tab Documented By: KATHARINA Omeprazole (Omeprazole 20 Mg Capsule.) 20 mg PO DAILY@0630 [facility] Last Admin: 11/18/23 06:15 Dose: 20 mg Documented By: GIL Ondansetron HCl (Ondansetron Hcl 4 Mg/2 Ml Vial) 4 mg IVPUSH Q8H PRN PRN Reason: Nausea and Vomiting Polyethylene Glycol (Polyethylene Glycol 3350 17 Gm Powd.Pack) 17 gm PO DAILY [facility] Last Admin: 11/18/23 09:06 Dose: Not Given Documented By: KATHARINA Non-Admin Reason: Patient Refused Senna/Docusate Sodium (Sennosides/Docusate Sodium Tablet) 1 tab PO BEDTIME [facility] Last Admin: 11/17/23 21:09 Dose: 1 tab Documented By: GIL Sodium Chloride (0.9 % Sodium Chloride Flush 3 Ml Syringe) 3 ml IVFLUSH QSHIFT [facility] Last Admin: 11/18/23 15:41 Dose: Not Given Documented By: KATHARINA Non-Admin Reason: No Access Tramadol HCl (Tramadol Hcl 50 Mg Tablet) 25 mg PO Q6H PRN PRN Reason: Pain, Moderate(Pain Scale 4-6) Last Admin: 11/18/23 09:17 Dose: 25 mg Documented By: KATHARINA Vitamin D (Cholecalciferol (Vitamin D3) 25 Mcg Tablet) 25 mcg PO DAILY [facility] Last Admin: 11/18/23 09:06 Dose: 25 mcg Documented By: KATHARINA Zinc Sulfate (Zinc Sulfate 220 Mg Capsule) 220 mg PO DAILY [facility] Last Admin: 02/16/24 09:06 Dose: 220 mg Documented By: KATHARINA Labs 11/14/23 04:08 11/14/23 04:08 Assessment and Plan (1) Morbid obesity: Status: Acute Plan 67 year old women with HTN, HLD, arthritis, DVT on apixaban admitted for BRBPR and now awaiting placement Painless BRBPR on admission. Resolved attributed to hemorrhoid, stercoral colitis or chronic colitis. Bleeding was self-limited and she refused endoscopy. No change in care check qweekly labs Rt Knee pain chronic pain s/p steroid injection by ortho during this admit Continue Ultram prn OT/PT following hx DVT continue apixaban HTN amlodipine HLD statin Deep tissue injury of buttocks present on admission Wound Care following Bilateral Buttocks and Posterior Thighs - Off Load Pressure - Cleanse with PH balance spray or wipes, pat dry. Apply thin layer of Triad to wound bed - only pat and dab no scrub and rub when soiling occurs. Reapply thin layer PRN after each episode of incontinence. Morbid obesity. BMI 54.2 Discussed importance of weight management as this may be contributing to worsening of other comorbidities VTE ppx - apixaban Attending Dr. Mariscal dispo -need continued inpatient hospitalization for safe disposition STR recommended, disease case manager arranging for safe placement . Quality Stroke Does the patient have a stroke diagnosis?: No VTE Prior VTE?: No VTE Risk Level:: Medical - moderate - high VTE Device Contraindication: N/A - Device Ordered VTE Drug Contraindication: Treatment Not Indicated
[2023-11-18 19:45] VITALS: BP 120/63; PULSE 92; RESP 18; TEMP 36.5; O2SAT 93
[2023-11-18] MEDS: Acetaminophen 325 MG TABLET 650 MG PO (20:43)
[2023-11-18] MEDS: Sennosides/Docusate Sodium TABLET 1 TAB PO (20:44)
[2023-11-18] MEDS: Atorvastatin Calcium 20 MG TABLET PO (20:44)
[2023-11-19 02:59] VITALS: BP 113/71; PULSE 81; RESP 16; TEMP 36.2; O2SAT 94
[2023-11-19] MEDS: Omeprazole 20 MG CAPSULE.DR PO (06:36)
[2023-11-19 08:00] VITALS: BP 138/65; PULSE 77; RESP 17; TEMP 36.8; O2SAT 95
[2023-11-19] MEDS: amLODIPine Besylate 10 MG TABLET PO (09:42)
[2023-11-19] MEDS: Zinc Sulfate 220 MG CAPSULE PO (09:42)
[2023-11-19] MEDS: Docusate Sodium 100 MG CAPSULE 200 MG PO (09:42)
[2023-11-19] MEDS: Apixaban 5 MG TABLET PO ×2 (09:42→20:38)
[2023-11-19] MEDS: Cholecalciferol (Vitamin D3) 25 MCG TABLET PO (09:42)
[2023-11-19] MEDS: Multivitamin TABLET 1 TAB PO (09:42)
--- NOTE | 2023-11-19 10:25 | P.PNIM_ITS ---
Subjective Subjective Date of Service: 11/19/23 Interval History: seen and examined this morning follow up for placement no overnight events no complaints Review of Systems Review of Systems: Yes all other systems are reviewed and are negative Constitutional Constitutional: Denies chills and Denies fever(s) Cardiovascular Cardiovascular: Denies chest pain, Denies palpitations and Denies dyspnea Respiratory Respiratory: Denies cough and Denies dyspnea Gastrointestinal Gastrointestinal: Denies abdominal pain Endocrine Endocrine: Denies palpitations Physical Exam 2 Vital Signs: Vital Signs: Last Vital Signs Temp 98.2 F 11/19/23 08:00 Pulse 77 11/19/23 08:00 Resp 17 11/19/23 08:00 BP 138/65 11/19/23 08:00 Pulse Ox 95 11/19/23 08:00 O2 Del Method Room Air 11/19/23 08:00 BMI result Body Mass Index 54.2 Appearing in no acute distress LSCTA soft abd Objective Data Active Medications Acetaminophen (Acetaminophen 325 Mg Tablet) 650 mg PO Q6H PRN PRN Reason: Pain, Mild (Pain Scale 1-3) Last Admin: 11/18/23 20:43 Dose: 650 mg Documented By: KATHARINA Amlodipine Besylate (Amlodipine Besylate 10 Mg Tablet) 10 mg PO DAILY [facility]; Protocol Last Admin: 11/19/23 09:42 Dose: 10 mg Documented By: LAKEISHA Apixaban (Apixaban 5 Mg Tablet) 5 mg PO BID [facility] Last Admin: 11/19/23 09:42 Dose: 5 mg Documented By: LAKEISHA Atorvastatin Calcium (Atorvastatin Calcium 20 Mg Tablet) 20 mg PO BEDTIME [facility] Last Admin: 11/18/23 20:44 Dose: 20 mg Documented By: KATHARINA Bisacodyl (Bisacodyl 10 Mg Supp.Rect) 10 mg [place] DAILY PRN PRN Reason: Constipation Docusate Sodium (Docusate Sodium 100 Mg Capsule) 200 mg PO DAILY [facility] Last Admin: 11/19/23 09:42 Dose: 200 mg Documented By: LAKEISHA Melatonin (Melatonin 3 Mg Tablet) 6 mg PO BEDTIME PRN PRN Reason: Insomnia Last Admin: 11/17/23 22:55 Dose: 6 mg Documented By: GIL Melatonin (Melatonin 3 Mg Tablet) 3 mg PO BEDTIME PRN PRN Reason: Insomnia Last Admin: 11/06/23 23:03 Dose: 3 mg Documented By: GIL Multivitamins/Vitamin C (Multivitamin Tablet) 1 tab PO DAILY [facility] Last Admin: 11/19/23 09:42 Dose: 1 tab Documented By: LAKEISHA Omeprazole (Omeprazole 20 Mg Capsule.) 20 mg PO DAILY@0630 [facility] Last Admin: 11/19/23 06:36 Dose: 20 mg Documented By: LAKHWINDER Ondansetron HCl (Ondansetron Hcl 4 Mg/2 Ml Vial) 4 mg IVPUSH Q8H PRN PRN Reason: Nausea and Vomiting Polyethylene Glycol (Polyethylene Glycol 3350 17 Gm Powd.Pack) 17 gm PO DAILY [facility] Last Admin: 11/19/23 09:44 Dose: Not Given Documented By: LAKEISHA Non-Admin Reason: Patient Refused Senna/Docusate Sodium (Sennosides/Docusate Sodium Tablet) 1 tab PO BEDTIME [facility] Last Admin: 11/18/23 20:44 Dose: 1 tab Documented By: KATHARINA Sodium Chloride (0.9 % Sodium Chloride Flush 3 Ml Syringe) 3 ml IVFLUSH QSHIFT [facility] Last Admin: 11/19/23 09:43 Dose: Not Given Documented By: LAKEISHA Non-Admin Reason: No Access Tramadol HCl (Tramadol Hcl 50 Mg Tablet) 25 mg PO Q6H PRN PRN Reason: Pain, Moderate(Pain Scale 4-6) Last Admin: 11/18/23 09:17 Dose: 25 mg Documented By: KATHARINA Vitamin D (Cholecalciferol (Vitamin D3) 25 Mcg Tablet) 25 mcg PO DAILY [facility] Last Admin: 11/19/23 09:42 Dose: 25 mcg Documented By: LAKEISHA Zinc Sulfate (Zinc Sulfate 220 Mg Capsule) 220 mg PO DAILY [facility] Last Admin: 11/19/23 09:42 Dose: 220 mg Documented By: LAKEISHA Labs 11/14/23 04:08 11/14/23 04:08 Assessment and Plan (1) Morbid obesity: Status: Acute Plan 67 year old women with HTN, HLD, arthritis, DVT on apixaban admitted for BRBPR and now awaiting placement Painless BRBPR on admission. Resolved attributed to hemorrhoid, stercoral colitis or chronic colitis. Bleeding was self-limited and she refused endoscopy. No change in care check qweekly labs Rt Knee pain chronic pain s/p steroid injection by ortho during this admit Continue Ultram prn OT/PT following hx DVT continue apixaban HTN amlodipine HLD statin Deep tissue injury of buttocks present on admission Wound Care following Bilateral Buttocks and Posterior Thighs - Off Load Pressure - Cleanse with PH balance spray or wipes, pat dry. Apply thin layer of Triad to wound bed - only pat and dab no scrub and rub when soiling occurs. Reapply thin layer PRN after each episode of incontinence. Morbid obesity. BMI 54.2 Discussed importance of weight management as this may be contributing to worsening of other comorbidities VTE ppx - apixaban Attending Dr. Martines dispo -need continued inpatient hospitalization for safe disposition STR recommended, employment case manager arranging for safe placement . Quality Stroke Does the patient have a stroke diagnosis?: No VTE Prior VTE?: No VTE Risk Level:: Medical - moderate - high VTE Device Contraindication: N/A - Device Ordered VTE Drug Contraindication: Treatment Not Indicated
[2023-11-19 15:57] VITALS: BP 146/84; PULSE 87; RESP 17; TEMP 36.7; O2SAT 94
[2023-11-19 19:41] VITALS: BP 149/76; PULSE 79; RESP 19; TEMP 36.2; O2SAT 93
[2023-11-19] MEDS: Sennosides/Docusate Sodium TABLET 1 TAB PO (20:38)
[2023-11-19] MEDS: Atorvastatin Calcium 20 MG TABLET PO (20:38)
[2023-11-19] MEDS: Acetaminophen 325 MG TABLET 650 MG PO (23:13)
[2023-11-19] MEDS: Melatonin 3 MG TABLET 6 MG PO (23:14)
[2023-11-20 02:26] VITALS: BP 140/69; PULSE 92; RESP 17; TEMP 36.1; O2SAT 96
[2023-11-20] MEDS: Omeprazole 20 MG CAPSULE.DR PO (06:28)
[2023-11-20 06:57] VITALS: BP 122/57; PULSE 79; RESP 17; TEMP 36.6; O2SAT 93
--- NOTE | 2023-11-20 08:51 | P.PNIM_ITS ---
Subjective Subjective Date of Service: 11/20/23 Interval History: seen and examined this morning follow up for placement no overnight events no complaints Review of Systems Review of Systems: Yes all other systems are reviewed and are negative Constitutional Constitutional: Denies chills and Denies fever(s) Cardiovascular Cardiovascular: Denies chest pain, Denies palpitations and Denies dyspnea Respiratory Respiratory: Denies cough and Denies dyspnea Gastrointestinal Gastrointestinal: Denies abdominal pain Endocrine Endocrine: Denies palpitations Physical Exam 2 Vital Signs: Vital Signs: Last Vital Signs Temp 98 F 11/20/23 06:57 Pulse 79 11/20/23 06:57 Resp 17 11/20/23 06:57 BP 122/57 L 11/20/23 06:57 Pulse Ox 93 11/20/23 06:57 O2 Del Method Room Air 11/20/23 06:57 BMI result Body Mass Index 54.2 Appearing in no acute distress LSCTA soft abd Objective Data Active Medications Acetaminophen (Acetaminophen 325 Mg Tablet) 650 mg PO Q6H PRN PRN Reason: Pain, Mild (Pain Scale 1-3) Last Admin: 11/19/23 23:13 Dose: 650 mg Documented By: GIL Amlodipine Besylate (Amlodipine Besylate 10 Mg Tablet) 10 mg PO DAILY [facility]; Protocol Last Admin: 11/19/23 09:42 Dose: 10 mg Documented By: LAKEISHA Apixaban (Apixaban 5 Mg Tablet) 5 mg PO BID [facility] Last Admin: 11/19/23 20:38 Dose: 5 mg Documented By: GIL Atorvastatin Calcium (Atorvastatin Calcium 20 Mg Tablet) 20 mg PO BEDTIME [facility] Last Admin: 11/19/23 20:38 Dose: 20 mg Documented By: GIL Bisacodyl (Bisacodyl 10 Mg Supp.Rect) 10 mg [place] DAILY PRN PRN Reason: Constipation Docusate Sodium (Docusate Sodium 100 Mg Capsule) 200 mg PO DAILY [facility] Last Admin: 11/19/23 09:42 Dose: 200 mg Documented By: LAKEISHA Melatonin (Melatonin 3 Mg Tablet) 6 mg PO BEDTIME PRN PRN Reason: Insomnia Last Admin: 11/19/23 23:14 Dose: 6 mg Documented By: GIL Melatonin (Melatonin 3 Mg Tablet) 3 mg PO BEDTIME PRN PRN Reason: Insomnia Last Admin: 11/06/23 23:03 Dose: 3 mg Documented By: GIL Multivitamins/Vitamin C (Multivitamin Tablet) 1 tab PO DAILY [facility] Last Admin: 11/19/23 09:42 Dose: 1 tab Documented By: LAKEISHA Omeprazole (Omeprazole 20 Mg Capsule.) 20 mg PO DAILY@0630 [facility] Last Admin: 11/20/23 06:28 Dose: 20 mg Documented By: GIL Ondansetron HCl (Ondansetron Hcl 4 Mg/2 Ml Vial) 4 mg IVPUSH Q8H PRN PRN Reason: Nausea and Vomiting Polyethylene Glycol (Polyethylene Glycol 3350 17 Gm Powd.Pack) 17 gm PO DAILY [facility] Last Admin: 11/19/23 09:44 Dose: Not Given Documented By: LAKEISHA Non-Admin Reason: Patient Refused Senna/Docusate Sodium (Sennosides/Docusate Sodium Tablet) 1 tab PO BEDTIME [facility] Last Admin: 11/19/23 20:38 Dose: 1 tab Documented By: GIL Sodium Chloride (0.9 % Sodium Chloride Flush 3 Ml Syringe) 3 ml IVFLUSH QSHIFT [facility] Last Admin: 11/19/23 20:25 Dose: Not Given Documented By: GIL Non-Admin Reason: No Access Tramadol HCl (Tramadol Hcl 50 Mg Tablet) 25 mg PO Q6H PRN PRN Reason: Pain, Moderate(Pain Scale 4-6) Last Admin: 11/18/23 09:17 Dose: 25 mg Documented By: KATHARINA Vitamin D (Cholecalciferol (Vitamin D3) 25 Mcg Tablet) 25 mcg PO DAILY [facility] Last Admin: 11/19/23 09:42 Dose: 25 mcg Documented By: LAKEISHA Zinc Sulfate (Zinc Sulfate 220 Mg Capsule) 220 mg PO DAILY [facility] Last Admin: 11/19/23 09:42 Dose: 220 mg Documented By: LAKEISHA Labs 11/14/23 04:08 11/14/23 04:08 Assessment and Plan (1) Morbid obesity: Status: Acute Plan 67 year old women with HTN, HLD, arthritis, DVT on apixaban admitted for BRBPR and now awaiting placement Painless BRBPR on admission. Resolved attributed to hemorrhoid, stercoral colitis or chronic colitis. Bleeding was self-limited and she refused endoscopy. No change in care check qweekly labs Rt Knee pain chronic pain s/p steroid injection by ortho during this admit Continue Ultram prn OT/PT following hx DVT continue apixaban HTN amlodipine HLD statin Deep tissue injury of buttocks present on admission Wound Care following Bilateral Buttocks and Posterior Thighs - Off Load Pressure - Cleanse with PH balance spray or wipes, pat dry. Apply thin layer of Triad to wound bed - only pat and dab no scrub and rub when soiling occurs. Reapply thin layer PRN after each episode of incontinence. Morbid obesity. BMI 54.2 Discussed importance of weight management as this may be contributing to worsening of other comorbidities VTE ppx - apixaban Attending Dr. Martines dispo -need continued inpatient hospitalization for safe disposition STR recommended, case finisher arranging for safe placement . Quality Stroke Does the patient have a stroke diagnosis?: No VTE Prior VTE?: No VTE Risk Level:: Medical - moderate - high VTE Device Contraindication: N/A - Device Ordered VTE Drug Contraindication: Treatment Not Indicated
[2023-11-20] MEDS: Zinc Sulfate 220 MG CAPSULE PO (09:25)
[2023-11-20] MEDS: Docusate Sodium 100 MG CAPSULE 200 MG PO (09:25)
[2023-11-20] MEDS: amLODIPine Besylate 10 MG TABLET PO (09:25)
[2023-11-20] MEDS: Multivitamin TABLET 1 TAB PO (09:25)
[2023-11-20] MEDS: Apixaban 5 MG TABLET PO ×2 (09:25→19:32)
[2023-11-20] MEDS: Cholecalciferol (Vitamin D3) 25 MCG TABLET PO (09:25)
[2023-11-20 15:28] VITALS: BP 117/56; PULSE 97; RESP 18; TEMP 36.2; O2SAT 95
[2023-11-20 19:18] VITALS: BP 152/71; PULSE 98; RESP 18; TEMP 36.1; O2SAT 96
[2023-11-20] MEDS: Sennosides/Docusate Sodium TABLET 1 TAB PO (19:32)
[2023-11-20] MEDS: Atorvastatin Calcium 20 MG TABLET PO (19:32)
[2023-11-21 03:50] VITALS: BP 121/69; PULSE 88; RESP 16; TEMP 36.8; O2SAT 95
[2023-11-21] MEDS: Omeprazole 20 MG CAPSULE.DR PO (06:16)
[2023-11-21 07:27] VITALS: BP 136/74; PULSE 76; RESP 16; TEMP 36.2; O2SAT 95
[2023-11-21] MEDS: Docusate Sodium 100 MG CAPSULE 200 MG PO (08:48)
[2023-11-21] MEDS: Cholecalciferol (Vitamin D3) 25 MCG TABLET PO (08:49)
[2023-11-21] MEDS: Apixaban 5 MG TABLET PO ×2 (08:49→20:57)
[2023-11-21] MEDS: Multivitamin TABLET 1 TAB PO (08:49)
[2023-11-21] MEDS: Zinc Sulfate 220 MG CAPSULE PO (08:49)
[2023-11-21] MEDS: amLODIPine Besylate 10 MG TABLET PO (08:50)
--- NOTE | 2023-11-21 09:26 | P.PNIM_ITS ---
Subjective Subjective Date of Service: 11/21/23 Interval History: seen and examined this morning follow up for placement no overnight events no complaints Review of Systems Review of Systems: Yes all other systems are reviewed and are negative Constitutional Constitutional: Denies chills and Denies fever(s) Cardiovascular Cardiovascular: Denies chest pain, Denies palpitations and Denies dyspnea Respiratory Respiratory: Denies cough and Denies dyspnea Gastrointestinal Gastrointestinal: Denies abdominal pain Endocrine Endocrine: Denies palpitations Physical Exam 2 Vital Signs: Vital Signs: Last Vital Signs Temp 97.2 F 11/21/23 07:27 Pulse 76 11/21/23 07:27 Resp 16 11/21/23 07:27 BP 136/74 11/21/23 07:27 Pulse Ox 95 11/21/23 07:27 O2 Del Method Room Air 11/21/23 07:27 BMI result Body Mass Index 54.2 alert and oriented soft abd LSCTA Objective Data Active Medications Acetaminophen (Acetaminophen 325 Mg Tablet) 650 mg PO Q6H PRN PRN Reason: Pain, Mild (Pain Scale 1-3) Last Admin: 11/19/23 23:13 Dose: 650 mg Documented By: GIL Amlodipine Besylate (Amlodipine Besylate 10 Mg Tablet) 10 mg PO DAILY [facility]; Protocol Last Admin: 11/21/23 08:50 Dose: 10 mg Documented By: LESLY Apixaban (Apixaban 5 Mg Tablet) 5 mg PO BID [facility] Last Admin: 11/21/23 08:49 Dose: 5 mg Documented By: LESLY Atorvastatin Calcium (Atorvastatin Calcium 20 Mg Tablet) 20 mg PO BEDTIME [facility] Last Admin: 11/20/23 19:32 Dose: 20 mg Documented By: ARABELLA Bisacodyl (Bisacodyl 10 Mg Supp.Rect) 10 mg [place] DAILY PRN PRN Reason: Constipation Docusate Sodium (Docusate Sodium 100 Mg Capsule) 200 mg PO DAILY [facility] Last Admin: 11/21/23 08:48 Dose: 200 mg Documented By: LESLY Melatonin (Melatonin 3 Mg Tablet) 6 mg PO BEDTIME PRN PRN Reason: Insomnia Last Admin: 11/19/23 23:14 Dose: 6 mg Documented By: GIL Melatonin (Melatonin 3 Mg Tablet) 3 mg PO BEDTIME PRN PRN Reason: Insomnia Last Admin: 11/06/23 23:03 Dose: 3 mg Documented By: GIL Multivitamins/Vitamin C (Multivitamin Tablet) 1 tab PO DAILY [facility] Last Admin: 11/21/23 08:49 Dose: 1 tab Documented By: LESLY Omeprazole (Omeprazole 20 Mg Capsule.) 20 mg PO DAILY@0630 [facility] Last Admin: 11/21/23 06:16 Dose: 20 mg Documented By: ARABELLA Ondansetron HCl (Ondansetron Hcl 4 Mg/2 Ml Vial) 4 mg IVPUSH Q8H PRN PRN Reason: Nausea and Vomiting Polyethylene Glycol (Polyethylene Glycol 3350 17 Gm Powd.Pack) 17 gm PO DAILY [facility] Last Admin: 11/21/23 08:50 Dose: Not Given Documented By: LESLY Non-Admin Reason: Patient Refused Senna/Docusate Sodium (Sennosides/Docusate Sodium Tablet) 1 tab PO BEDTIME [facility] Last Admin: 11/20/23 19:32 Dose: 1 tab Documented By: ARABELLA Sodium Chloride (0.9 % Sodium Chloride Flush 3 Ml Syringe) 3 ml IVFLUSH QSHIFT [facility] Last Admin: 11/21/23 08:48 Dose: Not Given Documented By: LESLY Non-Admin Reason: No Access Tramadol HCl (Tramadol Hcl 50 Mg Tablet) 25 mg PO Q6H PRN PRN Reason: Pain, Moderate(Pain Scale 4-6) Last Admin: 11/18/23 09:17 Dose: 25 mg Documented By: KATHARINA Vitamin D (Cholecalciferol (Vitamin D3) 25 Mcg Tablet) 25 mcg PO DAILY [facility] Last Admin: 11/21/23 08:49 Dose: 25 mcg Documented By: LESLY Zinc Sulfate (Zinc Sulfate 220 Mg Capsule) 220 mg PO DAILY [facility] Last Admin: 11/21/23 08:49 Dose: 220 mg Documented By: LESLY Labs 11/14/23 04:08 11/14/23 04:08 Assessment and Plan (1) Morbid obesity: Status: Acute Plan 67 year old women with HTN, HLD, arthritis, DVT on apixaban admitted for BRBPR and now awaiting placement Painless BRBPR on admission. Resolved attributed to hemorrhoid, stercoral colitis or chronic colitis. Bleeding was self-limited and she refused endoscopy. No change in care check qweekly labs Rt Knee pain chronic pain s/p steroid injection by ortho during this admit Continue Ultram prn OT/PT following hx DVT continue apixaban HTN amlodipine HLD statin Deep tissue injury of buttocks present on admission Wound Care following Bilateral Buttocks and Posterior Thighs - Off Load Pressure - Cleanse with PH balance spray or wipes, pat dry. Apply thin layer of Triad to wound bed - only pat and dab no scrub and rub when soiling occurs. Reapply thin layer PRN after each episode of incontinence. Morbid obesity. BMI 54.2 Discussed importance of weight management as this may be contributing to worsening of other comorbidities VTE ppx - apixaban Attending Dr. Martines dispo -need continued inpatient hospitalization for safe disposition STR recommended, nurse outreach case manager arranging for safe placement . Quality Stroke Does the patient have a stroke diagnosis?: No VTE Prior VTE?: No VTE Risk Level:: Medical - moderate - high VTE Device Contraindication: N/A - Device Ordered VTE Drug Contraindication: Treatment Not Indicated
[2023-11-21 15:21] VITALS: BP 117/63; PULSE 89; RESP 16; TEMP 36.8; O2SAT 96
[2023-11-21 19:27] VITALS: BP 113/58; PULSE 92; RESP 14; TEMP 36.8; O2SAT 94
[2023-11-21] MEDS: Sennosides/Docusate Sodium TABLET 1 TAB PO (20:57)
[2023-11-21] MEDS: Atorvastatin Calcium 20 MG TABLET PO (20:57)
[2023-11-21] MEDS: Melatonin 3 MG TABLET 6 MG PO (23:28)
[2023-11-22 02:53] VITALS: BP 118/58; PULSE 85; RESP 14; TEMP 36.7; O2SAT 94
[2023-11-22] MEDS: Omeprazole 20 MG CAPSULE.DR PO (06:05)
[2023-11-22 07:42] VITALS: BP 131/75; PULSE 84; RESP 18; TEMP 36.2; O2SAT 95
[2023-11-22] MEDS: Docusate Sodium 100 MG CAPSULE 200 MG PO (09:23)
[2023-11-22] MEDS: Cholecalciferol (Vitamin D3) 25 MCG TABLET PO (09:23)
[2023-11-22] MEDS: amLODIPine Besylate 10 MG TABLET PO (09:23)
[2023-11-22] MEDS: traMADoL HCL 50 MG TABLET 25 MG PO ×2 (09:23→16:41)
[2023-11-22] MEDS: Zinc Sulfate 220 MG CAPSULE PO (09:23)
[2023-11-22] MEDS: Apixaban 5 MG TABLET PO ×2 (09:23→19:30)
[2023-11-22] MEDS: Multivitamin TABLET 1 TAB PO (09:24)
--- NOTE | 2023-11-22 10:14 | P.PNIM_ITS ---
Subjective Subjective Date of Service: 11/22/23 Interval History: seen and examined this morning follow up for placement no overnight events no complaints Review of Systems Review of Systems: Yes all other systems are reviewed and are negative Constitutional Constitutional: Denies chills and Denies fever(s) Cardiovascular Cardiovascular: Denies chest pain, Denies palpitations and Denies dyspnea Respiratory Respiratory: Denies cough and Denies dyspnea Gastrointestinal Gastrointestinal: Denies abdominal pain Endocrine Endocrine: Denies palpitations Physical Exam 2 Vital Signs: Vital Signs: Last Vital Signs Temp 97.1 F 11/22/23 07:42 Pulse 84 11/22/23 07:42 Resp 18 11/22/23 07:42 BP 131/75 11/22/23 07:42 Pulse Ox 95 11/22/23 07:42 O2 Del Method Room Air 11/22/23 07:42 BMI result Body Mass Index 54.2 alert and oriented abd soft LSCTA Objective Data Active Medications Acetaminophen (Acetaminophen 325 Mg Tablet) 650 mg PO Q6H PRN PRN Reason: Pain, Mild (Pain Scale 1-3) Last Admin: 11/19/23 23:13 Dose: 650 mg Documented By: GIL Amlodipine Besylate (Amlodipine Besylate 10 Mg Tablet) 10 mg PO DAILY [facility]; Protocol Last Admin: 11/22/23 09:23 Dose: 10 mg Documented By: LUCÍA Apixaban (Apixaban 5 Mg Tablet) 5 mg PO BID [facility] Last Admin: 11/22/23 09:23 Dose: 5 mg Documented By: LUCÍA Atorvastatin Calcium (Atorvastatin Calcium 20 Mg Tablet) 20 mg PO BEDTIME [facility] Last Admin: 11/21/23 20:57 Dose: 20 mg Documented By: GIL Bisacodyl (Bisacodyl 10 Mg Supp.Rect) 10 mg [place] DAILY PRN PRN Reason: Constipation Docusate Sodium (Docusate Sodium 100 Mg Capsule) 200 mg PO DAILY [facility] Last Admin: 11/22/23 09:23 Dose: 200 mg Documented By: LUCÍA Melatonin (Melatonin 3 Mg Tablet) 6 mg PO BEDTIME PRN PRN Reason: Insomnia Last Admin: 11/21/23 23:28 Dose: 6 mg Documented By: GIL Melatonin (Melatonin 3 Mg Tablet) 3 mg PO BEDTIME PRN PRN Reason: Insomnia Last Admin: 11/06/23 23:03 Dose: 3 mg Documented By: GIL Multivitamins/Vitamin C (Multivitamin Tablet) 1 tab PO DAILY [facility] Last Admin: 11/22/23 09:24 Dose: 1 tab Documented By: LUCÍA Omeprazole (Omeprazole 20 Mg Capsule.) 20 mg PO DAILY@0630 [facility] Last Admin: 11/22/23 06:05 Dose: 20 mg Documented By: GIL Ondansetron HCl (Ondansetron Hcl 4 Mg/2 Ml Vial) 4 mg IVPUSH Q8H PRN PRN Reason: Nausea and Vomiting Polyethylene Glycol (Polyethylene Glycol 3350 17 Gm Powd.Pack) 17 gm PO DAILY [facility] Last Admin: 11/22/23 09:24 Dose: Not Given Documented By: LUCÍA Non-Admin Reason: Patient Refused Senna/Docusate Sodium (Sennosides/Docusate Sodium Tablet) 1 tab PO BEDTIME [facility] Last Admin: 11/21/23 20:57 Dose: 1 tab Documented By: GIL Sodium Chloride (0.9 % Sodium Chloride Flush 3 Ml Syringe) 3 ml IVFLUSH QSHIFT [facility] Last Admin: 11/22/23 09:26 Dose: Not Given Documented By: LUCÍA Non-Admin Reason: No Access Tramadol HCl (Tramadol Hcl 50 Mg Tablet) 25 mg PO Q6H PRN PRN Reason: Pain, Moderate(Pain Scale 4-6) Last Admin: 11/22/23 09:23 Dose: 25 mg Documented By: LUCÍA Vitamin D (Cholecalciferol (Vitamin D3) 25 Mcg Tablet) 25 mcg PO DAILY [facility] Last Admin: 11/22/23 09:23 Dose: 25 mcg Documented By: LUCÍA Zinc Sulfate (Zinc Sulfate 220 Mg Capsule) 220 mg PO DAILY [facility] Last Admin: 11/22/23 09:23 Dose: 220 mg Documented By: LUCÍA Labs 11/14/23 04:08 11/14/23 04:08 Assessment and Plan (1) Morbid obesity: Status: Acute Plan 67 year old women with HTN, HLD, arthritis, DVT on apixaban admitted for BRBPR and now awaiting placement Painless BRBPR on admission. Resolved attributed to hemorrhoid, stercoral colitis or chronic colitis. Bleeding was self-limited and she refused endoscopy. No change in care check qweekly labs Rt Knee pain chronic pain s/p steroid injection by ortho during this admit Continue Ultram prn OT/PT following hx DVT continue apixaban HTN amlodipine HLD statin Deep tissue injury of buttocks present on admission Wound Care following Bilateral Buttocks and Posterior Thighs - Off Load Pressure - Cleanse with PH balance spray or wipes, pat dry. Apply thin layer of Triad to wound bed - only pat and dab no scrub and rub when soiling occurs. Reapply thin layer PRN after each episode of incontinence. Morbid obesity. BMI 54.2 Discussed importance of weight management as this may be contributing to worsening of other comorbidities VTE ppx - apixaban Attending Dr. Mariscal dispo -need continued inpatient hospitalization for safe disposition STR recommended, test case developer arranging for safe placement . Quality Stroke Does the patient have a stroke diagnosis?: No VTE Prior VTE?: No VTE Risk Level:: Medical - moderate - high VTE Device Contraindication: N/A - Device Ordered VTE Drug Contraindication: Treatment Not Indicated
[2023-11-22 15:56] VITALS: BP 138/69; PULSE 95; RESP 18; TEMP 36.6; O2SAT 95
[2023-11-22 19:21] VITALS: BP 118/64; PULSE 86; RESP 18; TEMP 36.8; O2SAT 95
[2023-11-22] MEDS: Acetaminophen 325 MG TABLET 650 MG PO (19:30)
[2023-11-22] MEDS: Atorvastatin Calcium 20 MG TABLET PO (19:30)
[2023-11-22] MEDS: Sennosides/Docusate Sodium TABLET 1 TAB PO (19:30)
[2023-11-23 03:09] VITALS: BP 132/65; PULSE 83; RESP 19; TEMP 36.4; O2SAT 96
[2023-11-23] MEDS: Omeprazole 20 MG CAPSULE.DR PO (05:38)
[2023-11-23 07:47] VITALS: BP 138/79; PULSE 80; RESP 18; TEMP 36.2; O2SAT 98
[2023-11-23] MEDS: Cholecalciferol (Vitamin D3) 25 MCG TABLET PO (08:42)
[2023-11-23] MEDS: Docusate Sodium 100 MG CAPSULE 200 MG PO (08:42)
[2023-11-23] MEDS: amLODIPine Besylate 10 MG TABLET PO (08:42)
[2023-11-23] MEDS: Multivitamin TABLET 1 TAB PO (08:43)
[2023-11-23] MEDS: traMADoL HCL 50 MG TABLET 25 MG PO (08:43)
[2023-11-23] MEDS: Zinc Sulfate 220 MG CAPSULE PO (08:43)
[2023-11-23] MEDS: Apixaban 5 MG TABLET PO ×2 (08:43→20:06)
--- NOTE | 2023-11-23 12:46 | HO.PM.IMPN ---
Subjective Subjective Date of Service: 11/23/23 Interval History: No acute issues overall Review of Systems Denies chest pain Denies shortness of breath Denies nausea vomiting diarrhea Denies fever chills Physical Exam Vital Signs: Vital Signs: Last Vital Signs Temp 97.1 F 11/23/23 07:47 Pulse 80 11/23/23 07:47 Resp 18 11/23/23 07:47 BP 138/79 11/23/23 07:47 Pulse Ox 98 11/23/23 07:47 O2 Del Method Room Air 11/23/23 07:47 BMI result Body Mass Index 54.2 Const: Other: Awake alert no acute distress Resp: Other: Clear to auscultation bilaterally no rales rhonchi wheezes Cardio: Other: No S4; positive S1-S2; no S3 murmurs rubs or gallops GI: Other: Soft nontender nondistended normoactive bowel sounds Extrem: Other: Routine bilaterally Objective Data Active Medications Acetaminophen (Acetaminophen 325 Mg Tablet) 650 mg PO Q6H PRN PRN Reason: Pain, Mild (Pain Scale 1-3) Last Admin: 11/22/23 19:30 Dose: 650 mg Documented By: SOMMER Amlodipine Besylate (Amlodipine Besylate 10 Mg Tablet) 10 mg PO DAILY [facility]; Protocol Last Admin: 11/23/23 08:42 Dose: 10 mg Documented By: KATHRYN Apixaban (Apixaban 5 Mg Tablet) 5 mg PO BID [facility] Last Admin: 11/23/23 08:43 Dose: 5 mg Documented By: KATHRYN Atorvastatin Calcium (Atorvastatin Calcium 20 Mg Tablet) 20 mg PO BEDTIME [facility] Last Admin: 11/22/23 19:30 Dose: 20 mg Documented By: SOMMER Bisacodyl (Bisacodyl 10 Mg Supp.Rect) 10 mg [place] DAILY PRN PRN Reason: Constipation Docusate Sodium (Docusate Sodium 100 Mg Capsule) 200 mg PO DAILY [facility] Last Admin: 11/23/23 08:42 Dose: 200 mg Documented By: KATHRYN Melatonin (Melatonin 3 Mg Tablet) 6 mg PO BEDTIME PRN PRN Reason: Insomnia Last Admin: 11/21/23 23:28 Dose: 6 mg Documented By: GIL Melatonin (Melatonin 3 Mg Tablet) 3 mg PO BEDTIME PRN PRN Reason: Insomnia Last Admin: 11/06/23 23:03 Dose: 3 mg Documented By: GIL Multivitamins/Vitamin C (Multivitamin Tablet) 1 tab PO DAILY [facility] Last Admin: 11/23/23 08:43 Dose: 1 tab Documented By: KATHRYN Omeprazole (Omeprazole 20 Mg Capsule.) 20 mg PO DAILY@0630 [facility] Last Admin: 11/23/23 05:38 Dose: 20 mg Documented By: BRIDGET Ondansetron HCl (Ondansetron Hcl 4 Mg/2 Ml Vial) 4 mg IVPUSH Q8H PRN PRN Reason: Nausea and Vomiting Polyethylene Glycol (Polyethylene Glycol 3350 17 Gm Powd.Pack) 17 gm PO DAILY [facility] Last Admin: 11/23/23 08:47 Dose: Not Given Documented By: KATHRYN Non-Admin Reason: Patient Refused Senna/Docusate Sodium (Sennosides/Docusate Sodium Tablet) 1 tab PO BEDTIME [facility] Last Admin: 11/22/23 19:30 Dose: 1 tab Documented By: SOMMER Tramadol HCl (Tramadol Hcl 50 Mg Tablet) 25 mg PO Q6H PRN PRN Reason: Pain, Moderate(Pain Scale 4-6) Last Admin: 11/23/23 08:43 Dose: 25 mg Documented By: KATHRYN Vitamin D (Cholecalciferol (Vitamin D3) 25 Mcg Tablet) 25 mcg PO DAILY [facility] Last Admin: 11/23/23 08:42 Dose: 25 mcg Documented By: KATHRYN Zinc Sulfate (Zinc Sulfate 220 Mg Capsule) 220 mg PO DAILY [facility] Last Admin: 11/23/23 08:43 Dose: 220 mg Documented By: KATHRYN Labs 11/14/23 04:08 11/14/23 04:08 Assessment and Plan (1) Essential hypertension: Status: Acute Plan 67 year old women with HTN, HLD, arthritis, DVT on apixaban admitted for BRBPR and now awaiting placement Painless BRBPR on admission. Resolved attributed to hemorrhoid, stercoral colitis or chronic colitis. Bleeding was self-limited and she refused endoscopy. check qweekly labs hx DVT continue apixaban Deep tissue injury of buttocks present on admission Wound Care following Bilateral Buttocks and Posterior Thighs - Off Load Pressure - Cleanse with PH balance spray or wipes, pat dry. Apply thin layer of Triad to wound bed - only pat and dab no scrub and rub when soiling occurs. Reapply thin layer PRN after each episode of incontinence. Morbid obesity. BMI 54.2 Discussed importance of weight management as this may be contributing to worsening of other comorbidities VTE ppx - apixaban dispo -need continued inpatient hospitalization for safe disposition STR recommended, test case developer arranging for safe placement . Quality Stroke Does the patient have a stroke diagnosis?: No VTE Prior VTE?: No VTE Risk Level:: Medical - moderate - high VTE Device Contraindication: N/A - Device Ordered VTE Drug Contraindication: Treatment Not Indicated
[2023-11-23 15:41] VITALS: BP 143/70; PULSE 84; RESP 16; TEMP 36.4; O2SAT 95
[2023-11-23 19:22] VITALS: BP 131/71; PULSE 92; RESP 18; TEMP 36.6; O2SAT 95
[2023-11-23] MEDS: Sennosides/Docusate Sodium TABLET 1 TAB PO (20:06)
[2023-11-23] MEDS: Atorvastatin Calcium 20 MG TABLET PO (20:06)
[2023-11-24] MEDS: Acetaminophen 325 MG TABLET 650 MG PO (01:26)
[2023-11-24 03:37] VITALS: BP 131/69; PULSE 70; RESP 16; TEMP 36.3; O2SAT 97
[2023-11-24] MEDS: Omeprazole 20 MG CAPSULE.DR PO (05:50)
[2023-11-24 07:48] VITALS: BP 143/77; PULSE 79; RESP 20; TEMP 36.2; O2SAT 97
--- NOTE | 2023-11-24 08:48 | MHC.CM.PN ---
Per [employer], Divorce documents are needed. The patients son is working to obtain the divorce documentation.
[2023-11-24] MEDS: Multivitamin TABLET 1 TAB PO (09:14)
[2023-11-24] MEDS: Apixaban 5 MG TABLET PO ×2 (09:14→20:01)
[2023-11-24] MEDS: Zinc Sulfate 220 MG CAPSULE PO (09:14)
[2023-11-24] MEDS: Docusate Sodium 100 MG CAPSULE 200 MG PO (09:14)
[2023-11-24] MEDS: amLODIPine Besylate 10 MG TABLET PO (09:14)
[2023-11-24] MEDS: Cholecalciferol (Vitamin D3) 25 MCG TABLET PO (11:08)
--- NOTE | 2023-11-24 14:37 | P.PNIM_ITS ---
Subjective Subjective Date of Service: 11/24/23 Interval History: No acute issues overall Review of Systems Denies chest pain Denies shortness of breath Denies nausea vomiting diarrhea Denies fever chills Physical Exam 2 Vital Signs: Vital Signs: Last Vital Signs Temp 97.1 F 11/24/23 07:48 Pulse 79 11/24/23 07:48 Resp 20 11/24/23 07:48 BP 143/77 H 11/24/23 07:48 Pulse Ox 97 11/24/23 07:48 O2 Del Method Room Air 11/24/23 07:48 BMI result Body Mass Index 54.2 Const: Other: Awake alert no acute distress Resp: Other: Clear to auscultation bilaterally no rales rhonchi wheezes Cardio: Other: No S4; positive S1-S2; no S3 murmurs rubs or gallops GI: Other: Soft nontender nondistended normoactive bowel sounds Extrem: Other: Routine bilaterally Objective Data Active Medications Acetaminophen (Acetaminophen 325 Mg Tablet) 650 mg PO Q6H PRN PRN Reason: Pain, Mild (Pain Scale 1-3) Last Admin: 11/24/23 01:26 Dose: 650 mg Documented By: BLADE Amlodipine Besylate (Amlodipine Besylate 10 Mg Tablet) 10 mg PO DAILY [facility]; Protocol Last Admin: 11/24/23 09:14 Dose: 10 mg Documented By: LAKEISHA Apixaban (Apixaban 5 Mg Tablet) 5 mg PO BID [facility] Last Admin: 11/24/23 09:14 Dose: 5 mg Documented By: LAKEISHA Atorvastatin Calcium (Atorvastatin Calcium 20 Mg Tablet) 20 mg PO BEDTIME [facility] Last Admin: 11/23/23 20:06 Dose: 20 mg Documented By: BLADE Bisacodyl (Bisacodyl 10 Mg Supp.Rect) 10 mg [place] DAILY PRN PRN Reason: Constipation Docusate Sodium (Docusate Sodium 100 Mg Capsule) 200 mg PO DAILY [facility] Last Admin: 11/24/23 09:14 Dose: 200 mg Documented By: LAKEISHA Melatonin (Melatonin 3 Mg Tablet) 6 mg PO BEDTIME PRN PRN Reason: Insomnia Last Admin: 11/21/23 23:28 Dose: 6 mg Documented By: GIL Melatonin (Melatonin 3 Mg Tablet) 3 mg PO BEDTIME PRN PRN Reason: Insomnia Last Admin: 11/06/23 23:03 Dose: 3 mg Documented By: GIL Multivitamins/Vitamin C (Multivitamin Tablet) 1 tab PO DAILY [facility] Last Admin: 11/24/23 09:14 Dose: 1 tab Documented By: LAKEISHA Omeprazole (Omeprazole 20 Mg Capsule.) 20 mg PO DAILY@0630 [facility] Last Admin: 11/24/23 05:50 Dose: 20 mg Documented By: BLADE Ondansetron HCl (Ondansetron Hcl 4 Mg/2 Ml Vial) 4 mg IVPUSH Q8H PRN PRN Reason: Nausea and Vomiting Polyethylene Glycol (Polyethylene Glycol 3350 17 Gm Powd.Pack) 17 gm PO DAILY [facility] Last Admin: 11/24/23 09:16 Dose: Not Given Documented By: LAKEISHA Non-Admin Reason: Patient Refused Senna/Docusate Sodium (Sennosides/Docusate Sodium Tablet) 1 tab PO BEDTIME [facility] Last Admin: 11/23/23 20:06 Dose: 1 tab Documented By: BLADE Vitamin D (Cholecalciferol (Vitamin D3) 25 Mcg Tablet) 25 mcg PO DAILY [facility] Last Admin: 11/24/23 11:08 Dose: 25 mcg Documented By: LAKEISHA Zinc Sulfate (Zinc Sulfate 220 Mg Capsule) 220 mg PO DAILY [facility] Last Admin: 11/24/23 09:14 Dose: 220 mg Documented By: LAKEISHA Labs 11/14/23 04:08 11/14/23 04:08 Assessment and Plan (1) Essential hypertension: Status: Acute Plan 67 year old women with HTN, HLD, arthritis, DVT on apixaban admitted for BRBPR and now awaiting placement Painless BRBPR on admission. Resolved attributed to hemorrhoid, stercoral colitis or chronic colitis. Bleeding was self-limited and she refused endoscopy. check qweekly labs hx DVT continue apixaban Deep tissue injury of buttocks present on admission Wound Care following Bilateral Buttocks and Posterior Thighs - Off Load Pressure - Cleanse with PH balance spray or wipes, pat dry. Apply thin layer of Triad to wound bed - only pat and dab no scrub and rub when soiling occurs. Reapply thin layer PRN after each episode of incontinence. Morbid obesity. BMI 54.2 Discussed importance of weight management as this may be contributing to worsening of other comorbidities VTE ppx - apixaban dispo -need continued inpatient hospitalization for safe disposition STR recommended, case planner arranging for safe placement . Quality Stroke Does the patient have a stroke diagnosis?: No VTE Prior VTE?: No VTE Risk Level:: Medical - moderate - high VTE Device Contraindication: N/A - Device Ordered VTE Drug Contraindication: Treatment Not Indicated
[2023-11-24 15:21] VITALS: BP 133/81; PULSE 90; RESP 18; TEMP 36.3; O2SAT 94
[2023-11-24 19:15] VITALS: BP 120/60; PULSE 100; RESP 16; TEMP 36.5; O2SAT 95
[2023-11-24] MEDS: Atorvastatin Calcium 20 MG TABLET PO (20:01)
[2023-11-24] MEDS: Sennosides/Docusate Sodium TABLET 1 TAB PO (20:01)
[2023-11-25 03:37] VITALS: BP 131/69; PULSE 90; RESP 16; TEMP 36.4; O2SAT 96
[2023-11-25] MEDS: Omeprazole 20 MG CAPSULE.DR PO (05:22)
[2023-11-25 07:35] VITALS: BP 126/57; PULSE 82; RESP 20; TEMP 36.8; O2SAT 95
[2023-11-25] MEDS: Cholecalciferol (Vitamin D3) 25 MCG TABLET PO (08:33)
[2023-11-25] MEDS: amLODIPine Besylate 10 MG TABLET PO (08:33)
[2023-11-25] MEDS: Docusate Sodium 100 MG CAPSULE 200 MG PO (08:34)
[2023-11-25] MEDS: Zinc Sulfate 220 MG CAPSULE PO (08:34)
[2023-11-25] MEDS: Apixaban 5 MG TABLET PO ×2 (08:34→20:32)
[2023-11-25] MEDS: Multivitamin TABLET 1 TAB PO (08:34)
--- NOTE | 2023-11-25 12:25 | HO.PM.IMPN ---
Subjective Subjective Date of Service: 11/25/23 Interval History: No acute issues overall Review of Systems Denies chest pain Denies shortness of breath Denies nausea vomiting diarrhea Denies fever chills Physical Exam Vital Signs: Vital Signs: Last Vital Signs Temp 98.2 F 11/25/23 07:35 Pulse 82 11/25/23 07:35 Resp 20 11/25/23 07:35 BP 126/57 L 11/25/23 07:35 Pulse Ox 95 11/25/23 07:35 O2 Del Method Room Air 11/25/23 07:35 BMI result Body Mass Index 54.2 Const: Other: Awake alert no acute distress Resp: Other: Clear to auscultation bilaterally no rales rhonchi wheezes Cardio: Other: No S4; positive S1-S2; no S3 murmurs rubs or gallops GI: Other: Soft nontender nondistended normoactive bowel sounds Extrem: Other: Routine bilaterally Objective Data Active Medications Acetaminophen (Acetaminophen 325 Mg Tablet) 650 mg PO Q6H PRN PRN Reason: Pain, Mild (Pain Scale 1-3) Last Admin: 11/24/23 01:26 Dose: 650 mg Documented By: BLADE Amlodipine Besylate (Amlodipine Besylate 10 Mg Tablet) 10 mg PO DAILY [facility]; Protocol Last Admin: 11/25/23 08:33 Dose: 10 mg Documented By: LAKEISHA Apixaban (Apixaban 5 Mg Tablet) 5 mg PO BID [facility] Last Admin: 11/25/23 08:34 Dose: 5 mg Documented By: LAKEISHA Atorvastatin Calcium (Atorvastatin Calcium 20 Mg Tablet) 20 mg PO BEDTIME [facility] Last Admin: 11/24/23 20:01 Dose: 20 mg Documented By: KATHARINA Bisacodyl (Bisacodyl 10 Mg Supp.Rect) 10 mg [place] DAILY PRN PRN Reason: Constipation Docusate Sodium (Docusate Sodium 100 Mg Capsule) 200 mg PO DAILY [facility] Last Admin: 11/25/23 08:34 Dose: 200 mg Documented By: LAKEISHA Melatonin (Melatonin 3 Mg Tablet) 6 mg PO BEDTIME PRN PRN Reason: Insomnia Last Admin: 11/21/23 23:28 Dose: 6 mg Documented By: GIL Melatonin (Melatonin 3 Mg Tablet) 3 mg PO BEDTIME PRN PRN Reason: Insomnia Last Admin: 11/06/23 23:03 Dose: 3 mg Documented By: GIL Multivitamins/Vitamin C (Multivitamin Tablet) 1 tab PO DAILY [facility] Last Admin: 11/25/23 08:34 Dose: 1 tab Documented By: LAKEISHA Omeprazole (Omeprazole 20 Mg Capsule.) 20 mg PO DAILY@0630 [facility] Last Admin: 11/25/23 05:22 Dose: 20 mg Documented By: KIARA Ondansetron HCl (Ondansetron Hcl 4 Mg/2 Ml Vial) 4 mg IVPUSH Q8H PRN PRN Reason: Nausea and Vomiting Polyethylene Glycol (Polyethylene Glycol 3350 17 Gm Powd.Pack) 17 gm PO DAILY [facility] Last Admin: 11/25/23 08:36 Dose: Not Given Documented By: LAKEISHA Non-Admin Reason: Patient Refused Senna/Docusate Sodium (Sennosides/Docusate Sodium Tablet) 1 tab PO BEDTIME [facility] Last Admin: 11/24/23 20:01 Dose: 1 tab Documented By: KATHARINA Vitamin D (Cholecalciferol (Vitamin D3) 25 Mcg Tablet) 25 mcg PO DAILY [facility] Last Admin: 11/25/23 08:33 Dose: 25 mcg Documented By: LAKEISHA Zinc Sulfate (Zinc Sulfate 220 Mg Capsule) 220 mg PO DAILY [facility] Last Admin: 11/25/23 08:34 Dose: 220 mg Documented By: LAKEISHA Labs 11/14/23 04:08 11/14/23 04:08 Assessment and Plan (1) Essential hypertension: Status: Acute Plan 67 year old women with HTN, HLD, arthritis, DVT on apixaban admitted for BRBPR and now awaiting placement Painless BRBPR on admission. Resolved attributed to hemorrhoid, stercoral colitis or chronic colitis. Bleeding was self-limited and she refused endoscopy. check qweekly labs hx DVT continue apixaban Deep tissue injury of buttocks present on admission Wound Care following Bilateral Buttocks and Posterior Thighs - Off Load Pressure - Cleanse with PH balance spray or wipes, pat dry. Apply thin layer of Triad to wound bed - only pat and dab no scrub and rub when soiling occurs. Reapply thin layer PRN after each episode of incontinence. Morbid obesity. BMI 54.2 Discussed importance of weight management as this may be contributing to worsening of other comorbidities VTE ppx - apixaban dispo -need continued inpatient hospitalization for safe disposition STR recommended, telephonic case manager arranging for safe placement . Quality Stroke Does the patient have a stroke diagnosis?: No VTE Prior VTE?: No VTE Risk Level:: Medical - moderate - high VTE Device Contraindication: N/A - Device Ordered VTE Drug Contraindication: Treatment Not Indicated
--- NOTE | 2023-11-25 13:53 | MHC.CM.PN ---
pt remains dc ready contini to ait completeion of [facility] assigned but more verifications are needed
[2023-11-25 15:22] VITALS: BP 121/58; PULSE 89; RESP 18; TEMP 36.4; O2SAT 97
[2023-11-25 19:41] VITALS: BP 136/83; PULSE 97; RESP 16; TEMP 36.6; O2SAT 94
[2023-11-25] MEDS: Atorvastatin Calcium 20 MG TABLET PO (20:32)
[2023-11-25] MEDS: Sennosides/Docusate Sodium TABLET 1 TAB PO (20:32)
[2023-11-25] MEDS: traMADoL HCL 50 MG TABLET PO (22:20)
[2023-11-26 03:19] VITALS: BP 125/65; PULSE 85; RESP 14; TEMP 36.1; O2SAT 96
[2023-11-26] MEDS: Omeprazole 20 MG CAPSULE.DR PO (06:06)
[2023-11-26 07:14] VITALS: BP 159/84; PULSE 71; RESP 18; TEMP 36.1; O2SAT 96
[2023-11-26] MEDS: Apixaban 5 MG TABLET PO ×2 (09:22→21:34)
[2023-11-26] MEDS: Zinc Sulfate 220 MG CAPSULE PO (09:22)
[2023-11-26] MEDS: amLODIPine Besylate 10 MG TABLET PO (09:22)
[2023-11-26] MEDS: Docusate Sodium 100 MG CAPSULE 200 MG PO (09:23)
[2023-11-26] MEDS: Cholecalciferol (Vitamin D3) 25 MCG TABLET PO (09:23)
[2023-11-26] MEDS: Multivitamin TABLET 1 TAB PO (09:23)
--- NOTE | 2023-11-26 13:25 | P.PNIM_ITS ---
Subjective Subjective Date of Service: 11/26/23 Interval History: No acute issues overall Review of Systems Denies chest pain Denies shortness of breath Denies nausea vomiting diarrhea Denies fever chills Physical Exam 2 Vital Signs: Vital Signs: Last Vital Signs Temp 97 F 11/26/23 07:14 Pulse 71 11/26/23 07:14 Resp 18 11/26/23 07:14 BP 159/84 H 11/26/23 07:14 Pulse Ox 96 11/26/23 07:14 O2 Del Method Room Air 11/26/23 07:14 BMI result Body Mass Index 54.2 Const: Other: Awake alert no acute distress Resp: Other: Clear to auscultation bilaterally no rales rhonchi wheezes Cardio: Other: No S4; positive S1-S2; no S3 murmurs rubs or gallops GI: Other: Soft nontender nondistended normoactive bowel sounds Extrem: Other: Routine bilaterally Objective Data Active Medications Acetaminophen (Acetaminophen 325 Mg Tablet) 650 mg PO Q6H PRN PRN Reason: Pain, Mild (Pain Scale 1-3) Last Admin: 11/24/23 01:26 Dose: 650 mg Documented By: BLADE Amlodipine Besylate (Amlodipine Besylate 10 Mg Tablet) 10 mg PO DAILY [facility]; Protocol Last Admin: 11/26/23 09:22 Dose: 10 mg Documented By: LESLY Apixaban (Apixaban 5 Mg Tablet) 5 mg PO BID [facility] Last Admin: 11/26/23 09:22 Dose: 5 mg Documented By: LESLY Atorvastatin Calcium (Atorvastatin Calcium 20 Mg Tablet) 20 mg PO BEDTIME [facility] Last Admin: 11/25/23 20:32 Dose: 20 mg Documented By: DAHLIA Bisacodyl (Bisacodyl 10 Mg Supp.Rect) 10 mg [place] DAILY PRN PRN Reason: Constipation Docusate Sodium (Docusate Sodium 100 Mg Capsule) 200 mg PO DAILY [facility] Last Admin: 11/26/23 09:23 Dose: 200 mg Documented By: LESLY Melatonin (Melatonin 3 Mg Tablet) 6 mg PO BEDTIME PRN PRN Reason: Insomnia Last Admin: 11/21/23 23:28 Dose: 6 mg Documented By: GIL Melatonin (Melatonin 3 Mg Tablet) 3 mg PO BEDTIME PRN PRN Reason: Insomnia Last Admin: 11/06/23 23:03 Dose: 3 mg Documented By: GIL Multivitamins/Vitamin C (Multivitamin Tablet) 1 tab PO DAILY [facility] Last Admin: 11/26/23 09:23 Dose: 1 tab Documented By: LESLY Omeprazole (Omeprazole 20 Mg Capsule.) 20 mg PO DAILY@0630 [facility] Last Admin: 11/26/23 06:06 Dose: 20 mg Documented By: LAKHWINDER Ondansetron HCl (Ondansetron Hcl 4 Mg/2 Ml Vial) 4 mg IVPUSH Q8H PRN PRN Reason: Nausea and Vomiting Polyethylene Glycol (Polyethylene Glycol 3350 17 Gm Powd.Pack) 17 gm PO DAILY [facility] Last Admin: 11/26/23 09:24 Dose: Not Given Documented By: LESLY Non-Admin Reason: Patient Refused Senna/Docusate Sodium (Sennosides/Docusate Sodium Tablet) 1 tab PO BEDTIME [facility] Last Admin: 11/25/23 20:32 Dose: 1 tab Documented By: DAHLIA Tramadol HCl (Tramadol Hcl 50 Mg Tablet) 50 mg PO Q6H PRN PRN Reason: Pain, Severe (Pain Scale 7-10) Last Admin: 11/25/23 22:20 Dose: 50 mg Documented By: DAHLIA Vitamin D (Cholecalciferol (Vitamin D3) 25 Mcg Tablet) 25 mcg PO DAILY [facility] Last Admin: 11/26/23 09:23 Dose: 25 mcg Documented By: LESLY Zinc Sulfate (Zinc Sulfate 220 Mg Capsule) 220 mg PO DAILY [facility] Last Admin: 11/26/23 09:22 Dose: 220 mg Documented By: LESLY Labs 11/14/23 04:08 11/14/23 04:08 Assessment and Plan (1) Essential hypertension: Status: Acute Plan 67 year old women with HTN, HLD, arthritis, DVT on apixaban admitted for BRBPR and now awaiting placement Painless BRBPR on admission. Resolved attributed to hemorrhoid, stercoral colitis or chronic colitis. Bleeding was self-limited and she refused endoscopy. check qweekly labs hx DVT continue apixaban Deep tissue injury of buttocks present on admission Wound Care following Bilateral Buttocks and Posterior Thighs - Off Load Pressure - Cleanse with PH balance spray or wipes, pat dry. Apply thin layer of Triad to wound bed - only pat and dab no scrub and rub when soiling occurs. Reapply thin layer PRN after each episode of incontinence. Morbid obesity. BMI 54.2 Discussed importance of weight management as this may be contributing to worsening of other comorbidities VTE ppx - apixaban dispo -need continued inpatient hospitalization for safe disposition STR recommended, hospice case manager arranging for safe placement . Quality Stroke Does the patient have a stroke diagnosis?: No VTE Prior VTE?: No VTE Risk Level:: Medical - moderate - high VTE Device Contraindication: N/A - Device Ordered VTE Drug Contraindication: Treatment Not Indicated
[2023-11-26 15:25] VITALS: BP 125/87; PULSE 86; RESP 18; TEMP 36.2; O2SAT 96
[2023-11-26 20:00] VITALS: BP 127/62; PULSE 86; RESP 16; TEMP 36.2; O2SAT 95
[2023-11-26] MEDS: Melatonin 3 MG TABLET 6 MG PO (21:34)
[2023-11-26] MEDS: Sennosides/Docusate Sodium TABLET 1 TAB PO (21:34)
[2023-11-26] MEDS: Atorvastatin Calcium 20 MG TABLET PO (21:34)
[2023-11-27 03:15] VITALS: BP 136/74; PULSE 74; RESP 16; TEMP 36.9; O2SAT 96
[2023-11-27] MEDS: Omeprazole 20 MG CAPSULE.DR PO (06:05)
[2023-11-27 07:40] VITALS: BP 146/86; PULSE 91; RESP 16; TEMP 36.1; O2SAT 95
[2023-11-27] MEDS: Apixaban 5 MG TABLET PO ×2 (08:38→20:20)
[2023-11-27] MEDS: Docusate Sodium 100 MG CAPSULE 200 MG PO (08:38)
[2023-11-27] MEDS: Zinc Sulfate 220 MG CAPSULE PO (08:38)
[2023-11-27] MEDS: amLODIPine Besylate 10 MG TABLET PO (08:38)
[2023-11-27] MEDS: Cholecalciferol (Vitamin D3) 25 MCG TABLET PO (08:38)
[2023-11-27] MEDS: Multivitamin TABLET 1 TAB PO (08:38)
--- NOTE | 2023-11-27 12:30 | P.PNIM_ITS ---
Subjective Subjective Date of Service: 11/27/23 Interval History: No acute issues overnight. Spirits good Review of Systems Denies chest pain Denies shortness of breath Denies nausea vomiting diarrhea Denies fever chills Physical Exam 2 Vital Signs: Vital Signs: Last Vital Signs Temp 96.9 F 11/27/23 07:40 Pulse 91 11/27/23 07:40 Resp 16 11/27/23 07:40 BP 146/86 H 11/27/23 07:40 Pulse Ox 95 11/27/23 07:40 O2 Del Method Room Air 11/27/23 07:40 BMI result Body Mass Index 54.2 Const: Other: Awake alert no acute distress Resp: Other: Clear to auscultation bilaterally no rales rhonchi wheezes Cardio: Other: No S4; positive S1-S2; no S3 murmurs rubs or gallops GI: Other: Soft nontender nondistended normoactive bowel sounds Extrem: Other: Routine bilaterally Objective Data Active Medications Acetaminophen (Acetaminophen 325 Mg Tablet) 650 mg PO Q6H PRN PRN Reason: Pain, Mild (Pain Scale 1-3) Last Admin: 11/24/23 01:26 Dose: 650 mg Documented By: BLADE Amlodipine Besylate (Amlodipine Besylate 10 Mg Tablet) 10 mg PO DAILY [facility]; Protocol Last Admin: 11/27/23 08:38 Dose: 10 mg Documented By: ARLIN Apixaban (Apixaban 5 Mg Tablet) 5 mg PO BID [facility] Last Admin: 11/27/23 08:38 Dose: 5 mg Documented By: ARLIN Atorvastatin Calcium (Atorvastatin Calcium 20 Mg Tablet) 20 mg PO BEDTIME [facility] Last Admin: 11/26/23 21:34 Dose: 20 mg Documented By: EVAN Bisacodyl (Bisacodyl 10 Mg Supp.Rect) 10 mg [place] DAILY PRN PRN Reason: Constipation Docusate Sodium (Docusate Sodium 100 Mg Capsule) 200 mg PO DAILY [facility] Last Admin: 11/27/23 08:38 Dose: 200 mg Documented By: ARLIN Melatonin (Melatonin 3 Mg Tablet) 6 mg PO BEDTIME PRN PRN Reason: Insomnia Last Admin: 11/26/23 21:34 Dose: 6 mg Documented By: EVAN Melatonin (Melatonin 3 Mg Tablet) 3 mg PO BEDTIME PRN PRN Reason: Insomnia Last Admin: 11/06/23 23:03 Dose: 3 mg Documented By: GIL Multivitamins/Vitamin C (Multivitamin Tablet) 1 tab PO DAILY [facility] Last Admin: 11/27/23 08:38 Dose: 1 tab Documented By: ARLIN Omeprazole (Omeprazole 20 Mg Capsule.) 20 mg PO DAILY@0630 [facility] Last Admin: 11/27/23 06:05 Dose: 20 mg Documented By: EVAN Ondansetron HCl (Ondansetron Hcl 4 Mg/2 Ml Vial) 4 mg IVPUSH Q8H PRN PRN Reason: Nausea and Vomiting Polyethylene Glycol (Polyethylene Glycol 3350 17 Gm Powd.Pack) 17 gm PO DAILY [facility] Last Admin: 11/27/23 08:38 Dose: Not Given Documented By: ARLIN Non-Admin Reason: Patient Refused Senna/Docusate Sodium (Sennosides/Docusate Sodium Tablet) 1 tab PO BEDTIME [facility] Last Admin: 11/26/23 21:34 Dose: 1 tab Documented By: EVAN Tramadol HCl (Tramadol Hcl 50 Mg Tablet) 50 mg PO Q6H PRN PRN Reason: Pain, Severe (Pain Scale 7-10) Last Admin: 11/25/23 22:20 Dose: 50 mg Documented By: DAHLIA Vitamin D (Cholecalciferol (Vitamin D3) 25 Mcg Tablet) 25 mcg PO DAILY [facility] Last Admin: 11/27/23 08:38 Dose: 25 mcg Documented By: ARLIN Zinc Sulfate (Zinc Sulfate 220 Mg Capsule) 220 mg PO DAILY [facility] Last Admin: 11/27/23 08:38 Dose: 220 mg Documented By: ARLIN Labs 11/14/23 04:08 11/14/23 04:08 Assessment and Plan (1) Essential hypertension: Status: Acute Plan 67 year old women with HTN, HLD, arthritis, DVT on apixaban admitted for BRBPR and now awaiting placement Painless BRBPR on admission. Resolved attributed to hemorrhoid, stercoral colitis or chronic colitis. Bleeding was self-limited and she refused endoscopy. check qweekly labs hx DVT continue apixaban Deep tissue injury of buttocks present on admission Wound Care following Bilateral Buttocks and Posterior Thighs - Off Load Pressure - Cleanse with PH balance spray or wipes, pat dry. Apply thin layer of Triad to wound bed - only pat and dab no scrub and rub when soiling occurs. Reapply thin layer PRN after each episode of incontinence. Morbid obesity. BMI 54.2 Discussed importance of weight management as this may be contributing to worsening of other comorbidities VTE ppx - apixaban dispo -need continued inpatient hospitalization for safe disposition STR recommended, case manager specialist arranging for safe placement . Quality Stroke Does the patient have a stroke diagnosis?: No VTE Prior VTE?: No VTE Risk Level:: Medical - moderate - high VTE Device Contraindication: N/A - Device Ordered VTE Drug Contraindication: Treatment Not Indicated
[2023-11-27 15:01] VITALS: BP 125/63; PULSE 86; RESP 16; TEMP 36.1; O2SAT 95
[2023-11-27 19:16] VITALS: BP 122/68; PULSE 97; RESP 16; TEMP 36.3; O2SAT 95
[2023-11-27] MEDS: Sennosides/Docusate Sodium TABLET 1 TAB PO (20:20)
[2023-11-27] MEDS: Atorvastatin Calcium 20 MG TABLET PO (20:20)
[2023-11-27] MEDS: Melatonin 3 MG TABLET 6 MG PO (20:20)
[2023-11-28 03:47] VITALS: BP 121/68; PULSE 85; RESP 16; TEMP 37.3; O2SAT 96
[2023-11-28] MEDS: Omeprazole 20 MG CAPSULE.DR PO (05:31)
[2023-11-28 07:05] VITALS: BP 147/77; PULSE 73; RESP 16; TEMP 36.8; O2SAT 97
[2023-11-28] MEDS: Docusate Sodium 100 MG CAPSULE 200 MG PO (08:56)
[2023-11-28] MEDS: amLODIPine Besylate 10 MG TABLET PO (08:57)
[2023-11-28] MEDS: Zinc Sulfate 220 MG CAPSULE PO (08:57)
[2023-11-28] MEDS: Multivitamin TABLET 1 TAB PO (08:57)
[2023-11-28] MEDS: Cholecalciferol (Vitamin D3) 25 MCG TABLET PO (08:57)
[2023-11-28] MEDS: Apixaban 5 MG TABLET PO ×2 (08:57→20:14)
--- NOTE | 2023-11-28 09:11 | P.PNIM_ITS ---
Subjective Subjective Date of Service: 11/28/23 Interval History: No acute issues overnight. chronic knee pain Review of Systems Denies chest pain Denies shortness of breath Denies nausea vomiting diarrhea Denies fever chills Physical Exam 2 Vital Signs: Vital Signs: Last Vital Signs Temp 98.3 F 11/28/23 07:05 Pulse 73 11/28/23 07:05 Resp 16 11/28/23 07:05 BP 147/77 H 11/28/23 07:05 Pulse Ox 97 11/28/23 07:05 O2 Del Method Room Air 11/28/23 07:05 BMI result Body Mass Index 54.2 alert and oriented soft abd Objective Data Active Medications Acetaminophen (Acetaminophen 325 Mg Tablet) 650 mg PO Q6H PRN PRN Reason: Pain, Mild (Pain Scale 1-3) Last Admin: 11/24/23 01:26 Dose: 650 mg Documented By: BLADE Amlodipine Besylate (Amlodipine Besylate 10 Mg Tablet) 10 mg PO DAILY [facility]; Protocol Last Admin: 11/28/23 08:57 Dose: 10 mg Documented By: ISAURO Apixaban (Apixaban 5 Mg Tablet) 5 mg PO BID [facility] Last Admin: 11/28/23 08:57 Dose: 5 mg Documented By: ISAURO Atorvastatin Calcium (Atorvastatin Calcium 20 Mg Tablet) 20 mg PO BEDTIME [facility] Last Admin: 11/27/23 20:20 Dose: 20 mg Documented By: EVAN Bisacodyl (Bisacodyl 10 Mg Supp.Rect) 10 mg [place] DAILY PRN PRN Reason: Constipation Docusate Sodium (Docusate Sodium 100 Mg Capsule) 200 mg PO DAILY [facility] Last Admin: 11/28/23 08:56 Dose: 200 mg Documented By: ISAURO Melatonin (Melatonin 3 Mg Tablet) 6 mg PO BEDTIME PRN PRN Reason: Insomnia Last Admin: 11/27/23 20:20 Dose: 6 mg Documented By: CASTJUSTIN Melatonin (Melatonin 3 Mg Tablet) 3 mg PO BEDTIME PRN PRN Reason: Insomnia Last Admin: 11/06/23 23:03 Dose: 3 mg Documented By: GIL Multivitamins/Vitamin C (Multivitamin Tablet) 1 tab PO DAILY [facility] Last Admin: 11/28/23 08:57 Dose: 1 tab Documented By: ISAURO Omeprazole (Omeprazole 20 Mg Capsule.) 20 mg PO DAILY@0630 [facility] Last Admin: 11/28/23 05:31 Dose: 20 mg Documented By: EVAN Ondansetron HCl (Ondansetron Hcl 4 Mg/2 Ml Vial) 4 mg IVPUSH Q8H PRN PRN Reason: Nausea and Vomiting Polyethylene Glycol (Polyethylene Glycol 3350 17 Gm Powd.Pack) 17 gm PO DAILY [facility] Last Admin: 11/28/23 08:59 Dose: Not Given Documented By: ISAURO Non-Admin Reason: Patient Refused Senna/Docusate Sodium (Sennosides/Docusate Sodium Tablet) 1 tab PO BEDTIME [facility] Last Admin: 11/27/23 20:20 Dose: 1 tab Documented By: EVAN Tramadol HCl (Tramadol Hcl 50 Mg Tablet) 50 mg PO Q6H PRN PRN Reason: Pain, Severe (Pain Scale 7-10) Last Admin: 11/25/23 22:20 Dose: 50 mg Documented By: DAHLIA Vitamin D (Cholecalciferol (Vitamin D3) 25 Mcg Tablet) 25 mcg PO DAILY [facility] Last Admin: 11/28/23 08:57 Dose: 25 mcg Documented By: ISAURO Zinc Sulfate (Zinc Sulfate 220 Mg Capsule) 220 mg PO DAILY [facility] Last Admin: 11/28/23 08:57 Dose: 220 mg Documented By: ISAURO Labs 11/14/23 04:08 11/14/23 04:08 Assessment and Plan (1) Essential hypertension: Status: Acute Plan 67 year old women with HTN, HLD, arthritis, DVT on apixaban admitted for BRBPR and now awaiting placement Painless BRBPR on admission. Resolved attributed to hemorrhoid, stercoral colitis or chronic colitis. Bleeding was self-limited and she refused endoscopy. check qweekly labs hx DVT continue apixaban Deep tissue injury of buttocks present on admission Wound Care following Bilateral Buttocks and Posterior Thighs - Off Load Pressure - Cleanse with PH balance spray or wipes, pat dry. Apply thin layer of Triad to wound bed - only pat and dab no scrub and rub when soiling occurs. Reapply thin layer PRN after each episode of incontinence. Morbid obesity. BMI 54.2 Discussed importance of weight management as this may be contributing to worsening of other comorbidities VTE ppx - apixaban dispo -need continued inpatient hospitalization for safe disposition STR recommended, oil field caser arranging for safe placement, [facility] application and verifications still pending. Quality Stroke Does the patient have a stroke diagnosis?: No VTE Prior VTE?: No VTE Risk Level:: Medical - moderate - high VTE Device Contraindication: N/A - Device Ordered VTE Drug Contraindication: Treatment Not Indicated
[2023-11-28 09:56] LABS: Hematocrit 31.9 % (37.0-47.0); Hemoglobin 9.9 g/dl (12.0-16.0); Mean Corpuscular Hemoglobin 26.5 pg (27.0-33.0); Mean Corpuscular Volume 85.3 fL (80.0-98.0); Mean Platelet Volume 11.2 fL (9.4-12.3); Platelet Count 278 X10*3/uL (160-400); Red Blood Count 3.74 X10*6/uL (4.20-5.50); Red Cell Distribution Width 14.1 % (11.0-16.0); White Blood Count 4.8 X10*3/uL (4.8-10.8)
[2023-11-28 10:08] LABS: Anion Gap 10 (12-20); Blood Urea Nitrogen 12 mg/dL (9-16); Calcium 9.1 mg/dL (8.4-10.2); Carbon Dioxide 27 mmol/L (22-29); Chloride 105 mmol/L (96-108); Creatinine Clr Calc Pharmacy 127.6; Estimated Glomerular Filt Rate > 60; Glucose Random 113 mg/dL (60-115); Potassium 3.8 mmol/L (3.3-5.1); Sodium 138 mmol/L (135-145)
--- NOTE | 2023-11-28 14:08 | MHC.CM.PN ---
per rounds pt is dc ready message sent to financial services re [facility] status await replay
[2023-11-28 15:15] VITALS: BP 115/67; PULSE 86; RESP 18; TEMP 36.6; O2SAT 95
[2023-11-28 19:38] VITALS: BP 112/63; PULSE 92; RESP 18; TEMP 36.5; O2SAT 95
[2023-11-28] MEDS: Sennosides/Docusate Sodium TABLET 1 TAB PO (20:14)
[2023-11-28] MEDS: Melatonin 3 MG TABLET 6 MG PO (20:14)
[2023-11-28] MEDS: traMADoL HCL 50 MG TABLET PO (20:14)
[2023-11-28] MEDS: Atorvastatin Calcium 20 MG TABLET PO (20:14)
[2023-11-29 03:28] VITALS: BP 122/59; PULSE 83; RESP 18; TEMP 36.6; O2SAT 96
[2023-11-29] MEDS: Omeprazole 20 MG CAPSULE.DR PO (05:23)
[2023-11-29 08:00] VITALS: BP 120/56; PULSE 65; RESP 12; TEMP 36.4; O2SAT 96
[2023-11-29] MEDS: Docusate Sodium 100 MG CAPSULE 200 MG PO (08:38)
[2023-11-29] MEDS: Multivitamin TABLET 1 TAB PO (08:40)
[2023-11-29] MEDS: Zinc Sulfate 220 MG CAPSULE PO (08:40)
[2023-11-29] MEDS: Apixaban 5 MG TABLET PO ×2 (08:41→21:03)
[2023-11-29] MEDS: amLODIPine Besylate 10 MG TABLET PO (08:41)
[2023-11-29] MEDS: Cholecalciferol (Vitamin D3) 25 MCG TABLET PO (08:42)
--- NOTE | 2023-11-29 09:51 | HO.PM.IMPN ---
Subjective Subjective Date of Service: 11/29/23 Interval History: No acute issues overnight. chronic knee pain Review of Systems Denies chest pain Denies shortness of breath Denies nausea vomiting diarrhea Denies fever chills Physical Exam Vital Signs: Vital Signs: Last Vital Signs Temp 97.6 F 11/29/23 08:00 Pulse 65 11/29/23 08:00 Resp 12 11/29/23 08:00 BP 120/56 L 11/29/23 08:00 Pulse Ox 96 11/29/23 08:00 O2 Del Method Room Air 11/29/23 08:00 BMI result Body Mass Index 54.2 Alert and oriented Soft abdomen Lung sounds clear to auscultation Objective Data Active Medications Acetaminophen (Acetaminophen 325 Mg Tablet) 650 mg PO Q6H PRN PRN Reason: Pain, Mild (Pain Scale 1-3) Last Admin: 11/24/23 01:26 Dose: 650 mg Documented By: BLADE Amlodipine Besylate (Amlodipine Besylate 10 Mg Tablet) 10 mg PO DAILY [facility]; Protocol Last Admin: 11/29/23 08:41 Dose: 10 mg Documented By: ISAURO Apixaban (Apixaban 5 Mg Tablet) 5 mg PO BID [facility] Last Admin: 11/29/23 08:41 Dose: 5 mg Documented By: ISAURO Atorvastatin Calcium (Atorvastatin Calcium 20 Mg Tablet) 20 mg PO BEDTIME [facility] Last Admin: 11/28/23 20:14 Dose: 20 mg Documented By: MARIA L Bisacodyl (Bisacodyl 10 Mg Supp.Rect) 10 mg [place] DAILY PRN PRN Reason: Constipation Docusate Sodium (Docusate Sodium 100 Mg Capsule) 200 mg PO DAILY [facility] Last Admin: 11/29/23 08:38 Dose: 200 mg Documented By: ISAURO Melatonin (Melatonin 3 Mg Tablet) 6 mg PO BEDTIME PRN PRN Reason: Insomnia Last Admin: 11/28/23 20:14 Dose: 6 mg Documented By: MARIA L Melatonin (Melatonin 3 Mg Tablet) 3 mg PO BEDTIME PRN PRN Reason: Insomnia Last Admin: 11/06/23 23:03 Dose: 3 mg Documented By: GIL Multivitamins/Vitamin C (Multivitamin Tablet) 1 tab PO DAILY [facility] Last Admin: 11/29/23 08:40 Dose: 1 tab Documented By: ISAURO Omeprazole (Omeprazole 20 Mg Capsule.) 20 mg PO DAILY@0630 [facility] Last Admin: 11/29/23 05:23 Dose: 20 mg Documented By: MARIA L Ondansetron HCl (Ondansetron Hcl 4 Mg/2 Ml Vial) 4 mg IVPUSH Q8H PRN PRN Reason: Nausea and Vomiting Polyethylene Glycol (Polyethylene Glycol 3350 17 Gm Powd.Pack) 17 gm PO DAILY [facility] Last Admin: 11/29/23 08:42 Dose: Not Given Documented By: ISAURO Non-Admin Reason: Patient Refused Senna/Docusate Sodium (Sennosides/Docusate Sodium Tablet) 1 tab PO BEDTIME [facility] Last Admin: 11/28/23 20:14 Dose: 1 tab Documented By: MARIA L Tramadol HCl (Tramadol Hcl 50 Mg Tablet) 50 mg PO Q6H PRN PRN Reason: Pain, Severe (Pain Scale 7-10) Last Admin: 11/28/23 20:14 Dose: 50 mg Documented By: MARIA L Vitamin D (Cholecalciferol (Vitamin D3) 25 Mcg Tablet) 25 mcg PO DAILY [facility] Last Admin: 11/29/23 08:42 Dose: 25 mcg Documented By: ISAURO Zinc Sulfate (Zinc Sulfate 220 Mg Capsule) 220 mg PO DAILY [facility] Last Admin: 11/29/23 08:40 Dose: 220 mg Documented By: ISAURO Labs 11/28/23 09:41 11/28/23 09:41 Labs: Laboratory Results - last 24 hr 11/28/23 09:41 MCV 85.3 MCH 26.5 L MCHC 31.0 RDW 14.1 Plt Count 278 D MPV 11.2 Absolute Nucleated RBC 0.000 Nucleated RBC % (auto) 0.0 Anion Gap 10 L Estim Creat Clear Calc 127.6 Estimated GFR > 60 Random Glucose 113 Calcium 9.1 Assessment and Plan (1) Essential hypertension: Status: Acute Plan 67 year old women with HTN, HLD, arthritis, DVT on apixaban admitted for BRBPR and now awaiting placement Painless BRBPR on admission. Resolved attributed to hemorrhoid, stercoral colitis or chronic colitis. Bleeding was self-limited and she refused endoscopy. check qweekly labs hx DVT continue apixaban Deep tissue injury of buttocks present on admission Wound Care following Bilateral Buttocks and Posterior Thighs - Off Load Pressure - Cleanse with PH balance spray or wipes, pat dry. Apply thin layer of Triad to wound bed - only pat and dab no scrub and rub when soiling occurs. Reapply thin layer PRN after each episode of incontinence. Morbid obesity. BMI 54.2 Discussed importance of weight management as this may be contributing to worsening of other comorbidities VTE ppx - apixaban dispo -need continued inpatient hospitalization for safe disposition STR recommended, case hardener arranging for safe placement, [facility] application and verifications still pending. Quality Stroke Does the patient have a stroke diagnosis?: No VTE Prior VTE?: No VTE Risk Level:: Medical - moderate - high VTE Device Contraindication: N/A - Device Ordered VTE Drug Contraindication: Treatment Not Indicated
[2023-11-29 15:21] VITALS: BP 102/72; PULSE 92; RESP 20; TEMP 36.6; O2SAT 97
[2023-11-29 19:17] VITALS: BP 113/59; PULSE 98; RESP 19; TEMP 36.5; O2SAT 96
[2023-11-29] MEDS: Atorvastatin Calcium 20 MG TABLET PO (21:02)
[2023-11-29] MEDS: Sennosides/Docusate Sodium TABLET 1 TAB PO (21:03)
[2023-11-29] MEDS: Acetaminophen 325 MG TABLET 650 MG PO (23:29)
[2023-11-30 02:59] VITALS: BP 132/71; PULSE 75; RESP 17; TEMP 36.7; O2SAT 94
[2023-11-30] MEDS: Omeprazole 20 MG CAPSULE.DR PO (05:52)
[2023-11-30 07:42] VITALS: BP 141/65; PULSE 79; RESP 14; TEMP 36.3; O2SAT 96
[2023-11-30] MEDS: Cholecalciferol (Vitamin D3) 25 MCG TABLET PO (08:34)
[2023-11-30] MEDS: Docusate Sodium 100 MG CAPSULE 200 MG PO (08:34)
[2023-11-30] MEDS: amLODIPine Besylate 10 MG TABLET PO (08:34)
[2023-11-30] MEDS: Multivitamin TABLET 1 TAB PO (08:34)
[2023-11-30] MEDS: Apixaban 5 MG TABLET PO ×2 (08:35→21:09)
[2023-11-30] MEDS: Zinc Sulfate 220 MG CAPSULE PO (08:35)
--- NOTE | 2023-11-30 09:23 | P.PNIM_ITS ---
Subjective Subjective Date of Service: 11/30/23 Interval History: No acute issues overnight. chronic knee pain Review of Systems Denies chest pain Denies shortness of breath Denies nausea vomiting diarrhea Denies fever chills Physical Exam 2 Vital Signs: Vital Signs: Last Vital Signs Temp 97.4 F 11/30/23 07:42 Pulse 79 11/30/23 07:42 Resp 14 11/30/23 07:42 BP 141/65 H 11/30/23 07:42 Pulse Ox 96 11/30/23 07:42 O2 Del Method Room Air 11/30/23 07:42 BMI result Body Mass Index 54.2 alert and oriented abd soft LSCTA Objective Data Active Medications Acetaminophen (Acetaminophen 325 Mg Tablet) 650 mg PO Q6H PRN PRN Reason: Pain, Mild (Pain Scale 1-3) Last Admin: 11/29/23 23:29 Dose: 650 mg Documented By: MARIA L Amlodipine Besylate (Amlodipine Besylate 10 Mg Tablet) 10 mg PO DAILY [facility]; Protocol Last Admin: 11/30/23 08:34 Dose: 10 mg Documented By: VIVIANA Apixaban (Apixaban 5 Mg Tablet) 5 mg PO BID [facility] Last Admin: 11/30/23 08:35 Dose: 5 mg Documented By: VIVIANA Atorvastatin Calcium (Atorvastatin Calcium 20 Mg Tablet) 20 mg PO BEDTIME [facility] Last Admin: 11/29/23 21:02 Dose: 20 mg Documented By: MARIA L Bisacodyl (Bisacodyl 10 Mg Supp.Rect) 10 mg [place] DAILY PRN PRN Reason: Constipation Docusate Sodium (Docusate Sodium 100 Mg Capsule) 200 mg PO DAILY [facility] Last Admin: 11/30/23 08:34 Dose: 200 mg Documented By: VIVIANA Melatonin (Melatonin 3 Mg Tablet) 6 mg PO BEDTIME PRN PRN Reason: Insomnia Last Admin: 11/28/23 20:14 Dose: 6 mg Documented By: MARIA L Melatonin (Melatonin 3 Mg Tablet) 3 mg PO BEDTIME PRN PRN Reason: Insomnia Last Admin: 11/06/23 23:03 Dose: 3 mg Documented By: GIL Multivitamins/Vitamin C (Multivitamin Tablet) 1 tab PO DAILY [facility] Last Admin: 11/30/23 08:34 Dose: 1 tab Documented By: VIVIANA Omeprazole (Omeprazole 20 Mg Capsule.) 20 mg PO DAILY@0630 [facility] Last Admin: 11/30/23 05:52 Dose: 20 mg Documented By: MARIA L Ondansetron HCl (Ondansetron Hcl 4 Mg/2 Ml Vial) 4 mg IVPUSH Q8H PRN PRN Reason: Nausea and Vomiting Polyethylene Glycol (Polyethylene Glycol 3350 17 Gm Powd.Pack) 17 gm PO DAILY [facility] Last Admin: 11/30/23 08:38 Dose: Not Given Documented By: VIVIANA Non-Admin Reason: Patient Refused Senna/Docusate Sodium (Sennosides/Docusate Sodium Tablet) 1 tab PO BEDTIME [facility] Last Admin: 11/29/23 21:03 Dose: 1 tab Documented By: MARIA L Tramadol HCl (Tramadol Hcl 50 Mg Tablet) 50 mg PO Q6H PRN PRN Reason: Pain, Severe (Pain Scale 7-10) Last Admin: 11/28/23 20:14 Dose: 50 mg Documented By: MARIA L Vitamin D (Cholecalciferol (Vitamin D3) 25 Mcg Tablet) 25 mcg PO DAILY [facility] Last Admin: 11/30/23 08:34 Dose: 25 mcg Documented By: VIVIANA Zinc Sulfate (Zinc Sulfate 220 Mg Capsule) 220 mg PO DAILY [facility] Last Admin: 11/30/23 08:35 Dose: 220 mg Documented By: VIVIANA Labs 11/28/23 09:41 11/28/23 09:41 Assessment and Plan (1) Essential hypertension: Status: Acute Plan 67 year old women with HTN, HLD, arthritis, DVT on apixaban admitted for BRBPR and now awaiting placement Painless BRBPR on admission. Resolved attributed to hemorrhoid, stercoral colitis or chronic colitis. Bleeding was self-limited and she refused endoscopy. check qweekly labs, last 11/28 wnl hx DVT continue apixaban Deep tissue injury of buttocks present on admission Wound Care following Bilateral Buttocks and Posterior Thighs - Off Load Pressure - Cleanse with PH balance spray or wipes, pat dry. Apply thin layer of Triad to wound bed - only pat and dab no scrub and rub when soiling occurs. Reapply thin layer PRN after each episode of incontinence. Morbid obesity. BMI 54.2 Discussed importance of weight management as this may be contributing to worsening of other comorbidities VTE ppx - apixaban Attending Dr. Mariscal dispo -need continued inpatient hospitalization for safe disposition STR recommended, family independence case manager arranging for safe placement, [facility] application and verifications still pending. Quality Stroke Does the patient have a stroke diagnosis?: No VTE Prior VTE?: No VTE Risk Level:: Medical - moderate - high VTE Device Contraindication: N/A - Device Ordered VTE Drug Contraindication: Treatment Not Indicated
[2023-11-30 15:13] VITALS: BP 120/72; PULSE 98; RESP 18; TEMP 36.4; O2SAT 93
--- NOTE | 2023-11-30 15:43 | MHC.CM.PN ---
per financial all verifications are in for [facility] can not get a number till receiving facility sends sc1 and pna and screening mds is done [facility] looking into [facility] beds
[2023-11-30 19:15] VITALS: BP 119/58; PULSE 89; RESP 19; TEMP 36.7; O2SAT 95
[2023-11-30] MEDS: Sennosides/Docusate Sodium TABLET 1 TAB PO (21:09)
[2023-11-30] MEDS: Atorvastatin Calcium 20 MG TABLET PO (21:09)
[2023-12-01] MEDS: Acetaminophen 325 MG TABLET 650 MG PO (01:43)
[2023-12-01 03:21] VITALS: BP 143/74; PULSE 85; RESP 19; TEMP 37.2; O2SAT 97
[2023-12-01] MEDS: Omeprazole 20 MG CAPSULE.DR PO (06:26)
[2023-12-01 07:21] VITALS: BP 120/77; PULSE 79; RESP 12; TEMP 36.2; O2SAT 98
[2023-12-01] MEDS: Cholecalciferol (Vitamin D3) 25 MCG TABLET PO (09:44)
[2023-12-01] MEDS: Docusate Sodium 100 MG CAPSULE 200 MG PO (09:44)
[2023-12-01] MEDS: Zinc Sulfate 220 MG CAPSULE PO (09:45)
[2023-12-01] MEDS: amLODIPine Besylate 10 MG TABLET PO (09:45)
[2023-12-01] MEDS: Multivitamin TABLET 1 TAB PO (09:45)
[2023-12-01] MEDS: Apixaban 5 MG TABLET PO ×2 (09:45→19:36)
[2023-12-01] MEDS: traMADoL HCL 50 MG TABLET PO (13:07)
--- NOTE | 2023-12-01 13:53 | P.PNIM_ITS ---
Subjective Subjective Date of Service: 12/01/23 Interval History: seen and examined this morning follow up for placement no overnight events chronic knee pain Review of Systems Review of Systems: Yes all other systems are reviewed and are negative Constitutional Constitutional: Denies chills and Denies fever(s) Respiratory Respiratory: Denies cough Gastrointestinal Gastrointestinal: Denies abdominal pain Physical Exam 2 Vital Signs: Vital Signs: Last Vital Signs Temp 97.2 F 12/01/23 07:21 Pulse 79 12/01/23 07:21 Resp 12 12/01/23 07:21 BP 120/77 12/01/23 07:21 Pulse Ox 98 12/01/23 07:21 O2 Del Method Room Air 12/01/23 07:21 BMI result Body Mass Index 54.2 Const: General: cooperative, comfortable, no acute distress, alert and awake Nutritional Appearance: obese Orientation/consciousness: patient oriented x3 Resp: Effort & Inspection: normal respiratory effort, able to speak in complete sentences, no respiratory distress and no use of accessory muscles A uscultation: clear to auscultation bilaterally Cardio: Rate: regular rate GI: Inspection: No distended Palpation (GI): Soft to palpation and nontender Neuro: General: patient oriented x3, moves all extremities and CN's II-XI intact bilaterally Extrem: Other: chronic venous stasis changes lower extremities Objective Data Active Medications Acetaminophen (Acetaminophen 325 Mg Tablet) 650 mg PO Q6H PRN PRN Reason: Pain, Mild (Pain Scale 1-3) Last Admin: 12/01/23 01:43 Dose: 650 mg Documented By: KEL Amlodipine Besylate (Amlodipine Besylate 10 Mg Tablet) 10 mg PO DAILY [facility]; Protocol Last Admin: 12/01/23 09:45 Dose: 10 mg Documented By: KATHARINA Apixaban (Apixaban 5 Mg Tablet) 5 mg PO BID [facility] Last Admin: 12/01/23 09:45 Dose: 5 mg Documented By: KATHARINA Atorvastatin Calcium (Atorvastatin Calcium 20 Mg Tablet) 20 mg PO BEDTIME [facility] Last Admin: 11/30/23 21:09 Dose: 20 mg Documented By: KEL Bisacodyl (Bisacodyl 10 Mg Supp.Rect) 10 mg [place] DAILY PRN PRN Reason: Constipation Docusate Sodium (Docusate Sodium 100 Mg Capsule) 200 mg PO DAILY [facility] Last Admin: 12/01/23 09:44 Dose: 200 mg Documented By: KATHARINA Melatonin (Melatonin 3 Mg Tablet) 6 mg PO BEDTIME PRN PRN Reason: Insomnia Last Admin: 11/28/23 20:14 Dose: 6 mg Documented By: MARIA L Melatonin (Melatonin 3 Mg Tablet) 3 mg PO BEDTIME PRN PRN Reason: Insomnia Last Admin: 11/06/23 23:03 Dose: 3 mg Documented By: GIL Multivitamins/Vitamin C (Multivitamin Tablet) 1 tab PO DAILY [facility] Last Admin: 12/01/23 09:45 Dose: 1 tab Documented By: KATHARINA Omeprazole (Omeprazole 20 Mg Capsule.) 20 mg PO DAILY@0630 [facility] Last Admin: 12/01/23 06:26 Dose: 20 mg Documented By: KEL Ondansetron HCl (Ondansetron Hcl 4 Mg/2 Ml Vial) 4 mg IVPUSH Q8H PRN PRN Reason: Nausea and Vomiting Polyethylene Glycol (Polyethylene Glycol 3350 17 Gm Powd.Pack) 17 gm PO DAILY [facility] Last Admin: 12/01/23 09:46 Dose: Not Given Documented By: KATHARINA Non-Admin Reason: Patient Refused Senna/Docusate Sodium (Sennosides/Docusate Sodium Tablet) 1 tab PO BEDTIME [facility] Last Admin: 11/30/23 21:09 Dose: 1 tab Documented By: KEL Tramadol HCl (Tramadol Hcl 50 Mg Tablet) 50 mg PO Q6H PRN PRN Reason: Pain, Moderate(Pain Scale 4-6) Last Admin: 12/01/23 13:07 Dose: 50 mg Documented By: KATHARINA Vitamin D (Cholecalciferol (Vitamin D3) 25 Mcg Tablet) 25 mcg PO DAILY [facility] Last Admin: 12/01/23 09:44 Dose: 25 mcg Documented By: KATHARINA Zinc Sulfate (Zinc Sulfate 220 Mg Capsule) 220 mg PO DAILY [facility] Last Admin: 12/01/23 09:45 Dose: 220 mg Documented By: KATHARINA Labs 11/28/23 09:41 11/28/23 09:41 Assessment and Plan (1) Morbid obesity: Status: Acute Plan 67 year old women with HTN, HLD, arthritis, DVT on apixaban admitted for BRBPR and now awaiting placement Painless BRBPR on admission. Resolved attributed to hemorrhoid, stercoral colitis or chronic colitis. Bleeding was self-limited and she refused endoscopy. check qweekly labs, last 11/28 wnl hx DVT continue apixaban Deep tissue injury of buttocks present on admission Wound Care following Bilateral Buttocks and Posterior Thighs - Off Load Pressure - Cleanse with PH balance spray or wipes, pat dry. Apply thin layer of Triad to wound bed - only pat and dab no scrub and rub when soiling occurs. Reapply thin layer PRN after each episode of incontinence. Morbid obesity. BMI 54.2 Discussed importance of weight management as this may be contributing to worsening of other comorbidities Rt Knee pain chronic pain s/p steroid injection by ortho during this admit Continue Ultram prn HTN norvasc VTE ppx - apixaban Attending Dr. Mariscal dispo -need continued inpatient hospitalization for safe disposition STR recommended, director case management arranging for safe placement, [facility] application and verifications still pending. Quality Stroke Does the patient have a stroke diagnosis?: No VTE Prior VTE?: No VTE Risk Level:: Medical - moderate - high VTE Device Contraindication: N/A - Device Ordered VTE Drug Contraindication: Treatment Not Indicated
[2023-12-01 15:38] VITALS: BP 128/65; PULSE 88; RESP 16; TEMP 36.4; O2SAT 95
[2023-12-01 19:24] VITALS: BP 115/60; PULSE 92; RESP 14; TEMP 36.2; O2SAT 95
[2023-12-01] MEDS: Atorvastatin Calcium 20 MG TABLET PO (19:36)
[2023-12-01] MEDS: Sennosides/Docusate Sodium TABLET 1 TAB PO (19:36)
--- NOTE | 2023-12-02 | ECG_ITS ---
Test Reason : chest tightness Blood Pressure : / mmHG Vent. Rate : 080 BPM Atrial Rate : 080 BPM P-R Int : 160 ms QRS Dur : 082 ms QT Int : 378 ms P-R-T Axes : 049 002 048 degrees QTc Int : 435 ms Normal sinus rhythm Minimal voltage criteria for LVH, may be normal variant ( R in aVL ) Borderline ECG When compared with ECG of 09-OCT-2023 23:55, No significant change was found Referred By: Paty Antonio Electronically Signed By:DAVE RIOS
[2023-12-02 03:43] VITALS: BP 142/72; PULSE 67; RESP 14; TEMP 36.2; O2SAT 95
[2023-12-02] MEDS: Omeprazole 20 MG CAPSULE.DR PO (05:48)
[2023-12-02 07:38] VITALS: BP 153/79; PULSE 71; RESP 12; TEMP 36.4; O2SAT 96
[2023-12-02] MEDS: Zinc Sulfate 220 MG CAPSULE PO (08:56)
[2023-12-02] MEDS: Cholecalciferol (Vitamin D3) 25 MCG TABLET PO (08:56)
[2023-12-02] MEDS: Multivitamin TABLET 1 TAB PO (08:56)
[2023-12-02] MEDS: Docusate Sodium 100 MG CAPSULE 200 MG PO (08:56)
[2023-12-02] MEDS: Apixaban 5 MG TABLET PO ×2 (08:56→20:55)
[2023-12-02] MEDS: amLODIPine Besylate 10 MG TABLET PO (08:56)
--- NOTE | 2023-12-02 11:31 | MHC.CM.PN ---
CM CONTINUES SEARCH FOR LTC BED. UPDATES SENT. NO BED OFFERS AT THIS TIME.
[2023-12-02 11:52] LABS: Troponin-I High Sensitivity < 2.7 ng/L (<3.5-17.0)
[2023-12-02] MEDS: traMADoL HCL 50 MG TABLET PO (12:28)
[2023-12-02] MEDS: Acetaminophen 325 MG TABLET 650 MG PO (14:12)
--- NOTE | 2023-12-02 14:16 | HO.PM.IMPN ---
Subjective Subjective Date of Service: 12/02/23 Interval History: seen and examined this morning patient reporting some chest tightness no shortness of breath, no cough Review of Systems Review of Systems: Yes all other systems are reviewed and are negative Constitutional Constitutional: Denies chills and Denies fever(s) Cardiovascular Cardiovascular: Denies chest pain, Denies palpitations and Denies dyspnea Respiratory Respiratory: Denies cough and Denies dyspnea Gastrointestinal Gastrointestinal: Denies abdominal pain, Denies nausea and Denies vomiting Endocrine Endocrine: Denies palpitations Physical Exam Vital Signs: Vital Signs: Last Vital Signs Temp 97.5 F 12/02/23 07:38 Pulse 71 12/02/23 07:38 Resp 12 12/02/23 07:38 BP 153/79 H 12/02/23 07:38 Pulse Ox 96 12/02/23 07:38 O2 Del Method Room Air 12/02/23 07:38 BMI result Body Mass Index 54.2 Const: General: cooperative, comfortable, no acute distress, alert and awake Nutritional Appearance: obese Orientation/consciousness: patient oriented x3 Resp: Effort & Inspection: normal respiratory effort, able to speak in complete sentences, no respiratory distress and no use of accessory muscles Auscultation: clear to auscultation bilaterally Cardio: Rate: regular rate GI: Inspection: No distended Palpation (GI): Soft to palpation and nontender Neuro: General: patient oriented x3, moves all extremities and CN's II-XI intact bilaterally Extrem: Other: chronic venous stasis changes lower extremities Objective Data Active Medications Acetaminophen (Acetaminophen 325 Mg Tablet) 650 mg PO Q6H PRN PRN Reason: Pain, Mild (Pain Scale 1-3) Last Admin: 12/02/23 14:12 Dose: 650 mg Documented By: KATHARINA Amlodipine Besylate (Amlodipine Besylate 10 Mg Tablet) 10 mg PO DAILY [facility]; Protocol Last Admin: 12/02/23 08:56 Dose: 10 mg Documented By: ARLIN Apixaban (Apixaban 5 Mg Tablet) 5 mg PO BID [facility] Last Admin: 12/02/23 08:56 Dose: 5 mg Documented By: ARLIN Atorvastatin Calcium (Atorvastatin Calcium 20 Mg Tablet) 20 mg PO BEDTIME [facility] Last Admin: 12/01/23 19:36 Dose: 20 mg Documented By: COTBATSHEVA Bisacodyl (Bisacodyl 10 Mg Supp.Rect) 10 mg [place] DAILY PRN PRN Reason: Constipation Docusate Sodium (Docusate Sodium 100 Mg Capsule) 200 mg PO DAILY [facility] Last Admin: 12/02/23 08:56 Dose: 200 mg Documented By: ARLIN Melatonin (Melatonin 3 Mg Tablet) 6 mg PO BEDTIME PRN PRN Reason: Insomnia Last Admin: 11/28/23 20:14 Dose: 6 mg Documented By: MARIA L Melatonin (Melatonin 3 Mg Tablet) 3 mg PO BEDTIME PRN PRN Reason: Insomnia Last Admin: 11/06/23 23:03 Dose: 3 mg Documented By: GIL Multivitamins/Vitamin C (Multivitamin Tablet) 1 tab PO DAILY [facility] Last Admin: 12/02/23 08:56 Dose: 1 tab Documented By: ARLIN Omeprazole (Omeprazole 20 Mg Capsule.Dr) 20 mg PO DAILY@0630 [facility] Last Admin: 12/02/23 05:48 Dose: 20 mg Documented By: ELMIRA Ondansetron HCl (Ondansetron Hcl 4 Mg/2 Ml Vial) 4 mg IVPUSH Q8H PRN PRN Reason: Nausea and Vomiting Polyethylene Glycol (Polyethylene Glycol 3350 17 Gm Powd.Pack) 17 gm PO DAILY [facility] Last Admin: 12/02/23 08:57 Dose: Not Given Documented By: ARLIN Non-Admin Reason: Patient Refused Senna/Docusate Sodium (Sennosides/Docusate Sodium Tablet) 1 tab PO BEDTIME [facility] Last Admin: 12/01/23 19:36 Dose: 1 tab Documented By: ELMIRA Tramadol HCl (Tramadol Hcl 50 Mg Tablet) 50 mg PO Q6H PRN PRN Reason: Pain, Moderate(Pain Scale 4-6) Last Admin: 12/02/23 12:28 Dose: 50 mg Documented By: KATHARINA Vitamin D (Cholecalciferol (Vitamin D3) 25 Mcg Tablet) 25 mcg PO DAILY [facility] Last Admin: 12/02/23 08:56 Dose: 25 mcg Documented By: ARLIN Zinc Sulfate (Zinc Sulfate 220 Mg Capsule) 220 mg PO DAILY [facility] Last Admin: 12/02/23 08:56 Dose: 220 mg Documented By: ARLIN Labs 11/28/23 09:41 11/28/23 09:41 Labs: Laboratory Results - last 24 hr 12/02/23 11:01 Hold Purple Top SEE NOTE Troponin I High Sens < 2.7 Assessment and Plan (1) Morbid obesity: Status: Acute Plan 67 year old women with HTN, HLD, arthritis, DVT on apixaban admitted for BRBPR and now awaiting placement Painless BRBPR on admission. Resolved attributed to hemorrhoid, stercoral colitis or chronic colitis. Bleeding was self-limited and she refused endoscopy. check qweekly labs, last 11/28 wnl atypical chest pain EKG no ischemic changes, trop negative hx DVT continue apixaban Deep tissue injury of buttocks present on admission Wound Care following Bilateral Buttocks and Posterior Thighs - Off Load Pressure - Cleanse with PH balance spray or wipes, pat dry. Apply thin layer of Triad to wound bed - only pat and dab no scrub and rub when soiling occurs. Reapply thin layer PRN after each episode of incontinence. Morbid obesity. BMI 54.2 Discussed importance of weight management as this may be contributing to worsening of other comorbidities Rt Knee pain chronic pain s/p steroid injection by ortho during this admit Continue Ultram prn HTN norvasc VTE ppx - apixaban Attending Dr. Mariscal dispo -need continued inpatient hospitalization for safe disposition STR recommended, rn case manager hospice arranging for safe placement, [facility] application and verifications still pending. Quality Stroke Does the patient have a stroke diagnosis?: No VTE Prior VTE?: No VTE Risk Level:: Medical - moderate - high VTE Device Contraindication: N/A - Device Ordered VTE Drug Contraindication: Treatment Not Indicated
[2023-12-02 14:54] VITALS: BP 123/64; PULSE 95; RESP 16; TEMP 36.2; O2SAT 95
[2023-12-02 19:47] VITALS: BP 130/60; PULSE 83; RESP 18; TEMP 36.6; O2SAT 95
[2023-12-02] MEDS: Atorvastatin Calcium 20 MG TABLET PO (20:55)
[2023-12-02] MEDS: Sennosides/Docusate Sodium TABLET 1 TAB PO (20:55)
[2023-12-03] MEDS: Acetaminophen 325 MG TABLET 650 MG PO (01:32)
[2023-12-03 03:36] VITALS: BP 126/59; PULSE 74; RESP 16; TEMP 37.2; O2SAT 95
[2023-12-03] MEDS: Omeprazole 20 MG CAPSULE.DR PO (05:59)
[2023-12-03 07:21] VITALS: BP 130/56; PULSE 74; RESP 16; TEMP 36.2; O2SAT 96
[2023-12-03] MEDS: Multivitamin TABLET 1 TAB PO (08:48)
[2023-12-03] MEDS: amLODIPine Besylate 10 MG TABLET PO (08:48)
[2023-12-03] MEDS: Cholecalciferol (Vitamin D3) 25 MCG TABLET PO (08:48)
[2023-12-03] MEDS: Docusate Sodium 100 MG CAPSULE 200 MG PO (08:48)
[2023-12-03] MEDS: Apixaban 5 MG TABLET PO ×2 (08:48→21:04)
[2023-12-03] MEDS: Zinc Sulfate 220 MG CAPSULE PO (08:48)
--- NOTE | 2023-12-03 10:01 | P.PNIM_ITS ---
Subjective Subjective Date of Service: 12/03/23 Interval History: seen and examined this morning no shortness of breath, no cough Review of Systems Review of Systems: Yes all other systems are reviewed and are negative Constitutional Constitutional: Denies chills and Denies fever(s) Cardiovascular Cardiovascular: Denies chest pain, Denies palpitations and Denies dyspnea Respiratory Respiratory: Denies cough and Denies dyspnea Gastrointestinal Gastrointestinal: Denies abdominal pain, Denies nausea and Denies vomiting Endocrine Endocrine: Denies palpitations Physical Exam 2 Vital Signs: Vital Signs: Last Vital Signs Temp 97.2 F 12/03/23 07:21 Pulse 74 12/03/23 07:21 Resp 16 12/03/23 07:21 BP 130/56 L 12/03/23 07:21 Pulse Ox 96 12/03/23 07:21 O2 Del Method Room Air 12/03/23 07:21 BMI result Body Mass Index 54.2 Alert and Oriented Objective Data Active Medications Acetaminophen (Acetaminophen 325 Mg Tablet) 650 mg PO Q6H PRN PRN Reason: Pain, Mild (Pain Scale 1-3) Last Admin: 12/03/23 01:32 Dose: 650 mg Documented By: GIL Amlodipine Besylate (Amlodipine Besylate 10 Mg Tablet) 10 mg PO DAILY [facility]; Protocol Last Admin: 12/03/23 08:48 Dose: 10 mg Documented By: ISAURO Apixaban (Apixaban 5 Mg Tablet) 5 mg PO BID [facility] Last Admin: 12/03/23 08:48 Dose: 5 mg Documented By: ISAURO Atorvastatin Calcium (Atorvastatin Calcium 20 Mg Tablet) 20 mg PO BEDTIME [facility] Last Admin: 12/02/23 20:55 Dose: 20 mg Documented By: GIL Bisacodyl (Bisacodyl 10 Mg Supp.Rect) 10 mg [place] DAILY PRN PRN Reason: Constipation Docusate Sodium (Docusate Sodium 100 Mg Capsule) 200 mg PO DAILY [facility] Last Admin: 12/03/23 08:48 Dose: 200 mg Documented By: ISAURO Melatonin (Melatonin 3 Mg Tablet) 6 mg PO BEDTIME PRN PRN Reason: Insomnia Last Admin: 11/28/23 20:14 Dose: 6 mg Documented By: MARIA L Melatonin (Melatonin 3 Mg Tablet) 3 mg PO BEDTIME PRN PRN Reason: Insomnia Last Admin: 11/06/23 23:03 Dose: 3 mg Documented By: GIL Multivitamins/Vitamin C (Multivitamin Tablet) 1 tab PO DAILY [facility] Last Admin: 12/03/23 08:48 Dose: 1 tab Documented By: ISAURO Omeprazole (Omeprazole 20 Mg Capsule.) 20 mg PO DAILY@0630 [facility] Last Admin: 12/03/23 05:59 Dose: 20 mg Documented By: GIL Ondansetron HCl (Ondansetron Hcl 4 Mg/2 Ml Vial) 4 mg IVPUSH Q8H PRN PRN Reason: Nausea and Vomiting Polyethylene Glycol (Polyethylene Glycol 3350 17 Gm Powd.Pack) 17 gm PO DAILY [facility] Last Admin: 12/03/23 08:50 Dose: Not Given Documented By: ISAURO Non-Admin Reason: Patient Refused Senna/Docusate Sodium (Sennosides/Docusate Sodium Tablet) 1 tab PO BEDTIME [facility] Last Admin: 12/02/23 20:55 Dose: 1 tab Documented By: GIL Tramadol HCl (Tramadol Hcl 50 Mg Tablet) 50 mg PO Q6H PRN PRN Reason: Pain, Moderate(Pain Scale 4-6) Last Admin: 12/02/23 12:28 Dose: 50 mg Documented By: KATHARINA Vitamin D (Cholecalciferol (Vitamin D3) 25 Mcg Tablet) 25 mcg PO DAILY [facility] Last Admin: 12/03/23 08:48 Dose: 25 mcg Documented By: ISAURO Zinc Sulfate (Zinc Sulfate 220 Mg Capsule) 220 mg PO DAILY [facility] Last Admin: 12/03/23 08:48 Dose: 220 mg Documented By: ISAURO Labs 11/28/23 09:41 11/28/23 09:41 Labs: Laboratory Results - last 24 hr 12/02/23 11:01 Hold Purple Top SEE NOTE Troponin I High Sens < 2.7 Assessment and Plan (1) Morbid obesity: Status: Acute Plan 67 year old women with HTN, HLD, arthritis, DVT on apixaban admitted for BRBPR and now awaiting placement Painless BRBPR on admission. Resolved attributed to hemorrhoid, stercoral colitis or chronic colitis. Bleeding was self-limited and she refused endoscopy. check qweekly labs, last 11/28 wnl atypical chest pain EKG no ischemic changes, trop negative hx DVT continue apixaban Deep tissue injury of buttocks present on admission Wound Care following Bilateral Buttocks and Posterior Thighs - Off Load Pressure - Cleanse with PH balance spray or wipes, pat dry. Apply thin layer of Triad to wound bed - only pat and dab no scrub and rub when soiling occurs. Reapply thin layer PRN after each episode of incontinence. Morbid obesity. BMI 54.2 Discussed importance of weight management as this may be contributing to worsening of other comorbidities Rt Knee pain chronic pain s/p steroid injection by ortho during this admit Continue Ultram prn HTN norvas VTE ppx - apixaban Attending Dr. Dow dispo -need continued inpatient hospitalization for safe disposition STR recommended, home health care case manager arranging for safe placement, [facility] application and verifications still pending. Quality Stroke Does the patient have a stroke diagnosis?: No VTE Prior VTE?: No VTE Risk Level:: Medical - moderate - high VTE Device Contraindication: N/A - Device Ordered VTE Drug Contraindication: Treatment Not Indicated
[2023-12-03 15:44] VITALS: BP 135/60; PULSE 83; RESP 18; TEMP 36.4; O2SAT 96
[2023-12-03 20:00] VITALS: BP 119/74; PULSE 88; RESP 16; TEMP 36.3; O2SAT 97
[2023-12-03] MEDS: Sennosides/Docusate Sodium TABLET 1 TAB PO (21:04)
[2023-12-03] MEDS: Atorvastatin Calcium 20 MG TABLET PO (21:04)
[2023-12-04] MEDS: Acetaminophen 325 MG TABLET 650 MG PO ×2 (01:49→23:12)
[2023-12-04 03:58] VITALS: BP 121/58; PULSE 82; RESP 16; TEMP 36.1; O2SAT 96
[2023-12-04] MEDS: Omeprazole 20 MG CAPSULE.DR PO (06:09)
--- NOTE | 2023-12-04 07:15 | HO.PM.IMPN ---
Subjective Subjective Date of Service: 12/04/23 Interval History: seen and examined this morning no shortness of breath, no cough Review of Systems Review of Systems: Yes all other systems are reviewed and are negative Constitutional Constitutional: Denies chills and Denies fever(s) Cardiovascular Cardiovascular: Denies chest pain, Denies palpitations and Denies dyspnea Respiratory Respiratory: Denies cough and Denies dyspnea Gastrointestinal Gastrointestinal: Denies abdominal pain, Denies nausea and Denies vomiting Endocrine Endocrine: Denies palpitations Physical Exam Vital Signs: Vital Signs: Last Vital Signs Temp 97.0 F 12/04/23 03:58 Pulse 82 12/04/23 03:58 Resp 16 12/04/23 03:58 BP 121/58 L 12/04/23 03:58 Pulse Ox 96 12/04/23 03:58 O2 Del Method Room Air 12/04/23 03:58 BMI result Body Mass Index 54.2 alert and oriented abd soft LSTCA Objective Data Active Medications Acetaminophen (Acetaminophen 325 Mg Tablet) 650 mg PO Q6H PRN PRN Reason: Pain, Mild (Pain Scale 1-3) Last Admin: 12/04/23 01:49 Dose: 650 mg Documented By: GIL Amlodipine Besylate (Amlodipine Besylate 10 Mg Tablet) 10 mg PO DAILY [facility]; Protocol Last Admin: 12/03/23 08:48 Dose: 10 mg Documented By: ISAURO Apixaban (Apixaban 5 Mg Tablet) 5 mg PO BID [facility] Last Admin: 12/03/23 21:04 Dose: 5 mg Documented By: GIL Atorvastatin Calcium (Atorvastatin Calcium 20 Mg Tablet) 20 mg PO BEDTIME [facility] Last Admin: 12/03/23 21:04 Dose: 20 mg Documented By: GIL Bisacodyl (Bisacodyl 10 Mg Supp.Rect) 10 mg [place] DAILY PRN PRN Reason: Constipation Docusate Sodium (Docusate Sodium 100 Mg Capsule) 200 mg PO DAILY [facility] Last Admin: 12/03/23 08:48 Dose: 200 mg Documented By: ISAURO Melatonin (Melatonin 3 Mg Tablet) 6 mg PO BEDTIME PRN PRN Reason: Insomnia Last Admin: 11/28/23 20:14 Dose: 6 mg Documented By: MARIA L Melatonin (Melatonin 3 Mg Tablet) 3 mg PO BEDTIME PRN PRN Reason: Insomnia Last Admin: 11/06/23 23:03 Dose: 3 mg Documented By: GIL Multivitamins/Vitamin C (Multivitamin Tablet) 1 tab PO DAILY [facility] Last Admin: 12/03/23 08:48 Dose: 1 tab Documented By: ISAURO Omeprazole (Omeprazole 20 Mg Capsule.) 20 mg PO DAILY@0630 [facility] Last Admin: 12/04/23 06:09 Dose: 20 mg Documented By: GIL Ondansetron HCl (Ondansetron Hcl 4 Mg/2 Ml Vial) 4 mg IVPUSH Q8H PRN PRN Reason: Nausea and Vomiting Polyethylene Glycol (Polyethylene Glycol 3350 17 Gm Powd.Pack) 17 gm PO DAILY [facility] Last Admin: 12/03/23 08:50 Dose: Not Given Documented By: ISAURO Non-Admin Reason: Patient Refused Senna/Docusate Sodium (Sennosides/Docusate Sodium Tablet) 1 tab PO BEDTIME [facility] Last Admin: 12/03/23 21:04 Dose: 1 tab Documented By: GIL Tramadol HCl (Tramadol Hcl 50 Mg Tablet) 50 mg PO Q6H PRN PRN Reason: Pain, Moderate(Pain Scale 4-6) Last Admin: 12/02/23 12:28 Dose: 50 mg Documented By: KATHARINA Vitamin D (Cholecalciferol (Vitamin D3) 25 Mcg Tablet) 25 mcg PO DAILY [facility] Last Admin: 12/03/23 08:48 Dose: 25 mcg Documented By: ISAURO Zinc Sulfate (Zinc Sulfate 220 Mg Capsule) 220 mg PO DAILY [facility] Last Admin: 12/03/23 08:48 Dose: 220 mg Documented By: ISAUOR Labs 11/28/23 09:41 11/28/23 09:41 Assessment and Plan (1) Morbid obesity: Status: Acute Plan 67 year old women with HTN, HLD, arthritis, DVT on apixaban admitted for BRBPR and now awaiting placement Painless BRBPR on admission. Resolved attributed to hemorrhoid, stercoral colitis or chronic colitis. Bleeding was self-limited and she refused endoscopy. check qweekly labs, last 11/28 wnl atypical chest pain EKG no ischemic changes, trop negative hx DVT continue apixaban Deep tissue injury of buttocks present on admission Wound Care following Bilateral Buttocks and Posterior Thighs - Off Load Pressure - Cleanse with PH balance spray or wipes, pat dry. Apply thin layer of Triad to wound bed - only pat and dab no scrub and rub when soiling occurs. Reapply thin layer PRN after each episode of incontinence. Morbid obesity. BMI 54.2 Discussed importance of weight management as this may be contributing to worsening of other comorbidities Rt Knee pain chronic pain s/p steroid injection by ortho during this admit Continue Ultram prn HTN norvasc VTE ppx - apixaban Attending Dr. Dow dispo -need continued inpatient hospitalization for safe disposition STR recommended, child support case officer arranging for safe placement, [facility] application and verifications still pending. Quality Stroke Does the patient have a stroke diagnosis?: No VTE Prior VTE?: No VTE Risk Level:: Medical - moderate - high VTE Device Contraindication: N/A - Device Ordered VTE Drug Contraindication: Treatment Not Indicated
[2023-12-04 08:00] VITALS: BP 139/67; PULSE 88; RESP 16; TEMP 36.6; O2SAT 94
[2023-12-04] MEDS: Zinc Sulfate 220 MG CAPSULE PO (08:45)
[2023-12-04] MEDS: Docusate Sodium 100 MG CAPSULE 200 MG PO (08:45)
[2023-12-04] MEDS: Multivitamin TABLET 1 TAB PO (08:45)
[2023-12-04] MEDS: Apixaban 5 MG TABLET PO ×2 (08:45→20:43)
[2023-12-04] MEDS: amLODIPine Besylate 10 MG TABLET PO (08:45)
[2023-12-04] MEDS: Cholecalciferol (Vitamin D3) 25 MCG TABLET PO (08:45)
[2023-12-04 16:00] VITALS: BP 127/60; PULSE 94; RESP 16; TEMP 36.3; O2SAT 93
[2023-12-04 19:06] VITALS: BP 120/50; PULSE 87; RESP 16; TEMP 36.6; O2SAT 95
[2023-12-04] MEDS: Atorvastatin Calcium 20 MG TABLET PO (20:43)
[2023-12-04] MEDS: Sennosides/Docusate Sodium TABLET 1 TAB PO (20:43)
[2023-12-05 04:00] VITALS: BP 105/54; PULSE 70; RESP 16; TEMP 36.2; O2SAT 97
[2023-12-05] MEDS: Omeprazole 20 MG CAPSULE.DR PO (06:44)
[2023-12-05 07:10] VITALS: BP 166/72; PULSE 74; RESP 18; TEMP 36.7; O2SAT 97
--- NOTE | 2023-12-05 07:13 | P.PNIM_ITS ---
Subjective Subjective Date of Service: 12/05/23 Interval History: seen and examined this morning no shortness of breath, no cough Review of Systems Review of Systems: Yes all other systems are reviewed and are negative Constitutional Constitutional: Denies chills and Denies fever(s) Cardiovascular Cardiovascular: Denies chest pain, Denies palpitations and Denies dyspnea Respiratory Respiratory: Denies cough and Denies dyspnea Gastrointestinal Gastrointestinal: Denies abdominal pain, Denies nausea and Denies vomiting Endocrine Endocrine: Denies palpitations Physical Exam 2 Vital Signs: Vital Signs: Last Vital Signs Temp 98.0 F 12/05/23 07:10 Pulse 74 12/05/23 07:10 Resp 18 12/05/23 07:10 BP 166/72 H 12/05/23 07:10 Pulse Ox 97 12/05/23 07:10 O2 Del Method Room Air 12/05/23 07:10 BMI result Body Mass Index 54.2 alert and oriented abd soft LSCTA Objective Data Active Medications Acetaminophen (Acetaminophen 325 Mg Tablet) 650 mg PO Q6H PRN PRN Reason: Pain, Mild (Pain Scale 1-3) Last Admin: 12/04/23 23:12 Dose: 650 mg Documented By: GIL Amlodipine Besylate (Amlodipine Besylate 10 Mg Tablet) 10 mg PO DAILY [facility]; Protocol Last Admin: 12/04/23 08:45 Dose: 10 mg Documented By: ISAURO Apixaban (Apixaban 5 Mg Tablet) 5 mg PO BID [facility] Last Admin: 12/04/23 20:43 Dose: 5 mg Documented By: GIL Atorvastatin Calcium (Atorvastatin Calcium 20 Mg Tablet) 20 mg PO BEDTIME [facility] Last Admin: 12/04/23 20:43 Dose: 20 mg Documented By: GIL Bisacodyl (Bisacodyl 10 Mg Supp.Rect) 10 mg [place] DAILY PRN PRN Reason: Constipation Docusate Sodium (Docusate Sodium 100 Mg Capsule) 200 mg PO DAILY [facility] Last Admin: 12/04/23 08:45 Dose: 200 mg Documented By: ISAURO Melatonin (Melatonin 3 Mg Tablet) 6 mg PO BEDTIME PRN PRN Reason: Insomnia Last Admin: 11/28/23 20:14 Dose: 6 mg Documented By: MARIA L Melatonin (Melatonin 3 Mg Tablet) 3 mg PO BEDTIME PRN PRN Reason: Insomnia Last Admin: 11/06/23 23:03 Dose: 3 mg Documented By: GIL Multivitamins/Vitamin C (Multivitamin Tablet) 1 tab PO DAILY [facility] Last Admin: 12/04/23 08:45 Dose: 1 tab Documented By: ISAURO Omeprazole (Omeprazole 20 Mg Capsule.) 20 mg PO DAILY@0630 [facility] Last Admin: 12/05/23 06:44 Dose: 20 mg Documented By: GIL Ondansetron HCl (Ondansetron Hcl 4 Mg/2 Ml Vial) 4 mg IVPUSH Q8H PRN PRN Reason: Nausea and Vomiting Polyethylene Glycol (Polyethylene Glycol 3350 17 Gm Powd.Pack) 17 gm PO DAILY [facility] Last Admin: 12/04/23 08:47 Dose: Not Given Documented By: ISAURO Non-Admin Reason: Patient Refused Senna/Docusate Sodium (Sennosides/Docusate Sodium Tablet) 1 tab PO BEDTIME [facility] Last Admin: 12/04/23 20:43 Dose: 1 tab Documented By: GIL Tramadol HCl (Tramadol Hcl 50 Mg Tablet) 50 mg PO Q6H PRN PRN Reason: Pain, Moderate(Pain Scale 4-6) Last Admin: 12/02/23 12:28 Dose: 50 mg Documented By: KATHARINA Vitamin D (Cholecalciferol (Vitamin D3) 25 Mcg Tablet) 25 mcg PO DAILY [facility] Last Admin: 12/04/23 08:45 Dose: 25 mcg Documented By: ISAURO Zinc Sulfate (Zinc Sulfate 220 Mg Capsule) 220 mg PO DAILY [facility] Last Admin: 12/04/23 08:45 Dose: 220 mg Documented By: ISAURO Labs 11/28/23 09:41 11/28/23 09:41 Assessment and Plan (1) Morbid obesity: Status: Acute Plan 67 year old women with HTN, HLD, arthritis, DVT on apixaban admitted for BRBPR and now awaiting placement Painless BRBPR on admission. Resolved attributed to hemorrhoid, stercoral colitis or chronic colitis. Bleeding was self-limited and she refused endoscopy. check qweekly labs, last 11/28 wnl atypical chest pain EKG no ischemic changes, trop negative hx DVT continue apixaban Deep tissue injury of buttocks present on admission Wound Care following Bilateral Buttocks and Posterior Thighs - Off Load Pressure - Cleanse with PH balance spray or wipes, pat dry. Apply thin layer of Triad to wound bed - only pat and dab no scrub and rub when soiling occurs. Reapply thin layer PRN after each episode of incontinence. Morbid obesity. BMI 54.2 Discussed importance of weight management as this may be contributing to worsening of other comorbidities Rt Knee pain chronic pain s/p steroid injection by ortho during this admit Continue Ultram prn HTN norvasc VTE ppx - apixaban Attending Dr. Dow dispo -need continued inpatient hospitalization for safe disposition STR recommended, caser in arranging for safe placement, [facility] application and verifications still pending. Quality Stroke Does the patient have a stroke diagnosis?: No VTE Prior VTE?: No VTE Risk Level:: Medical - moderate - high VTE Device Contraindication: N/A - Device Ordered VTE Drug Contraindication: Treatment Not Indicated
[2023-12-05] MEDS: Apixaban 5 MG TABLET PO ×2 (08:52→19:27)
[2023-12-05] MEDS: traMADoL HCL 50 MG TABLET PO ×2 (08:52→19:28)
[2023-12-05] MEDS: amLODIPine Besylate 10 MG TABLET PO (08:52)
[2023-12-05] MEDS: Docusate Sodium 100 MG CAPSULE 200 MG PO (08:52)
[2023-12-05] MEDS: Multivitamin TABLET 1 TAB PO (08:52)
[2023-12-05] MEDS: Cholecalciferol (Vitamin D3) 25 MCG TABLET PO (08:52)
[2023-12-05] MEDS: Zinc Sulfate 220 MG CAPSULE PO (08:52)
--- NOTE | 2023-12-05 14:20 | MHC.CM.PN ---
CM SPOKE TO [facility] TODAY, THEY CONFIRM PTS [facility] IS READY FOR WHEN A SNF IS FOUND CM HAS UPDATED SNFS AND AT THIS TIME THERE ARE NO OFFERS
[2023-12-05 15:23] VITALS: BP 127/59; PULSE 87; RESP 16; TEMP 36.8; O2SAT 96
[2023-12-05] MEDS: Sennosides/Docusate Sodium TABLET 1 TAB PO (19:27)
[2023-12-05] MEDS: Atorvastatin Calcium 20 MG TABLET PO (19:27)
[2023-12-05 19:29] VITALS: BP 118/63; PULSE 82; RESP 19; TEMP 36.2; O2SAT 94
[2023-12-05] MEDS: Acetaminophen 325 MG TABLET 650 MG PO (23:38)
[2023-12-06 03:00] VITALS: BP 133/78; PULSE 79; RESP 19; TEMP 36.4; O2SAT 98
[2023-12-06] MEDS: Omeprazole 20 MG CAPSULE.DR PO (06:23)
[2023-12-06 07:24] VITALS: BP 145/75; PULSE 81; RESP 18; TEMP 36.1; O2SAT 95
[2023-12-06] MEDS: Apixaban 5 MG TABLET PO ×2 (08:56→20:16)
[2023-12-06] MEDS: Cholecalciferol (Vitamin D3) 25 MCG TABLET PO (08:56)
[2023-12-06] MEDS: amLODIPine Besylate 10 MG TABLET PO (08:56)
[2023-12-06] MEDS: Multivitamin TABLET 1 TAB PO (08:56)
[2023-12-06] MEDS: Docusate Sodium 100 MG CAPSULE 200 MG PO (08:56)
[2023-12-06] MEDS: traMADoL HCL 50 MG TABLET PO ×2 (08:56→20:16)
[2023-12-06] MEDS: Zinc Sulfate 220 MG CAPSULE PO (08:56)
--- NOTE | 2023-12-06 10:35 | P.PNIM_ITS ---
Subjective Subjective Date of Service: 12/06/23 Interval History: seen and examined this morning no shortness of breath, no cough Review of Systems Review of Systems: Yes all other systems are reviewed and are negative Constitutional Constitutional: Denies chills and Denies fever(s) Cardiovascular Cardiovascular: Denies chest pain, Denies palpitations and Denies dyspnea Respiratory Respiratory: Denies cough and Denies dyspnea Gastrointestinal Gastrointestinal: Denies abdominal pain, Denies nausea and Denies vomiting Endocrine Endocrine: Denies palpitations Physical Exam 2 Vital Signs: Vital Signs: Last Vital Signs Temp 96.9 F 12/06/23 07:24 Pulse 81 12/06/23 07:24 Resp 18 12/06/23 07:24 BP 145/75 H 12/06/23 07:24 Pulse Ox 95 12/06/23 07:24 O2 Del Method Room Air 12/06/23 07:24 BMI result Body Mass Index 54.2 alert and oriented abd soft LSCTA Objective Data Active Medications Acetaminophen (Acetaminophen 325 Mg Tablet) 650 mg PO Q6H PRN PRN Reason: Pain, Mild (Pain Scale 1-3) Last Admin: 12/05/23 23:38 Dose: 650 mg Documented By: ALAYNA Amlodipine Besylate (Amlodipine Besylate 10 Mg Tablet) 10 mg PO DAILY [facility]; Protocol Last Admin: 12/06/23 08:56 Dose: 10 mg Documented By: ADDY Apixaban (Apixaban 5 Mg Tablet) 5 mg PO BID [facility] Last Admin: 12/06/23 08:56 Dose: 5 mg Documented By: ADDY Atorvastatin Calcium (Atorvastatin Calcium 20 Mg Tablet) 20 mg PO BEDTIME [facility] Last Admin: 12/05/23 19:27 Dose: 20 mg Documented By: ALAYNA Bisacodyl (Bisacodyl 10 Mg Supp.Rect) 10 mg [place] DAILY PRN PRN Reason: Constipation Docusate Sodium (Docusate Sodium 100 Mg Capsule) 200 mg PO DAILY [facility] Last Admin: 12/06/23 08:56 Dose: 200 mg Documented By: ADDY Melatonin (Melatonin 3 Mg Tablet) 6 mg PO BEDTIME PRN PRN Reason: Insomnia Last Admin: 11/28/23 20:14 Dose: 6 mg Documented By: MARIA L Melatonin (Melatonin 3 Mg Tablet) 3 mg PO BEDTIME PRN PRN Reason: Insomnia Last Admin: 11/06/23 23:03 Dose: 3 mg Documented By: GIL Multivitamins/Vitamin C (Multivitamin Tablet) 1 tab PO DAILY [facility] Last Admin: 12/06/23 08:56 Dose: 1 tab Documented By: ADDY Omeprazole (Omeprazole 20 Mg Capsule.) 20 mg PO DAILY@0630 [facility] Last Admin: 12/06/23 06:23 Dose: 20 mg Documented By: ALAYNA Ondansetron HCl (Ondansetron Hcl 4 Mg/2 Ml Vial) 4 mg IVPUSH Q8H PRN PRN Reason: Nausea and Vomiting Polyethylene Glycol (Polyethylene Glycol 3350 17 Gm Powd.Pack) 17 gm PO DAILY [facility] Last Admin: 12/06/23 08:58 Dose: Not Given Documented By: ADDY Non-Admin Reason: Patient Refused Senna/Docusate Sodium (Sennosides/Docusate Sodium Tablet) 1 tab PO BEDTIME [facility] Last Admin: 12/05/23 19:27 Dose: 1 tab Documented By: ALAYNA Tramadol HCl (Tramadol Hcl 50 Mg Tablet) 50 mg PO Q6H PRN PRN Reason: Pain, Moderate(Pain Scale 4-6) Last Admin: 12/06/23 08:56 Dose: 50 mg Documented By: ADDY Vitamin D (Cholecalciferol (Vitamin D3) 25 Mcg Tablet) 25 mcg PO DAILY [facility] Last Admin: 12/06/23 08:56 Dose: 25 mcg Documented By: ADDY Zinc Sulfate (Zinc Sulfate 220 Mg Capsule) 220 mg PO DAILY [facility] Last Admin: 12/06/23 08:56 Dose: 220 mg Documented By: ADDY Labs 11/28/23 09:41 11/28/23 09:41 Assessment and Plan (1) Morbid obesity: Status: Acute Plan 67 year old women with HTN, HLD, arthritis, DVT on apixaban admitted for BRBPR and now awaiting placement Painless BRBPR on admission. Resolved attributed to hemorrhoid, stercoral colitis or chronic colitis. Bleeding was self-limited and she refused endoscopy. check qweekly labs, last 11/28 wnl atypical chest pain EKG no ischemic changes, trop negative hx DVT continue apixaban Deep tissue injury of buttocks present on admission Wound Care following Bilateral Buttocks and Posterior Thighs - Off Load Pressure - Cleanse with PH balance spray or wipes, pat dry. Apply thin layer of Triad to wound bed - only pat and dab no scrub and rub when soiling occurs. Reapply thin layer PRN after each episode of incontinence. Morbid obesity. BMI 54.2 Discussed importance of weight management as this may be contributing to worsening of other comorbidities Rt Knee pain chronic pain s/p steroid injection by ortho during this admit Continue Ultram prn HTN norvasc VTE ppx - apixaban Attending Dr. Mariscal dispo -need continued inpatient hospitalization for safe disposition STR recommended, pillowcase turner arranging for safe placement, [facility] application and verifications still pending. Quality Stroke Does the patient have a stroke diagnosis?: No VTE Prior VTE?: No VTE Risk Level:: Medical - moderate - high VTE Device Contraindication: N/A - Device Ordered VTE Drug Contraindication: Treatment Not Indicated
[2023-12-06 15:28] VITALS: BP 115/74; PULSE 82; RESP 18; TEMP 36.3; O2SAT 95
[2023-12-06 19:40] VITALS: BP 106/64; PULSE 95; RESP 18; TEMP 36.5; O2SAT 94
[2023-12-06] MEDS: Atorvastatin Calcium 20 MG TABLET PO (20:16)
[2023-12-06] MEDS: Sennosides/Docusate Sodium TABLET 1 TAB PO (20:16)
[2023-12-07] MEDS: Acetaminophen 325 MG TABLET 650 MG PO (02:07)
[2023-12-07 03:20] VITALS: BP 120/83; PULSE 91; RESP 18; TEMP 36.1; O2SAT 94
[2023-12-07] MEDS: Omeprazole 20 MG CAPSULE.DR PO (05:20)
[2023-12-07 07:31] VITALS: BP 136/75; PULSE 80; RESP 14; TEMP 36; O2SAT 96
[2023-12-07 08:28] LABS: Hematocrit 31.9 % (37.0-47.0); Hemoglobin 9.8 g/dl (12.0-16.0); Mean Corpuscular HGB Conc 30.7 g/dl (31.0-35.0); Mean Corpuscular Hemoglobin 25.9 pg (27.0-33.0); Mean Corpuscular Volume 84.2 fL (80.0-98.0); Mean Platelet Volume 10.9 fL (9.4-12.3); Platelet Count 302 X10*3/uL (160-400); Red Blood Count 3.79 X10*6/uL (4.20-5.50); White Blood Count 4.8 X10*3/uL (4.8-10.8)
[2023-12-07 08:31] LABS: Anion Gap 9 (12-20); Blood Urea Nitrogen 15 mg/dL (9-16); Calcium 8.9 mg/dL (8.4-10.2); Carbon Dioxide 31 mmol/L (22-29); Chloride 101 mmol/L (96-108); Creatinine Clr Calc Pharmacy 141.4; Estimated Glomerular Filt Rate > 60; Glucose Random 77 mg/dL (60-115); Potassium 4.1 mmol/L (3.3-5.1); Sodium 137 mmol/L (135-145)
[2023-12-07] MEDS: Multivitamin TABLET 1 TAB PO (08:41)
[2023-12-07] MEDS: amLODIPine Besylate 10 MG TABLET PO (08:41)
[2023-12-07] MEDS: Zinc Sulfate 220 MG CAPSULE PO (08:42)
[2023-12-07] MEDS: Docusate Sodium 100 MG CAPSULE 200 MG PO (08:42)
[2023-12-07] MEDS: Cholecalciferol (Vitamin D3) 25 MCG TABLET PO (08:42)
[2023-12-07] MEDS: Apixaban 5 MG TABLET PO ×2 (08:42→21:14)
--- NOTE | 2023-12-07 08:43 | P.PNIM_ITS ---
Subjective Subjective Date of Service: 12/07/23 Interval History: seen and examined this morning no shortness of breath, no cough Review of Systems Review of Systems: Yes all other systems are reviewed and are negative Constitutional Constitutional: Denies chills and Denies fever(s) Cardiovascular Cardiovascular: Denies chest pain, Denies palpitations and Denies dyspnea Respiratory Respiratory: Denies cough and Denies dyspnea Gastrointestinal Gastrointestinal: Denies abdominal pain, Denies nausea and Denies vomiting Endocrine Endocrine: Denies palpitations Physical Exam 2 Vital Signs: Vital Signs: Last Vital Signs Temp 96.8 F 12/07/23 07:31 Pulse 80 12/07/23 07:31 Resp 14 12/07/23 07:31 BP 136/75 12/07/23 07:31 Pulse Ox 96 12/07/23 07:31 O2 Del Method Room Air 12/07/23 07:31 BMI result Body Mass Index 54.2 Appearing in no acute distress lung sounds are clear to auscultation heart regular rate rhythm positive bowel sounds, abdomen is soft neuro patient is alert x3, no focal deficits Objective Data Active Medications Acetaminophen (Acetaminophen 325 Mg Tablet) 650 mg PO Q6H PRN PRN Reason: Pain, Mild (Pain Scale 1-3) Last Admin: 12/07/23 02:07 Dose: 650 mg Documented By: ALAYNA Amlodipine Besylate (Amlodipine Besylate 10 Mg Tablet) 10 mg PO DAILY [facility]; Protocol Last Admin: 12/07/23 08:41 Dose: 10 mg Documented By: RICHI Apixaban (Apixaban 5 Mg Tablet) 5 mg PO BID [facility] Last Admin: 12/07/23 08:42 Dose: 5 mg Documented By: RICHI Atorvastatin Calcium (Atorvastatin Calcium 20 Mg Tablet) 20 mg PO BEDTIME [facility] Last Admin: 12/06/23 20:16 Dose: 20 mg Documented By: ALAYNA Bisacodyl (Bisacodyl 10 Mg Supp.Rect) 10 mg [place] DAILY PRN PRN Reason: Constipation Docusate Sodium (Docusate Sodium 100 Mg Capsule) 200 mg PO DAILY [facility] Last Admin: 12/07/23 08:42 Dose: 200 mg Documented By: RICHI Melatonin (Melatonin 3 Mg Tablet) 6 mg PO BEDTIME PRN PRN Reason: Insomnia Last Admin: 11/28/23 20:14 Dose: 6 mg Documented By: MARIA L Melatonin (Melatonin 3 Mg Tablet) 3 mg PO BEDTIME PRN PRN Reason: Insomnia Last Admin: 11/06/23 23:03 Dose: 3 mg Documented By: GIL Multivitamins/Vitamin C (Multivitamin Tablet) 1 tab PO DAILY [facility] Last Admin: 12/07/23 08:41 Dose: 1 tab Documented By: RICHI Omeprazole (Omeprazole 20 Mg Capsule.Dr) 20 mg PO DAILY@0630 [facility] Last Admin: 12/07/23 05:20 Dose: 20 mg Documented By: ALAYNA Ondansetron HCl (Ondansetron Hcl 4 Mg/2 Ml Vial) 4 mg IVPUSH Q8H PRN PRN Reason: Nausea and Vomiting Polyethylene Glycol (Polyethylene Glycol 3350 17 Gm Powd.Pack) 17 gm PO DAILY [facility] Last Admin: 12/07/23 07:36 Dose: Not Given Documented By: RICHI Non-Admin Reason: Patient Refused Senna/Docusate Sodium (Sennosides/Docusate Sodium Tablet) 1 tab PO BEDTIME [facility] Last Admin: 12/06/23 20:16 Dose: 1 tab Documented By: ALAYNA Tramadol HCl (Tramadol Hcl 50 Mg Tablet) 50 mg PO Q6H PRN PRN Reason: Pain, Severe (Pain Scale 7-10) Last Admin: 12/06/23 20:16 Dose: 50 mg Documented By: ALAYNA Vitamin D (Cholecalciferol (Vitamin D3) 25 Mcg Tablet) 25 mcg PO DAILY [facility] Last Admin: 12/07/23 08:42 Dose: 25 mcg Documented By: RICHI Zinc Sulfate (Zinc Sulfate 220 Mg Capsule) 220 mg PO DAILY [facility] Last Admin: 12/07/23 08:42 Dose: 220 mg Documented By: RICHI Labs 12/07/23 07:52 12/07/23 07:52 Labs: Laboratory Results - last 24 hr 12/07/23 07:52 MCV 84.2 MCH 25.9 L MCHC 30.7 L RDW 14.0 Plt Count 302 MPV 10.9 Absolute Nucleated RBC 0.000 Nucleated RBC % (auto) 0.0 Anion Gap 9 L Estim Creat Clear Calc 141.4 Estimated GFR > 60 Random Glucose 77 Calcium 8.9 Assessment and Plan (1) Morbid obesity: Status: Acute Plan 67 year old women with HTN, HLD, arthritis, DVT on apixaban admitted for BRBPR and now awaiting placement. No new medical issues Painless BRBPR on admission. Resolved attributed to hemorrhoid, stercoral colitis or chronic colitis. Bleeding was self-limited and she refused endoscopy. check qweekly labs, last 3/6 wnl atypical chest pain. Resolved EKG no ischemic changes, trop negative hx DVT continue apixaban Deep tissue injury of buttocks present on admission Wound Care following Bilateral Buttocks and Posterior Thighs - Off Load Pressure - Cleanse with PH balance spray or wipes, pat dry. Apply thin layer of Triad to wound bed - only pat and dab no scrub and rub when soiling occurs. Reapply thin layer PRN after each episode of incontinence. Morbid obesity. BMI 54.2 Discussed importance of weight management as this may be contributing to worsening of other comorbidities Rt Knee pain chronic pain s/p steroid injection by ortho during this admit Continue Ultram prn HTN norvasc VTE ppx - apixaban Attending Dr. Mariscal dispo -need continued inpatient hospitalization for safe disposition STR recommended, case reviewer arranging for safe placement, [facility] application and verifications still pending. Quality Stroke Does the patient have a stroke diagnosis?: No VTE Prior VTE?: No VTE Risk Level:: Medical - moderate - high VTE Device Contraindication: N/A - Device Ordered VTE Drug Contraindication: Treatment Not Indicated
[2023-12-07 15:25] VITALS: BP 135/79; PULSE 96; RESP 18; TEMP 36; O2SAT 94
--- NOTE | 2023-12-07 16:06 | MHC.CM.PN ---
spoke with dylon from [facility] who exoects to have FEMALE LTC BED she will be here 12/07 between 2 and 2:30 tomorrow to evaluate pt
[2023-12-07 19:20] VITALS: BP 123/67; PULSE 92; RESP 18; TEMP 36.3; O2SAT 94
[2023-12-07] MEDS: Sennosides/Docusate Sodium TABLET 1 TAB PO (21:14)
[2023-12-07] MEDS: Atorvastatin Calcium 20 MG TABLET PO (21:14)
[2023-12-08 03:27] VITALS: BP 137/66; PULSE 80; RESP 18; TEMP 36.3; O2SAT 93
[2023-12-08] MEDS: Omeprazole 20 MG CAPSULE.DR PO (05:56)
[2023-12-08 07:35] VITALS: BP 124/73; PULSE 80; RESP 14; TEMP 36.7; O2SAT 96
[2023-12-08] MEDS: Docusate Sodium 100 MG CAPSULE 200 MG PO (08:27)
[2023-12-08] MEDS: Zinc Sulfate 220 MG CAPSULE PO (08:27)
[2023-12-08] MEDS: amLODIPine Besylate 10 MG TABLET PO (08:27)
[2023-12-08] MEDS: Cholecalciferol (Vitamin D3) 25 MCG TABLET PO (08:27)
[2023-12-08] MEDS: Multivitamin TABLET 1 TAB PO (08:27)
[2023-12-08] MEDS: Apixaban 5 MG TABLET PO ×2 (08:27→20:31)
--- NOTE | 2023-12-08 14:32 | P.PNIM_ITS ---
Subjective Subjective Date of Service: 12/08/23 Interval History: seen and examined this morning follow up for placement no overnight events no specific comlaints. feeling well, eating ok, voiding without difficulty Review of Systems Review of Systems: Yes all other systems are reviewed and are negative Constitutional Constitutional: Denies chills and Denies fever(s) Cardiovascular Cardiovascular: Denies chest pain, Denies palpitations and Denies dyspnea Respiratory Respiratory: Denies cough and Denies dyspnea Gastrointestinal Gastrointestinal: Denies abdominal pain, Denies diarrhea, Denies nausea and Denies vomiting Endocrine Endocrine: Denies palpitations Physical Exam 2 Vital Signs: Vital Signs: Last Vital Signs Temp 98.1 F 12/08/23 07:35 Pulse 80 12/08/23 07:35 Resp 14 12/08/23 07:35 BP 124/73 12/08/23 07:35 Pulse Ox 96 12/08/23 07:35 O2 Del Method Room Air 12/08/23 07:35 BMI result Body Mass Index 54.2 Const: General: cooperative, comfortable, no acute distress, alert and awake Nutritional Appearance: obese Orientation/consciousness: patient oriented x3 Resp: Effort & Inspection: normal respiratory effort, able to speak in complete sentences, no respiratory distress and no use of accessory muscles Cardio: Rate: regular rate GI: Inspection: No distended Palpation (GI): Soft to palpation and nontender Neuro: General: patient oriented x3, moves all extremities and CN's II-XI intact bilaterally Extrem: General: Yes no pedal edema Objective Data Active Medications Acetaminophen (Acetaminophen 325 Mg Tablet) 650 mg PO Q6H PRN PRN Reason: Pain, Mild (Pain Scale 1-3) Last Admin: 12/07/23 02:07 Dose: 650 mg Documented By: ALAYNA Amlodipine Besylate (Amlodipine Besylate 10 Mg Tablet) 10 mg PO DAILY [facility]; Protocol Last Admin: 12/08/23 08:27 Dose: 10 mg Documented By: KELLY Apixaban (Apixaban 5 Mg Tablet) 5 mg PO BID [facility] Last Admin: 12/08/23 08:27 Dose: 5 mg Documented By: KELLY Atorvastatin Calcium (Atorvastatin Calcium 20 Mg Tablet) 20 mg PO BEDTIME [facility] Last Admin: 12/07/23 21:14 Dose: 20 mg Documented By: SUZANNA Bisacodyl (Bisacodyl 10 Mg Supp.Rect) 10 mg [place] DAILY PRN PRN Reason: Constipation Docusate Sodium (Docusate Sodium 100 Mg Capsule) 200 mg PO DAILY [facility] Last Admin: 12/08/23 08:27 Dose: 200 mg Documented By: KELLY Melatonin (Melatonin 3 Mg Tablet) 6 mg PO BEDTIME PRN PRN Reason: Insomnia Last Admin: 11/28/23 20:14 Dose: 6 mg Documented By: MARIA L Melatonin (Melatonin 3 Mg Tablet) 3 mg PO BEDTIME PRN PRN Reason: Insomnia Last Admin: 11/06/23 23:03 Dose: 3 mg Documented By: GIL Multivitamins/Vitamin C (Multivitamin Tablet) 1 tab PO DAILY [facility] Last Admin: 12/08/23 08:27 Dose: 1 tab Documented By: KELLY Omeprazole (Omeprazole 20 Mg Capsule.Dr) 20 mg PO DAILY@0630 [facility] Last Admin: 12/08/23 05:56 Dose: 20 mg Documented By: SUZANNA Ondansetron HCl (Ondansetron Hcl 4 Mg/2 Ml Vial) 4 mg IVPUSH Q8H PRN PRN Reason: Nausea and Vomiting Polyethylene Glycol (Polyethylene Glycol 3350 17 Gm Powd.Pack) 17 gm PO DAILY [facility] Last Admin: 12/08/23 08:27 Dose: Not Given Documented By: KELLY Non-Admin Reason: Patient Refused Senna/Docusate Sodium (Sennosides/Docusate Sodium Tablet) 1 tab PO BEDTIME [facility] Last Admin: 12/07/23 21:14 Dose: 1 tab Documented By: SUZANNA Tramadol HCl (Tramadol Hcl 50 Mg Tablet) 50 mg PO Q6H PRN PRN Reason: Pain, Severe (Pain Scale 7-10) Last Admin: 12/06/23 20:16 Dose: 50 mg Documented By: ALAYNA Vitamin D (Cholecalciferol (Vitamin D3) 25 Mcg Tablet) 25 mcg PO DAILY [facility] Last Admin: 12/08/23 08:27 Dose: 25 mcg Documented By: KELLY Zinc Sulfate (Zinc Sulfate 220 Mg Capsule) 220 mg PO DAILY [facility] Last Admin: 12/08/23 08:27 Dose: 220 mg Documented By: KELLY Labs 12/07/23 07:52 12/07/23 07:52 Assessment and Plan (1) Morbid obesity: Status: Acute Plan 67 year old women with HTN, HLD, arthritis, DVT on apixaban admitted for BRBPR and now awaiting placement. No new medical issues Painless BRBPR on admission. Resolved attributed to hemorrhoid, stercoral colitis or chronic colitis. Bleeding was self-limited and she refused endoscopy. check qweekly labs, last 3/6 wnl atypical chest pain. Resolved EKG no ischemic changes, trop negative hx DVT continue apixaban Deep tissue injury of buttocks present on admission Wound Care following Bilateral Buttocks and Posterior Thighs - Off Load Pressure - Cleanse with PH balance spray or wipes, pat dry. Apply thin layer of Triad to wound bed - only pat and dab no scrub and rub when soiling occurs. Reapply thin layer PRN after each episode of incontinence. Morbid obesity. BMI 54.2 Discussed importance of weight management as this may be contributing to worsening of other comorbidities Rt Knee pain chronic pain s/p steroid injection by ortho during this admit Continue Ultram prn HTN norvasc VTE ppx - apixaban Attending Dr. Mariscal dispo -need continued inpatient hospitalization for safe disposition STR recommended, residential case manager arranging for safe placement, [facility] application and verifications still pending. Quality Stroke Does the patient have a stroke diagnosis?: No VTE Prior VTE?: No VTE Risk Level:: Medical - moderate - high VTE Device Contraindication: N/A - Device Ordered VTE Drug Contraindication: Treatment Not Indicated
[2023-12-08 15:24] VITALS: BP 114/68; PULSE 98; RESP 18; TEMP 36.6; O2SAT 96
--- NOTE | 2023-12-08 15:29 | MHC.CM.PN ---
[facility] STAFF ON SITE THIS AFTERNOON TO MEET WITH PT PER PARVIN LU, THE PT IS CLINICALLY APPROPRIATE HOWEVER THEIR BUSINESS OFFICE LOOKED UP PTS [facility] AND DID NOT SEE THE LTC PART CM SPOKE TO [facility], THEY REPORT THE LTC PORTION WAS COMPLETED AND THEY EMAILED A COPY TO BE FORWARDED TO [facility]
[2023-12-08 19:32] VITALS: BP 110/70; PULSE 94; RESP 18; TEMP 36.4; O2SAT 94
[2023-12-08] MEDS: Sennosides/Docusate Sodium TABLET 1 TAB PO (20:31)
[2023-12-08] MEDS: Atorvastatin Calcium 20 MG TABLET PO (20:31)
[2023-12-09 03:13] VITALS: BP 126/59; PULSE 80; RESP 16; TEMP 37; O2SAT 97
[2023-12-09] MEDS: Omeprazole 20 MG CAPSULE.DR PO (06:10)
[2023-12-09 07:58] VITALS: BP 137/72; PULSE 84; RESP 17; TEMP 36.4; O2SAT 96
[2023-12-09] MEDS: Docusate Sodium 100 MG CAPSULE 200 MG PO (08:28)
[2023-12-09] MEDS: Multivitamin TABLET 1 TAB PO (08:28)
[2023-12-09] MEDS: Apixaban 5 MG TABLET PO ×2 (08:28→20:56)
[2023-12-09] MEDS: amLODIPine Besylate 10 MG TABLET PO (08:28)
[2023-12-09] MEDS: Zinc Sulfate 220 MG CAPSULE PO (08:28)
[2023-12-09] MEDS: Cholecalciferol (Vitamin D3) 25 MCG TABLET PO (08:29)
--- NOTE | 2023-12-09 12:44 | MHC.CM.PN ---
[facility] under [employer] [facility]uyler that has been submitted
[2023-12-09 15:03] VITALS: BP 114/67; PULSE 93; RESP 18; TEMP 36.6; O2SAT 94
--- NOTE | 2023-12-09 15:18 | MHC.CM.PN ---
pts dc delayed as it was discovered that pt owns property [employer] was notified
--- NOTE | 2023-12-09 15:59 | HO.PM.IMPN ---
Subjective Subjective Date of Service: 12/09/23 Interval History: seen and examined this morning follow up for placement no overnight events feeling well, no complaints Review of Systems Review of Systems: Yes all other systems are reviewed and are negative Constitutional Constitutional: Denies chills and Denies fever(s) Cardiovascular Cardiovascular: Denies chest pain, Denies palpitations and Denies dyspnea Respiratory Respiratory: Denies cough and Denies dyspnea Gastrointestinal Gastrointestinal: Denies abdominal pain, Denies nausea and Denies vomiting Endocrine Endocrine: Denies palpitations Physical Exam Vital Signs: Vital Signs: Last Vital Signs Temp 97.9 F 12/09/23 15:03 Pulse 93 12/09/23 15:03 Resp 18 12/09/23 15:03 BP 114/67 12/09/23 15:03 Pulse Ox 94 12/09/23 15:03 O2 Del Method Room Air 12/09/23 15:03 BMI result Body Mass Index 54.2 Const: General: cooperative, comfortable, no acute distress, alert and awake Nutritional Appearance: obese Orientation/consciousness: patient oriented x3 Resp: Effort & Inspection: normal respiratory effort, able to speak in complete sentences, no respiratory distress and no use of accessory muscles Auscultation: clear to auscultation bilaterally Cardio: Rate: regular rate GI: Inspection: No distended Palpation (GI): Soft to palpation and nontender Neuro: General: patient oriented x3, moves all extremities and CN's II-XI intact bilaterally Extrem: Other: chronic venous stasis changes lower extremities General: Yes no pedal edema Objective Data Active Medications Acetaminophen (Acetaminophen 325 Mg Tablet) 650 mg PO Q6H PRN PRN Reason: Pain, Mild (Pain Scale 1-3) Last Admin: 12/07/23 02:07 Dose: 650 mg Documented By: ALAYNA Amlodipine Besylate (Amlodipine Besylate 10 Mg Tablet) 10 mg PO DAILY [facility]; Protocol Last Admin: 12/09/23 08:28 Dose: 10 mg Documented By: KELLY Apixaban (Apixaban 5 Mg Tablet) 5 mg PO BID [facility] Last Admin: 12/09/23 08:28 Dose: 5 mg Documented By: KELLY Atorvastatin Calcium (Atorvastatin Calcium 20 Mg Tablet) 20 mg PO BEDTIME [facility] Last Admin: 12/08/23 20:31 Dose: 20 mg Documented By: SUZANNA Benzocaine (Throat Lozenge, Medicated Lozenge) 1 lozenge MUCOUS MEM Q2H PRN PRN Reason: Sore Throat Bisacodyl (Bisacodyl 10 Mg Supp.Rect) 10 mg [place] DAILY PRN PRN Reason: Constipation Docusate Sodium (Docusate Sodium 100 Mg Capsule) 200 mg PO DAILY [facility] Last Admin: 12/09/23 08:28 Dose: 200 mg Documented By: KELLY Melatonin (Melatonin 3 Mg Tablet) 6 mg PO BEDTIME PRN PRN Reason: Insomnia Last Admin: 11/28/23 20:14 Dose: 6 mg Documented By: MARIA L Melatonin (Melatonin 3 Mg Tablet) 3 mg PO BEDTIME PRN PRN Reason: Insomnia Last Admin: 11/06/23 23:03 Dose: 3 mg Documented By: GIL Multivitamins/Vitamin C (Multivitamin Tablet) 1 tab PO DAILY [facility] Last Admin: 12/09/23 08:28 Dose: 1 tab Documented By: KELLY Omeprazole (Omeprazole 20 Mg Capsule.) 20 mg PO DAILY@0630 [facility] Last Admin: 12/09/23 06:10 Dose: 20 mg Documented By: SUZANNA Ondansetron HCl (Ondansetron Hcl 4 Mg/2 Ml Vial) 4 mg IVPUSH Q8H PRN PRN Reason: Nausea and Vomiting Polyethylene Glycol (Polyethylene Glycol 3350 17 Gm Powd.Pack) 17 gm PO DAILY [facility] Last Admin: 12/09/23 08:32 Dose: Not Given Documented By: KELLY Non-Admin Reason: Patient Refused Senna/Docusate Sodium (Sennosides/Docusate Sodium Tablet) 1 tab PO BEDTIME [facility] Last Admin: 12/08/23 20:31 Dose: 1 tab Documented By: SUZANNA Tramadol HCl (Tramadol Hcl 50 Mg Tablet) 50 mg PO Q6H PRN PRN Reason: Pain, Severe (Pain Scale 7-10) Last Admin: 12/06/23 20:16 Dose: 50 mg Documented By: ALAYNA Vitamin D (Cholecalciferol (Vitamin D3) 25 Mcg Tablet) 25 mcg PO DAILY [facility] Last Admin: 12/09/23 08:29 Dose: 25 mcg Documented By: KELLY Zinc Sulfate (Zinc Sulfate 220 Mg Capsule) 220 mg PO DAILY [facility] Last Admin: 12/09/23 08:28 Dose: 220 mg Documented By: KELLY Labs 12/07/23 07:52 12/07/23 07:52 Assessment and Plan (1) Morbid obesity: Status: Acute Plan 67 year old women with HTN, HLD, arthritis, DVT on apixaban admitted for BRBPR and now awaiting placement. No new medical issues Painless BRBPR on admission. Resolved attributed to hemorrhoid, stercoral colitis or chronic colitis. Bleeding was self-limited and she refused endoscopy. check qweekly labs, last 3/6 wnl atypical chest pain. Resolved EKG no ischemic changes, trop negative hx DVT continue apixaban Deep tissue injury of buttocks present on admission Wound Care following Bilateral Buttocks and Posterior Thighs - Off Load Pressure - Cleanse with PH balance spray or wipes, pat dry. Apply thin layer of Triad to wound bed - only pat and dab no scrub and rub when soiling occurs. Reapply thin layer PRN after each episode of incontinence. Morbid obesity. BMI 54.2 Discussed importance of weight management as this may be contributing to worsening of other comorbidities Rt Knee pain chronic pain s/p steroid injection by ortho during this admit Continue Ultram prn HTN norvasc VTE ppx - apixaban Attending Dr. Mariscal dispo -need continued inpatient hospitalization for safe disposition STR recommended, piano case and bench assembler arranging for safe placement, [facility] application and verifications still pending. Quality Stroke Does the patient have a stroke diagnosis?: No VTE Prior VTE?: No VTE Risk Level:: Medical - moderate - high VTE Device Contraindication: N/A - Device Ordered VTE Drug Contraindication: Treatment Not Indicated
[2023-12-09] MEDS: traMADoL HCL 50 MG TABLET PO (18:06)
[2023-12-09] MEDS: Throat Lozenge, Medicated LOZENGE 1 LOZENGE MUCOUS MEM (18:10)
[2023-12-09 20:00] VITALS: BP 120/55; PULSE 92; RESP 18; TEMP 36.7; O2SAT 94
[2023-12-09] MEDS: Atorvastatin Calcium 20 MG TABLET PO (20:56)
[2023-12-09] MEDS: Sennosides/Docusate Sodium TABLET 1 TAB PO (20:56)
[2023-12-10 04:00] VITALS: BP 122/78; PULSE 86; RESP 16; TEMP 37.1; O2SAT 96
[2023-12-10] MEDS: Omeprazole 20 MG CAPSULE.DR PO (06:22)
[2023-12-10 08:00] VITALS: BP 138/89; PULSE 76; RESP 18; TEMP 36.6; O2SAT 95
[2023-12-10] MEDS: amLODIPine Besylate 10 MG TABLET PO (09:56)
[2023-12-10] MEDS: Docusate Sodium 100 MG CAPSULE 200 MG PO (09:57)
[2023-12-10] MEDS: Apixaban 5 MG TABLET PO ×2 (09:57→20:14)
[2023-12-10] MEDS: Cholecalciferol (Vitamin D3) 25 MCG TABLET PO (09:57)
[2023-12-10] MEDS: Zinc Sulfate 220 MG CAPSULE PO (09:57)
[2023-12-10] MEDS: Multivitamin TABLET 1 TAB PO (09:57)
--- NOTE | 2023-12-10 10:03 | HO.PM.IMPN ---
Subjective Subjective Date of Service: 12/10/23 Interval History: Being followed for placement Eating breakfast offers no complaints of nausea, no vomiting, no abdominal pain, no diarrhea no acute events overnight. Review of Systems All other system reviewed and negative Physical Exam Vital Signs: Vital Signs: Last Vital Signs Temp 97.8 F 12/10/23 08:00 Pulse 76 12/10/23 08:00 Resp 18 12/10/23 08:00 BP 138/89 12/10/23 08:00 Pulse Ox 95 12/10/23 08:00 O2 Del Method Room Air 12/10/23 08:00 BMI result Body Mass Index 54.2 Const: Other: Gen: Awake alert x3, in no acute distress HEENT: sclera anicteric, moist mucus membranes Neck: supple Lungs: clear to auscultation bilaterally Heart: regular rate and rhythm, no murmurs Abd: soft, non-tender, non-distended, bowel sounds audible, obese Ext: no edema Skin: warm/well-perfused Neuro: alert and oriented x3, no focal findings Psych: appropriate affect Objective Data Active Medications Acetaminophen (Acetaminophen 325 Mg Tablet) 650 mg PO Q6H PRN PRN Reason: Pain, Mild (Pain Scale 1-3) Last Admin: 12/07/23 02:07 Dose: 650 mg Documented By: ALAYNA Amlodipine Besylate (Amlodipine Besylate 10 Mg Tablet) 10 mg PO DAILY [facility]; Protocol Last Admin: 12/10/23 09:56 Dose: 10 mg Documented By: LUCÍA Apixaban (Apixaban 5 Mg Tablet) 5 mg PO BID [facility] Last Admin: 12/10/23 09:57 Dose: 5 mg Documented By: LUCÍA Atorvastatin Calcium (Atorvastatin Calcium 20 Mg Tablet) 20 mg PO BEDTIME [facility] Last Admin: 12/09/23 20:56 Dose: 20 mg Documented By: SUZANNA Benzocaine (Throat Lozenge, Medicated Lozenge) 1 lozenge MUCOUS MEM Q2H PRN PRN Reason: Sore Throat Last Admin: 12/09/23 18:10 Dose: 1 lozenge Documented By: KELLY Bisacodyl (Bisacodyl 10 Mg Supp.Rect) 10 mg [place] DAILY PRN PRN Reason: Constipation Docusate Sodium (Docusate Sodium 100 Mg Capsule) 200 mg PO DAILY [facility] Last Admin: 12/10/23 09:57 Dose: 200 mg Documented By: LUCÍA Melatonin (Melatonin 3 Mg Tablet) 6 mg PO BEDTIME PRN PRN Reason: Insomnia Last Admin: 11/28/23 20:14 Dose: 6 mg Documented By: MARIA L Melatonin (Melatonin 3 Mg Tablet) 3 mg PO BEDTIME PRN PRN Reason: Insomnia Last Admin: 11/06/23 23:03 Dose: 3 mg Documented By: GIL Multivitamins/Vitamin C (Multivitamin Tablet) 1 tab PO DAILY [facility] Last Admin: 12/10/23 09:57 Dose: 1 tab Documented By: LUCÍA Omeprazole (Omeprazole 20 Mg Capsule.) 20 mg PO DAILY@0630 [facility] Last Admin: 12/10/23 06:22 Dose: 20 mg Documented By: SUZANNA Ondansetron HCl (Ondansetron Hcl 4 Mg/2 Ml Vial) 4 mg IVPUSH Q8H PRN PRN Reason: Nausea and Vomiting Polyethylene Glycol (Polyethylene Glycol 3350 17 Gm Powd.Pack) 17 gm PO DAILY [facility] Last Admin: 12/10/23 09:57 Dose: Not Given Documented By: LUCÍA Non-Admin Reason: Patient Refused Senna/Docusate Sodium (Sennosides/Docusate Sodium Tablet) 1 tab PO BEDTIME [facility] Last Admin: 12/09/23 20:56 Dose: 1 tab Documented By: SUZANNA Tramadol HCl (Tramadol Hcl 50 Mg Tablet) 50 mg PO Q6H PRN PRN Reason: Pain, Severe (Pain Scale 7-10) Last Admin: 12/09/23 18:06 Dose: 50 mg Documented By: KELLY Vitamin D (Cholecalciferol (Vitamin D3) 25 Mcg Tablet) 25 mcg PO DAILY [facility] Last Admin: 12/10/23 09:57 Dose: 25 mcg Documented By: LUCÍA Zinc Sulfate (Zinc Sulfate 220 Mg Capsule) 220 mg PO DAILY [facility] Last Admin: 12/10/23 09:57 Dose: 220 mg Documented By: LUCÍA Labs 12/07/23 07:52 12/07/23 07:52 Assessment and Plan (1) Morbid obesity: Status: Acute Plan 67 year old women with HTN, HLD, arthritis, DVT on apixaban admitted for BRBPR and now awaiting placement. No new medical issues Painless BRBPR on admission. Resolved attributed to hemorrhoid, stercoral colitis or chronic colitis. Bleeding was self-limited and she refused endoscopy. check qweekly labs, last 3/6 wnl atypical chest pain. Resolved EKG no ischemic changes, trop negative hx DVT continue apixaban Deep tissue injury of buttocks present on admission Wound Care following Bilateral Buttocks and Posterior Thighs - Off Load Pressure - Cleanse with PH balance spray or wipes, pat dry. Apply thin layer of Triad to wound bed - only pat and dab no scrub and rub when soiling occurs. Reapply thin layer PRN after each episode of incontinence. Morbid obesity. BMI 54.2 Discussed importance of weight management as this may be contributing to worsening of other comorbidities Rt Knee pain chronic pain s/p steroid injection by ortho during this admit Continue Ultram prn HTN norvasc VTE ppx - apixaban dispo -need continued inpatient hospitalization for safe disposition STR recommended, senior case manager arranging for safe placement, [employer] application and verifications still pending. Quality Stroke Does the patient have a stroke diagnosis?: No VTE Prior VTE?: No VTE Risk Level:: Medical - moderate - high VTE Device Contraindication: N/A - Device Ordered VTE Drug Contraindication: Treatment Not Indicated
[2023-12-10 15:20] VITALS: BP 121/64; PULSE 88; RESP 16; TEMP 36.2; O2SAT 94
[2023-12-10 19:07] VITALS: BP 102/64; PULSE 86; RESP 16; TEMP 36.6; O2SAT 94
[2023-12-10] MEDS: traMADoL HCL 50 MG TABLET PO (20:14)
[2023-12-10] MEDS: Atorvastatin Calcium 20 MG TABLET PO (20:14)
[2023-12-10] MEDS: Sennosides/Docusate Sodium TABLET 1 TAB PO (20:15)
[2023-12-11 03:27] VITALS: BP 140/86; PULSE 85; RESP 16; TEMP 36.6; O2SAT 92
[2023-12-11] MEDS: Acetaminophen 325 MG TABLET 650 MG PO (03:58)
[2023-12-11] MEDS: Omeprazole 20 MG CAPSULE.DR PO (06:21)
[2023-12-11 07:43] VITALS: BP 122/73; PULSE 74; RESP 16; TEMP 36.7; O2SAT 94
[2023-12-11] MEDS: Zinc Sulfate 220 MG CAPSULE PO (08:31)
[2023-12-11] MEDS: Docusate Sodium 100 MG CAPSULE 200 MG PO (08:31)
[2023-12-11] MEDS: Apixaban 5 MG TABLET PO ×2 (08:31→20:58)
[2023-12-11] MEDS: amLODIPine Besylate 10 MG TABLET PO (08:31)
[2023-12-11] MEDS: Cholecalciferol (Vitamin D3) 25 MCG TABLET PO (08:32)
[2023-12-11] MEDS: Multivitamin TABLET 1 TAB PO (08:32)
--- NOTE | 2023-12-11 10:31 | HO.PM.IMPN ---
Subjective Subjective Date of Service: 12/11/23 Interval History: Offers no acute complaints, chronic right knee pain stable, tolerating diet, no nausea, no vomiting, constipation no other acute issues overnight. Review of Systems All other system reviewed and negative. Physical Exam Vital Signs: Vital Signs: Last Vital Signs Temp 98.0 F 12/11/23 07:43 Pulse 74 12/11/23 07:43 Resp 16 12/11/23 07:43 BP 122/73 12/11/23 07:43 Pulse Ox 94 12/11/23 07:43 O2 Del Method Room Air 12/11/23 07:43 BMI result Body Mass Index 54.2 Const: Other: Gen: Awake alert x3, in no acute distress HEENT: sclera anicteric, moist mucus membranes Neck: supple Lungs: clear to auscultation bilaterally Heart: regular rate and rhythm, no murmurs Abd: soft, non-tender, non-distended, bowel sounds audible, obese Ext: no edema Skin: warm/well-perfused Neuro: alert and oriented x3, no focal findings Psych: appropriate affect Objective Data Active Medications Acetaminophen (Acetaminophen 325 Mg Tablet) 650 mg PO Q6H PRN PRN Reason: Pain, Mild (Pain Scale 1-3) Last Admin: 12/11/23 03:58 Dose: 650 mg Documented By: LAKHWINDER Amlodipine Besylate (Amlodipine Besylate 10 Mg Tablet) 10 mg PO DAILY [facility]; Protocol Last Admin: 12/11/23 08:31 Dose: 10 mg Documented By: LUCÍA Apixaban (Apixaban 5 Mg Tablet) 5 mg PO BID [facility] Last Admin: 12/11/23 08:31 Dose: 5 mg Documented By: LUCÍA Atorvastatin Calcium (Atorvastatin Calcium 20 Mg Tablet) 20 mg PO BEDTIME [facility] Last Admin: 12/10/23 20:14 Dose: 20 mg Documented By: SUZI Benzocaine (Throat Lozenge, Medicated Lozenge) 1 lozenge MUCOUS MEM Q2H PRN PRN Reason: Sore Throat Last Admin: 12/09/23 18:10 Dose: 1 lozenge Documented By: KELLY Bisacodyl (Bisacodyl 10 Mg Supp.Rect) 10 mg [place] DAILY PRN PRN Reason: Constipation Docusate Sodium (Docusate Sodium 100 Mg Capsule) 200 mg PO DAILY [facility] Last Admin: 12/11/23 08:31 Dose: 200 mg Documented By: LUCÍA Melatonin (Melatonin 3 Mg Tablet) 6 mg PO BEDTIME PRN PRN Reason: Insomnia Last Admin: 11/28/23 20:14 Dose: 6 mg Documented By: MARIA L Melatonin (Melatonin 3 Mg Tablet) 3 mg PO BEDTIME PRN PRN Reason: Insomnia Last Admin: 11/06/23 23:03 Dose: 3 mg Documented By: GIL Multivitamins/Vitamin C (Multivitamin Tablet) 1 tab PO DAILY [facility] Last Admin: 12/11/23 08:32 Dose: 1 tab Documented By: LUCÍA Omeprazole (Omeprazole 20 Mg Capsule.Dr) 20 mg PO DAILY@0630 [facility] Last Admin: 12/11/23 06:21 Dose: 20 mg Documented By: LAKHWINDER Ondansetron HCl (Ondansetron Hcl 4 Mg/2 Ml Vial) 4 mg IVPUSH Q8H PRN PRN Reason: Nausea and Vomiting Polyethylene Glycol (Polyethylene Glycol 3350 17 Gm Powd.Pack) 17 gm PO DAILY [facility] Last Admin: 12/11/23 08:32 Dose: Not Given Documented By: LUCÍA Non-Admin Reason: Patient Refused Senna/Docusate Sodium (Sennosides/Docusate Sodium Tablet) 1 tab PO BEDTIME [facility] Last Admin: 12/10/23 20:15 Dose: 1 tab Documented By: SUZI Tramadol HCl (Tramadol Hcl 50 Mg Tablet) 50 mg PO Q6H PRN PRN Reason: Pain, Severe (Pain Scale 7-10) Last Admin: 12/10/23 20:14 Dose: 50 mg Documented By: SUZI Vitamin D (Cholecalciferol (Vitamin D3) 25 Mcg Tablet) 25 mcg PO DAILY [facility] Last Admin: 12/11/23 08:32 Dose: 25 mcg Documented By: LUCÍA Zinc Sulfate (Zinc Sulfate 220 Mg Capsule) 220 mg PO DAILY [facility] Last Admin: 12/11/23 08:31 Dose: 220 mg Documented By: LUCÍA Labs 12/07/23 07:52 12/07/23 07:52 Assessment and Plan (1) Morbid obesity: Status: Acute Plan 67 year old women with HTN, HLD, arthritis, DVT on apixaban admitted for BRBPR and now awaiting placement. No new medical issues Painless BRBPR on admission. Resolved attributed to hemorrhoid, stercoral colitis or chronic colitis. Bleeding was self-limited and she refused endoscopy. check qweekly labs, last 3/6 wnl atypical chest pain. Resolved EKG no ischemic changes, trop negative hx DVT continue apixaban Deep tissue injury of buttocks present on admission Wound Care following Bilateral Buttocks and Posterior Thighs - Off Load Pressure - Cleanse with PH balance spray or wipes, pat dry. Apply thin layer of Triad to wound bed - only pat and dab no scrub and rub when soiling occurs. Reapply thin layer PRN after each episode of incontinence. Morbid obesity. BMI 54.2 Discussed importance of weight management as this may be contributing to worsening of other comorbidities Rt Knee pain chronic pain s/p steroid injection by ortho during this admit Continue Ultram prn HTN BP stable, continue norvasc VTE ppx - apixaban dispo -need continued inpatient hospitalization for safe disposition STR recommended, case repairer arranging for safe placement, [facility] application and verifications still pending. Quality Stroke Does the patient have a stroke diagnosis?: No VTE Prior VTE?: No VTE Risk Level:: Medical - moderate - high VTE Device Contraindication: N/A - Device Ordered VTE Drug Contraindication: Treatment Not Indicated
[2023-12-11 15:19] VITALS: BP 107/61; PULSE 90; RESP 18; TEMP 36.6; O2SAT 93
[2023-12-11 19:11] VITALS: BP 110/66; PULSE 88; RESP 16; TEMP 36.6; O2SAT 93
[2023-12-11] MEDS: Atorvastatin Calcium 20 MG TABLET PO (20:57)
[2023-12-11] MEDS: Sennosides/Docusate Sodium TABLET 1 TAB PO (20:58)
[2023-12-12] MEDS: Acetaminophen 325 MG TABLET 650 MG PO (00:57)
[2023-12-12 01:57] VITALS: RESP 18
[2023-12-12 03:03] VITALS: BP 137/72; PULSE 85; RESP 16; TEMP 36.5; O2SAT 95
[2023-12-12] MEDS: Omeprazole 20 MG CAPSULE.DR PO (06:07)
[2023-12-12 07:39] VITALS: BP 133/62; PULSE 78; RESP 18; TEMP 36.3; O2SAT 92
[2023-12-12] MEDS: Apixaban 5 MG TABLET PO ×2 (08:19→19:00)
[2023-12-12] MEDS: Multivitamin TABLET 1 TAB PO (08:19)
[2023-12-12] MEDS: amLODIPine Besylate 10 MG TABLET PO (08:19)
[2023-12-12] MEDS: Cholecalciferol (Vitamin D3) 25 MCG TABLET PO (08:19)
[2023-12-12] MEDS: Docusate Sodium 100 MG CAPSULE 200 MG PO (08:19)
[2023-12-12] MEDS: Zinc Sulfate 220 MG CAPSULE PO (08:19)
--- NOTE | 2023-12-12 11:12 | P.PNIM_ITS ---
Subjective Subjective Date of Service: 12/12/23 Interval History: Offers no acute complaints, tolerating diet, no nausea, no vomiting or abdominal pain, no constipation. No events overnight Good pain control right knee Review of Systems All other system reviewed and negative. Physical Exam 2 Vital Signs: Vital Signs: Last Vital Signs Temp 97.4 F 12/12/23 07:39 Pulse 78 12/12/23 07:39 Resp 18 12/12/23 07:39 BP 133/62 12/12/23 07:39 Pulse Ox 92 12/12/23 07:39 O2 Del Method Room Air 12/12/23 07:39 BMI result Body Mass Index 54.2 Const: Other: Gen: Awake alert x3, in no acute distress HEENT: sclera anicteric, moist mucus membranes Neck: supple Lungs: clear to auscultation bilaterally Heart: regular rate and rhythm, no murmurs Abd: soft, non-tender, non-distended, bowel sounds audible, obese Ext: no edema Skin: warm/well-perfused Neuro: alert and oriented x3, no focal findings Psych: appropriate affect Objective Data Active Medications Acetaminophen (Acetaminophen 325 Mg Tablet) 650 mg PO Q6H PRN PRN Reason: Pain, Mild (Pain Scale 1-3) Last Admin: 12/12/23 00:57 Dose: 650 mg Documented By: ROMEO Amlodipine Besylate (Amlodipine Besylate 10 Mg Tablet) 10 mg PO DAILY [facility]; Protocol Last Admin: 12/12/23 08:19 Dose: 10 mg Documented By: KELLY Apixaban (Apixaban 5 Mg Tablet) 5 mg PO BID [facility] Last Admin: 12/12/23 08:19 Dose: 5 mg Documented By: KELLY Atorvastatin Calcium (Atorvastatin Calcium 20 Mg Tablet) 20 mg PO BEDTIME [facility] Last Admin: 12/11/23 20:57 Dose: 20 mg Documented By: JOSEPHINE Benzocaine (Throat Lozenge, Medicated Lozenge) 1 lozenge MUCOUS MEM Q2H PRN PRN Reason: Sore Throat Last Admin: 12/09/23 18:10 Dose: 1 lozenge Documented By: KELLY Bisacodyl (Bisacodyl 10 Mg Supp.Rect) 10 mg [place] DAILY PRN PRN Reason: Constipation Docusate Sodium (Docusate Sodium 100 Mg Capsule) 200 mg PO DAILY [facility] Last Admin: 12/12/23 08:19 Dose: 200 mg Documented By: KELLY Melatonin (Melatonin 3 Mg Tablet) 6 mg PO BEDTIME PRN PRN Reason: Insomnia Last Admin: 11/28/23 20:14 Dose: 6 mg Documented By: MARIA L Melatonin (Melatonin 3 Mg Tablet) 3 mg PO BEDTIME PRN PRN Reason: Insomnia Last Admin: 11/06/23 23:03 Dose: 3 mg Documented By: GIL Multivitamins/Vitamin C (Multivitamin Tablet) 1 tab PO DAILY [facility] Last Admin: 12/12/23 08:19 Dose: 1 tab Documented By: KELLY Omeprazole (Omeprazole 20 Mg Capsule.) 20 mg PO DAILY@0630 [facility] Last Admin: 12/12/23 06:07 Dose: 20 mg Documented By: ROMEO Ondansetron HCl (Ondansetron Hcl 4 Mg/2 Ml Vial) 4 mg IVPUSH Q8H PRN PRN Reason: Nausea and Vomiting Polyethylene Glycol (Polyethylene Glycol 3350 17 Gm Powd.Pack) 17 gm PO DAILY [facility] Last Admin: 12/12/23 08:19 Dose: Not Given Documented By: KELLY Non-Admin Reason: Patient Refused Senna/Docusate Sodium (Sennosides/Docusate Sodium Tablet) 1 tab PO BEDTIME [facility] Last Admin: 12/11/23 20:58 Dose: 1 tab Documented By: JOSEPHINE Vitamin D (Cholecalciferol (Vitamin D3) 25 Mcg Tablet) 25 mcg PO DAILY [facility] Last Admin: 12/12/23 08:19 Dose: 25 mcg Documented By: KELLY Zinc Sulfate (Zinc Sulfate 220 Mg Capsule) 220 mg PO DAILY [facility] Last Admin: 12/12/23 08:19 Dose: 220 mg Documented By: KELLY Labs 12/07/23 07:52 12/07/23 07:52 Assessment and Plan (1) Morbid obesity: Status: Acute (2) UCHE (obstructive sleep apnea): Status: Acute Plan 67 year old women with HTN, HLD, arthritis, DVT on apixaban admitted for BRBPR and now awaiting placement. No new medical issues Painless BRBPR on admission. Resolved attributed to hemorrhoid, stercoral colitis or chronic colitis. Bleeding was self-limited and she refused endoscopy. check qweekly labs, last 3/6 wnl atypical chest pain. Resolved EKG no ischemic changes, trop negative hx DVT continue apixaban Deep tissue injury of buttocks present on admission Wound Care following Bilateral Buttocks and Posterior Thighs - Off Load Pressure - Cleanse with PH balance spray or wipes, pat dry. Apply thin layer of Triad to wound bed - only pat and dab no scrub and rub when soiling occurs. Reapply thin layer PRN after each episode of incontinence. Morbid obesity. BMI 54.2 Discussed importance of weight management as this may be contributing to worsening of other comorbidities Rt Knee pain chronic pain s/p steroid injection by ortho during this admit Continue Ultram prn HTN BP stable, continue norvasc VTE ppx - apixaban dispo -need continued inpatient hospitalization for safe disposition STR recommended, case managers arranging for safe placement, [facility] application and verifications still pending. Quality Stroke Does the patient have a stroke diagnosis?: No VTE Prior VTE?: No VTE Risk Level:: Medical - moderate - high VTE Device Contraindication: N/A - Device Ordered VTE Drug Contraindication: Treatment Not Indicated
[2023-12-12 15:12] VITALS: BP 112/63; PULSE 87; RESP 16; TEMP 36.3; O2SAT 93
[2023-12-12] MEDS: Atorvastatin Calcium 20 MG TABLET PO (19:00)
[2023-12-12] MEDS: Sennosides/Docusate Sodium TABLET 1 TAB PO (19:00)
[2023-12-12 19:19] VITALS: BP 125/80; PULSE 89; RESP 18; TEMP 36.2; O2SAT 93
[2023-12-13 04:00] VITALS: BP 136/75; PULSE 75; RESP 16; TEMP 36; O2SAT 94
[2023-12-13] MEDS: Omeprazole 20 MG CAPSULE.DR PO (05:30)
[2023-12-13 07:47] VITALS: BP 143/78; PULSE 84; RESP 18; TEMP 36.4; O2SAT 93
--- NOTE | 2023-12-13 07:53 | HO.PM.IMPN ---
Subjective Subjective Date of Service: 12/13/23 Interval History: Being followed placement Offers no acute complaints, tolerating diet no nausea, no vomiting, no abdominal pain, constipation or diarrhea, no bright red blood per rectum Right knee pain stable. Review of Systems All other system reviewed and negative Physical Exam Vital Signs: Vital Signs: Last Vital Signs Temp 97.5 F 12/13/23 07:47 Pulse 84 12/13/23 07:47 Resp 18 12/13/23 07:47 BP 143/78 H 12/13/23 07:47 Pulse Ox 93 12/13/23 07:47 O2 Del Method Room Air 12/13/23 07:47 BMI result Body Mass Index 54.2 Const: Other: Gen: Awake alert x3, in no acute distress HEENT: sclera anicteric, moist mucus membranes Neck: supple Lungs: clear to auscultation bilaterally Heart: regular rate and rhythm, no murmurs Abd: soft, non-tender, non-distended, bowel sounds audible, obese Ext: no edema Skin: warm/well-perfused Neuro: alert and oriented x3, no focal findings Psych: appropriate affect Objective Data Active Medications Acetaminophen (Acetaminophen 325 Mg Tablet) 650 mg PO Q6H PRN PRN Reason: Pain, Mild (Pain Scale 1-3) Last Admin: 12/12/23 00:57 Dose: 650 mg Documented By: ROMEO Amlodipine Besylate (Amlodipine Besylate 10 Mg Tablet) 10 mg PO DAILY [facility]; Protocol Last Admin: 12/12/23 08:19 Dose: 10 mg Documented By: KELLY Apixaban (Apixaban 5 Mg Tablet) 5 mg PO BID [facility] Last Admin: 12/12/23 19:00 Dose: 5 mg Documented By: KIARA Atorvastatin Calcium (Atorvastatin Calcium 20 Mg Tablet) 20 mg PO BEDTIME [facility] Last Admin: 12/12/23 19:00 Dose: 20 mg Documented By: KIARA Benzocaine (Throat Lozenge, Medicated Lozenge) 1 lozenge MUCOUS MEM Q2H PRN PRN Reason: Sore Throat Last Admin: 12/09/23 18:10 Dose: 1 lozenge Documented By: KELLY Bisacodyl (Bisacodyl 10 Mg Supp.Rect) 10 mg [place] DAILY PRN PRN Reason: Constipation Docusate Sodium (Docusate Sodium 100 Mg Capsule) 200 mg PO DAILY [facility] Last Admin: 12/12/23 08:19 Dose: 200 mg Documented By: KELLY Melatonin (Melatonin 3 Mg Tablet) 6 mg PO BEDTIME PRN PRN Reason: Insomnia Last Admin: 11/28/23 20:14 Dose: 6 mg Documented By: MARIA L Melatonin (Melatonin 3 Mg Tablet) 3 mg PO BEDTIME PRN PRN Reason: Insomnia Last Admin: 11/06/23 23:03 Dose: 3 mg Documented By: GIL Multivitamins/Vitamin C (Multivitamin Tablet) 1 tab PO DAILY [facility] Last Admin: 12/12/23 08:19 Dose: 1 tab Documented By: KELLY Omeprazole (Omeprazole 20 Mg Capsule.) 20 mg PO DAILY@0630 [facility] Last Admin: 12/13/23 05:30 Dose: 20 mg Documented By: ROMEO Ondansetron HCl (Ondansetron Hcl 4 Mg/2 Ml Vial) 4 mg IVPUSH Q8H PRN PRN Reason: Nausea and Vomiting Polyethylene Glycol (Polyethylene Glycol 3350 17 Gm Powd.Pack) 17 gm PO DAILY [facility] Last Admin: 12/12/23 08:19 Dose: Not Given Documented By: KELLY Non-Admin Reason: Patient Refused Senna/Docusate Sodium (Sennosides/Docusate Sodium Tablet) 1 tab PO BEDTIME [facility] Last Admin: 12/12/23 19:00 Dose: 1 tab Documented By: KIARA Vitamin D (Cholecalciferol (Vitamin D3) 25 Mcg Tablet) 25 mcg PO DAILY [facility] Last Admin: 12/12/23 08:19 Dose: 25 mcg Documented By: KELLY Zinc Sulfate (Zinc Sulfate 220 Mg Capsule) 220 mg PO DAILY [facility] Last Admin: 12/12/23 08:19 Dose: 220 mg Documented By: KELLY Labs 12/07/23 07:52 12/07/23 07:52 Assessment and Plan (1) Morbid obesity: Status: Acute (2) UCHE (obstructive sleep apnea): Status: Acute Plan 67 year old women with HTN, HLD, arthritis, DVT on apixaban admitted for BRBPR and now awaiting placement. No new medical issues Painless BRBPR on admission. Resolved attributed to hemorrhoid, stercoral colitis or chronic colitis. Bleeding was self-limited and she refused endoscopy. check qweekly labs, last 3/6 wnl atypical chest pain. Resolved EKG no ischemic changes, trop negative hx DVT continue apixaban Deep tissue injury of buttocks present on admission Wound Care following Bilateral Buttocks and Posterior Thighs - Off Load Pressure - Cleanse with PH balance spray or wipes, pat dry. Apply thin layer of Triad to wound bed - only pat and dab no scrub and rub when soiling occurs. Reapply thin layer PRN after each episode of incontinence. Morbid obesity. BMI 54.2 Discussed importance of weight management as this may be contributing to worsening of other comorbidities Rt Knee pain chronic pain s/p steroid injection by ortho during this admit Continue Tylenol/Ultram prn HTN BP stable, continue norvasc VTE ppx - apixaban dispo -need continued inpatient hospitalization for safe disposition STR recommended, dependency case manager arranging for safe placement, [facility] application and verifications still pending. Quality Stroke Does the patient have a stroke diagnosis?: No VTE Prior VTE?: No VTE Risk Level:: Medical - moderate - high VTE Device Contraindication: N/A - Device Ordered VTE Drug Contraindication: Treatment Not Indicated
[2023-12-13] MEDS: amLODIPine Besylate 10 MG TABLET PO (08:23)
[2023-12-13] MEDS: Cholecalciferol (Vitamin D3) 25 MCG TABLET PO (08:23)
[2023-12-13] MEDS: Docusate Sodium 100 MG CAPSULE 200 MG PO (08:23)
[2023-12-13] MEDS: Apixaban 5 MG TABLET PO ×2 (08:23→20:28)
[2023-12-13] MEDS: Throat Lozenge, Medicated LOZENGE 1 LOZENGE MUCOUS MEM ×2 (08:23→17:33)
[2023-12-13] MEDS: Zinc Sulfate 220 MG CAPSULE PO (08:23)
[2023-12-13] MEDS: Multivitamin TABLET 1 TAB PO (08:23)
[2023-12-13 15:23] VITALS: BP 108/79; PULSE 89; RESP 18; TEMP 36.2; O2SAT 93
[2023-12-13] MEDS: Sodium Chloride 0.65 % Nasal 44 ML SPRBTL 1 SPRAY NOSTRIL-B (17:34)
[2023-12-13 19:17] VITALS: BP 123/72; PULSE 92; RESP 18; TEMP 36.3; O2SAT 94
[2023-12-13] MEDS: Sennosides/Docusate Sodium TABLET 1 TAB PO (20:27)
[2023-12-13] MEDS: Atorvastatin Calcium 20 MG TABLET PO (20:28)
[2023-12-14 03:35] VITALS: BP 140/77; PULSE 84; RESP 18; TEMP 36.2; O2SAT 95
[2023-12-14] MEDS: Omeprazole 20 MG CAPSULE.DR PO (05:50)
[2023-12-14 07:36] VITALS: BP 125/62; PULSE 84; RESP 18; TEMP 37.1; O2SAT 94
[2023-12-14] MEDS: Zinc Sulfate 220 MG CAPSULE PO (08:06)
[2023-12-14] MEDS: Cholecalciferol (Vitamin D3) 25 MCG TABLET PO (08:06)
[2023-12-14] MEDS: amLODIPine Besylate 10 MG TABLET PO (08:06)
[2023-12-14] MEDS: Apixaban 5 MG TABLET PO ×2 (08:07→20:14)
[2023-12-14] MEDS: Multivitamin TABLET 1 TAB PO (08:07)
[2023-12-14 09:14] LABS: Hematocrit 33.4 % (37.0-47.0); Hemoglobin 10.2 g/dl (12.0-16.0); Mean Corpuscular HGB Conc 30.5 g/dl (31.0-35.0); Mean Corpuscular Hemoglobin 25.5 pg (27.0-33.0); Mean Corpuscular Volume 83.5 fL (80.0-98.0); Mean Platelet Volume 11.5 fL (9.4-12.3); Platelet Count 244 X10*3/uL (160-400); Red Cell Distribution Width 14.6 % (11.0-16.0); White Blood Count 4.4 X10*3/uL (4.8-10.8)
[2023-12-14 09:15] LABS: Immature Retic Fraction 22.5 % (3.0-15.9); Retic HGB Equivalent 24.2 pg (30.0-35.0); Reticulocytes Absolute 0.078 X10*6/uL (0.026-0.095)
[2023-12-14 09:31] LABS: Iron 33 mcg/dL (30-160); Percent Iron Saturation 12 % (15-50); Total Iron Binding Capacity 285 mcg/dL (228-428); Unsaturated Iron Binding 252 ug/dL
[2023-12-14 10:35] LABS: Folate 13.6 ng/mL (> or = 4.0); Vitamin B12 595 pg/mL (200-900)
--- NOTE | 2023-12-14 10:37 | MHC.CLN ---
F/U DELETED HIGH FIBER FROM DIET ORDER DUE TO ADM GI CONCERNS RESOLVED. INTAKE CONSISTENTLY 100%. NO ADDITIONAL NUTRITION INTERVENTIONS.
[2023-12-14 11:44] LABS: Adenovirus PCR Not Detected (Not Detect.); Bordetella parapertussis PCR Not Detected (Not Detect.); Bordetella pertussis PCR Not Detected (Not Detect.); Chlamydia pneumoniae PCR Not Detected (Not Detect.); Coronavirus 229E PCR Not Detected (Not Detect.); Coronavirus HKU1 PCR Not Detected (Not Detect.); Coronavirus NL63 PCR Not Detected (Not Detect.); Coronavirus OC43 PCR Detected (Not Detect.); Human metapneumovirus PCR Not Detected (Not Detect.); Influenza A PCR Not Detected (Not Detect.); Influenza B PCR Not Detected (Not Detect.); Mycoplasma pneumoniae PCR Not Detected (Not Detect.); Parainfluenza 1 PCR Not Detected (Not Detect.); Parainfluenza 2 PCR Not Detected (Not Detect.); Parainfluenza 3 PCR Not Detected (Not Detect.); Parainfluenza 4 PCR Not Detected (Not Detect.); RSV PCR Not Detected (Not Detect.); Rhino/Enterovirus PCR Not Detected (Not Detect.)
[2023-12-14 12:12] LABS: SARS-CoV-2 PCR Not Detected (Not Detect.)
--- NOTE | 2023-12-14 12:16 | P.PNIM_ITS ---
Subjective Subjective Date of Service: 12/14/23 Interval History: c/o congestion, sore throat, 1 episode diarrhea no fever or dyspnea Review of Systems Review of Systems: Yes all other systems are reviewed and are negative Physical Exam 2 Vital Signs: Vital Signs: Last Vital Signs Temp 98.8 F 12/14/23 07:36 Pulse 84 12/14/23 07:36 Resp 18 12/14/23 07:36 BP 125/62 12/14/23 07:36 Pulse Ox 94 12/14/23 07:36 O2 Del Method Room Air 12/14/23 07:36 BMI result Body Mass Index 54.2 Gen: in no acute distress HEENT: sclera anicteric, moist mucus membranes Neck: supple Lungs: clear to auscultation bilaterally Heart: regular rate and rhythm, no murmurs Abd: soft, non-tender, non-distended, obese Ext: no edema Skin: warm/well-perfused Neuro: alert and oriented x3, no focal findings Psych: appropriate affect Objective Data Active Medications Acetaminophen (Acetaminophen 325 Mg Tablet) 650 mg PO Q6H PRN PRN Reason: Pain, Mild (Pain Scale 1-3) Last Admin: 12/12/23 00:57 Dose: 650 mg Documented By: ROMEO Al Hydroxide/Mg Hydroxide (Magnesium Hydrox/Alum Hydrox 30 Ml Oral.Susp) 30 ml PO Q4H PRN PRN Reason: Indigestion Amlodipine Besylate (Amlodipine Besylate 10 Mg Tablet) 10 mg PO DAILY [facility]; Protocol Last Admin: 12/14/23 08:06 Dose: 10 mg Documented By: KIARA Apixaban (Apixaban 5 Mg Tablet) 5 mg PO BID [facility] Last Admin: 12/14/23 08:07 Dose: 5 mg Documented By: KIARA Atorvastatin Calcium (Atorvastatin Calcium 20 Mg Tablet) 20 mg PO BEDTIME [facility] Last Admin: 12/13/23 20:28 Dose: 20 mg Documented By: KEL Benzocaine (Throat Lozenge, Medicated Lozenge) 1 lozenge MUCOUS MEM Q2H PRN PRN Reason: Sore Throat Last Admin: 12/13/23 17:33 Dose: 1 lozenge Documented By: KELLY Bisacodyl (Bisacodyl 10 Mg Supp.Rect) 10 mg [place] DAILY PRN PRN Reason: Constipation Docusate Sodium (Docusate Sodium 100 Mg Capsule) 200 mg PO DAILY [facility] Last Admin: 12/14/23 06:58 Dose: Not Given Documented By: KIARA Non-Admin Reason: loose stool Guaifenesin/Dextromethorphan (Guaifenesin Dm 200/20/10 Ml 10 Ml Syrup) 10 ml PO Q6H PRN PRN Reason: cough Melatonin (Melatonin 3 Mg Tablet) 6 mg PO BEDTIME PRN PRN Reason: Insomnia Last Admin: 11/28/23 20:14 Dose: 6 mg Documented By: MARIA L Melatonin (Melatonin 3 Mg Tablet) 3 mg PO BEDTIME PRN PRN Reason: Insomnia Last Admin: 11/06/23 23:03 Dose: 3 mg Documented By: GIL Multivitamins/Vitamin C (Multivitamin Tablet) 1 tab PO DAILY [facility] Last Admin: 12/14/23 08:07 Dose: 1 tab Documented By: KIARA Omeprazole (Omeprazole 20 Mg Capsule.) 20 mg PO DAILY@0630 [facility] Last Admin: 12/14/23 05:50 Dose: 20 mg Documented By: KEL Ondansetron HCl (Ondansetron Hcl 4 Mg/2 Ml Vial) 4 mg IVPUSH Q8H PRN PRN Reason: Nausea and Vomiting Polyethylene Glycol (Polyethylene Glycol 3350 17 Gm Powd.Pack) 17 gm PO DAILY [facility] Last Admin: 12/14/23 06:58 Dose: Not Given Documented By: KIARA Non-Admin Reason: loose stool Senna/Docusate Sodium (Sennosides/Docusate Sodium Tablet) 1 tab PO BEDTIME [facility] Last Admin: 12/13/23 20:27 Dose: 1 tab Documented By: KEL Sodium Chloride (Sodium Chloride 0.65 % Nasal 44 Ml Sprbtl) 1 spray NOSTRIL-B Q1H PRN PRN Reason: Dry Nasal Passages Last Admin: 12/13/23 17:34 Dose: 1 spray Documented By: KELLY Vitamin D (Cholecalciferol (Vitamin D3) 25 Mcg Tablet) 25 mcg PO DAILY [facility] Last Admin: 12/14/23 08:06 Dose: 25 mcg Documented By: KIARA Zinc Sulfate (Zinc Sulfate 220 Mg Capsule) 220 mg PO DAILY [facility] Last Admin: 12/14/23 08:06 Dose: 220 mg Documented By: KIARA Labs 12/14/23 08:51 12/07/23 07:52 Labs: Laboratory Results - last 24 hr 12/14/23 12/14/23 08:45 08:51 MCV 83.5 MCH 25.5 L MCHC 30.5 L RDW 14.6 Plt Count 244 MPV 11.5 Absolute Nucleated RBC 0.000 Nucleated RBC % (auto) 0.0 Absolute Retic 0.078 Percent Retic 2.0 H Immature Retic Fraction 22.5 H Retic Hgb Equivalent 24.2 L Iron 33 TIBC 285 % Saturation 12 L Unsat Iron Binding 252 Vitamin B12 595 Folate 13.6 Respiratory Panel Robertson See Note Adenovirus (Rapid PCR) Not Detected B.pert (TEM-PCR) Not Detected B.parapertussis DNA PCR Not Detected C. pneumoniae DNA (PCR) Not Detected Coronavirus OC43 (PCR) Detected A Coronavirus HKU1 (PCR) Not Detected Coronavirus 229E (PCR) Not Detected Coronavirus NL63 (PCR) Not Detected Human Metapneumovir PCR Not Detected Influenza A (RT-PCR) Not Detected Influenza B (RT-PCR) Not Detected M. pneumoniae (PCR) Not Detected Parainfluenza 1 (PCR) Not Detected Parainfluenza 2 (PCR) Not Detected Parainfluenza 3 (PCR) Not Detected Parainfluenza 4 (PCR) Not Detected RSV (PCR) Not Detected Entero/Rhino (PCR) Not Detected SARS-CoV-2 RNA (RT-PCR) Not Detected Assessment and Plan (1) Morbid obesity: Status: Acute (2) UCHE (obstructive sleep apnea): Status: Acute Plan d65 67yo F with HTN, HLD, arthritis, DVT on apixaban admitted for BRBPR and now awaiting placement URI - due to coronavirus OC43 (not Covid-19); symptomatic relief painless hematochezia, resolved - self-limited, refused endoscopy - attributed to hemorrhoid, stercoral colitis or chronic colitis - H+H stable JEFF - start FeSO4 atypical chest pain - resolved; no ischemic changes on EKG; troponin negative hx DVT - apixaban deep tissue injury of buttocks, present on admission - per Wound Care: Off Load Pressure - Cleanse with PH balance spray or wipes, pat dry. Apply thin layer of Triad to wound bed - only pat and dab no scrub and rub when soiling occurs. Reapply thin layer PRN after each episode of incontinence. morbid obesity - diet/exercise counseling R knee chronic pain - s/p steroid injection by Orthopedics - prn APAP, tramadol HLD - statin HTN - amlodipine VTE ppx - apixaban dispo - awaiting STR/LTC In my clinical judgment, the patient requires continued inpatient hospitalization for the following reasons: placement Total time managing care of this patient today: 35 minutes. Quality Stroke Does the patient have a stroke diagnosis?: No VTE Prior VTE?: No VTE Risk Level:: Medical - moderate - high VTE Device Contraindication: N/A - Device Ordered VTE Drug Contraindication: Treatment Not Indicated
[2023-12-14] MEDS: Ferrous Sulfate 324 MG TABLET.DR PO (12:39)
[2023-12-14 15:49] VITALS: BP 120/71; PULSE 65; RESP 18; TEMP 36.4; O2SAT 95
[2023-12-14 19:14] VITALS: BP 124/72; PULSE 90; RESP 18; TEMP 36.1; O2SAT 94
[2023-12-14] MEDS: Sennosides/Docusate Sodium TABLET 1 TAB PO (20:14)
[2023-12-14] MEDS: Atorvastatin Calcium 20 MG TABLET PO (20:14)
[2023-12-15] MEDS: Omeprazole 20 MG CAPSULE.DR PO (06:12)
[2023-12-15 07:40] VITALS: BP 120/62; PULSE 85; RESP 18; TEMP 36.4; O2SAT 96
--- NOTE | 2023-12-15 08:13 | MHC.IC ---
Pt has coronavirus OC43, which IS NOT COVID 19. Standard precautions required.
[2023-12-15] MEDS: Cholecalciferol (Vitamin D3) 25 MCG TABLET PO (09:29)
[2023-12-15] MEDS: Apixaban 5 MG TABLET PO ×2 (09:29→19:34)
[2023-12-15] MEDS: Docusate Sodium 100 MG CAPSULE 200 MG PO (09:29)
[2023-12-15] MEDS: Zinc Sulfate 220 MG CAPSULE PO (09:29)
[2023-12-15] MEDS: Multivitamin TABLET 1 TAB PO (09:29)
[2023-12-15] MEDS: amLODIPine Besylate 10 MG TABLET PO (09:29)
[2023-12-15] MEDS: Ferrous Sulfate 324 MG TABLET.DR PO (09:29)
--- NOTE | 2023-12-15 10:21 | HO.PM.IMPN ---
Subjective Subjective Date of Service: 12/15/23 Interval History: cold symptoms improved Review of Systems Review of Systems: Yes all other systems are reviewed and are negative Physical Exam Vital Signs: Vital Signs: Last Vital Signs Temp 97.5 F 12/15/23 07:40 Pulse 85 12/15/23 07:40 Resp 18 12/15/23 07:40 BP 120/62 12/15/23 07:40 Pulse Ox 96 12/15/23 07:40 O2 Del Method Room Air 12/15/23 07:40 BMI result Body Mass Index 54.2 Gen: in no acute distress HEENT: sclera anicteric, moist mucus membranes Neck: supple Lungs: clear to auscultation bilaterally Heart: regular rate and rhythm, no murmurs Abd: soft, non-tender, non-distended, obese Ext: no edema Skin: warm/well-perfused Neuro: alert and oriented x3, no focal findings Psych: appropriate affect Objective Data Active Medications Acetaminophen (Acetaminophen 325 Mg Tablet) 650 mg PO Q6H PRN PRN Reason: Pain, Mild (Pain Scale 1-3) Last Admin: 12/12/23 00:57 Dose: 650 mg Documented By: ROMEO Al Hydroxide/Mg Hydroxide (Magnesium Hydrox/Alum Hydrox 30 Ml Oral.Susp) 30 ml PO Q4H PRN PRN Reason: Indigestion Amlodipine Besylate (Amlodipine Besylate 10 Mg Tablet) 10 mg PO DAILY [facility]; Protocol Last Admin: 12/15/23 09:29 Dose: 10 mg Documented By: KATHARINA Apixaban (Apixaban 5 Mg Tablet) 5 mg PO BID [facility] Last Admin: 12/15/23 09:29 Dose: 5 mg Documented By: KATHARINA Atorvastatin Calcium (Atorvastatin Calcium 20 Mg Tablet) 20 mg PO BEDTIME [facility] Last Admin: 12/14/23 20:14 Dose: 20 mg Documented By: ALAYNA Benzocaine (Throat Lozenge, Medicated Lozenge) 1 lozenge MUCOUS MEM Q2H PRN PRN Reason: Sore Throat Last Admin: 12/13/23 17:33 Dose: 1 lozenge Documented By: KELLY Bisacodyl (Bisacodyl 10 Mg Supp.Rect) [address] DAILY PRN PRN Reason: Constipation Docusate Sodium (Docusate Sodium 100 Mg Capsule) 200 mg PO DAILY [facility] Last Admin: 12/15/23 09:29 Dose: 200 mg Documented By: KATHARINA Ferrous Sulfate (Ferrous Sulfate 324 Mg Tablet.) 324 mg PO DAILY [facility] Last Admin: 12/15/23 09:29 Dose: 324 mg Documented By: KATHARINA Guaifenesin/Dextromethorphan (Guaifenesin Dm 200/20/10 Ml 10 Ml Syrup) 10 ml PO Q6H PRN PRN Reason: cough Melatonin (Melatonin 3 Mg Tablet) 6 mg PO BEDTIME PRN PRN Reason: Insomnia Last Admin: 11/28/23 20:14 Dose: 6 mg Documented By: MARIA L Melatonin (Melatonin 3 Mg Tablet) 3 mg PO BEDTIME PRN PRN Reason: Insomnia Last Admin: 11/06/23 23:03 Dose: 3 mg Documented By: GIL Multivitamins/Vitamin C (Multivitamin Tablet) 1 tab PO DAILY [facility] Last Admin: 12/15/23 09:29 Dose: 1 tab Documented By: KATHARINA Omeprazole (Omeprazole 20 Mg Capsule.) 20 mg PO DAILY@0630 [facility] Last Admin: 12/15/23 06:12 Dose: 20 mg Documented By: ALAYNA Ondansetron HCl (Ondansetron Hcl 4 Mg/2 Ml Vial) 4 mg IVPUSH Q8H PRN PRN Reason: Nausea and Vomiting Polyethylene Glycol (Polyethylene Glycol 3350 17 Gm Powd.Pack) 17 gm PO DAILY [facility] Last Admin: 12/15/23 09:30 Dose: Not Given Documented By: KATHARINA Non-Admin Reason: Patient Refused Senna/Docusate Sodium (Sennosides/Docusate Sodium Tablet) 1 tab PO BEDTIME [facility] Last Admin: 12/14/23 20:14 Dose: 1 tab Documented By: ALAYNA Sodium Chloride (Sodium Chloride 0.65 % Nasal 44 Ml Sprbtl) 1 spray NOSTRIL-B Q1H PRN PRN Reason: Dry Nasal Passages Last Admin: 12/13/23 17:34 Dose: 1 spray Documented By: KELLY Vitamin D (Cholecalciferol (Vitamin D3) 25 Mcg Tablet) 25 mcg PO DAILY [facility] Last Admin: 12/15/23 09:29 Dose: 25 mcg Documented By: KATHARINA Zinc Sulfate (Zinc Sulfate 220 Mg Capsule) 220 mg PO DAILY [facility] Last Admin: 12/15/23 09:29 Dose: 220 mg Documented By: KATHARINA Labs 12/14/23 08:51 12/07/23 07:52 Labs: Laboratory Results - last 24 hr 12/14/23 12/14/23 08:45 08:51 Vitamin B12 595 Folate 13.6 Respiratory Panel [place] See Note Adenovirus (Rapid PCR) Not Detected B.pert (TEM-PCR) Not Detected B.parapertussis DNA PCR Not Detected C. pneumoniae DNA (PCR) Not Detected Coronavirus OC43 (PCR) Detected A Coronavirus HKU1 (PCR) Not Detected Coronavirus 229E (PCR) Not Detected Coronavirus NL63 (PCR) Not Detected Human Metapneumovir PCR Not Detected Influenza A (RT-PCR) Not Detected Influenza B (RT-PCR) Not Detected M. pneumoniae (PCR) Not Detected Parainfluenza 1 (PCR) Not Detected Parainfluenza 2 (PCR) Not Detected Parainfluenza 3 (PCR) Not Detected Parainfluenza 4 (PCR) Not Detected RSV (PCR) Not Detected Entero/Rhino (PCR) Not Detected SARS-CoV-2 RNA (RT-PCR) Not Detected Assessment and Plan (1) Morbid obesity: Status: Acute (2) UCHE (obstructive sleep apnea): Status: Acute Plan d[age]yo F with HTN, HLD, arthritis, DVT on apixaban admitted for BRBPR and now awaiting placement URI - due to coronavirus OC43 (not Covid-19); symptomatic relief painless hematochezia, resolved - self-limited, refused endoscopy - attributed to hemorrhoid, stercoral colitis or chronic colitis - H+H stable JEFF - FeSO4 atypical chest pain - resolved; no ischemic changes on EKG; troponin negative hx DVT - apixaban deep tissue injury of buttocks, present on admission - per Wound Care: Off Load Pressure - Cleanse with PH balance spray or wipes, pat dry. Apply thin layer of Triad to wound bed - only pat and dab no scrub and rub when soiling occurs. Reapply thin layer PRN after each episode of incontinence. morbid obesity - diet/exercise counseling R knee chronic pain - s/p steroid injection by Orthopedics - prn APAP, tramadol HLD - statin HTN - amlodipine VTE ppx - apixaban dispo - awaiting STR/LTC In my clinical judgment, the patient requires continued inpatient hospitalization for the following reasons: placement Total time managing care of this patient today: 25 minutes. Quality Stroke Does the patient have a stroke diagnosis?: No VTE Prior VTE?: No VTE Risk Level:: Medical - moderate - high VTE Device Contraindication: N/A - Device Ordered VTE Drug Contraindication: Treatment Not Indicated
[2023-12-15 15:43] VITALS: BP 131/80; PULSE 94; RESP 18; TEMP 36.2; O2SAT 94
[2023-12-15] MEDS: Sennosides/Docusate Sodium TABLET 1 TAB PO (19:34)
[2023-12-15] MEDS: Atorvastatin Calcium 20 MG TABLET PO (19:34)
[2023-12-15 19:49] VITALS: BP 125/82; PULSE 87; RESP 18; TEMP 36.2; O2SAT 95
[2023-12-16 03:58] VITALS: BP 136/70; PULSE 74; RESP 16; TEMP 36.5; O2SAT 97
[2023-12-16] MEDS: Omeprazole 20 MG CAPSULE.DR PO (05:14)
[2023-12-16 07:34] VITALS: BP 137/65; PULSE 82; RESP 20; TEMP 36.4; O2SAT 95
[2023-12-16] MEDS: Zinc Sulfate 220 MG CAPSULE PO (08:13)
[2023-12-16] MEDS: amLODIPine Besylate 10 MG TABLET PO (08:13)
[2023-12-16] MEDS: Apixaban 5 MG TABLET PO ×2 (08:13→21:14)
[2023-12-16] MEDS: Ferrous Sulfate 324 MG TABLET.DR PO (08:13)
[2023-12-16] MEDS: Multivitamin TABLET 1 TAB PO (08:13)
[2023-12-16] MEDS: Cholecalciferol (Vitamin D3) 25 MCG TABLET PO (08:13)
--- NOTE | 2023-12-16 09:31 | P.PNIM_ITS ---
Subjective Subjective Date of Service: 12/16/23 Interval History: cold symptoms resolved no other complaints Review of Systems Review of Systems: Yes all other systems are reviewed and are negative Physical Exam 2 Vital Signs: Vital Signs: Last Vital Signs Temp 97.6 F 12/16/23 07:34 Pulse 82 12/16/23 07:34 Resp 20 12/16/23 07:34 BP 137/65 12/16/23 07:34 Pulse Ox 95 12/16/23 07:34 O2 Del Method Room Air 12/16/23 07:34 BMI result Body Mass Index 54.2 Gen: in no acute distress HEENT: sclera anicteric, moist mucus membranes Neck: supple Lungs: clear to auscultation bilaterally Heart: regular rate and rhythm, no murmurs Abd: soft, non-tender, non-distended, obese Ext: no edema Skin: warm/well-perfused Neuro: alert and oriented x3, no focal findings Psych: appropriate affect Objective Data Active Medications Acetaminophen (Acetaminophen 325 Mg Tablet) 650 mg PO Q6H PRN PRN Reason: Pain, Mild (Pain Scale 1-3) Last Admin: 12/12/23 00:57 Dose: 650 mg Documented By: ROMEO Al Hydroxide/Mg Hydroxide (Magnesium Hydrox/Alum Hydrox 30 Ml Oral.Susp) 30 ml PO Q4H PRN PRN Reason: Indigestion Amlodipine Besylate (Amlodipine Besylate 10 Mg Tablet) 10 mg PO DAILY [facility]; Protocol Last Admin: 12/16/23 08:13 Dose: 10 mg Documented By: KIARA Apixaban (Apixaban 5 Mg Tablet) 5 mg PO BID [facility] Last Admin: 12/16/23 08:13 Dose: 5 mg Documented By: KIARA Atorvastatin Calcium (Atorvastatin Calcium 20 Mg Tablet) 20 mg PO BEDTIME [facility] Last Admin: 12/15/23 19:34 Dose: 20 mg Documented By: ALAYNA Benzocaine (Throat Lozenge, Medicated Lozenge) 1 lozenge MUCOUS MEM Q2H PRN PRN Reason: Sore Throat Last Admin: 12/13/23 17:33 Dose: 1 lozenge Documented By: KELLY Bisacodyl (Bisacodyl 10 Mg Supp.Rect) 10 mg [place] DAILY PRN PRN Reason: Constipation Docusate Sodium (Docusate Sodium 100 Mg Capsule) 200 mg PO DAILY [facility] Last Admin: 12/16/23 07:49 Dose: Not Given Documented By: KIARA Non-Admin Reason: loose stool Ferrous Sulfate (Ferrous Sulfate 324 Mg Tablet.) 324 mg PO DAILY [facility] Last Admin: 12/16/23 08:13 Dose: 324 mg Documented By: KIARA Guaifenesin/Dextromethorphan (Guaifenesin Dm 200/20/10 Ml 10 Ml Syrup) 10 ml PO Q6H PRN PRN Reason: cough Melatonin (Melatonin 3 Mg Tablet) 6 mg PO BEDTIME PRN PRN Reason: Insomnia Last Admin: 11/28/23 20:14 Dose: 6 mg Documented By: MARIA L Melatonin (Melatonin 3 Mg Tablet) 3 mg PO BEDTIME PRN PRN Reason: Insomnia Last Admin: 11/06/23 23:03 Dose: 3 mg Documented By: GIL Multivitamins/Vitamin C (Multivitamin Tablet) 1 tab PO DAILY [facility] Last Admin: 12/16/23 08:13 Dose: 1 tab Documented By: KIARA Omeprazole (Omeprazole 20 Mg Capsule.) 20 mg PO DAILY@0630 [facility] Last Admin: 12/16/23 05:14 Dose: 20 mg Documented By: ALAYNA Ondansetron HCl (Ondansetron Hcl 4 Mg/2 Ml Vial) 4 mg IVPUSH Q8H PRN PRN Reason: Nausea and Vomiting Polyethylene Glycol (Polyethylene Glycol 3350 17 Gm Powd.Pack) 17 gm PO DAILY [facility] Last Admin: 12/16/23 07:48 Dose: Not Given Documented By: KIARA Non-Admin Reason: Patient Refused Senna/Docusate Sodium (Sennosides/Docusate Sodium Tablet) 1 tab PO BEDTIME [facility] Last Admin: 12/15/23 19:34 Dose: 1 tab Documented By: ALAYNA Sodium Chloride (Sodium Chloride 0.65 % Nasal 44 Ml Sprbtl) 1 spray NOSTRIL-B Q1H PRN PRN Reason: Dry Nasal Passages Last Admin: 12/13/23 17:34 Dose: 1 spray Documented By: KELLY Vitamin D (Cholecalciferol (Vitamin D3) 25 Mcg Tablet) 25 mcg PO DAILY [facility] Last Admin: 12/16/23 08:13 Dose: 25 mcg Documented By: KIARA Zinc Sulfate (Zinc Sulfate 220 Mg Capsule) 220 mg PO DAILY [facility] Last Admin: 12/16/23 08:13 Dose: 220 mg Documented By: KIARA Labs 12/14/23 08:51 12/07/23 07:52 Assessment and Plan (1) Morbid obesity: Status: Acute (2) UCHE (obstructive sleep apnea): Status: Acute Plan [age]yo F with HTN, HLD, arthritis, DVT on apixaban admitted for BRBPR and now awaiting placement URI - due to coronavirus OC43 (not Covid-19); symptomatic relief painless hematochezia, resolved - self-limited, refused endoscopy - attributed to hemorrhoid, stercoral colitis or chronic colitis - H+H stable JEFF - FeSO4 atypical chest pain - resolved; no ischemic changes on EKG; troponin negative hx DVT - apixaban deep tissue injury of buttocks, present on admission - per Wound Care: Off Load Pressure - Cleanse with PH balance spray or wipes, pat dry. Apply thin layer of Triad to wound bed - only pat and dab no scrub and rub when soiling occurs. Reapply thin layer PRN after each episode of incontinence. morbid obesity - diet/exercise counseling R knee chronic pain - s/p steroid injection by Orthopedics - prn APAP, tramadol HLD - statin HTN - amlodipine VTE ppx - apixaban dispo - awaiting STR/LTC In my clinical judgment, the patient requires continued inpatient hospitalization for the following reasons: placement Total time managing care of this patient today: 25 minutes. Quality Stroke Does the patient have a stroke diagnosis?: No VTE Prior VTE?: No VTE Risk Level:: Medical - moderate - high VTE Device Contraindication: N/A - Device Ordered VTE Drug Contraindication: Treatment Not Indicated
--- NOTE | 2023-12-16 12:37 | PC.NURSE ---
refusing to get OOB today.
--- NOTE | 2023-12-16 14:24 | MHC.CM.PN ---
pt is ready for dc financial staus remains in question re poperty
[2023-12-16 15:16] VITALS: BP 112/64; PULSE 86; RESP 18; TEMP 36.6; O2SAT 94
[2023-12-16 20:00] VITALS: BP 122/57; PULSE 90; RESP 18; TEMP 36.2; O2SAT 94
[2023-12-16] MEDS: Sennosides/Docusate Sodium TABLET 1 TAB PO (21:14)
[2023-12-16] MEDS: Atorvastatin Calcium 20 MG TABLET PO (21:14)
[2023-12-17 03:25] VITALS: BP 133/73; PULSE 80; RESP 18; TEMP 36.2; O2SAT 99
[2023-12-17] MEDS: Omeprazole 20 MG CAPSULE.DR PO (06:08)
[2023-12-17 07:38] VITALS: BP 140/70; PULSE 75; RESP 18; TEMP 36.2; O2SAT 97
[2023-12-17] MEDS: Apixaban 5 MG TABLET PO ×2 (08:48→20:11)
[2023-12-17] MEDS: Zinc Sulfate 220 MG CAPSULE PO (08:48)
[2023-12-17] MEDS: Multivitamin TABLET 1 TAB PO (08:48)
[2023-12-17] MEDS: Docusate Sodium 100 MG CAPSULE 200 MG PO (08:48)
[2023-12-17] MEDS: Cholecalciferol (Vitamin D3) 25 MCG TABLET PO (08:49)
[2023-12-17] MEDS: amLODIPine Besylate 10 MG TABLET PO (08:49)
[2023-12-17] MEDS: Ferrous Sulfate 324 MG TABLET.DR PO (08:49)
--- NOTE | 2023-12-17 09:22 | HO.PM.IMPN ---
Subjective Subjective Date of Service: 12/17/23 Interval History: no cough, congestion, or diarrhea denies any complaints Review of Systems Review of Systems: Yes all other systems are reviewed and are negative Physical Exam Vital Signs: Vital Signs: Last Vital Signs Temp 97.2 F 12/17/23 07:38 Pulse 75 12/17/23 07:38 Resp 18 12/17/23 07:38 BP 140/70 H 12/17/23 07:38 Pulse Ox 97 12/17/23 07:38 O2 Del Method Room Air 12/17/23 07:38 BMI result Body Mass Index 54.2 Gen: in no acute distress HEENT: sclera anicteric, moist mucus membranes Neck: supple Lungs: clear to auscultation bilaterally Heart: regular rate and rhythm, no murmurs Abd: soft, non-tender, non-distended, obese Ext: no edema Skin: warm/well-perfused Neuro: alert and oriented x3, no focal findings Psych: appropriate affect Objective Data Active Medications Acetaminophen (Acetaminophen 325 Mg Tablet) 650 mg PO Q6H PRN PRN Reason: Pain, Mild (Pain Scale 1-3) Last Admin: 12/12/23 00:57 Dose: 650 mg Documented By: ROMEO Al Hydroxide/Mg Hydroxide (Magnesium Hydrox/Alum Hydrox 30 Ml Oral.Susp) 30 ml PO Q4H PRN PRN Reason: Indigestion Amlodipine Besylate (Amlodipine Besylate 10 Mg Tablet) 10 mg PO DAILY [facility]; Protocol Last Admin: 12/17/23 08:49 Dose: 10 mg Documented By: MATEUSZ Apixaban (Apixaban 5 Mg Tablet) 5 mg PO BID [facility] Last Admin: 12/17/23 08:48 Dose: 5 mg Documented By: MATEUSZ Atorvastatin Calcium (Atorvastatin Calcium 20 Mg Tablet) 20 mg PO BEDTIME [facility] Last Admin: 12/16/23 21:14 Dose: 20 mg Documented By: SOMMER Benzocaine (Throat Lozenge, Medicated Lozenge) 1 lozenge MUCOUS MEM Q2H PRN PRN Reason: Sore Throat Last Admin: 12/13/23 17:33 Dose: 1 lozenge Documented By: KELLY Bisacodyl (Bisacodyl 10 Mg Supp.Rect) 10 mg [place] DAILY PRN PRN Reason: Constipation Docusate Sodium (Docusate Sodium 100 Mg Capsule) 200 mg PO DAILY [facility] Last Admin: 12/17/23 08:48 Dose: 200 mg Documented By: MATEUSZ Ferrous Sulfate (Ferrous Sulfate 324 Mg Tablet.) 324 mg PO DAILY [facility] Last Admin: 12/17/23 08:49 Dose: 324 mg Documented By: MATEUSZ Guaifenesin/Dextromethorphan (Guaifenesin Dm 200/20/10 Ml 10 Ml Syrup) 10 ml PO Q6H PRN PRN Reason: cough Melatonin (Melatonin 3 Mg Tablet) 6 mg PO BEDTIME PRN PRN Reason: Insomnia Last Admin: 11/28/23 20:14 Dose: 6 mg Documented By: MARIA L Melatonin (Melatonin 3 Mg Tablet) 3 mg PO BEDTIME PRN PRN Reason: Insomnia Last Admin: 11/06/23 23:03 Dose: 3 mg Documented By: GIL Multivitamins/Vitamin C (Multivitamin Tablet) 1 tab PO DAILY [facility] Last Admin: 12/17/23 08:48 Dose: 1 tab Documented By: MATEUSZ Omeprazole (Omeprazole 20 Mg Capsule.) 20 mg PO DAILY@0630 [facility] Last Admin: 12/17/23 06:08 Dose: 20 mg Documented By: LAKHWINDER Ondansetron HCl (Ondansetron Hcl 4 Mg/2 Ml Vial) 4 mg IVPUSH Q8H PRN PRN Reason: Nausea and Vomiting Polyethylene Glycol (Polyethylene Glycol 3350 17 Gm Powd.Pack) 17 gm PO DAILY [facility] Last Admin: 12/17/23 08:49 Dose: Not Given Documented By: MATEUSZ Non-Admin Reason: Patient Refused Senna/Docusate Sodium (Sennosides/Docusate Sodium Tablet) 1 tab PO BEDTIME [facility] Last Admin: 12/16/23 21:14 Dose: 1 tab Documented By: SOMMER Sodium Chloride (Sodium Chloride 0.65 % Nasal 44 Ml Sprbtl) 1 spray NOSTRIL-B Q1H PRN PRN Reason: Dry Nasal Passages Last Admin: 12/13/23 17:34 Dose: 1 spray Documented By: KELLY Vitamin D (Cholecalciferol (Vitamin D3) 25 Mcg Tablet) 25 mcg PO DAILY [facility] Last Admin: 12/17/23 08:49 Dose: 25 mcg Documented By: MATEUSZ Zinc Sulfate (Zinc Sulfate 220 Mg Capsule) 220 mg PO DAILY [facility] Last Admin: 12/17/23 08:48 Dose: 220 mg Documented By: MATEUSZ Labs 12/14/23 08:51 12/07/23 07:52 Assessment and Plan (1) Morbid obesity: Status: Acute (2) UCHE (obstructive sleep apnea): Status: Acute Plan d68 67yo F with HTN, HLD, arthritis, DVT on apixaban admitted for BRBPR and now awaiting placement URI, resolved - due to coronavirus OC43 (not Covid-19); symptomatic relief prn painless hematochezia, resolved - self-limited, refused endoscopy - attributed to hemorrhoid, stercoral colitis or chronic colitis - H+H stable JEFF - FeSO4 atypical chest pain - resolved; no ischemic changes on EKG; troponin negative hx DVT - apixaban deep tissue injury of buttocks, present on admission - per Wound Care: Off Load Pressure - Cleanse with PH balance spray or wipes, pat dry. Apply thin layer of Triad to wound bed - only pat and dab no scrub and rub when soiling occurs. Reapply thin layer PRN after each episode of incontinence. morbid obesity - diet/exercise counseling R knee chronic pain - s/p steroid injection by Orthopedics - prn APAP, tramadol HLD - statin HTN - amlodipine VTE ppx - apixaban dispo - awaiting STR/LTC In my clinical judgment, the patient requires continued inpatient hospitalization for the following reasons: placement Total time managing care of this patient today: 25 minutes. Quality Stroke Does the patient have a stroke diagnosis?: No VTE Prior VTE?: No VTE Risk Level:: Medical - moderate - high VTE Device Contraindication: N/A - Device Ordered VTE Drug Contraindication: Treatment Not Indicated
--- NOTE | 2023-12-17 10:45 | PC.NURSE ---
Wound care resolved, No open areas on buttocks or upper posterior thighs. Left Great Toe missing nail, no wound noted.
[2023-12-17 15:22] VITALS: BP 124/56; PULSE 82; RESP 18; TEMP 36.3; O2SAT 95
[2023-12-17 20:00] VITALS: BP 121/59; PULSE 80; RESP 16; TEMP 36.1; O2SAT 96
[2023-12-17] MEDS: Atorvastatin Calcium 20 MG TABLET PO (20:11)
[2023-12-17] MEDS: Sennosides/Docusate Sodium TABLET 1 TAB PO (20:11)
[2023-12-18 03:02] VITALS: BP 124/58; PULSE 77; RESP 16; TEMP 36.1; O2SAT 95
[2023-12-18] MEDS: Omeprazole 20 MG CAPSULE.DR PO (05:20)
[2023-12-18 08:00] VITALS: BP 119/58; PULSE 85; RESP 18; TEMP 36.1; O2SAT 96
--- NOTE | 2023-12-18 10:19 | HO.PM.IMPN ---
Subjective Subjective Date of Service: 12/18/23 Interval History: no new complaints Review of Systems Review of Systems: Yes all other systems are reviewed and are negative Physical Exam Vital Signs: Vital Signs: Last Vital Signs Temp 97 F 12/18/23 08:00 Pulse 85 12/18/23 08:00 Resp 18 12/18/23 08:00 BP 119/58 L 12/18/23 08:00 Pulse Ox 96 12/18/23 08:00 O2 Del Method Room Air 12/18/23 08:00 BMI result Body Mass Index 54.2 Gen: in no acute distress Lungs: normal resp effort Abd: soft, obese Neuro: no focal findings Psych: appropriate affect Objective Data Active Medications Acetaminophen (Acetaminophen 325 Mg Tablet) 650 mg PO Q6H PRN PRN Reason: Pain, Mild (Pain Scale 1-3) Last Admin: 12/12/23 00:57 Dose: 650 mg Documented By: ROMEO Al Hydroxide/Mg Hydroxide (Magnesium Hydrox/Alum Hydrox 30 Ml Oral.Susp) 30 ml PO Q4H PRN PRN Reason: Indigestion Amlodipine Besylate (Amlodipine Besylate 10 Mg Tablet) 10 mg PO DAILY [facility]; Protocol Last Admin: 12/17/23 08:49 Dose: 10 mg Documented By: MATEUSZ Apixaban (Apixaban 5 Mg Tablet) 5 mg PO BID [facility] Last Admin: 12/17/23 20:11 Dose: 5 mg Documented By: KEL Atorvastatin Calcium (Atorvastatin Calcium 20 Mg Tablet) 20 mg PO BEDTIME [facility] Last Admin: 12/17/23 20:11 Dose: 20 mg Documented By: KEL Benzocaine (Throat Lozenge, Medicated Lozenge) 1 lozenge MUCOUS MEM Q2H PRN PRN Reason: Sore Throat Last Admin: 12/13/23 17:33 Dose: 1 lozenge Documented By: KELLY Bisacodyl (Bisacodyl 10 Mg Supp.Rect) 10 mg [place] DAILY PRN PRN Reason: Constipation Docusate Sodium (Docusate Sodium 100 Mg Capsule) 200 mg PO DAILY [facility] Last Admin: 12/17/23 08:48 Dose: 200 mg Documented By: MATEUSZ Ferrous Sulfate (Ferrous Sulfate 324 Mg Tablet.Dr) 324 mg PO DAILY [facility] Last Admin: 12/17/23 08:49 Dose: 324 mg Documented By: MATEUSZ Guaifenesin/Dextromethorphan (Guaifenesin Dm 200/20/10 Ml 10 Ml Syrup) 10 ml PO Q6H PRN PRN Reason: cough Melatonin (Melatonin 3 Mg Tablet) 6 mg PO BEDTIME PRN PRN Reason: Insomnia Last Admin: 11/28/23 20:14 Dose: 6 mg Documented By: MARIA L Melatonin (Melatonin 3 Mg Tablet) 3 mg PO BEDTIME PRN PRN Reason: Insomnia Last Admin: 11/06/23 23:03 Dose: 3 mg Documented By: GIL Multivitamins/Vitamin C (Multivitamin Tablet) 1 tab PO DAILY [facility] Last Admin: 12/17/23 08:48 Dose: 1 tab Documented By: MATEUSZ Omeprazole (Omeprazole 20 Mg Capsule.Dr) 20 mg PO DAILY@0630 [facility] Last Admin: 12/18/23 05:20 Dose: 20 mg Documented By: KEL Ondansetron HCl (Ondansetron Hcl 4 Mg/2 Ml Vial) 4 mg IVPUSH Q8H PRN PRN Reason: Nausea and Vomiting Polyethylene Glycol (Polyethylene Glycol 3350 17 Gm Powd.Pack) 17 gm PO DAILY [facility] Last Admin: 12/17/23 08:49 Dose: Not Given Documented By: MATEUSZ Non-Admin Reason: Patient Refused Senna/Docusate Sodium (Sennosides/Docusate Sodium Tablet) 1 tab PO BEDTIME [facility] Last Admin: 12/17/23 20:11 Dose: 1 tab Documented By: KEL Sodium Chloride (Sodium Chloride 0.65 % Nasal 44 Ml Sprbtl) 1 spray NOSTRIL-B Q1H PRN PRN Reason: Dry Nasal Passages Last Admin: 12/13/23 17:34 Dose: 1 spray Documented By: KELLY Vitamin D (Cholecalciferol (Vitamin D3) 25 Mcg Tablet) 25 mcg PO DAILY [facility] Last Admin: 12/17/23 08:49 Dose: 25 mcg Documented By: MATEUSZ Zinc Sulfate (Zinc Sulfate 220 Mg Capsule) 220 mg PO DAILY [facility] Last Admin: 12/17/23 08:48 Dose: 220 mg Documented By: MATEUSZ Labs 12/14/23 08:51 12/07/23 07:52 Assessment and Plan (1) Morbid obesity: Status: Acute (2) UCHE (obstructive sleep apnea): Status: Acute Plan d69 67yo F with HTN, HLD, arthritis, DVT on apixaban admitted for BRBPR and now awaiting placement URI, resolved - was due to coronavirus OC43 (not Covid-19); symptomatic relief prn painless hematochezia, resolved - self-limited, refused endoscopy - attributed to hemorrhoid, stercoral colitis or chronic colitis - H+H stable JEFF - FeSO4 atypical chest pain - resolved; no ischemic changes on EKG; troponin negative hx DVT - apixaban deep tissue injury of buttocks, present on admission - resolved; use Triad for protection morbid obesity - diet/exercise counseling R knee chronic pain - s/p steroid injection by Orthopedics - prn APAP, tramadol HLD - statin HTN - amlodipine VTE ppx - apixaban dispo - awaiting STR/LTC In my clinical judgment, the patient requires continued inpatient hospitalization for the following reasons: placement Total time managing care of this patient today: 25 minutes. Quality Stroke Does the patient have a stroke diagnosis?: No VTE Prior VTE?: No VTE Risk Level:: Medical - moderate - high VTE Device Contraindication: N/A - Device Ordered VTE Drug Contraindication: Treatment Not Indicated
[2023-12-18] MEDS: Zinc Sulfate 220 MG CAPSULE PO (10:50)
[2023-12-18] MEDS: Cholecalciferol (Vitamin D3) 25 MCG TABLET PO (10:50)
[2023-12-18] MEDS: Docusate Sodium 100 MG CAPSULE 200 MG PO (10:50)
[2023-12-18] MEDS: Apixaban 5 MG TABLET PO ×2 (10:50→20:56)
[2023-12-18] MEDS: Multivitamin TABLET 1 TAB PO (10:50)
[2023-12-18] MEDS: amLODIPine Besylate 10 MG TABLET PO (10:51)
[2023-12-18] MEDS: Ferrous Sulfate 324 MG TABLET.DR PO (10:51)
[2023-12-18 16:00] VITALS: BP 138/58; PULSE 100; RESP 18; TEMP 36.6; O2SAT 94
[2023-12-18 19:43] VITALS: BP 130/63; PULSE 92; RESP 18; TEMP 36.6; O2SAT 96
[2023-12-18] MEDS: Sennosides/Docusate Sodium TABLET 1 TAB PO (20:57)
[2023-12-18] MEDS: Atorvastatin Calcium 20 MG TABLET PO (20:57)
[2023-12-19 00:30] VITALS: RESP 16
[2023-12-19 03:26] VITALS: BP 137/63; PULSE 75; RESP 18; TEMP 36.8; O2SAT 95
[2023-12-19] MEDS: Omeprazole 20 MG CAPSULE.DR PO (06:07)
[2023-12-19 07:46] VITALS: BP 115/65; PULSE 82; RESP 18; TEMP 36.2; O2SAT 96
[2023-12-19] MEDS: Ferrous Sulfate 324 MG TABLET.DR PO (08:49)
[2023-12-19] MEDS: Multivitamin TABLET 1 TAB PO (08:49)
[2023-12-19] MEDS: amLODIPine Besylate 10 MG TABLET PO (08:49)
[2023-12-19] MEDS: Apixaban 5 MG TABLET PO ×2 (08:49→20:32)
[2023-12-19] MEDS: Cholecalciferol (Vitamin D3) 25 MCG TABLET PO (08:49)
[2023-12-19] MEDS: Zinc Sulfate 220 MG CAPSULE PO (08:49)
[2023-12-19] MEDS: Docusate Sodium 100 MG CAPSULE 200 MG PO (08:49)
[2023-12-19] MEDS: polyethylene glycoL 3350 17 GM POWD.PACK PO (08:49)
--- NOTE | 2023-12-19 14:01 | P.PNIM_ITS ---
Subjective Subjective Date of Service: 12/19/23 Interval History: No acute issues overnight. Spirits good Review of Systems Denies chest pain Denies shortness of breath Denies nausea vomiting diarrhea Denies fever chills Physical Exam 2 Vital Signs: Vital Signs: Last Vital Signs Temp 97.2 F 12/19/23 07:46 Pulse 82 12/19/23 07:46 Resp 18 12/19/23 07:46 BP 115/65 12/19/23 07:46 Pulse Ox 96 12/19/23 07:46 O2 Del Method Room Air 12/19/23 07:46 BMI result Body Mass Index 54.2 Const: Other: Awake alert no acute distress Resp: Other: Clear to auscultation bilaterally no rales rhonchi wheezes Cardio: Other: No S4; positive S1-S2; no S3 murmurs rubs or gallops GI: Other: Soft nontender nondistended normoactive bowel sounds Extrem: Other: Routine bilaterally Objective Data Active Medications Acetaminophen (Acetaminophen 325 Mg Tablet) 650 mg PO Q6H PRN PRN Reason: Pain, Mild (Pain Scale 1-3) Last Admin: 12/12/23 00:57 Dose: 650 mg Documented By: ROMEO Al Hydroxide/Mg Hydroxide (Magnesium Hydrox/Alum Hydrox 30 Ml Oral.Susp) 30 ml PO Q4H PRN PRN Reason: Indigestion Amlodipine Besylate (Amlodipine Besylate 10 Mg Tablet) 10 mg PO DAILY [facility]; Protocol Last Admin: 12/19/23 08:49 Dose: 10 mg Documented By: ARLIN Apixaban (Apixaban 5 Mg Tablet) 5 mg PO BID [facility] Last Admin: 12/19/23 08:49 Dose: 5 mg Documented By: ARLIN Atorvastatin Calcium (Atorvastatin Calcium 20 Mg Tablet) 20 mg PO BEDTIME [facility] Last Admin: 12/18/23 20:57 Dose: 20 mg Documented By: MIGUEL A Benzocaine (Throat Lozenge, Medicated Lozenge) 1 lozenge MUCOUS MEM Q2H PRN PRN Reason: Sore Throat Last Admin: 12/13/23 17:33 Dose: 1 lozenge Documented By: KELLY Bisacodyl (Bisacodyl 10 Mg Supp.Rect) 10 mg [place] DAILY PRN PRN Reason: Constipation Docusate Sodium (Docusate Sodium 100 Mg Capsule) 200 mg PO DAILY [facility] Last Admin: 12/19/23 08:49 Dose: 200 mg Documented By: ARLIN Ferrous Sulfate (Ferrous Sulfate 324 Mg Tablet.) 324 mg PO DAILY [facility] Last Admin: 12/19/23 08:49 Dose: 324 mg Documented By: ARLIN Guaifenesin/Dextromethorphan (Guaifenesin Dm 200/20/10 Ml 10 Ml Syrup) 10 ml PO Q6H PRN PRN Reason: cough Melatonin (Melatonin 3 Mg Tablet) 6 mg PO BEDTIME PRN PRN Reason: Insomnia Last Admin: 11/28/23 20:14 Dose: 6 mg Documented By: MARIA L Melatonin (Melatonin 3 Mg Tablet) 3 mg PO BEDTIME PRN PRN Reason: Insomnia Last Admin: 11/06/23 23:03 Dose: 3 mg Documented By: GIL Multivitamins/Vitamin C (Multivitamin Tablet) 1 tab PO DAILY [facility] Last Admin: 12/19/23 08:49 Dose: 1 tab Documented By: ARLIN Omeprazole (Omeprazole 20 Mg Capsule.) 20 mg PO DAILY@0630 [facility] Last Admin: 12/19/23 06:07 Dose: 20 mg Documented By: SUE Ondansetron HCl (Ondansetron Hcl 4 Mg/2 Ml Vial) 4 mg IVPUSH Q8H PRN PRN Reason: Nausea and Vomiting Polyethylene Glycol (Polyethylene Glycol 3350 17 Gm Powd.Pack) 17 gm PO DAILY [facility] Last Admin: 12/19/23 08:49 Dose: 17 gm Documented By: ARLIN Senna/Docusate Sodium (Sennosides/Docusate Sodium Tablet) 1 tab PO BEDTIME [facility] Last Admin: 12/18/23 20:57 Dose: 1 tab Documented By: MIGUEL A Sodium Chloride (Sodium Chloride 0.65 % Nasal 44 Ml Sprbtl) 1 spray NOSTRIL-B Q1H PRN PRN Reason: Dry Nasal Passages Last Admin: 12/13/23 17:34 Dose: 1 spray Documented By: KELLY Vitamin D (Cholecalciferol (Vitamin D3) 25 Mcg Tablet) 25 mcg PO DAILY [facility] Last Admin: 12/19/23 08:49 Dose: 25 mcg Documented By: ARLIN Zinc Sulfate (Zinc Sulfate 220 Mg Capsule) 220 mg PO DAILY [facility] Last Admin: 12/19/23 08:49 Dose: 220 mg Documented By: ARLIN Labs 12/14/23 08:51 12/07/23 07:52 Assessment and Plan (1) Morbid obesity: Status: Acute Plan 67 year old women with HTN, HLD, arthritis, DVT on apixaban admitted for BRBPR and now awaiting placement Painless BRBPR on admission. Resolved attributed to hemorrhoid, stercoral colitis or chronic colitis. Bleeding was self-limited and she refused endoscopy. check qweekly labs hx DVT continue apixaban Deep tissue injury of buttocks present on admission Wound Care following Bilateral Buttocks and Posterior Thighs - Off Load Pressure - Cleanse with PH balance spray or wipes, pat dry. Apply thin layer of Triad to wound bed - only pat and dab no scrub and rub when soiling occurs. Reapply thin layer PRN after each episode of incontinence. Morbid obesity. BMI 54.2 Discussed importance of weight management as this may be contributing to worsening of other comorbidities VTE ppx - apixaban dispo -need continued inpatient hospitalization for safe disposition STR recommended, binder caser arranging for safe placement . Quality Stroke Does the patient have a stroke diagnosis?: No VTE Prior VTE?: No VTE Risk Level:: Medical - moderate - high VTE Device Contraindication: N/A - Device Ordered VTE Drug Contraindication: Treatment Not Indicated
--- NOTE | 2023-12-19 15:06 | MHC.CM.PN ---
pt ready for dc bed remains avaliable for pt at [facility] awaiting fimacial clarfication of properrty owned by pt
[2023-12-19 15:09] VITALS: BP 116/58; PULSE 84; RESP 18; TEMP 36.4; O2SAT 94
[2023-12-19 19:29] VITALS: BP 120/64; PULSE 95; RESP 16; TEMP 36.6; O2SAT 95
[2023-12-19] MEDS: Sennosides/Docusate Sodium TABLET 1 TAB PO (20:32)
[2023-12-19] MEDS: Atorvastatin Calcium 20 MG TABLET PO (20:32)
[2023-12-20 03:24] VITALS: RESP 16
[2023-12-20] MEDS: Omeprazole 20 MG CAPSULE.DR PO (05:53)
[2023-12-20 08:00] VITALS: BP 135/90; PULSE 80; RESP 16; TEMP 36.5; O2SAT 98
[2023-12-20] MEDS: Ferrous Sulfate 324 MG TABLET.DR PO (08:38)
[2023-12-20] MEDS: Zinc Sulfate 220 MG CAPSULE PO (08:38)
[2023-12-20] MEDS: Docusate Sodium 100 MG CAPSULE 200 MG PO (08:38)
[2023-12-20] MEDS: Cholecalciferol (Vitamin D3) 25 MCG TABLET PO (08:38)
[2023-12-20] MEDS: amLODIPine Besylate 10 MG TABLET PO (08:39)
[2023-12-20] MEDS: Apixaban 5 MG TABLET PO ×2 (08:39→20:09)
[2023-12-20] MEDS: Multivitamin TABLET 1 TAB PO (08:39)
--- NOTE | 2023-12-20 14:55 | P.PNIM_ITS ---
Subjective Subjective Date of Service: 12/20/23 Interval History: No acute issues overnight. Spirits good Review of Systems Denies chest pain Denies shortness of breath Denies nausea vomiting diarrhea Denies fever chills Physical Exam 2 Vital Signs: Vital Signs: Last Vital Signs Temp 97.7 F 12/20/23 08:00 Pulse 80 12/20/23 08:00 Resp 16 12/20/23 08:00 BP 135/90 H 12/20/23 08:00 Pulse Ox 98 12/20/23 08:00 O2 Del Method Room Air 12/20/23 08:00 BMI result Body Mass Index 54.2 Const: Other: Awake alert no acute distress Resp: Other: Clear to auscultation bilaterally no rales rhonchi wheezes Cardio: Other: No S4; positive S1-S2; no S3 murmurs rubs or gallops GI: Other: Soft nontender nondistended normoactive bowel sounds Extrem: Other: Routine bilaterally Objective Data Active Medications Acetaminophen (Acetaminophen 325 Mg Tablet) 650 mg PO Q6H PRN PRN Reason: Pain, Mild (Pain Scale 1-3) Last Admin: 12/12/23 00:57 Dose: 650 mg Documented By: ROMEO Al Hydroxide/Mg Hydroxide (Magnesium Hydrox/Alum Hydrox 30 Ml Oral.Susp) 30 ml PO Q4H PRN PRN Reason: Indigestion Amlodipine Besylate (Amlodipine Besylate 10 Mg Tablet) 10 mg PO DAILY [facility]; Protocol Last Admin: 12/20/23 08:39 Dose: 10 mg Documented By: SLADE Apixaban (Apixaban 5 Mg Tablet) 5 mg PO BID [facility] Last Admin: 12/20/23 08:39 Dose: 5 mg Documented By: SLADE Atorvastatin Calcium (Atorvastatin Calcium 20 Mg Tablet) 20 mg PO BEDTIME [facility] Last Admin: 12/19/23 20:32 Dose: 20 mg Documented By: ALAYNA Benzocaine (Throat Lozenge, Medicated Lozenge) 1 lozenge MUCOUS MEM Q2H PRN PRN Reason: Sore Throat Last Admin: 12/13/23 17:33 Dose: 1 lozenge Documented By: KELLY Bisacodyl (Bisacodyl 10 Mg Supp.Rect) 10 mg [place] DAILY PRN PRN Reason: Constipation Docusate Sodium (Docusate Sodium 100 Mg Capsule) 200 mg PO DAILY [facility] Last Admin: 12/20/23 08:38 Dose: 200 mg Documented By: SLADE Ferrous Sulfate (Ferrous Sulfate 324 Mg Tablet.) 324 mg PO DAILY [facility] Last Admin: 12/20/23 08:38 Dose: 324 mg Documented By: SLADE Guaifenesin/Dextromethorphan (Guaifenesin Dm 200/20/10 Ml 10 Ml Syrup) 10 ml PO Q6H PRN PRN Reason: cough Melatonin (Melatonin 3 Mg Tablet) 6 mg PO BEDTIME PRN PRN Reason: Insomnia Last Admin: 11/28/23 20:14 Dose: 6 mg Documented By: MARIA L Melatonin (Melatonin 3 Mg Tablet) 3 mg PO BEDTIME PRN PRN Reason: Insomnia Last Admin: 11/06/23 23:03 Dose: 3 mg Documented By: GIL Multivitamins/Vitamin C (Multivitamin Tablet) 1 tab PO DAILY [facility] Last Admin: 12/20/23 08:39 Dose: 1 tab Documented By: SLADE Omeprazole (Omeprazole 20 Mg Capsule.) 20 mg PO DAILY@0630 [facility] Last Admin: 12/20/23 05:53 Dose: 20 mg Documented By: ALAYNA Ondansetron HCl (Ondansetron Hcl 4 Mg/2 Ml Vial) 4 mg IVPUSH Q8H PRN PRN Reason: Nausea and Vomiting Polyethylene Glycol (Polyethylene Glycol 3350 17 Gm Powd.Pack) 17 gm PO DAILY [facility] Last Admin: 12/20/23 08:39 Dose: Not Given Documented By: SLADE Non-Admin Reason: Patient Refused Senna/Docusate Sodium (Sennosides/Docusate Sodium Tablet) 1 tab PO BEDTIME [facility] Last Admin: 12/19/23 20:32 Dose: 1 tab Documented By: ALAYNA Sodium Chloride (Sodium Chloride 0.65 % Nasal 44 Ml Sprbtl) 1 spray NOSTRIL-B Q1H PRN PRN Reason: Dry Nasal Passages Last Admin: 12/13/23 17:34 Dose: 1 spray Documented By: KELLY Vitamin D (Cholecalciferol (Vitamin D3) 25 Mcg Tablet) 25 mcg PO DAILY [facility] Last Admin: 12/20/23 08:38 Dose: 25 mcg Documented By: SLADE Zinc Sulfate (Zinc Sulfate 220 Mg Capsule) 220 mg PO DAILY [facility] Last Admin: 12/20/23 08:38 Dose: 220 mg Documented By: SLADE Labs 12/14/23 08:51 12/07/23 07:52 Assessment and Plan (1) Morbid obesity: Status: Acute Plan 67 year old women with HTN, HLD, arthritis, DVT on apixaban admitted for BRBPR and now awaiting placement Painless BRBPR on admission. Resolved attributed to hemorrhoid, stercoral colitis or chronic colitis. Bleeding was self-limited and she refused endoscopy. check qweekly labs hx DVT continue apixaban Deep tissue injury of buttocks present on admission Wound Care following Bilateral Buttocks and Posterior Thighs - Off Load Pressure - Cleanse with PH balance spray or wipes, pat dry. Apply thin layer of Triad to wound bed - only pat and dab no scrub and rub when soiling occurs. Reapply thin layer PRN after each episode of incontinence. Morbid obesity. BMI 54.2 Discussed importance of weight management as this may be contributing to worsening of other comorbidities VTE ppx - apixaban dispo -need continued inpatient hospitalization for safe disposition STR recommended, egg caser arranging for safe placement . Quality Stroke Does the patient have a stroke diagnosis?: No VTE Prior VTE?: No VTE Risk Level:: Medical - moderate - high VTE Device Contraindication: N/A - Device Ordered VTE Drug Contraindication: Treatment Not Indicated
[2023-12-20 15:13] VITALS: BP 111/64; PULSE 93; RESP 18; TEMP 36.1; O2SAT 96
[2023-12-20 19:32] VITALS: BP 119/70; PULSE 86; RESP 17; TEMP 36; O2SAT 94
[2023-12-20] MEDS: Sennosides/Docusate Sodium TABLET 1 TAB PO (20:09)
[2023-12-20] MEDS: Atorvastatin Calcium 20 MG TABLET PO (20:09)
[2023-12-21 03:31] VITALS: BP 149/73; PULSE 81; RESP 18; TEMP 36.6; O2SAT 95
[2023-12-21] MEDS: Omeprazole 20 MG CAPSULE.DR PO (05:52)
[2023-12-21 07:46] VITALS: BP 121/71; PULSE 77; RESP 16; TEMP 36.2; O2SAT 96
[2023-12-21] MEDS: amLODIPine Besylate 10 MG TABLET PO (08:58)
[2023-12-21] MEDS: Zinc Sulfate 220 MG CAPSULE PO (08:58)
[2023-12-21] MEDS: Apixaban 5 MG TABLET PO ×2 (08:58→20:14)
[2023-12-21] MEDS: Multivitamin TABLET 1 TAB PO (08:58)
[2023-12-21] MEDS: Cholecalciferol (Vitamin D3) 25 MCG TABLET PO (08:59)
[2023-12-21] MEDS: Docusate Sodium 100 MG CAPSULE 200 MG PO (08:59)
[2023-12-21] MEDS: Ferrous Sulfate 324 MG TABLET.DR PO (08:59)
--- NOTE | 2023-12-21 11:08 | P.PNIM_ITS ---
Subjective Subjective Date of Service: 12/21/23 Interval History: No acute issues overnight Review of Systems Denies chest pain Denies shortness of breath Denies nausea vomiting diarrhea Denies fever chills Physical Exam 2 Vital Signs: Vital Signs: Last Vital Signs Temp 97.1 F 12/21/23 07:46 Pulse 77 12/21/23 07:46 Resp 16 12/21/23 07:46 BP 121/71 12/21/23 07:46 Pulse Ox 96 12/21/23 07:46 O2 Del Method Room Air 12/21/23 07:46 BMI result Body Mass Index 54.2 Const: Other: Awake alert no acute distress Resp: Other: Clear to auscultation bilaterally no rales rhonchi wheezes Cardio: Other: No S4; positive S1-S2; no S3 murmurs rubs or gallops GI: Other: Soft nontender nondistended normoactive bowel sounds Extrem: Other: Routine bilaterally Objective Data Active Medications Acetaminophen (Acetaminophen 325 Mg Tablet) 650 mg PO Q6H PRN PRN Reason: Pain, Mild (Pain Scale 1-3) Last Admin: 12/12/23 00:57 Dose: 650 mg Documented By: ROMEO Al Hydroxide/Mg Hydroxide (Magnesium Hydrox/Alum Hydrox 30 Ml Oral.Susp) 30 ml PO Q4H PRN PRN Reason: Indigestion Amlodipine Besylate (Amlodipine Besylate 10 Mg Tablet) 10 mg PO DAILY [facility]; Protocol Last Admin: 12/21/23 08:58 Dose: 10 mg Documented By: VIVIANA Apixaban (Apixaban 5 Mg Tablet) 5 mg PO BID [facility] Last Admin: 12/21/23 08:58 Dose: 5 mg Documented By: VIVIANA Atorvastatin Calcium (Atorvastatin Calcium 20 Mg Tablet) 20 mg PO BEDTIME [facility] Last Admin: 12/20/23 20:09 Dose: 20 mg Documented By: ARNOLD Benzocaine (Throat Lozenge, Medicated Lozenge) 1 lozenge MUCOUS MEM Q2H PRN PRN Reason: Sore Throat Last Admin: 12/13/23 17:33 Dose: 1 lozenge Documented By: KELLY Bisacodyl (Bisacodyl 10 Mg Supp.Rect) 10 mg [place] DAILY PRN PRN Reason: Constipation Docusate Sodium (Docusate Sodium 100 Mg Capsule) 200 mg PO DAILY [facility] Last Admin: 12/21/23 08:59 Dose: 200 mg Documented By: VIVIANA Ferrous Sulfate (Ferrous Sulfate 324 Mg Tablet.) 324 mg PO DAILY [facility] Last Admin: 12/21/23 08:59 Dose: 324 mg Documented By: VIVIANA Guaifenesin/Dextromethorphan (Guaifenesin Dm 200/20/10 Ml 10 Ml Syrup) 10 ml PO Q6H PRN PRN Reason: cough Melatonin (Melatonin 3 Mg Tablet) 6 mg PO BEDTIME PRN PRN Reason: Insomnia Last Admin: 11/28/23 20:14 Dose: 6 mg Documented By: MARIA L Melatonin (Melatonin 3 Mg Tablet) 3 mg PO BEDTIME PRN PRN Reason: Insomnia Last Admin: 11/06/23 23:03 Dose: 3 mg Documented By: GIL Multivitamins/Vitamin C (Multivitamin Tablet) 1 tab PO DAILY [facility] Last Admin: 12/21/23 08:58 Dose: 1 tab Documented By: VIVIANA Omeprazole (Omeprazole 20 Mg Capsule.) 20 mg PO DAILY@0630 [facility] Last Admin: 12/21/23 05:52 Dose: 20 mg Documented By: ARNOLD Ondansetron HCl (Ondansetron Hcl 4 Mg/2 Ml Vial) 4 mg IVPUSH Q8H PRN PRN Reason: Nausea and Vomiting Polyethylene Glycol (Polyethylene Glycol 3350 17 Gm Powd.Pack) 17 gm PO DAILY [facility] Last Admin: 12/21/23 09:04 Dose: Not Given Documented By: VIVIANA Non-Admin Reason: Patient Refused Senna/Docusate Sodium (Sennosides/Docusate Sodium Tablet) 1 tab PO BEDTIME [facility] Last Admin: 12/20/23 20:09 Dose: 1 tab Documented By: ARNOLD Sodium Chloride (Sodium Chloride 0.65 % Nasal 44 Ml Sprbtl) 1 spray NOSTRIL-B Q1H PRN PRN Reason: Dry Nasal Passages Last Admin: 12/13/23 17:34 Dose: 1 spray Documented By: KELLY Vitamin D (Cholecalciferol (Vitamin D3) 25 Mcg Tablet) 25 mcg PO DAILY [facility] Last Admin: 12/21/23 08:59 Dose: 25 mcg Documented By: VIVIANA Zinc Sulfate (Zinc Sulfate 220 Mg Capsule) 220 mg PO DAILY [facility] Last Admin: 12/21/23 08:58 Dose: 220 mg Documented By: VIVIANA Labs 12/14/23 08:51 12/07/23 07:52 Assessment and Plan (1) Morbid obesity: Status: Acute Plan 67 year old women with HTN, HLD, arthritis, DVT on apixaban admitted for BRBPR and now awaiting placement Painless BRBPR on admission. Resolved attributed to hemorrhoid, stercoral colitis or chronic colitis. Bleeding was self-limited and she refused endoscopy. check qweekly labs hx DVT continue apixaban Deep tissue injury of buttocks present on admission Wound Care following Bilateral Buttocks and Posterior Thighs - Off Load Pressure - Cleanse with PH balance spray or wipes, pat dry. Apply thin layer of Triad to wound bed - only pat and dab no scrub and rub when soiling occurs. Reapply thin layer PRN after each episode of incontinence. Morbid obesity. BMI 54.2 Discussed importance of weight management as this may be contributing to worsening of other comorbidities VTE ppx - apixaban dispo -need continued inpatient hospitalization for safe disposition STR recommended, clinical case manager arranging for safe placement . Quality Stroke Does the patient have a stroke diagnosis?: No VTE Prior VTE?: No VTE Risk Level:: Medical - moderate - high VTE Device Contraindication: N/A - Device Ordered VTE Drug Contraindication: Treatment Not Indicated
[2023-12-21 15:37] VITALS: BP 99/54; PULSE 93; RESP 16; TEMP 36.2; O2SAT 93
[2023-12-21 19:44] VITALS: BP 115/53; PULSE 90; RESP 20; TEMP 36.3; O2SAT 95
[2023-12-21 20:00] VITALS: BP 120/64; PULSE 68; RESP 16; O2SAT 96
[2023-12-21] MEDS: Atorvastatin Calcium 20 MG TABLET PO (20:14)
[2023-12-21] MEDS: Sennosides/Docusate Sodium TABLET 1 TAB PO (20:14)
[2023-12-22 03:33] VITALS: BP 133/73; PULSE 78; RESP 18; TEMP 36.3; O2SAT 96
[2023-12-22] MEDS: Omeprazole 20 MG CAPSULE.DR PO (05:44)
[2023-12-22 07:47] VITALS: BP 128/62; PULSE 78; RESP 18; TEMP 36.2; O2SAT 96
[2023-12-22] MEDS: Docusate Sodium 100 MG CAPSULE 200 MG PO (08:50)
[2023-12-22] MEDS: amLODIPine Besylate 10 MG TABLET PO (08:50)
[2023-12-22] MEDS: Apixaban 5 MG TABLET PO ×2 (08:50→19:10)
[2023-12-22] MEDS: Zinc Sulfate 220 MG CAPSULE PO (08:50)
[2023-12-22] MEDS: Multivitamin TABLET 1 TAB PO (08:50)
[2023-12-22] MEDS: Ferrous Sulfate 324 MG TABLET.DR PO (08:50)
[2023-12-22] MEDS: Cholecalciferol (Vitamin D3) 25 MCG TABLET PO (08:50)
--- NOTE | 2023-12-22 14:19 | MHC.CM.PN ---
CM REACHED OUT TO [facility] TO INQUIRE IF THEY HAD YET SPOKEN TO BUSINESS OFFICE AT [facility]. AWAITING RETURN CALL.
[2023-12-22 15:25] VITALS: BP 117/62; PULSE 84; RESP 16; TEMP 36.6; O2SAT 94
--- NOTE | 2023-12-22 16:18 | P.PNIM_ITS ---
Subjective Subjective Date of Service: 12/22/23 Interval History: seen and examined this morning follow up for placement no overnight events feel well, no complaints Review of Systems Review of Systems: Yes all other systems are reviewed and are negative Constitutional Constitutional: Denies chills and Denies fever(s) Cardiovascular Cardiovascular: Denies chest pain, Denies palpitations and Denies dyspnea Respiratory Respiratory: Denies cough and Denies dyspnea Gastrointestinal Gastrointestinal: Denies abdominal pain Endocrine Endocrine: Denies palpitations Physical Exam 2 Vital Signs: Vital Signs: Last Vital Signs Temp 97.9 F 12/22/23 15:25 Pulse 84 12/22/23 15:25 Resp 16 12/22/23 15:25 BP 117/62 12/22/23 15:25 Pulse Ox 94 12/22/23 15:25 O2 Del Method Room Air 12/22/23 15:25 BMI result Body Mass Index 54.2 Const: General: cooperative, comfortable, alert and awake Nutritional Appearance: obese Orientation/consciousness: patient oriented x3 Resp: Effort & Inspection: normal respiratory effort, able to speak in complete sentences, no respiratory distress and no use of accessory muscles Cardio: Rate: regular rate GI: Inspection: No distended Palpation (GI): Soft to palpation Neuro: Other: grossly nonfocal General: patient oriented x3 Objective Data Active Medications Acetaminophen (Acetaminophen 325 Mg Tablet) 650 mg PO Q6H PRN PRN Reason: Pain, Mild (Pain Scale 1-3) Last Admin: 12/12/23 00:57 Dose: 650 mg Documented By: ROMEO Al Hydroxide/Mg Hydroxide (Magnesium Hydrox/Alum Hydrox 30 Ml Oral.Susp) 30 ml PO Q4H PRN PRN Reason: Indigestion Amlodipine Besylate (Amlodipine Besylate 10 Mg Tablet) 10 mg PO DAILY [facility]; Protocol Last Admin: 12/22/23 08:50 Dose: 10 mg Documented By: RAND Apixaban (Apixaban 5 Mg Tablet) 5 mg PO BID [facility] Last Admin: 12/22/23 08:50 Dose: 5 mg Documented By: RAND Atorvastatin Calcium (Atorvastatin Calcium 20 Mg Tablet) 20 mg PO BEDTIME [facility] Last Admin: 12/21/23 20:14 Dose: 20 mg Documented By: ODRISM Benzocaine (Throat Lozenge, Medicated Lozenge) 1 lozenge MUCOUS MEM Q2H PRN PRN Reason: Sore Throat Last Admin: 12/13/23 17:33 Dose: 1 lozenge Documented By: KELLY Bisacodyl (Bisacodyl 10 Mg Supp.Rect) 10 mg [place] DAILY PRN PRN Reason: Constipation Docusate Sodium (Docusate Sodium 100 Mg Capsule) 200 mg PO DAILY [facility] Last Admin: 12/22/23 08:50 Dose: 200 mg Documented By: RAND Ferrous Sulfate (Ferrous Sulfate 324 Mg Tablet.) 324 mg PO DAILY [facility] Last Admin: 12/22/23 08:50 Dose: 324 mg Documented By: RAND Guaifenesin/Dextromethorphan (Guaifenesin Dm 200/20/10 Ml 10 Ml Syrup) 10 ml PO Q6H PRN PRN Reason: cough Melatonin (Melatonin 3 Mg Tablet) 6 mg PO BEDTIME PRN PRN Reason: Insomnia Last Admin: 11/28/23 20:14 Dose: 6 mg Documented By: MARIA L Melatonin (Melatonin 3 Mg Tablet) 3 mg PO BEDTIME PRN PRN Reason: Insomnia Last Admin: 11/06/23 23:03 Dose: 3 mg Documented By: GIL Multivitamins/Vitamin C (Multivitamin Tablet) 1 tab PO DAILY [facility] Last Admin: 12/22/23 08:50 Dose: 1 tab Documented By: RAND Omeprazole (Omeprazole 20 Mg Capsule.) 20 mg PO DAILY@0630 [facility] Last Admin: 12/22/23 05:44 Dose: 20 mg Documented By: ARNOLD Ondansetron HCl (Ondansetron Hcl 4 Mg/2 Ml Vial) 4 mg IVPUSH Q8H PRN PRN Reason: Nausea and Vomiting Polyethylene Glycol (Polyethylene Glycol 3350 17 Gm Powd.Pack) 17 gm PO DAILY [facility] Last Admin: 12/22/23 08:52 Dose: Not Given Documented By: RAND Non-Admin Reason: Patient Refused Senna/Docusate Sodium (Sennosides/Docusate Sodium Tablet) 1 tab PO BEDTIME [facility] Last Admin: 12/21/23 20:14 Dose: 1 tab Documented By: ARNOLD Sodium Chloride (Sodium Chloride 0.65 % Nasal 44 Ml Sprbtl) 1 spray NOSTRIL-B Q1H PRN PRN Reason: Dry Nasal Passages Last Admin: 12/13/23 17:34 Dose: 1 spray Documented By: KELLY Vitamin D (Cholecalciferol (Vitamin D3) 25 Mcg Tablet) 25 mcg PO DAILY [facility] Last Admin: 12/22/23 08:50 Dose: 25 mcg Documented By: RAND Zinc Sulfate (Zinc Sulfate 220 Mg Capsule) 220 mg PO DAILY [facility] Last Admin: 12/22/23 08:50 Dose: 220 mg Documented By: RAND Labs 12/14/23 08:51 12/07/23 07:52 Assessment and Plan (1) Morbid obesity: Status: Acute Plan 67 year old women with HTN, HLD, arthritis, DVT on apixaban admitted for BRBPR and now awaiting placement Painless BRBPR on admission. Resolved attributed to hemorrhoid, stercoral colitis or chronic colitis. Bleeding was self-limited and she refused endoscopy. check qweekly labs hx DVT continue apixaban HTN continue norvasc HLD continue statin Deep tissue injury of buttocks present on admission Wound Care following Bilateral Buttocks and Posterior Thighs - Off Load Pressure - Cleanse with PH balance spray or wipes, pat dry. Apply thin layer of Triad to wound bed - only pat and dab no scrub and rub when soiling occurs. Reapply thin layer PRN after each episode of incontinence. Morbid obesity. BMI 54.2 Discussed importance of weight management as this may be contributing to worsening of other comorbidities VTE ppx - apixaban dispo -need continued inpatient hospitalization for safe disposition STR recommended, correctional casework specialist arranging for safe placement Quality Stroke Does the patient have a stroke diagnosis?: No VTE Prior VTE?: No VTE Risk Level:: Medical - moderate - high VTE Device Contraindication: N/A - Device Ordered VTE Drug Contraindication: Treatment Not Indicated
[2023-12-22] MEDS: Sennosides/Docusate Sodium TABLET 1 TAB PO (19:10)
[2023-12-22] MEDS: Atorvastatin Calcium 20 MG TABLET PO (19:10)
[2023-12-22 19:38] VITALS: BP 122/61; PULSE 98; RESP 18; TEMP 36.5; O2SAT 94
[2023-12-23 03:37] VITALS: BP 128/79; PULSE 88; RESP 16; TEMP 36.6; O2SAT 98
[2023-12-23] MEDS: Omeprazole 20 MG CAPSULE.DR PO (05:33)
[2023-12-23 06:49] VITALS: BP 124/78; PULSE 83; RESP 17; TEMP 36.6; O2SAT 95
[2023-12-23 07:14] LABS: Hematocrit 32.9 % (37.0-47.0); Mean Corpuscular HGB Conc 30.4 g/dl (31.0-35.0); Mean Corpuscular Hemoglobin 25.1 pg (27.0-33.0); Mean Corpuscular Volume 82.7 fL (80.0-98.0); Mean Platelet Volume 11.4 fL (9.4-12.3); Platelet Count 238 X10*3/uL (160-400); Red Blood Count 3.98 X10*6/uL (4.20-5.50); Red Cell Distribution Width 14.9 % (11.0-16.0)
[2023-12-23 07:44] LABS: Anion Gap 10 (12-20); Blood Urea Nitrogen 16 mg/dL (9-16); Calcium 8.9 mg/dL (8.4-10.2); Carbon Dioxide 31 mmol/L (22-29); Chloride 102 mmol/L (96-108); Creatinine Clr Calc Pharmacy 125.8; Estimated Glomerular Filt Rate > 60; Glucose Random 87 mg/dL (60-115); Sodium 139 mmol/L (135-145)
[2023-12-23] MEDS: Docusate Sodium 100 MG CAPSULE 200 MG PO (08:40)
[2023-12-23] MEDS: amLODIPine Besylate 10 MG TABLET PO (08:40)
[2023-12-23] MEDS: Cholecalciferol (Vitamin D3) 25 MCG TABLET PO (08:40)
[2023-12-23] MEDS: Apixaban 5 MG TABLET PO ×2 (08:40→21:43)
[2023-12-23] MEDS: Zinc Sulfate 220 MG CAPSULE PO (08:40)
[2023-12-23] MEDS: Ferrous Sulfate 324 MG TABLET.DR PO (08:40)
[2023-12-23] MEDS: Multivitamin TABLET 1 TAB PO (08:40)
--- NOTE | 2023-12-23 15:34 | HO.PM.IMPN ---
Subjective Subjective Date of Service: 12/23/23 Interval History: seen and examined this morning follow up for placement no overnight events no specific compalaints Physical Exam Vital Signs: Vital Signs: Last Vital Signs Temp 97.9 F 12/23/23 06:49 Pulse 83 12/23/23 06:49 Resp 17 12/23/23 06:49 BP 124/78 12/23/23 06:49 Pulse Ox 95 12/23/23 06:49 O2 Del Method Room Air 12/23/23 06:49 BMI result Body Mass Index 54.2 Const: General: cooperative, comfortable, no acute distress, alert and awake Nutritional Appearance: obese Orientation/consciousness: patient oriented x3 Resp: Effort & Inspection: normal respiratory effort, able to speak in complete sentences, no respiratory distress and no use of accessory muscles Auscultation: clear to auscultation bilaterally Cardio: Rate: regular rate GI: Inspection: No distended Palpation (GI): Soft to palpation and nontender Neuro: Other: grossly nonfocal General: patient oriented x3, moves all extremities and CN's II-XI intact bilaterally Extrem: Other: chronic venous stasis changes lower extremities General: Yes no pedal edema Objective Data Active Medications Acetaminophen (Acetaminophen 325 Mg Tablet) 650 mg PO Q6H PRN PRN Reason: Pain, Mild (Pain Scale 1-3) Last Admin: 12/12/23 00:57 Dose: 650 mg Documented By: ROMEO Al Hydroxide/Mg Hydroxide (Magnesium Hydrox/Alum Hydrox 30 Ml Oral.Susp) 30 ml PO Q4H PRN PRN Reason: Indigestion Amlodipine Besylate (Amlodipine Besylate 10 Mg Tablet) 10 mg PO DAILY [facility]; Protocol Last Admin: 12/23/23 08:40 Dose: 10 mg Documented By: MATEUSZ Apixaban (Apixaban 5 Mg Tablet) 5 mg PO BID [facility] Last Admin: 12/23/23 08:40 Dose: 5 mg Documented By: MATEUSZ Atorvastatin Calcium (Atorvastatin Calcium 20 Mg Tablet) 20 mg PO BEDTIME [facility] Last Admin: 12/22/23 19:10 Dose: 20 mg Documented By: KIARA Benzocaine (Throat Lozenge, Medicated Lozenge) 1 lozenge MUCOUS MEM Q2H PRN PRN Reason: Sore Throat Last Admin: 12/13/23 17:33 Dose: 1 lozenge Documented By: KELLY Bisacodyl (Bisacodyl 10 Mg Supp.Rect) 10 mg [place] DAILY PRN PRN Reason: Constipation Docusate Sodium (Docusate Sodium 100 Mg Capsule) 200 mg PO DAILY [facility] Last Admin: 12/23/23 08:40 Dose: 200 mg Documented By: MATEUSZ Ferrous Sulfate (Ferrous Sulfate 324 Mg Tablet.) 324 mg PO DAILY [facility] Last Admin: 12/23/23 08:40 Dose: 324 mg Documented By: MATEUSZ Guaifenesin/Dextromethorphan (Guaifenesin Dm 200/20/10 Ml 10 Ml Syrup) 10 ml PO Q6H PRN PRN Reason: cough Melatonin (Melatonin 3 Mg Tablet) 6 mg PO BEDTIME PRN PRN Reason: Insomnia Last Admin: 11/28/23 20:14 Dose: 6 mg Documented By: MARIA L Melatonin (Melatonin 3 Mg Tablet) 3 mg PO BEDTIME PRN PRN Reason: Insomnia Last Admin: 11/06/23 23:03 Dose: 3 mg Documented By: GIL Multivitamins/Vitamin C (Multivitamin Tablet) 1 tab PO DAILY [facility] Last Admin: 12/23/23 08:40 Dose: 1 tab Documented By: MATEUSZ Omeprazole (Omeprazole 20 Mg Capsule.) 20 mg PO DAILY@0630 [facility] Last Admin: 12/23/23 05:33 Dose: 20 mg Documented By: BLADE Ondansetron HCl (Ondansetron Hcl 4 Mg/2 Ml Vial) 4 mg IVPUSH Q8H PRN PRN Reason: Nausea and Vomiting Polyethylene Glycol (Polyethylene Glycol 3350 17 Gm Powd.Pack) 17 gm PO DAILY [facility] Last Admin: 12/23/23 08:41 Dose: Not Given Documented By: MATEUSZ Non-Admin Reason: Patient Refused Senna/Docusate Sodium (Sennosides/Docusate Sodium Tablet) 1 tab PO BEDTIME [facility] Last Admin: 12/22/23 19:10 Dose: 1 tab Documented By: KIARA Sodium Chloride (Sodium Chloride 0.65 % Nasal 44 Ml Sprbtl) 1 spray NOSTRIL-B Q1H PRN PRN Reason: Dry Nasal Passages Last Admin: 12/13/23 17:34 Dose: 1 spray Documented By: KELLY Vitamin D (Cholecalciferol (Vitamin D3) 25 Mcg Tablet) 25 mcg PO DAILY [facility] Last Admin: 12/23/23 08:40 Dose: 25 mcg Documented By: MATEUSZ Zinc Sulfate (Zinc Sulfate 220 Mg Capsule) 220 mg PO DAILY [facility] Last Admin: 12/23/23 08:40 Dose: 220 mg Documented By: MATEUSZ Labs 12/23/23 06:21 12/23/23 06:21 Labs: Laboratory Results - last 24 hr 12/23/23 06:21 MCV 82.7 MCH 25.1 L MCHC 30.4 L RDW 14.9 Plt Count 238 MPV 11.4 Absolute Nucleated RBC 0.000 Nucleated RBC % (auto) 0.0 Anion Gap 10 L Estim Creat Clear Calc 125.8 Estimated GFR > 60 Random Glucose 87 Calcium 8.9 Assessment and Plan (1) Morbid obesity: Status: Acute Plan 67 year old women with HTN, HLD, arthritis, DVT on apixaban admitted for BRBPR and now awaiting placement Painless BRBPR on admission. Resolved attributed to hemorrhoid, stercoral colitis or chronic colitis. Bleeding was self-limited and she refused endoscopy. check qweekly labs - 12/22 stable hx DVT continue apixaban HTN continue norvasc HLD continue statin Deep tissue injury of buttocks present on admission Wound Care following Bilateral Buttocks and Posterior Thighs - Off Load Pressure - Cleanse with PH balance spray or wipes, pat dry. Apply thin layer of Triad to wound bed - only pat and dab no scrub and rub when soiling occurs. Reapply thin layer PRN after each episode of incontinence. Morbid obesity. BMI 54.2 Discussed importance of weight management as this may be contributing to worsening of other comorbidities VTE ppx - apixaban dispo -need continued inpatient hospitalization for safe disposition STR recommended, child support case officer arranging for safe placement Quality Stroke Does the patient have a stroke diagnosis?: No VTE Prior VTE?: No VTE Risk Level:: Medical - moderate - high VTE Device Contraindication: N/A - Device Ordered VTE Drug Contraindication: Treatment Not Indicated
[2023-12-23 15:35] VITALS: BP 113/57; PULSE 84; RESP 17; TEMP 36.4; O2SAT 95
--- NOTE | 2023-12-23 15:35 | MHC.CM.PN ---
pt ready for dc finacial situation remains unresolved
[2023-12-23 19:48] VITALS: BP 128/77; PULSE 92; RESP 18; TEMP 36.6; O2SAT 94
[2023-12-23] MEDS: Atorvastatin Calcium 20 MG TABLET PO (21:43)
[2023-12-23] MEDS: Sennosides/Docusate Sodium TABLET 1 TAB PO (21:43)
[2023-12-24 04:00] VITALS: BP 121/68; PULSE 81; RESP 16; TEMP 36.3; O2SAT 96
[2023-12-24] MEDS: Omeprazole 20 MG CAPSULE.DR PO (06:03)
[2023-12-24 07:39] VITALS: BP 145/64; PULSE 79; RESP 20; TEMP 36.4; O2SAT 95
[2023-12-24] MEDS: Zinc Sulfate 220 MG CAPSULE PO (09:09)
[2023-12-24] MEDS: Docusate Sodium 100 MG CAPSULE 200 MG PO (09:09)
[2023-12-24] MEDS: Multivitamin TABLET 1 TAB PO (09:10)
[2023-12-24] MEDS: Ferrous Sulfate 324 MG TABLET.DR PO (09:10)
[2023-12-24] MEDS: Cholecalciferol (Vitamin D3) 25 MCG TABLET PO (09:10)
[2023-12-24] MEDS: amLODIPine Besylate 10 MG TABLET PO (09:10)
[2023-12-24] MEDS: Apixaban 5 MG TABLET PO ×2 (09:10→20:05)
--- NOTE | 2023-12-24 13:00 | HO.PM.IMPN ---
Subjective Subjective Date of Service: 12/24/23 Interval History: seen and examined this morning follow up for placement no overnight events no specific complaints Review of Systems Review of Systems: Yes all other systems are reviewed and are negative Constitutional Constitutional: Denies chills and Denies fever(s) Cardiovascular Cardiovascular: Denies chest pain Physical Exam Vital Signs: Vital Signs: Last Vital Signs Temp 97.5 F 12/24/23 07:39 Pulse 79 12/24/23 07:39 Resp 20 12/24/23 07:39 BP 145/64 H 12/24/23 07:39 Pulse Ox 95 12/24/23 07:39 O2 Del Method Room Air 12/24/23 07:39 BMI result Body Mass Index 54.2 Const: General: cooperative, comfortable, no acute distress, alert and awake Nutritional Appearance: obese Orientation/consciousness: patient oriented x3 Resp: Effort & Inspection: normal respiratory effort, able to speak in complete sentences, no respiratory distress and no use of accessory muscles Auscultation: clear to auscultation bilaterally Cardio: Rate: regular rate GI: Inspection: No distended Palpation (GI): Soft to palpation and nontender Neuro: Other: grossly nonfocal General: patient oriented x3, moves all extremities and CN's II-XI intact bilaterally Extrem: Other: chronic venous stasis changes lower extremities General: Yes no pedal edema Objective Data Active Medications Acetaminophen (Acetaminophen 325 Mg Tablet) 650 mg PO Q6H PRN PRN Reason: Pain, Mild (Pain Scale 1-3) Last Admin: 12/12/23 00:57 Dose: 650 mg Documented By: ROMEO Al Hydroxide/Mg Hydroxide (Magnesium Hydrox/Alum Hydrox 30 Ml Oral.Susp) 30 ml PO Q4H PRN PRN Reason: Indigestion Amlodipine Besylate (Amlodipine Besylate 10 Mg Tablet) 10 mg PO DAILY [facility]; Protocol Last Admin: 12/24/23 09:10 Dose: 10 mg Documented By: RICHI Apixaban (Apixaban 5 Mg Tablet) 5 mg PO BID [facility] Last Admin: 12/24/23 09:10 Dose: 5 mg Documented By: RICHI Atorvastatin Calcium (Atorvastatin Calcium 20 Mg Tablet) 20 mg PO BEDTIME [facility] Last Admin: 12/23/23 21:43 Dose: 20 mg Documented By: LYSAlexandria Benzocaine (Throat Lozenge, Medicated Lozenge) 1 lozenge MUCOUS MEM Q2H PRN PRN Reason: Sore Throat Last Admin: 12/13/23 17:33 Dose: 1 lozenge Documented By: KELLY Bisacodyl (Bisacodyl 10 Mg Supp.Rect) 10 mg [place] DAILY PRN PRN Reason: Constipation Docusate Sodium (Docusate Sodium 100 Mg Capsule) 200 mg PO DAILY [facility] Last Admin: 12/24/23 09:09 Dose: 200 mg Documented By: RICHI Ferrous Sulfate (Ferrous Sulfate 324 Mg Tablet.) 324 mg PO DAILY [facility] Last Admin: 12/24/23 09:10 Dose: 324 mg Documented By: RICHI Guaifenesin/Dextromethorphan (Guaifenesin Dm 200/20/10 Ml 10 Ml Syrup) 10 ml PO Q6H PRN PRN Reason: cough Melatonin (Melatonin 3 Mg Tablet) 6 mg PO BEDTIME PRN PRN Reason: Insomnia Last Admin: 11/28/23 20:14 Dose: 6 mg Documented By: MARIA L Melatonin (Melatonin 3 Mg Tablet) 3 mg PO BEDTIME PRN PRN Reason: Insomnia Last Admin: 11/06/23 23:03 Dose: 3 mg Documented By: GIL Multivitamins/Vitamin C (Multivitamin Tablet) 1 tab PO DAILY [facility] Last Admin: 12/24/23 09:10 Dose: 1 tab Documented By: RICHI Omeprazole (Omeprazole 20 Mg Capsule.) 20 mg PO DAILY@0630 [facility] Last Admin: 12/24/23 06:03 Dose: 20 mg Documented By: SUZANNA Ondansetron HCl (Ondansetron Hcl 4 Mg/2 Ml Vial) 4 mg IVPUSH Q8H PRN PRN Reason: Nausea and Vomiting Polyethylene Glycol (Polyethylene Glycol 3350 17 Gm Powd.Pack) 17 gm PO DAILY [facility] Last Admin: 12/24/23 09:11 Dose: Not Given Documented By: RICHI Non-Admin Reason: Patient Refused Senna/Docusate Sodium (Sennosides/Docusate Sodium Tablet) 1 tab PO BEDTIME [facility] Last Admin: 12/23/23 21:43 Dose: 1 tab Documented By: SUZANNA Sodium Chloride (Sodium Chloride 0.65 % Nasal 44 Ml Sprbtl) 1 spray NOSTRIL-B Q1H PRN PRN Reason: Dry Nasal Passages Last Admin: 12/13/23 17:34 Dose: 1 spray Documented By: KELLY Vitamin D (Cholecalciferol (Vitamin D3) 25 Mcg Tablet) 25 mcg PO DAILY [facility] Last Admin: 12/24/23 09:10 Dose: 25 mcg Documented By: RICHI Zinc Sulfate (Zinc Sulfate 220 Mg Capsule) 220 mg PO DAILY [facility] Last Admin: 12/24/23 09:09 Dose: 220 mg Documented By: RICHI Labs 12/23/23 06:21 12/23/23 06:21 Assessment and Plan (1) Morbid obesity: Status: Acute Plan 67 year old women with HTN, HLD, arthritis, DVT on apixaban admitted for BRBPR and now awaiting placement Painless BRBPR on admission. Resolved attributed to hemorrhoid, stercoral colitis or chronic colitis. Bleeding was self-limited and she refused endoscopy. check qweekly labs - 12/22 stable hx DVT continue apixaban HTN continue norvasc HLD continue statin Deep tissue injury of buttocks present on admission Wound Care following Bilateral Buttocks and Posterior Thighs - Off Load Pressure - Cleanse with PH balance spray or wipes, pat dry. Apply thin layer of Triad to wound bed - only pat and dab no scrub and rub when soiling occurs. Reapply thin layer PRN after each episode of incontinence. Morbid obesity. BMI 54.2 Discussed importance of weight management as this may be contributing to worsening of other comorbidities VTE ppx - apixaban dispo -need continued inpatient hospitalization for safe disposition STR recommended, rn case manager hospice arranging for safe placement Quality Stroke Does the patient have a stroke diagnosis?: No VTE Prior VTE?: No VTE Risk Level:: Medical - moderate - high VTE Device Contraindication: N/A - Device Ordered VTE Drug Contraindication: Treatment Not Indicated
[2023-12-24 15:16] VITALS: BP 111/59; PULSE 86; RESP 18; TEMP 36.6; O2SAT 94
[2023-12-24 19:32] VITALS: BP 124/60; PULSE 82; RESP 18; TEMP 36.6; O2SAT 95
[2023-12-24] MEDS: Sennosides/Docusate Sodium TABLET 1 TAB PO (20:05)
[2023-12-24] MEDS: Atorvastatin Calcium 20 MG TABLET PO (20:05)
[2023-12-25 04:00] VITALS: BP 131/69; PULSE 80; RESP 16; TEMP 36.3; O2SAT 94
[2023-12-25] MEDS: Omeprazole 20 MG CAPSULE.DR PO (05:26)
[2023-12-25 07:32] VITALS: BP 135/71; PULSE 80; RESP 14; TEMP 36.1; O2SAT 96
[2023-12-25] MEDS: Docusate Sodium 100 MG CAPSULE 200 MG PO (08:28)
[2023-12-25] MEDS: Multivitamin TABLET 1 TAB PO (08:29)
[2023-12-25] MEDS: amLODIPine Besylate 10 MG TABLET PO (08:29)
[2023-12-25] MEDS: Zinc Sulfate 220 MG CAPSULE PO (08:29)
[2023-12-25] MEDS: Cholecalciferol (Vitamin D3) 25 MCG TABLET PO (08:29)
[2023-12-25] MEDS: Ferrous Sulfate 324 MG TABLET.DR PO (08:29)
[2023-12-25] MEDS: Apixaban 5 MG TABLET PO ×2 (08:29→21:28)
--- NOTE | 2023-12-25 14:43 | P.PNIM_ITS ---
Subjective Subjective Date of Service: 12/25/23 Interval History: seen and examined this morning follow up for placement no overnight events no complaints Review of Systems Review of Systems: Yes all other systems are reviewed and are negative Constitutional Constitutional: Denies chills and Denies fever(s) Cardiovascular Cardiovascular: Denies chest pain Gastrointestinal Gastrointestinal: Denies abdominal pain Physical Exam 2 Vital Signs: Vital Signs: Last Vital Signs Temp 97.0 F 12/25/23 07:32 Pulse 80 12/25/23 07:32 Resp 14 12/25/23 07:32 BP 135/71 12/25/23 07:32 Pulse Ox 96 12/25/23 07:32 O2 Del Method Room Air 12/25/23 07:32 BMI result Body Mass Index 54.2 Const: General: cooperative, comfortable, no acute distress, alert and awake Nutritional Appearance: obese Orientation/consciousness: patient oriented x3 Resp: Effort & Inspection: normal respiratory effort, able to speak in complete sentences, no respiratory distress and no use of accessory muscles A uscultation: clear to auscultation bilaterally Cardio: Rate: regular rate GI: Inspection: No distended Palpation (GI): Soft to palpation and nontender Neuro: Other: grossly nonfocal General: patient oriented x3, moves all extremities and CN's II-XI intact bilaterally Extrem: Other: chronic venous stasis changes lower extremities General: Yes no pedal edema Objective Data Active Medications Acetaminophen (Acetaminophen 325 Mg Tablet) 650 mg PO Q6H PRN PRN Reason: Pain, Mild (Pain Scale 1-3) Last Admin: 12/12/23 00:57 Dose: 650 mg Documented By: ROMEO Al Hydroxide/Mg Hydroxide (Magnesium Hydrox/Alum Hydrox 30 Ml Oral.Susp) 30 ml PO Q4H PRN PRN Reason: Indigestion Amlodipine Besylate (Amlodipine Besylate 10 Mg Tablet) 10 mg PO DAILY [facility]; Protocol Last Admin: 12/25/23 08:29 Dose: 10 mg Documented By: ARLIN Apixaban (Apixaban 5 Mg Tablet) 5 mg PO BID [facility] Last Admin: 12/25/23 08:29 Dose: 5 mg Documented By: ARLIN Atorvastatin Calcium (Atorvastatin Calcium 20 Mg Tablet) 20 mg PO BEDTIME [facility] Last Admin: 12/24/23 20:05 Dose: 20 mg Documented By: EVAN Benzocaine (Throat Lozenge, Medicated Lozenge) 1 lozenge MUCOUS MEM Q2H PRN PRN Reason: Sore Throat Last Admin: 12/13/23 17:33 Dose: 1 lozenge Documented By: KELLY Bisacodyl (Bisacodyl 10 Mg Supp.Rect) 10 mg [place] DAILY PRN PRN Reason: Constipation Docusate Sodium (Docusate Sodium 100 Mg Capsule) 200 mg PO DAILY [facility] Last Admin: 12/25/23 08:28 Dose: 200 mg Documented By: ARLIN Ferrous Sulfate (Ferrous Sulfate 324 Mg Tablet.) 324 mg PO DAILY [facility] Last Admin: 12/25/23 08:29 Dose: 324 mg Documented By: ARLIN Guaifenesin/Dextromethorphan (Guaifenesin Dm 200/20/10 Ml 10 Ml Syrup) 10 ml PO Q6H PRN PRN Reason: cough Melatonin (Melatonin 3 Mg Tablet) 6 mg PO BEDTIME PRN PRN Reason: Insomnia Last Admin: 11/28/23 20:14 Dose: 6 mg Documented By: MARIA L Melatonin (Melatonin 3 Mg Tablet) 3 mg PO BEDTIME PRN PRN Reason: Insomnia Last Admin: 11/06/23 23:03 Dose: 3 mg Documented By: GIL Multivitamins/Vitamin C (Multivitamin Tablet) 1 tab PO DAILY [facility] Last Admin: 12/25/23 08:29 Dose: 1 tab Documented By: ARILN Omeprazole (Omeprazole 20 Mg Capsule.) 20 mg PO DAILY@0630 [facility] Last Admin: 12/25/23 05:26 Dose: 20 mg Documented By: EVAN Ondansetron HCl (Ondansetron Hcl 4 Mg/2 Ml Vial) 4 mg IVPUSH Q8H PRN PRN Reason: Nausea and Vomiting Polyethylene Glycol (Polyethylene Glycol 3350 17 Gm Powd.Pack) 17 gm PO DAILY [facility] Last Admin: 12/25/23 08:30 Dose: Not Given Documented By: ARLIN Non-Admin Reason: Patient Refused Senna/Docusate Sodium (Sennosides/Docusate Sodium Tablet) 1 tab PO BEDTIME [facility] Last Admin: 12/24/23 20:05 Dose: 1 tab Documented By: HO.CASTILM Sodium Chloride (Sodium Chloride 0.65 % Nasal 44 Ml Sprbtl) 1 spray NOSTRIL-B Q1H PRN PRN Reason: Dry Nasal Passages Last Admin: 12/13/23 17:34 Dose: 1 spray Documented By: KELLY Vitamin D (Cholecalciferol (Vitamin D3) 25 Mcg Tablet) 25 mcg PO DAILY [facility] Last Admin: 12/25/23 08:29 Dose: 25 mcg Documented By: ARLIN Zinc Sulfate (Zinc Sulfate 220 Mg Capsule) 220 mg PO DAILY [facility] Last Admin: 12/25/23 08:29 Dose: 220 mg Documented By: ARLIN Labs 12/23/23 06:21 12/23/23 06:21 Assessment and Plan (1) Morbid obesity: Status: Acute Plan 67 year old women with HTN, HLD, arthritis, DVT on apixaban admitted for BRBPR and now awaiting placement Painless BRBPR on admission. Resolved attributed to hemorrhoid, stercoral colitis or chronic colitis. Bleeding was self-limited and she refused endoscopy. check qweekly labs - 12/22 stable hx DVT continue apixaban HTN continue norvasc HLD continue statin Deep tissue injury of buttocks present on admission Wound Care following Bilateral Buttocks and Posterior Thighs - Off Load Pressure - Cleanse with PH balance spray or wipes, pat dry. Apply thin layer of Triad to wound bed - only pat and dab no scrub and rub when soiling occurs. Reapply thin layer PRN after each episode of incontinence. Morbid obesity. BMI 54.2 Discussed importance of weight management as this may be contributing to worsening of other comorbidities VTE ppx - apixaban dispo -need continued inpatient hospitalization for safe disposition STR recommended, case checker arranging for safe placement Quality Stroke Does the patient have a stroke diagnosis?: No VTE Prior VTE?: No VTE Risk Level:: Medical - moderate - high VTE Device Contraindication: N/A - Device Ordered VTE Drug Contraindication: Treatment Not Indicated
[2023-12-25 16:00] VITALS: BP 119/62; PULSE 82; RESP 16; TEMP 36.2; O2SAT 95
[2023-12-25 19:10] VITALS: BP 121/59; PULSE 89; RESP 16; TEMP 36.1; O2SAT 96
[2023-12-25] MEDS: Atorvastatin Calcium 20 MG TABLET PO (21:28)
[2023-12-25] MEDS: Sennosides/Docusate Sodium TABLET 1 TAB PO (21:28)
[2023-12-26 03:06] VITALS: BP 137/71; PULSE 84; RESP 16; TEMP 36.6; O2SAT 96
[2023-12-26] MEDS: Omeprazole 20 MG CAPSULE.DR PO (06:14)
[2023-12-26 07:30] VITALS: BP 132/78; PULSE 87; RESP 14; TEMP 36.4; O2SAT 95
[2023-12-26] MEDS: Acetaminophen 325 MG TABLET 650 MG PO (09:40)
[2023-12-26] MEDS: Zinc Sulfate 220 MG CAPSULE PO (09:41)
[2023-12-26] MEDS: Multivitamin TABLET 1 TAB PO (09:41)
[2023-12-26] MEDS: Ferrous Sulfate 324 MG TABLET.DR PO (09:41)
[2023-12-26] MEDS: Docusate Sodium 100 MG CAPSULE 200 MG PO (09:41)
[2023-12-26] MEDS: Apixaban 5 MG TABLET PO ×2 (09:41→21:25)
[2023-12-26] MEDS: amLODIPine Besylate 10 MG TABLET PO (09:41)
[2023-12-26] MEDS: Cholecalciferol (Vitamin D3) 25 MCG TABLET PO (09:41)
--- NOTE | 2023-12-26 09:44 | P.PNIM_ITS ---
Subjective Subjective Date of Service: 12/26/23 Interval History: seen and examined this morning follow up for placement no overnight events no complaints Review of Systems Review of Systems: Yes all other systems are reviewed and are negative Constitutional Constitutional: Denies chills and Denies fever(s) Cardiovascular Cardiovascular: Denies chest pain Gastrointestinal Gastrointestinal: Denies abdominal pain Physical Exam 2 Vital Signs: Vital Signs: Last Vital Signs Temp 97.5 F 12/26/23 07:30 Pulse 87 12/26/23 07:30 Resp 14 12/26/23 07:30 BP 132/78 12/26/23 07:30 Pulse Ox 95 12/26/23 07:30 O2 Del Method Room Air 12/26/23 07:30 BMI result Body Mass Index 54.2 alert and oriented Objective Data Active Medications Acetaminophen (Acetaminophen 325 Mg Tablet) 650 mg PO Q6H PRN PRN Reason: Pain, Mild (Pain Scale 1-3) Last Admin: 12/12/23 00:57 Dose: 650 mg Documented By: ROMEO Al Hydroxide/Mg Hydroxide (Magnesium Hydrox/Alum Hydrox 30 Ml Oral.Susp) 30 ml PO Q4H PRN PRN Reason: Indigestion Amlodipine Besylate (Amlodipine Besylate 10 Mg Tablet) 10 mg PO DAILY [facility]; Protocol Last Admin: 12/25/23 08:29 Dose: 10 mg Documented By: ARLIN Apixaban (Apixaban 5 Mg Tablet) 5 mg PO BID [facility] Last Admin: 12/25/23 21:28 Dose: 5 mg Documented By: SUZANNA Atorvastatin Calcium (Atorvastatin Calcium 20 Mg Tablet) 20 mg PO BEDTIME [facility] Last Admin: 12/25/23 21:28 Dose: 20 mg Documented By: SUZANNA Benzocaine (Throat Lozenge, Medicated Lozenge) 1 lozenge MUCOUS MEM Q2H PRN PRN Reason: Sore Throat Last Admin: 12/13/23 17:33 Dose: 1 lozenge Documented By: KELLY Bisacodyl (Bisacodyl 10 Mg Supp.Rect) 10 mg [place] DAILY PRN PRN Reason: Constipation Docusate Sodium (Docusate Sodium 100 Mg Capsule) 200 mg PO DAILY [facility] Last Admin: 12/25/23 08:28 Dose: 200 mg Documented By: ARLIN Ferrous Sulfate (Ferrous Sulfate 324 Mg Tablet.Dr) 324 mg PO DAILY [facility] Last Admin: 12/25/23 08:29 Dose: 324 mg Documented By: ARLIN Guaifenesin/Dextromethorphan (Guaifenesin Dm 200/20/10 Ml 10 Ml Syrup) 10 ml PO Q6H PRN PRN Reason: cough Melatonin (Melatonin 3 Mg Tablet) 6 mg PO BEDTIME PRN PRN Reason: Insomnia Last Admin: 11/28/23 20:14 Dose: 6 mg Documented By: MARIA L Melatonin (Melatonin 3 Mg Tablet) 3 mg PO BEDTIME PRN PRN Reason: Insomnia Last Admin: 11/06/23 23:03 Dose: 3 mg Documented By: GIL Multivitamins/Vitamin C (Multivitamin Tablet) 1 tab PO DAILY [facility] Last Admin: 12/25/23 08:29 Dose: 1 tab Documented By: ARLIN Omeprazole (Omeprazole 20 Mg Capsule.) 20 mg PO DAILY@0630 [facility] Last Admin: 12/26/23 06:14 Dose: 20 mg Documented By: SUZANNA Ondansetron HCl (Ondansetron Hcl 4 Mg/2 Ml Vial) 4 mg IVPUSH Q8H PRN PRN Reason: Nausea and Vomiting Polyethylene Glycol (Polyethylene Glycol 3350 17 Gm Powd.Pack) 17 gm PO DAILY [facility] Last Admin: 12/26/23 09:22 Dose: Not Given Documented By: KATHRYN Non-Admin Reason: Patient Refused Senna/Docusate Sodium (Sennosides/Docusate Sodium Tablet) 1 tab PO BEDTIME [facility] Last Admin: 12/25/23 21:28 Dose: 1 tab Documented By: SUZANNA Sodium Chloride (Sodium Chloride 0.65 % Nasal 44 Ml Sprbtl) 1 spray NOSTRIL-B Q1H PRN PRN Reason: Dry Nasal Passages Last Admin: 12/13/23 17:34 Dose: 1 spray Documented By: KELLY Vitamin D (Cholecalciferol (Vitamin D3) 25 Mcg Tablet) 25 mcg PO DAILY [facility] Last Admin: 12/25/23 08:29 Dose: 25 mcg Documented By: ARLIN Zinc Sulfate (Zinc Sulfate 220 Mg Capsule) 220 mg PO DAILY [facility] Last Admin: 12/25/23 08:29 Dose: 220 mg Documented By: ARLIN Labs 12/23/23 06:21 12/23/23 06:21 Assessment and Plan (1) Morbid obesity: Status: Acute Plan 67 year old women with HTN, HLD, arthritis, DVT on apixaban admitted for BRBPR and now awaiting placement Painless BRBPR on admission. Resolved attributed to hemorrhoid, stercoral colitis or chronic colitis. Bleeding was self-limited and she refused endoscopy. check qweekly labs - 12/22 stable hx DVT continue apixaban HTN continue norvasc HLD continue statin Deep tissue injury of buttocks present on admission Wound Care following Bilateral Buttocks and Posterior Thighs - Off Load Pressure - Cleanse with PH balance spray or wipes, pat dry. Apply thin layer of Triad to wound bed - only pat and dab no scrub and rub when soiling occurs. Reapply thin layer PRN after each episode of incontinence. Morbid obesity. BMI 54.2 Discussed importance of weight management as this may be contributing to worsening of other comorbidities VTE ppx - apixaban dispo -need continued inpatient hospitalization for safe disposition STR recommended, case work aide arranging for safe placement Quality Stroke Does the patient have a stroke diagnosis?: No VTE Prior VTE?: No VTE Risk Level:: Medical - moderate - high VTE Device Contraindication: N/A - Device Ordered VTE Drug Contraindication: Treatment Not Indicated
[2023-12-26 15:36] VITALS: BP 114/66; PULSE 96; RESP 18; TEMP 36.5; O2SAT 94
--- NOTE | 2023-12-26 16:03 | MHC.CM.PN ---
per rounds pt ready for dc gricelda remains a proble cm has a facility that will accept her slava g clarification of paymen
[2023-12-26 19:38] VITALS: BP 114/67; PULSE 94; RESP 17; TEMP 36.6; O2SAT 97
[2023-12-26] MEDS: Atorvastatin Calcium 20 MG TABLET PO (21:25)
[2023-12-26] MEDS: Sennosides/Docusate Sodium TABLET 1 TAB PO (21:25)
[2023-12-27 03:39] VITALS: BP 131/70; PULSE 79; RESP 18; TEMP 36.1; O2SAT 96
[2023-12-27] MEDS: Omeprazole 20 MG CAPSULE.DR PO (06:04)
[2023-12-27 08:00] VITALS: BP 133/67; PULSE 72; RESP 16; TEMP 36.2; O2SAT 95
--- NOTE | 2023-12-27 09:13 | HO.PM.IMPN ---
Subjective Subjective Date of Service: 12/27/23 Interval History: seen and examined this morning follow up for placement no overnight events no complaints Review of Systems Review of Systems: Yes all other systems are reviewed and are negative Constitutional Constitutional: Denies chills and Denies fever(s) Cardiovascular Cardiovascular: Denies chest pain Gastrointestinal Gastrointestinal: Denies abdominal pain Physical Exam Vital Signs: Vital Signs: Last Vital Signs Temp 97.2 F 12/27/23 08:00 Pulse 72 12/27/23 08:00 Resp 16 12/27/23 08:00 BP 133/67 12/27/23 08:00 Pulse Ox 95 12/27/23 08:00 O2 Del Method Room Air 12/27/23 08:00 BMI result Body Mass Index 54.2 Appearing in no acute distress lung sounds are clear to auscultation heart regular rate rhythm, clear S1, S2 positive bowel sounds, abdomen is soft, nontender neuro patient is alert x3, no focal deficits Objective Data Active Medications Acetaminophen (Acetaminophen 325 Mg Tablet) 650 mg PO Q6H PRN PRN Reason: Pain, Mild (Pain Scale 1-3) Last Admin: 12/26/23 09:40 Dose: 650 mg Documented By: KATHRYN Al Hydroxide/Mg Hydroxide (Magnesium Hydrox/Alum Hydrox 30 Ml Oral.Susp) 30 ml PO Q4H PRN PRN Reason: Indigestion Amlodipine Besylate (Amlodipine Besylate 10 Mg Tablet) 10 mg PO DAILY [facility]; Protocol Last Admin: 12/26/23 09:41 Dose: 10 mg Documented By: KATHRYN Apixaban (Apixaban 5 Mg Tablet) 5 mg PO BID [facility] Last Admin: 12/26/23 21:25 Dose: 5 mg Documented By: SUZANNA Atorvastatin Calcium (Atorvastatin Calcium 20 Mg Tablet) 20 mg PO BEDTIME [facility] Last Admin: 12/26/23 21:25 Dose: 20 mg Documented By: SUZANNA Benzocaine (Throat Lozenge, Medicated Lozenge) 1 lozenge MUCOUS MEM Q2H PRN PRN Reason: Sore Throat Last Admin: 12/13/23 17:33 Dose: 1 lozenge Documented By: KELLY Bisacodyl (Bisacodyl 10 Mg Supp.Rect) 10 mg [place] DAILY PRN PRN Reason: Constipation Docusate Sodium (Docusate Sodium 100 Mg Capsule) 200 mg PO DAILY [facility] Last Admin: 12/26/23 09:41 Dose: 200 mg Documented By: KATHRYN Ferrous Sulfate (Ferrous Sulfate 324 Mg Tablet.) 324 mg PO DAILY [facility] Last Admin: 12/26/23 09:41 Dose: 324 mg Documented By: KATHRYN Guaifenesin/Dextromethorphan (Guaifenesin Dm 200/20/10 Ml 10 Ml Syrup) 10 ml PO Q6H PRN PRN Reason: cough Lidocaine (Lidocaine 4 % Patch Adh..Patch) 1 patch TRANSDERMA DAILY [facility]; Protocol Melatonin (Melatonin 3 Mg Tablet) 6 mg PO BEDTIME PRN PRN Reason: Insomnia Last Admin: 11/28/23 20:14 Dose: 6 mg Documented By: MARIA L Melatonin (Melatonin 3 Mg Tablet) 3 mg PO BEDTIME PRN PRN Reason: Insomnia Last Admin: 11/06/23 23:03 Dose: 3 mg Documented By: GIL Multivitamins/Vitamin C (Multivitamin Tablet) 1 tab PO DAILY [facility] Last Admin: 12/26/23 09:41 Dose: 1 tab Documented By: KATHRYN Omeprazole (Omeprazole 20 Mg Capsule.) 20 mg PO DAILY@0630 [facility] Last Admin: 12/27/23 06:04 Dose: 20 mg Documented By: SUZANNA Ondansetron HCl (Ondansetron Hcl 4 Mg/2 Ml Vial) 4 mg IVPUSH Q8H PRN PRN Reason: Nausea and Vomiting Polyethylene Glycol (Polyethylene Glycol 3350 17 Gm Powd.Pack) 17 gm PO DAILY [facility] Last Admin: 12/27/23 08:46 Dose: Not Given Documented By: KATHRYN Non-Admin Reason: Patient Refused Senna/Docusate Sodium (Sennosides/Docusate Sodium Tablet) 1 tab PO BEDTIME [facility] Last Admin: 12/26/23 21:25 Dose: 1 tab Documented By: SUZANNA Sodium Chloride (Sodium Chloride 0.65 % Nasal 44 Ml Sprbtl) 1 spray NOSTRIL-B Q1H PRN PRN Reason: Dry Nasal Passages Last Admin: 12/13/23 17:34 Dose: 1 spray Documented By: KELLY Tramadol HCl (Tramadol Hcl 50 Mg Tablet) 50 mg PO Q6H PRN PRN Reason: knee pain Vitamin D (Cholecalciferol (Vitamin D3) 25 Mcg Tablet) 25 mcg PO DAILY [facility] Last Admin: 12/26/23 09:41 Dose: 25 mcg Documented By: KATHRYN Zinc Sulfate (Zinc Sulfate 220 Mg Capsule) 220 mg PO DAILY [facility] Last Admin: 12/26/23 09:41 Dose: 220 mg Documented By: KATHRYN Labs 12/23/23 06:21 12/23/23 06:21 Assessment and Plan (1) Morbid obesity: Status: Acute Plan 67 year old women with HTN, HLD, arthritis, DVT on apixaban admitted for BRBPR and now awaiting placement Knee pain PRN tramadol lidocaine patch Painless BRBPR on admission. Resolved attributed to hemorrhoid, stercoral colitis or chronic colitis. Bleeding was self-limited and she refused endoscopy. check qweekly labs - 12/22 stable hx DVT continue apixaban HTN continue norvasc HLD continue statin Deep tissue injury of buttocks present on admission Wound Care following Bilateral Buttocks and Posterior Thighs - Off Load Pressure - Cleanse with PH balance spray or wipes, pat dry. Apply thin layer of Triad to wound bed - only pat and dab no scrub and rub when soiling occurs. Reapply thin layer PRN after each episode of incontinence. Morbid obesity. BMI 54.2 Discussed importance of weight management as this may be contributing to worsening of other comorbidities VTE ppx apixaban dispo -need continued inpatient hospitalization for safe disposition STR recommended, correctional casework specialist arranging for safe placement Quality Stroke Does the patient have a stroke diagnosis?: No VTE Prior VTE?: No VTE Risk Level:: Medical - moderate - high VTE Device Contraindication: N/A - Device Ordered VTE Drug Contraindication: Treatment Not Indicated
[2023-12-27] MEDS: Apixaban 5 MG TABLET PO ×2 (09:26→20:05)
[2023-12-27] MEDS: Lidocaine 4 % Patch ADH..PATCH 1 PATCH TRANSDERMA (09:26)
[2023-12-27] MEDS: traMADoL HCL 50 MG TABLET PO ×2 (09:26→17:40)
[2023-12-27] MEDS: Docusate Sodium 100 MG CAPSULE 200 MG PO (09:26)
[2023-12-27] MEDS: Ferrous Sulfate 324 MG TABLET.DR PO (09:26)
[2023-12-27] MEDS: Cholecalciferol (Vitamin D3) 25 MCG TABLET PO (09:26)
[2023-12-27] MEDS: Zinc Sulfate 220 MG CAPSULE PO (09:26)
[2023-12-27] MEDS: amLODIPine Besylate 10 MG TABLET PO (09:26)
[2023-12-27] MEDS: Multivitamin TABLET 1 TAB PO (09:26)
--- NOTE | 2023-12-27 11:45 | MHC.CM.PN ---
pt given [facility] notification of noncovered continued stay pt will file an appeal and is aware she will be responsible for hospitial bill of 1200/day we discussed her options pt feels that she will probably end up going home with her son next door
[2023-12-27 15:37] VITALS: BP 111/53; PULSE 93; RESP 16; TEMP 36.2; O2SAT 93
[2023-12-27 19:17] VITALS: BP 123/63; PULSE 100; RESP 17; TEMP 36.2; O2SAT 95
[2023-12-27] MEDS: Sennosides/Docusate Sodium TABLET 1 TAB PO (20:04)
[2023-12-27] MEDS: Atorvastatin Calcium 20 MG TABLET PO (20:04)
[2023-12-28] MEDS: Melatonin 3 MG TABLET 6 MG PO (02:43)
[2023-12-28 02:47] VITALS: BP 134/63; PULSE 84; RESP 18; TEMP 36.2; O2SAT 95
[2023-12-28] MEDS: Omeprazole 20 MG CAPSULE.DR PO (06:40)
--- NOTE | 2023-12-28 07:45 | HO.PM.IMPN ---
Subjective Subjective Date of Service: 12/28/23 Interval History: seen and examined this morning follow up for placement no overnight events no complaints Review of Systems Review of Systems: Yes all other systems are reviewed and are negative Constitutional Constitutional: Denies chills and Denies fever(s) Cardiovascular Cardiovascular: Denies chest pain Gastrointestinal Gastrointestinal: Denies abdominal pain Physical Exam Vital Signs: Vital Signs: Last Vital Signs Temp 97.1 F 12/28/23 02:47 Pulse 84 12/28/23 02:47 Resp 18 12/28/23 02:47 BP 134/63 12/28/23 02:47 Pulse Ox 95 12/28/23 02:47 O2 Del Method Room Air 12/28/23 02:47 BMI result Body Mass Index 54.2 alert and oriented Objective Data Active Medications Acetaminophen (Acetaminophen 325 Mg Tablet) 650 mg PO Q6H PRN PRN Reason: Pain, Mild (Pain Scale 1-3) Last Admin: 12/26/23 09:40 Dose: 650 mg Documented By: KATHRYN Al Hydroxide/Mg Hydroxide (Magnesium Hydrox/Alum Hydrox 30 Ml Oral.Susp) 30 ml PO Q4H PRN PRN Reason: Indigestion Amlodipine Besylate (Amlodipine Besylate 10 Mg Tablet) 10 mg PO DAILY [facility]; Protocol Last Admin: 12/27/23 09:26 Dose: 10 mg Documented By: KATHRYN Apixaban (Apixaban 5 Mg Tablet) 5 mg PO BID [facility] Last Admin: 12/27/23 20:05 Dose: 5 mg Documented By: KATHRYN Atorvastatin Calcium (Atorvastatin Calcium 20 Mg Tablet) 20 mg PO BEDTIME [facility] Last Admin: 12/27/23 20:04 Dose: 20 mg Documented By: KATHRYN Benzocaine (Throat Lozenge, Medicated Lozenge) 1 lozenge MUCOUS MEM Q2H PRN PRN Reason: Sore Throat Last Admin: 12/13/23 17:33 Dose: 1 lozenge Documented By: KELLY Bisacodyl (Bisacodyl 10 Mg Supp.Rect) 10 mg [place] DAILY PRN PRN Reason: Constipation Docusate Sodium (Docusate Sodium 100 Mg Capsule) 200 mg PO DAILY [facility] Last Admin: 12/27/23 09:26 Dose: 200 mg Documented By: KATHRYN Ferrous Sulfate (Ferrous Sulfate 324 Mg Tablet.) 324 mg PO DAILY [facility] Last Admin: 12/27/23 09:26 Dose: 324 mg Documented By: KATHRYN Guaifenesin/Dextromethorphan (Guaifenesin Dm 200/20/10 Ml 10 Ml Syrup) 10 ml PO Q6H PRN PRN Reason: cough Lidocaine (Lidocaine 4 % Patch Adh..Patch) 1 patch TRANSDERMA DAILY [facility]; Protocol Last Admin: 12/27/23 09:26 Dose: 1 patch Documented By: KATHRYN Melatonin (Melatonin 3 Mg Tablet) 6 mg PO BEDTIME PRN PRN Reason: Insomnia Last Admin: 12/28/23 02:43 Dose: 6 mg Documented By: MARIA L Melatonin (Melatonin 3 Mg Tablet) 3 mg PO BEDTIME PRN PRN Reason: Insomnia Last Admin: 11/06/23 23:03 Dose: 3 mg Documented By: GIL Multivitamins/Vitamin C (Multivitamin Tablet) 1 tab PO DAILY [facility] Last Admin: 12/27/23 09:26 Dose: 1 tab Documented By: KATHRYN Omeprazole (Omeprazole 20 Mg Capsule.) 20 mg PO DAILY@0630 [facility] Last Admin: 12/28/23 06:40 Dose: 20 mg Documented By: MARIA L Ondansetron HCl (Ondansetron Hcl 4 Mg/2 Ml Vial) 4 mg IVPUSH Q8H PRN PRN Reason: Nausea and Vomiting Polyethylene Glycol (Polyethylene Glycol 3350 17 Gm Powd.Pack) 17 gm PO DAILY [facility] Last Admin: 12/27/23 08:46 Dose: Not Given Documented By: KATHRYN Non-Admin Reason: Patient Refused Senna/Docusate Sodium (Sennosides/Docusate Sodium Tablet) 1 tab PO BEDTIME [facility] Last Admin: 12/27/23 20:04 Dose: 1 tab Documented By: KATHRYN Sodium Chloride (Sodium Chloride 0.65 % Nasal 44 Ml Sprbtl) 1 spray NOSTRIL-B Q1H PRN PRN Reason: Dry Nasal Passages Last Admin: 12/13/23 17:34 Dose: 1 spray Documented By: KELLY Tramadol HCl (Tramadol Hcl 50 Mg Tablet) 50 mg PO Q6H PRN PRN Reason: knee pain Last Admin: 12/27/23 17:40 Dose: 50 mg Documented By: KATHRYN Vitamin D (Cholecalciferol (Vitamin D3) 25 Mcg Tablet) 25 mcg PO DAILY [facility] Last Admin: 12/27/23 09:26 Dose: 25 mcg Documented By: KATHRYN Zinc Sulfate (Zinc Sulfate 220 Mg Capsule) 220 mg PO DAILY [facility] Last Admin: 12/27/23 09:26 Dose: 220 mg Documented By: KATHRYN Labs 12/23/23 06:21 12/23/23 06:21 Assessment and Plan (1) Morbid obesity: Status: Acute Plan 67 year old women with HTN, HLD, arthritis, DVT on apixaban admitted for BRBPR and now awaiting placement Knee pain chronic PRN tramadol lidocaine patch Painless BRBPR on admission. Resolved attributed to hemorrhoid, stercoral colitis or chronic colitis. Bleeding was self-limited and she refused endoscopy. check qweekly labs - 12/22 stable hx DVT continue apixaban HTN continue norvasc HLD continue statin Deep tissue injury of buttocks present on admission Wound Care following Bilateral Buttocks and Posterior Thighs - Off Load Pressure - Cleanse with PH balance spray or wipes, pat dry. Apply thin layer of Triad to wound bed - only pat and dab no scrub and rub when soiling occurs. Reapply thin layer PRN after each episode of incontinence. Morbid obesity. BMI 54.2 Discussed importance of weight management as this may be contributing to worsening of other comorbidities VTE ppx apixaban attending Dr. Mariscal dispo -need continued inpatient hospitalization for safe disposition STR recommended, case checker arranging for safe placement Quality Stroke Does the patient have a stroke diagnosis?: No VTE Prior VTE?: No VTE Risk Level:: Medical - moderate - high VTE Device Contraindication: N/A - Device Ordered VTE Drug Contraindication: Treatment Not Indicated
[2023-12-28 08:00] VITALS: BP 119/56; PULSE 75; RESP 18; TEMP 36.6; O2SAT 94
[2023-12-28] MEDS: Apixaban 5 MG TABLET PO ×2 (08:26→20:17)
[2023-12-28] MEDS: Docusate Sodium 100 MG CAPSULE 200 MG PO (08:26)
[2023-12-28] MEDS: Ferrous Sulfate 324 MG TABLET.DR PO (08:27)
[2023-12-28] MEDS: Zinc Sulfate 220 MG CAPSULE PO (08:27)
[2023-12-28] MEDS: traMADoL HCL 50 MG TABLET PO ×2 (08:27→20:17)
[2023-12-28] MEDS: amLODIPine Besylate 10 MG TABLET PO (08:27)
[2023-12-28] MEDS: Multivitamin TABLET 1 TAB PO (08:28)
[2023-12-28] MEDS: Cholecalciferol (Vitamin D3) 25 MCG TABLET PO (08:29)
[2023-12-28] MEDS: Lidocaine 4 % Patch ADH..PATCH 1 PATCH TRANSDERMA (08:29)
--- NOTE | 2023-12-28 12:24 | MHC.CM.PN ---
pt plans on going home on 12/29 by roger ,she says her sister gave her a name of a caio worker that she called and the worker visited her yesterday in the hospitial this worker was also going to call antoinette ,..pt spoke with another [facility] health corporate lawyer who said she would not come to the hospitil to see pt pt reports that she will continue to try to reach an animal rehabilitator when she goes home dc plan home by roger ,with antoinette and caio
[2023-12-28 15:09] VITALS: BP 119/62; PULSE 84; RESP 16; TEMP 36.3; O2SAT 93
[2023-12-28 19:09] VITALS: BP 116/55; PULSE 86; RESP 16; TEMP 36.4; O2SAT 97
[2023-12-28] MEDS: Sennosides/Docusate Sodium TABLET 1 TAB PO (20:17)
[2023-12-28] MEDS: Atorvastatin Calcium 20 MG TABLET PO (20:17)
[2023-12-29 04:00] VITALS: BP 132/75; PULSE 72; RESP 14; TEMP 36.6; O2SAT 96
[2023-12-29] MEDS: Omeprazole 20 MG CAPSULE.DR PO (06:05)
[2023-12-29 08:00] VITALS: BP 132/62; PULSE 78; RESP 18; TEMP 36.2; O2SAT 92
[2023-12-29] MEDS: traMADoL HCL 50 MG TABLET PO ×2 (09:11→20:58)
[2023-12-29] MEDS: Multivitamin TABLET 1 TAB PO (09:11)
[2023-12-29] MEDS: Docusate Sodium 100 MG CAPSULE 200 MG PO (09:11)
[2023-12-29] MEDS: Cholecalciferol (Vitamin D3) 25 MCG TABLET PO (09:11)
[2023-12-29] MEDS: Apixaban 5 MG TABLET PO ×2 (09:11→20:58)
[2023-12-29] MEDS: Zinc Sulfate 220 MG CAPSULE PO (09:12)
[2023-12-29] MEDS: Ferrous Sulfate 324 MG TABLET.DR PO (09:12)
[2023-12-29] MEDS: Lidocaine 4 % Patch ADH..PATCH 1 PATCH TRANSDERMA (09:12)
[2023-12-29] MEDS: amLODIPine Besylate 10 MG TABLET PO (09:12)
[2023-12-29 16:00] VITALS: BP 135/63; PULSE 75; RESP 18; TEMP 36.8; O2SAT 95
--- NOTE | 2023-12-29 16:02 | P.PNIM_ITS ---
Subjective Subjective Date of Service: 12/29/23 Interval History: seen and examined this morning follow up for placement no overnight events Review of Systems Review of Systems: Yes all other systems are reviewed and are negative Constitutional Constitutional: Denies chills and Denies fever(s) Cardiovascular Cardiovascular: Denies chest pain and Denies dyspnea Respiratory Respiratory: Denies dyspnea Gastrointestinal Gastrointestinal: Denies abdominal pain Physical Exam 2 Vital Signs: Vital Signs: Last Vital Signs Temp 97.2 F 12/29/23 08:00 Pulse 78 12/29/23 08:00 Resp 18 12/29/23 08:00 BP 132/62 12/29/23 08:00 Pulse Ox 92 12/29/23 08:00 O2 Del Method Room Air 12/29/23 08:00 BMI result Body Mass Index 54.2 Const: General: cooperative, comfortable, no acute distress, alert and awake Nutritional Appearance: obese Orientation/consciousness: patient oriented x3 Resp: Effort & Inspection: normal respiratory effort, able to speak in complete sentences, no respiratory distress and no use of accessory muscles A uscultation: clear to auscultation bilaterally Cardio: Rate: regular rate GI: Inspection: No distended Palpation (GI): Soft to palpation and nontender Neuro: Other: grossly nonfocal General: patient oriented x3, moves all extremities and CN's II-XI intact bilaterally Extrem: Other: chronic venous stasis changes lower extremities General: Yes no pedal edema Objective Data Active Medications Acetaminophen (Acetaminophen 325 Mg Tablet) 650 mg PO Q6H PRN PRN Reason: Pain, Mild (Pain Scale 1-3) Last Admin: 12/26/23 09:40 Dose: 650 mg Documented By: KATHRYN Al Hydroxide/Mg Hydroxide (Magnesium Hydrox/Alum Hydrox 30 Ml Oral.Susp) 30 ml PO Q4H PRN PRN Reason: Indigestion Amlodipine Besylate (Amlodipine Besylate 10 Mg Tablet) 10 mg PO DAILY [facility]; Protocol Last Admin: 12/29/23 09:12 Dose: 10 mg Documented By: ADDY Apixaban (Apixaban 5 Mg Tablet) 5 mg PO BID [facility] Last Admin: 12/29/23 09:11 Dose: 5 mg Documented By: ADDY Atorvastatin Calcium (Atorvastatin Calcium 20 Mg Tablet) 20 mg PO BEDTIME [facility] Last Admin: 12/28/23 20:17 Dose: 20 mg Documented By: ALAYNA Benzocaine (Throat Lozenge, Medicated Lozenge) 1 lozenge MUCOUS MEM Q2H PRN PRN Reason: Sore Throat Last Admin: 12/13/23 17:33 Dose: 1 lozenge Documented By: KELLY Bisacodyl (Bisacodyl 10 Mg Supp.Rect) 10 mg VT DAILY PRN PRN Reason: Constipation Docusate Sodium (Docusate Sodium 100 Mg Capsule) 200 mg PO DAILY [facility] Last Admin: 12/29/23 09:11 Dose: 200 mg Documented By: ADDY Ferrous Sulfate (Ferrous Sulfate 324 Mg Tablet.) 324 mg PO DAILY [facility] Last Admin: 12/29/23 09:12 Dose: 324 mg Documented By: DADY Guaifenesin/Dextromethorphan (Guaifenesin Dm 200/20/10 Ml 10 Ml Syrup) 10 ml PO Q6H PRN PRN Reason: cough Lidocaine (Lidocaine 4 % Patch Adh..Patch) 1 patch TRANSDERMA DAILY [facility]; Protocol Last Admin: 12/29/23 09:12 Dose: 1 patch Documented By: ADDY Melatonin (Melatonin 3 Mg Tablet) 6 mg PO BEDTIME PRN PRN Reason: Insomnia Last Admin: 12/28/23 02:43 Dose: 6 mg Documented By: MARIA L Melatonin (Melatonin 3 Mg Tablet) 3 mg PO BEDTIME PRN PRN Reason: Insomnia Last Admin: 11/06/23 23:03 Dose: 3 mg Documented By: GIL Multivitamins/Vitamin C (Multivitamin Tablet) 1 tab PO DAILY [facility] Last Admin: 12/29/23 09:11 Dose: 1 tab Documented By: ADDY Omeprazole (Omeprazole 20 Mg Capsule.) 20 mg PO DAILY@0630 [facility] Last Admin: 12/29/23 06:05 Dose: 20 mg Documented By: ALAYNA Ondansetron HCl (Ondansetron Hcl 4 Mg/2 Ml Vial) 4 mg IVPUSH Q8H PRN PRN Reason: Nausea and Vomiting Polyethylene Glycol (Polyethylene Glycol 3350 17 Gm Powd.Pack) 17 gm PO DAILY [facility] Last Admin: 12/29/23 09:27 Dose: Not Given Documented By: ADDY Non-Admin Reason: Patient Refused Senna/Docusate Sodium (Sennosides/Docusate Sodium Tablet) 1 tab PO BEDTIME [facility] Last Admin: 12/28/23 20:17 Dose: 1 tab Documented By: ALAYNA Sodium Chloride (Sodium Chloride 0.65 % Nasal 44 Ml Sprbtl) 1 spray NOSTRIL-B Q1H PRN PRN Reason: Dry Nasal Passages Last Admin: 12/13/23 17:34 Dose: 1 spray Documented By: KELLY Tramadol HCl (Tramadol Hcl 50 Mg Tablet) 50 mg PO Q6H PRN PRN Reason: knee pain Last Admin: 12/29/23 09:11 Dose: 50 mg Documented By: ADDY Vitamin D (Cholecalciferol (Vitamin D3) 25 Mcg Tablet) 25 mcg PO DAILY [facility] Last Admin: 12/29/23 09:11 Dose: 25 mcg Documented By: ADDY Zinc Sulfate (Zinc Sulfate 220 Mg Capsule) 220 mg PO DAILY [facility] Last Admin: 12/29/23 09:12 Dose: 220 mg Documented By: ADDY Labs 12/23/23 06:21 12/23/23 06:21 Assessment and Plan (1) Morbid obesity: Status: Acute Plan 67 year old women with HTN, HLD, arthritis, DVT on apixaban admitted for BRBPR and now awaiting placement Knee pain chronic PRN tramadol lidocaine patch Painless BRBPR on admission. Resolved attributed to hemorrhoid, stercoral colitis or chronic colitis. Bleeding was self-limited and she refused endoscopy. check qweekly labs - 12/22 stable hx DVT continue apixaban HTN continue norvasc HLD continue statin Deep tissue injury of buttocks present on admission Wound Care following Bilateral Buttocks and Posterior Thighs - Off Load Pressure - Cleanse with PH balance spray or wipes, pat dry. Apply thin layer of Triad to wound bed - only pat and dab no scrub and rub when soiling occurs. Reapply thin layer PRN after each episode of incontinence. Morbid obesity. BMI 54.2 Discussed importance of weight management as this may be contributing to worsening of other comorbidities VTE ppx apixaban attending Dr. Mariscal dispo -need continued inpatient hospitalization for safe disposition STR recommended, initially awaiting placement for LTC. now with plans to go home with services. Quality Stroke Does the patient have a stroke diagnosis?: No VTE Prior VTE?: No VTE Risk Level:: Medical - moderate - high VTE Device Contraindication: N/A - Device Ordered VTE Drug Contraindication: Treatment Not Indicated
[2023-12-29 20:14] VITALS: BP 138/70; PULSE 93; RESP 16; TEMP 36.3; O2SAT 96
[2023-12-29] MEDS: Sennosides/Docusate Sodium TABLET 1 TAB PO (20:58)
[2023-12-29] MEDS: Atorvastatin Calcium 20 MG TABLET PO (20:58)
[2023-12-30] MEDS: Omeprazole 20 MG CAPSULE.DR PO (06:01)
[2023-12-30 07:29] VITALS: BP 149/68; PULSE 72; RESP 18; TEMP 36.2; O2SAT 96
[2023-12-30] MEDS: Cholecalciferol (Vitamin D3) 25 MCG TABLET PO (08:50)
[2023-12-30] MEDS: Ferrous Sulfate 324 MG TABLET.DR PO (08:50)
[2023-12-30] MEDS: Lidocaine 4 % Patch ADH..PATCH 1 PATCH TRANSDERMA (08:50)
[2023-12-30] MEDS: Apixaban 5 MG TABLET PO (08:50)
[2023-12-30] MEDS: Docusate Sodium 100 MG CAPSULE 200 MG PO (08:50)
[2023-12-30] MEDS: amLODIPine Besylate 10 MG TABLET PO (08:50)
[2023-12-30] MEDS: Zinc Sulfate 220 MG CAPSULE PO (08:50)
[2023-12-30] MEDS: Multivitamin TABLET 1 TAB PO (08:50)
[2023-12-30] MEDS: traMADoL HCL 50 MG TABLET PO (08:50)
--- NOTE | 2023-12-30 11:07 | P.DS_ITS ---
DS: Providers Provider Date of Service: 12/30/23 Date of admission: 10/11/23 13:57 Date of discharge: 12/30/23 Primary care physician: Alycia Garg MD Consults: 10/10/23 01:03 Consult to Gastroenterology Routine Consulting Provider: Mariana Garcia Reason for consultation: GI bleed 10/11/23 09:43 Consult to Wound Care Routine Reason for consultation: DTI to buttocks 10/20/23 11:46 Consult to Orthopedics Routine Consulting Provider: [facility] Reason for consultation: OA rt knee depomedrol shot Has provider been notified: No Attending physician on discharge: Suleman Mariscal Discharging clinician: Paty Antonio DS: Diagnosis Discharge Diagnosis (1) Morbid obesity: Status: Acute DS: Summary Hospital Course Hospital Course: From H&P on the day of admission This is a 67-year-old female with pertinent history of essential hypertension, mixed hyperlipidemia, arthritis, DVT on Eliquis who was sent to the emergency department for evaluation of bright red blood per rectum. Patient states the staff at rehab facility noticed bright red blood in her stool and sent her to the ER. She was initially constipated and had 2 episodes of painless bright red blood per rectum. No abdominal pain. No fever or chills. States had a recent colonoscopy about a month ago at [facility]. No chest discomfort, palpitations, shortness of breath, changes in urinary habits. Patient is on Eliquis for DVT. In the emergency department, rectal examination with bright red blood Hospital course: Patient initially presented with Bright red blood per rectum that was attributed t hemorrhoid, stercoral colitis or chronic colitis. The Bleeding was self-limited and she was advised endoscopy but she refused. She did not require transfusion and her blood count has been stable despite being on Eliquis Rt Knee pain--due to arthritis and this is limiting activity and ambulation, she had the knee injected by surgery with no much impact, She is getting ultram for pain history of DVT to continue apixaban HTN --continue amlodipine HLD -continue statin Deep tissue injury of buttocks present on admission.. She was followed by wound care with the following Bilateral Buttocks and Posterior Thighs - Off Load Pressure - Cleanse with PH balance spray or wipes, pat dry. Apply thin layer of Triad to wound bed - only pat and dab no scrub and rub when soiling occurs. Reapply thin layer PRN after each episode of incontinence. Morbid obesity. BMI 54.2 Discussed importance of weight management as this may be contributing to worsening of other comorbidities Patient's hospitalization was prolonged due to insurance authorization as patient was initially planned to go to loan documentation specialist care. Patient is no longer agreeable to LTC and will be discharged home by ambulance with her son to assist as he lives next door to her. She initally failed to make progress working with physical therapy which is why LTC was initially planned. No further skilled PT is indicated by PT. She has been recommended to obtain equipment for home and will discharged home woth VNA services. Time Attestation Total time managing care of this patient today: 38 mintues. Discharge Coordination Time (in mins): 38 Quality: Safe Use of Opioids Does Pt have an Active Cancer Diagnosis on the Problem List?: No Quality: Stroke Does the patient have a stroke diagnosis?: No Physical Exam Vital Signs: Vital Signs: Last Vital Signs Temp 97.2 F 12/30/23 07:29 Pulse 72 12/30/23 07:29 Resp 18 12/30/23 07:29 BP 149/68 H 12/30/23 07:29 Pulse Ox 96 12/30/23 07:29 O2 Del Method Room Air 12/30/23 07:29 BMI result Body Mass Index 54.2 Const: General: cooperative, comfortable, no acute distress, alert and awake Nutritional Appearance: obese Orientation/consciousness: patient oriented x3 Resp: Effort & Inspection: normal respiratory effort, able to speak in complete sentences, no respiratory distress and no use of accessory muscles Auscultation: clear to auscultation bilaterally Cardio: Rate: regular rate GI: Inspection: No distended Palpation (GI): Soft to palpation and nontender Neuro: Other: grossly nonfocal General: patient oriented x3, moves all extremities and CN's II-XI intact bilaterally Extrem: Other: chronic venous stasis changes lower extremities General: Yes no pedal edema Discharge Plan Discharge Anticipated Discharge Date/Time: 12/30/23 13:00 Patient Disposition: Home Health Service Discharge Diagnosis: GI bleeding, Acute blood loss anemia, morbid obesity Referrals: Alycia Garg MD [Primary Care Provider] - 1 Week Discharge Medications: New ferrous sulfate 324 mg (65 mg iron) Tablet,Delayed Release (Dr/Ec) 324 mg PO DAILY Qty: 30 0RF tramadol 50 mg Tablet 50 mg PO Q12H PRN (Reason: knee pain) 30 Days Qty: 60 0RF docusate sodium [Colace] 100 mg capsule 200 mg PO DAILY Qty: 60 0RF omeprazole 20 mg capsule,delayed release(DR/EC) 20 mg PO DAILY Qty: 60 0RF Continued cholecalciferol (vitamin D3) [Vitamin D3] 25 mcg (1,000 unit) Tablet 25 mcg PO DAILY acetaminophen 325 mg Tablet 650 mg PO Q4-6H PRN (Reason: Fever Or Pain) loperamide 2 mg Tablet 2 mg PO Q6H PRN (Reason: Loose Stool) melatonin 3 mg Tablet 3 mg PO BEDTIME PRN (Reason: Insomnia) Triad Wound Dressing Paste 1 appl TOPICAL BID Rx Instructions: apply to buttocks Triad Wound Dressing Paste 1 appl TOPICAL DAILY PRN (Reason: Wound Care) zinc oxide 20 % Ointment 1 appl TOPICAL BID Rx Instructions: apply to buttocks magnesium hydroxide [Milk of Magnesia] 400 mg/5 mL Suspension 30 ml PO BEDTIME PRN (Reason: Constipation) Fleet Enema 19-7 gram/118 mL Enema 118 ml SD DAILY PRN (Reason: Constipation) multivitamin with minerals Tablet 1 tab PO DAILY omega 3-zlv-wsf-fish oil [Fish Oil] 1,000 mg (120 mg-180 mg) Capsule 1 cap PO TID Lactobacillus acidophilus 1 billion cell Capsule 1,000 mmu cells PO BID atorvastatin 20 mg tablet 20 mg PO BEDTIME 90 Days Qty: 90 0RF amlodipine 10 mg tablet 10 mg PO DAILY Qty: 60 0RF Eliquis 5 mg Tablet 5 mg PO BID Qty: 60 0RF albuterol sulfate 2.5 mg /3 mL (0.083 %) Solution For Nebulization 2.5 mg INHALATION Q4H PRN (Reason: Shortness Of Breath Or Wheezing) Qty: 75 0RF bisacodyl [Dulcolax (bisacodyl)] 10 mg Suppository 10 mg SD DAILY PRN (Reason: Constipation) Qty: 12 0RF zinc sulfate 50 mg zinc (220 mg) Capsule 200 mg PO DAILY 60 Days Qty: 240 0RF (DME) blood pressure monitor Kit See Rx Instructions .Route Qty: 1 0RF Rx Instructions: As directed Discontinued docusate sodium 100 mg Capsule 100 mg PO Q12H PRN (Reason: Constipation) tramadol 100 mg Tablet 100 mg PO BID Discharge Orders: Discharge Order (Routine); Ordered 12/30/23 Ordered By: Paty Antonio Diet: Advance to usual diet Activity on Discharge: As tolerated Stand Alone Forms: Patient Portal Discharge page Care Plan Goals: see below Health Concerns: gi bleeding anemia chronic decub ulcer Plan of Treatment: Decub ulcer management recommendation by wound nurse 1. Turn and Reposition every 2 hours and as needed for patient comfort.? Use pillows or wedges to support off loading positions. 2. Off Load all bony prominences with use of pillows and heel boots if needed.? Apply Preventative foams where needed. ? 3. Monitor for incontinence and moisture control, use barrier creams when needed for prevention and treatment. 4. Provide adequate and supplemental nutrition. 5. Continue low air loss mattress. 6. Bilateral Buttocks and Posterior Thighs - Off Load Pressure - Cleanse with PH balance spray or wipes, pat dry. ?Apply thin layer of Triad to wound bed - only pat and dab no scrub and rub when soiling occurs. Reapply thin layer PRN after each episode of incontinenc call to schedule follow up appointment with PCP Assessment: see above
--- NOTE | 2023-12-30 11:38 | P.F2F_ITS ---
Service Date Service Date: 12/30/23 Encounter Date of encounter: 12/30/23 Reasons for Services Signs and symptoms assessed: Needs longterm for wound care, medication management Reason for longterm: wound care (Bilateral Buttocks and Posterior Thighs - Off Load Pressure - Cleanse with PH balance spray or wipes, pat dry. Apply thin layer of Triad to wound bed - only pat and dab no scrub and rub when soiling occurs) and medication management MD Overseeing Care: Alycia Garg Homebound: Leaving the home is medically contraindicated at this time without the asist of a device and/or another person due th the listed conditions above and below. Reason homebound: leg weakness and pain with ambulation Certification: Based on the above findings, I certify that this patient is confined to the home and needs intermittent longterm care, physical therapy and/or speech therapy, or continues to need occupational therapy. The patient is under my care, and I have initiated the establishment of the plan of care. The patient will be followed by a physician who will periodically review the plan of care. Time Spent With Patient Time: Total time managing care of this patient today ____ minutes.
--- NOTE | 2023-12-30 11:49 | MHC.CM.PN ---
pt being dcd today at 1 to home with quique and resume of gss her residential case manager is yo courtney [phone] who was notified verbally that pt was being dcd neeru will contact pt on tuesday to schedule a visit , elder at risk was filed with gss form faxed .verbal given to hotline pt dcd by roger
== END 2023-12-30 14:08 | disposition home health service (06) | DRG 392 ==
LOC: HO.ED 10-10 01:19 → HO.EDOVER 10-10 01:32 → HO.IMC 10-11 07:14 → HO.S3 10-16 11:10
PROVIDERS: Family Medicine; Hospitalist; Internal Medicine; Nurse Practitioner Acute Care; Admitting Provider Student in an Organized Health Care Education/Training Program; Emergency Provider Emergency Medicine Emergency Medical Services; PCP Family Medicine Geriatric Medicine; Visit Provider Physician Assistant Medical
DX: K52.89 Other specified noninfective gastroenteritis and colitis (principal); Z68.43 Body mass index [BMI] 50.0-59.9, adult; K62.5 Hemorrhage of anus and rectum; E66.01 Morbid (severe) obesity due to excess calories; J06.9 Acute upper respiratory infection, unspecified; B97.29 Other coronavirus as the cause of diseases classified elsewhere; K59.00 Constipation, unspecified; L89.326 Pressure-induced deep tissue damage of left buttock; G47.33 Obstructive sleep apnea (adult) (pediatric); D62 Acute posthemorrhagic anemia; I87.8 Other specified disorders of veins; L89.316 Pressure-induced deep tissue damage of right buttock; K64.9 Unspecified hemorrhoids; M17.0 Bilateral primary osteoarthritis of knee; G89.29 Other chronic pain; L89.896 Pressure-induced deep tissue damage of other site; E78.2 Mixed hyperlipidemia; I10 Essential (primary) hypertension; Z20.822 Contact with and (suspected) exposure to COVID-19; Z71.3 Dietary counseling and surveillance; Z86.718 Personal history of other venous thrombosis and embolism; Z79.01 Long term (current) use of anticoagulants; Z79.899 Other long term (current) drug therapy
CPT/HCPCS: 36415; 74177; 80048; 80076; 82607; 82746; 83540; 84484; 85014; 85018; 85025; 85027; 85045; 85610; 86140; 86850; 86900; 86901; 87633; 93005; 97110; 97112; 97162; 97166; 97530; 97535; 99222; 99285; C9113; J7120; Q9967

== ENCOUNTER → 2023-10-09 23:46 | Outpatient (BNV) | payer OTHER, SELFPAY | PROVIDERS: Admitting Provider Student in an Organized Health Care Education/Training Program; Emergency Provider Emergency Medicine Emergency Medical Services; PCP Family Medicine Geriatric Medicine; Visit Provider Internal Medicine Cardiovascular Disease | DX: K62.5 Hemorrhage of anus and rectum (principal) | CPT/HCPCS: 93010 ==

== ENCOUNTER → 2023-10-10 00:05 | Outpatient (BNV) | payer OTHER, SELFPAY | PROVIDERS: Emergency Provider Emergency Medicine Emergency Medical Services; PCP Family Medicine Geriatric Medicine; Visit Provider Student in an Organized Health Care Education/Training Program | DX: E66.01 Morbid (severe) obesity due to excess calories (principal); Z68.43 Body mass index [BMI] 50.0-59.9, adult | CPT/HCPCS: 99222; 99231; 99232; 99233; 99239; 99499; G0180 ==

== ENCOUNTER → 2023-10-10 00:51 | Outpatient (BNV) | payer OTHER, SELFPAY | PROVIDERS: Admitting Provider Student in an Organized Health Care Education/Training Program; Emergency Provider Emergency Medicine Emergency Medical Services; PCP Family Medicine Geriatric Medicine; Visit Provider Internal Medicine Gastroenterology | DX: K62.5 Hemorrhage of anus and rectum (principal) | CPT/HCPCS: 99222 ==

== ENCOUNTER 2023-10-10 08:24 | Outpatient (REF) | payer OTHER, SELFPAY | END 2023-10-10 08:25 | disposition home or self-care (01) | LOC: HO.HOSX 08:24 | PROVIDERS: Visit Provider Physician Assistant | DX: Z13.89 Encounter for screening for other disorder (principal) ==

== ENCOUNTER 2023-10-11 13:57 | Outpatient (BNV) | payer OTHER, SELFPAY | END 2023-12-02 09:44 | PROVIDERS: Admitting Provider Student in an Organized Health Care Education/Training Program; Emergency Provider Emergency Medicine Emergency Medical Services; PCP Family Medicine Geriatric Medicine; Visit Provider Internal Medicine | DX: R07.9 Chest pain, unspecified (principal) | CPT/HCPCS: 93010 ==

== ENCOUNTER → 2023-10-11 13:57 | Outpatient (BNV) | payer OTHER, SELFPAY | PROVIDERS: Admitting Provider Student in an Organized Health Care Education/Training Program; Emergency Provider Emergency Medicine Emergency Medical Services; PCP Family Medicine Geriatric Medicine; Visit Provider Physician Assistant | DX: M17.0 Bilateral primary osteoarthritis of knee (principal) | CPT/HCPCS: 20610; 99222 ==